=== PATIENT | male | born 1950 | race Caucasian/White ===

== ENCOUNTER → 2018-07-02 08:25 | Outpatient (CLI) | payer MEDICARE, SELFPAY ==
--- NOTE | 2018-07-02 | DI.US.S_ITS ---
PROCEDURE: US ABDOMEN COMPLETE INDICATIONS: ABNORMAL LEVELS OF OTHER SERUM ENZYMES TECHNIQUE: Real-time scanning was performed of the abdominal and retroperitoneal organs, with image documentation. COMPARISON: None. FINDINGS: Liver: Liver is normal in size and homogeneous in echotexture, mildly hyperechoic consistent with fatty infiltration. There are several scattered cysts within the right and left lobe of the liver, simple in character, measuring 1.6 x 1.9 x 2.1 cm at the largest. Gallbladder: The gallbladder appears mildly wall thickened ranging from 3-5 mm. No tenderness or stones were seen. Biliary ducts: Intrahepatic bile ducts are non-dilated. Extrahepatic bile duct caliber measures 3.0 mm. Normal is 6-7 mm or less in diameter, or 10 mm or less post-cholecystectomy. Pancreas: Visualized portions of the pancreas are sonographically normal. Spleen: Spleen is normal in size and homogeneous in echotexture. Kidneys: Kidneys are normal in size and echotexture. Right kidney measures 13.2 cm long; left kidney measures 11.4 cm long. No hydronephrosis or nephrolithiasis. No solid masses. Several scattered simple appearing renal cortical cysts are incidentally noted. Aorta: Visualized aorta is normal in caliber at less than 3 cm. Iliacs: Proximal common iliac arteries are normal in caliber at less than 2.5 cm. IVC: Intrahepatic inferior vena cava is patent. Miscellaneous: No free abdominal fluid. IMPRESSION: Several scattered hepatic and renal cortical cysts are present, simple in character. Hyperechoic liver echotexture is present consistent with mild fatty infiltration. Note is made of mild gallbladder wall thickening but without associated gallstones or sludge, or tenderness. Chronic cholecystitis can produce this appearance. Depending on the clinical status it may be warranted to obtain nuclear medicine hepatobiliary scan with gallbladder ejection fraction as assessment for chronic cholecystitis. MR cholangiogram could be utilized if there is a clinical concern for common duct calculus without associated distention. Dictated by: Shelton Lee M.D. on 07/02/2018 at 11:41 Approved by: Shelton Lee M.D. on 07/02/2018 at 11:45
== END ==
PROVIDERS: Visit Provider Family Medicine
DX: R74.8 Abnormal levels of other serum enzymes (principal); K76.89 Other specified diseases of liver; N28.1 Cyst of kidney, acquired
CPT/HCPCS: 76700

== ENCOUNTER → 2019-04-05 10:46 | Outpatient (CLI) | payer MEDICARE, SELFPAY ==
--- NOTE | 2019-04-05 | DI.RAD.S_ITS ---
PROCEDURE: XR KNEE RT 3V INDICATIONS: R knee pain TECHNIQUE: 3 views of the knee were acquired. COMPARISON: None. FINDINGS: Bones: No fractures or dislocations. No suspicious bony lesions. Mild medial joint space narrowing. Scattered degenerative subchondral sclerosis and spurring. Mild lateral patellar tilt Soft tissues: Moderate joint effusion. No suspicious soft tissue calcifications. IMPRESSION: Mild degenerative joint disease Moderate joint effusion Dictated by: Nick Hopper M.D. on 04/05/2019 at 13:28 Approved by: Nick Hopper M.D. on 04/05/2019 at 13:29
== END ==
PROVIDERS: Visit Provider Family Medicine
DX: M25.561 Pain in right knee (principal); M17.11 Unilateral primary osteoarthritis, right knee; M25.461 Effusion, right knee
CPT/HCPCS: 73562

== ENCOUNTER → 2019-08-21 07:22 | Outpatient (CLI) | payer MEDICARE, SELFPAY ==
--- NOTE | 2019-08-21 | DI.MRI.S_ITS ---
PROCEDURE: MR KNEE RT WO CON INDICATIONS: Pain in right knee TECHNIQUE: Noncontrast sagittal PD fast spin echo and T2 fast spin echo with fat saturation, sagittal 3-D FLASH with fat saturation; coronal T1 spin echo and PD fast spin echo with fat saturation, and axial PD fast spin echo with fat saturation through the knee. COMPARISON: [facility], CR, XR KNEE RT 3V, 04/05/2019, 10:53. FINDINGS: Image quality: Excellent. Menisci: Ill-defined severely macerated medial meniscal tear involving the body and posterior horn. There is complete extrusion of the body and possible meniscal fragment within the medial gutter. Lateral meniscus intact. Cruciate ligaments: Anterior cruciate ligament appears intact. However there are some intrasubstance or periligamentous ganglion cyst suggestive of early mucoid degeneration. Posterior cruciate ligament appears intact. Medial structures: The medial collateral ligament appears intact. Semimembranosus tendon appears intact. Visualized portions of the pes anserinus tendons appear normal. No abnormal bursal fluid. Lateral structures: The lateral collateral ligament demonstrates thickening and intrasubstance signal change in keeping with low grade sprain, statistically chronic, although technically age indeterminate. Biceps femoris tendon appears intact. Popliteus tendon grossly unremarkable. Iliotibial band appears intact. Anterior structures: Quadriceps tendon intact. Medial and lateral patellofemoral ligaments intact. There is mild patellar tendinopathy. Prepatellar and superficial infrapatellar subcutaneous edema/fluid. Bones and cartilage: No focal marrow contusion or discrete low signal fracture line. Within the medial compartment, diffuse full-thickness loss of the femoral and tibial articular cartilage Within the lateral compartment, mild surface fraying of the femoral cartilage. Intrasubstance signal changes involving the central weightbearing tibial cartilage Within the patellofemoral compartment, diffuse surface fraying of the femoral trochlear and patellar cartilage Joint space: Trace joint effusion. Magallon's cyst measuring 4.3 cm and the cephalocaudad dimension. 1 cm loose body seen posterior to the popliteus. IMPRESSION: Macerated ill-defined medial meniscal tear involving the body and posterior horn as detailed above. Mild early cystic change involving and near the anterior cruciate ligament. The appearance raises the possibility of early mucoid degeneration. Degenerative joint disease, most pronounced within the medial compartment Magallon's cyst Trace joint effusion 1 cm loose body posterior to the popliteus tendon. Dictated by: Nick Hopper M.D. on 08/21/2019 at 10:31 Approved by: Nick Hopper M.D. on 08/21/2019 at 10:45
== END ==
PROVIDERS: Referring Provider Family Medicine; Visit Provider Family Medicine
DX: M25.561 Pain in right knee (principal); S83.241A Other tear of medial meniscus, current injury, right knee, initial encounter; M17.11 Unilateral primary osteoarthritis, right knee; M71.21 Synovial cyst of popliteal space [Baker], right knee
CPT/HCPCS: 73721

== ENCOUNTER 2021-06-21 11:05 | Inpatient (IN) | payer MEDICARE, SELFPAY ==
[2021-06-21] VITALS (20 sets, daily range): BP systolic 108–159; BP diastolic 63–88; PULSE 90–133; RESP 0–34; TEMP 36.3–37.2; O2SAT 90–99; BMI 37.5
--- NOTE | 2021-06-21 13:36 | ED_ITS ---
HPI - Recheck/Abnormal Lab/Rx <Alexander Soliman DO - Last Filed: 06/22/21 14:48> General Chief Complaint: Recheck/Abnormal Lab/Rx Stated Complaint: ETOH- can't swallow, double vision-sent [place] adam Time Seen by Provider: 06/21/21 11:07 Source: patient Mode of arrival: Ambulatory History of Present Illness HPI narrative: 70-year-old male former smoker with extensive history of alcohol abuse including upwards of 1/5 of liquor per day presents with his at the request of his primary care provider due to poor appetite, inability to swallow solids, fatigue, lack of energy over the past few days if not longer. He denies any chest pain but does feel short of breath. He has generalized abdominal pain without any obvious provocation or palliation. He has no complaints of change in bowel habit or frequency of urination, dysuria or urgency. He has had no fever or chills. He denies any headache, or blurred vision, denies any trauma. He denies any auditory, visual or tactile hallucinations. He last drank just prior to his arrival. He has gone through mild withdrawals in the past but has never had seizures. He denies any vomiting, no history of GI bleed and no dark stools Related Data Home Medications Medication Instructions Recorded Confirmed levothyroxine 75 mcg tablet 75 mcg PO QAM 06/21/21 06/21/21 simvastatin 40 mg tablet 40 mg PO BEDTIME 06/21/21 06/21/21 Allergies Allergy/AdvReac Type Severity Reaction Status Date / Time oxycodone AdvReac Unknown Verified 06/21/21 11:20 Review of Systems <DO Oli Reeder Last Filed: 06/22/21 14:48> Review of Systems Narrative: GENERAL: See HPI HEENT: See HPI RESPIRATORY: Denies dyspnea, cough, wheezing, hemoptysis, sputum. CARDIOVASCULAR: Denies chest pain, palpitations, orthopnea, edema, GASTROINTESTINAL: Denies nausea, vomiting, abdominal pain, diarrhea, constipation, melena. : Denies dysuria, frequency, incontinence, hematuria, urinary retention. MUSCULOSKELETAL: denies weakness, joint pain, or bony pain SKIN: Denies rash, skin lesions, or other NEUROLOGIC: See HPI PSYCHIATRIC: No concerning psychosocial issues. 12 point review of systems is negative except for those stated above Patient History <Alexander Soliman DO - Last Filed: 06/22/21 14:48> Social History household members: spouse Smoking Status: Former smoker alcohol intake: current Smoking Status: Former smoker alcohol intake frequency: 3 or more drinks per day Substance Use Type: does not use Exam <Alexander Soliman DO - Last Filed: 06/22/21 14:48> Narrative Exam Narrative: GENERAL: [70] year old patient appears stated age. Well-developed patient, in mild distress. Appears chronically ill, unwell HEAD: Atraumatic. Normocephalic. EYES: Pupils equal round and reactive. Extraocular motions intact. Mild scleral icterus No injection or drainage. ENT: Nose without bleeding, purulent drainage. Throat without erythema, tonsillar hypertrophy or exudate. Airway patent. NECK: Trachea midline. Non tender CARDIOVASCULAR: Regular rate and rhythm without murmurs, gallops, or rubs. RESPIRATORY: Clear to auscultation. Breath sounds equal bilaterally. No wheezes, rales, or rhonchi. GASTROINTESTINAL: Abdomen soft, non-tender, nondistended. EXTREMITIES: No edema or joint tenderness. BACK: Nontender without deformity or crepitance. No flank tenderness. NEURO: AOx3. SKIN: No rash or erythema of visible areas Initial Vital Signs Initial Vital Signs: Vital Signs Temperature 97.4 F L 06/21/21 11:15 Pulse Rate 90 06/21/21 11:15 Respiratory Rate 14 06/21/21 11:15 Blood Pressure 145/63 H 06/21/21 11:15 Pulse Oximetry 99 06/21/21 11:15 <Carlyn Schofield MD - Last Filed: 06/22/21 03:55> Initial Vital Signs Initial Vital Signs: Vital Signs Temperature 97.4 F L 06/21/21 11:15 Pulse Rate 90 06/21/21 11:15 Respiratory Rate 14 06/21/21 11:15 Blood Pressure 145/63 H 06/21/21 11:15 Pulse Oximetry 99 06/21/21 11:15 Course <Alexander Soliman DO - Last Filed: 06/22/21 14:48> Orders Ordered: Al Hydrox/Mg Hydrox/Simethicone (Mag Hydrox/Alum/Simeth 30 Ml Udc) 30 ml PO Q6HR PRN PRN Reason: Dyspepsia Atorvastatin Calcium (Atorvastatin 20 Mg Tablet) 20 mg PO BEDTIME [facility] Calcium Carbonate (Calcium Carbonate 500 Mg Tab) 1,000 mg PO Q4HR PRN PRN Reason: Dyspepsia Clonidine HCl (Clonidine 0.1 Mg Tablet) 0.1 mg PO NOW PRN PRN Reason: Alcohol Withdrawal Folic Acid (Folic Acid 1 Mg Tablet) 1 mg PO DAILY [facility] Last Admin: 06/22/21 09:16 Dose: Not Given Documented by: RAIMUNDO Haloperidol (Haloperidol 5 Mg/Ml Vial) 2 mg IV Q2HR PRN PRN Reason: Agitation Last Admin: 06/22/21 03:23 Dose: 2 mg Documented by: COLIN Sodium Chloride (Normal Saline 0.9%) 1,000 mls @ 150 mls/hr IV CONT [facility] Last Admin: 06/21/21 20:30 Dose: 150 mls/hr Documented by: MARS Levothyroxine Sodium (Levothyroxine 75 Mcg Tablet) 75 mcg PO 0600 [facility] Last Admin: 06/22/21 06:29 Dose: Not Given Documented by: COLIN Lorazepam (Lorazepam 2 Mg/Ml Inj) 0 mg IV CIWAPRN PRN; Protocol PRN Reason: Alcohol Withdrawal Last Admin: 06/22/21 09:14 Dose: 1 mg Documented by: Admin: 06/22/21 06:45 Dose: 2 mg Documented by: Admin: 06/22/21 02:44 Dose: 2 mg Documented by: Admin: 06/21/21 22:57 Dose: 2 mg Documented by: Admin: 06/21/21 22:23 Dose: 1 mg Documented by: DEANNA Multivitamins (Multivitamin 1 Tablet) 1 tab PO DAILY [facility] Last Admin: 06/22/21 09:16 Dose: Not Given Documented by: RAIMUNDO Naloxone HCl (Naloxone 0.4 Mg/Ml Vial) 0.2 mg IV Q2MIN PRN PRN Reason: Opiate Reversal Ondansetron HCl (Ondansetron 4 Mg/2 Ml Inj) 4 mg IV Q8HR PRN PRN Reason: Nausea And Vomiting Pantoprazole Sodium (Pantoprazole Dr 20 Mg Tablet) 20 mg PO 0600 [facility] Last Admin: 06/22/21 06:29 Dose: Not Given Documented by: COLIN Phenobarbital Sodium (Phenobarbital 130 Mg/Ml Vial) 130 mg IV Q8H [facility] Stop: 06/23/21 03:31 Last Admin: 06/22/21 11:31 Dose: 130 mg Documented by: RAIMUNDO Potassium Chloride (Potassium Chloride 20 Meq Tab) 40 meq PO Q6H [facility] Stop: 06/22/21 15:16 Last Admin: 06/22/21 13:00 Dose: Not Given Documented by: RAIMUNDO Thiamine HCl (Thiamine 100 Mg Tablet) 100 mg PO DAILY [facility] Stop: 06/25/21 09:01 Last Admin: 06/22/21 09:16 Dose: Not Given Documented by: RAIMUNDO Discontinued Medications Sodium Chloride (Normal Saline 0.9%) 1,000 mls @ 1,000 mls/hr IV BOLUS ONE Stop: 06/21/21 14:49 Last Infusion: 06/21/21 16:54 Dose: 0 mls/hr Documented by: Admin: 06/21/21 14:48 Dose: 1,000 mls/hr Documented by: ALONZO Thiamine HCl 200 mg/ Sodium (Chloride) 102 mls @ 408 mls/hr IV NOW ONE Stop: 06/21/21 13:51 Last Infusion: 06/21/21 15:46 Dose: 0 mls/hr Documented by: Admin: 06/21/21 14:47 Dose: 408 mls/hr Documented by: ALONZO Lorazepam (Lorazepam 2 Mg/Ml Inj) 4 mg IV NOW ONE Stop: 06/21/21 19:31 Last Admin: 06/21/21 19:33 Dose: 4 mg Documented by: RAJAT Lorazepam (Lorazepam 2 Mg/Ml Inj) 4 mg IV NOW ONE Stop: 06/22/21 00:06 Last Admin: 06/22/21 00:21 Dose: 4 mg Documented by: COLIN Lorazepam (Lorazepam 2 Mg/Ml Inj) 4 mg IV NOW ONE Stop: 06/22/21 03:15 Last Admin: 06/22/21 03:37 Dose: 4 mg Documented by: COLIN Lorazepam (Lorazepam 2 Mg/Ml Inj) 4 mg IV NOW ONE Stop: 06/22/21 05:01 Last Admin: 06/22/21 05:12 Dose: 4 mg Documented by: COLIN Non-Formulary Medication (Simvastatin) 40 mg PO BEDTIME EN Phenobarbital (Phenobarbital 65 Mg/Ml Vial) 130 mg IV NOW ONE Stop: 06/21/21 13:51 Last Admin: 06/21/21 14:48 Dose: 130 mg Documented by: ALONZO Phenobarbital (Phenobarbital 65 Mg/Ml Vial) 65 mg IV Q8H EN Stop: 06/23/21 03:31 Phenobarbital Sodium (Phenobarbital 130 Mg/Ml Vial) 130 mg IV NOW ONE Stop: 06/21/21 17:01 Last Admin: 06/21/21 17:01 Dose: 130 mg Documented by: ALONZO Vital Signs Vital signs: Vital Signs - 8 hr 06/21/21 20:00 Pulse Rate 123 H Respiratory Rate 29 H Blood Pressure 148/84 H Pulse Oximetry 95 <Carlyn Schofield MD - Last Filed: 06/22/21 03:55> Orders Ordered: Al Hydrox/Mg Hydrox/Simethicone (Mag Hydrox/Alum/Simeth 30 Ml Udc) 30 ml PO Q6HR PRN PRN Reason: Dyspepsia Atorvastatin Calcium (Atorvastatin 20 Mg Tablet) 20 mg PO BEDTIME [facility] Calcium Carbonate (Calcium Carbonate 500 Mg Tab) 1,000 mg PO Q4HR PRN PRN Reason: Dyspepsia Clonidine HCl (Clonidine 0.1 Mg Tablet) 0.1 mg PO NOW PRN PRN Reason: Alcohol Withdrawal Folic Acid (Folic Acid 1 Mg Tablet) 1 mg PO DAILY [facility] Last Admin: 06/22/21 09:16 Dose: Not Given Documented by: RAIMUNDO Haloperidol (Haloperidol 5 Mg/Ml Vial) 2 mg IV Q2HR PRN PRN Reason: Agitation Last Admin: 06/22/21 03:23 Dose: 2 mg Documented by: COLIN Sodium Chloride (Normal Saline 0.9%) 1,000 mls @ 150 mls/hr IV CONT [facility] Last Admin: 06/21/21 20:30 Dose: 150 mls/hr Documented by: MARS Levothyroxine Sodium (Levothyroxine 75 Mcg Tablet) 75 mcg PO 0600 [facility] Last Admin: 06/22/21 06:29 Dose: Not Given Documented by: COLIN Lorazepam (Lorazepam 2 Mg/Ml Inj) 0 mg IV CIWAPRN PRN; Protocol PRN Reason: Alcohol Withdrawal Last Admin: 06/22/21 09:14 Dose: 1 mg Documented by: Admin: 06/22/21 06:45 Dose: 2 mg Documented by: Admin: 06/22/21 02:44 Dose: 2 mg Documented by: Admin: 06/21/21 22:57 Dose: 2 mg Documented by: Admin: 06/21/21 22:23 Dose: 1 mg Documented by: DEANNA Multivitamins (Multivitamin 1 Tablet) 1 tab PO DAILY [facility] Last Admin: 06/22/21 09:16 Dose: Not Given Documented by: RAIMUNDO Naloxone HCl (Naloxone 0.4 Mg/Ml Vial) 0.2 mg IV Q2MIN PRN PRN Reason: Opiate Reversal Ondansetron HCl (Ondansetron 4 Mg/2 Ml Inj) 4 mg IV Q8HR PRN PRN Reason: Nausea And Vomiting Pantoprazole Sodium (Pantoprazole Dr 20 Mg Tablet) 20 mg PO 0600 [facility] Last Admin: 06/22/21 06:29 Dose: Not Given Documented by: COLIN Phenobarbital Sodium (Phenobarbital 130 Mg/Ml Vial) 130 mg IV Q8H [facility] Stop: 06/23/21 03:31 Last Admin: 06/22/21 11:31 Dose: 130 mg Documented by: RAIMUNDO Potassium Chloride (Potassium Chloride 20 Meq Tab) 40 meq PO Q6H EN Stop: 06/22/21 15:16 Last Admin: 06/22/21 13:00 Dose: Not Given Documented by: RAIMUNDO Thiamine HCl (Thiamine 100 Mg Tablet) 100 mg PO DAILY EN Stop: 06/25/21 09:01 Last Admin: 06/22/21 09:16 Dose: Not Given Documented by: RAIMUNDO Discontinued Medications Sodium Chloride (Normal Saline 0.9%) 1,000 mls @ 1,000 mls/hr IV BOLUS ONE Stop: 06/21/21 14:49 Last Infusion: 06/21/21 16:54 Dose: 0 mls/hr Documented by: Admin: 06/21/21 14:48 Dose: 1,000 mls/hr Documented by: ALONZO Thiamine HCl 200 mg/ Sodium (Chloride) 102 mls @ 408 mls/hr IV NOW ONE Stop: 06/21/21 13:51 Last Infusion: 06/21/21 15:46 Dose: 0 mls/hr Documented by: Admin: 06/21/21 14:47 Dose: 408 mls/hr Documented by: ALONZO Lorazepam (Lorazepam 2 Mg/Ml Inj) 4 mg IV NOW ONE Stop: 06/21/21 19:31 Last Admin: 06/21/21 19:33 Dose: 4 mg Documented by: RAJAT Lorazepam (Lorazepam 2 Mg/Ml Inj) 4 mg IV NOW ONE Stop: 06/22/21 00:06 Last Admin: 06/22/21 00:21 Dose: 4 mg Documented by: COLIN Lorazepam (Lorazepam 2 Mg/Ml Inj) 4 mg IV NOW ONE Stop: 06/22/21 03:15 Last Admin: 06/22/21 03:37 Dose: 4 mg Documented by: COLIN Lorazepam (Lorazepam 2 Mg/Ml Inj) 4 mg IV NOW ONE Stop: 06/22/21 05:01 Last Admin: 06/22/21 05:12 Dose: 4 mg Documented by: COLIN Non-Formulary Medication (Simvastatin) 40 mg PO BEDTIME [facility] Phenobarbital (Phenobarbital 65 Mg/Ml Vial) 130 mg IV NOW ONE Stop: 06/21/21 13:51 Last Admin: 06/21/21 14:48 Dose: 130 mg Documented by: ALONZO Phenobarbital (Phenobarbital 65 Mg/Ml Vial) 65 mg IV Q8H [facility] Stop: 06/23/21 03:31 Phenobarbital Sodium (Phenobarbital 130 Mg/Ml Vial) 130 mg IV NOW ONE Stop: 06/21/21 17:01 Last Admin: 06/21/21 17:01 Dose: 130 mg Documented by: ALONZO Vital Signs Vital signs: Vital Signs - 8 hr 06/21/21 20:00 Pulse Rate 123 H Respiratory Rate 29 H Blood Pressure 148/84 H Pulse Oximetry 95 MDM - Recheck/Abnormal Lab/Rx <Alexander Soliman DO - Last Filed: 06/22/21 14:48> Lab Data Result diagrams: 06/22/21 04:30 06/22/21 04:30 Labs: Lab Results 06/21/21 06/21/21 06/21/21 Range/Units 13:40 13:40 13:40 WBC 10.0 (4.5-11.0) X10^3/uL RBC 4.37 L (4.5-5.9) X10^6/uL Hgb 14.6 (13.5-17.5) g/dL Hct 42.2 (41-53) % MCV 96.6 (80-100) fL MCH 33.3 (26-34) PG MCHC 34.5 (30-36) % RDW 13.0 (11.6-14.8) % Plt Count 137 L (150-400) X10^3/uL Neut % (Auto) 72.5 (50-75) % Lymph % (Auto) 18.3 L (25-40) % Creek % (Auto) 8.4 (3-14) % Eos % (Auto) 0.3 L (2-4) % Baso % (Auto) 0.5 (0-2) % Neut # (Auto) 7200 H (1607-8778) /uL Lymph # (Auto) 1800 (1225-4839) /uL Creek # (Auto) 800 (0-900) /uL Eos # (Auto) 0 (0-450) /uL Baso # (Auto) 100 (0-100) /uL PT (10.1-12.7) SECONDS INR (0.9-1.3) VBG pH (7.33-7.43) VBG pCO2 (45-50) mmHg VBG pO2 (35-45) mmHg VBG HCO3 (23-28) mmol/L VBG Total CO2 (24-29) mmol/L VBG O2 Saturation (70-75) % VBG Base Excess (0-4) mmol/L Sodium 139 (137-145) mmol/L Potassium 4.0 (3.4-5.1) mmol/L Chloride 101 (98-107) mmol/L Carbon Dioxide 17 L (22-32) mmol/L BUN 5 L (9-20) mg/dL Creatinine 0.73 (0.66-1.25) mg/dL Estimated GFR > 60.0 (>60) mL/min BUN/Creatinine Ratio 6.8 (6-22) Glucose 104 (80-110) mg/dL Calcium 8.9 (8.4-10.2) mg/dL Total Bilirubin 1.2 (0.2-1.3) mg/dL AST 537 H (17-59) IU/L ALT 221 H (<50) IU/L Alkaline Phosphatase 127 H (38-126) U/L Total Creatine Kinase 614 H (55-170) U/L CK-MB (CK-2) 6.07 H (<2.37) ng/mL CK-MB (CK-2) Rel Index 1.0 L (1.5-5.0) % Troponin I < 0.012 (0.01-0.034) ng/mL Total Protein 8.3 H (6.3-8.2) g/dL Albumin 4.8 (3.5-5.0) g/dL Globulin 3.5 (1.7-4.1) g/dL Albumin/Globulin Ratio 1.4 (1.0-2.8) TSH 3.29 (0.47-4.68) uIU/mL Free T4 1.10 (0.78-2.19) ng/dL Urine RBC (0-5/HPF) Urine WBC (0-5/HPF) Ur Squamous Epith Cells (0-5/HPF) Urine Bacteria (None) Ur Culture Indicated? Salicylates < 1.0 (<20) mg/dL U Opiates 300ng/mL cut (Negative) Ur Oxycodone Screen (Negative) Urine Methadone Screen (Negative) Acetaminophen < 10 (10-30) ug/mL Ur Barbiturates Screen (Negative) U Tricyclic Antidepress (Negative) Ur Phencyclidine Scrn (Negative) Ur Amphetamines Screen (Negative) U Methamphetamines Scrn (Negative) Ur MDMA Scrn (Ecstasy) (Negative) U Benzodiazepines Scrn (Negative) Urine Cocaine Screen (Negative) U Marijuana (THC) Screen (Negative) Ethyl Alcohol 273 H ( - 10) mg/dL SARS-CoV-2 (PCR) (Negative) 06/21/21 06/21/21 06/21/21 Range/Units 13:40 13:40 15:19 WBC (4.5-11.0) X10^3/uL RBC (4.5-5.9) X10^6/uL Hgb (13.5-17.5) g/dL Hct (41-53) % MCV (80-100) fL MCH (26-34) PG MCHC (30-36) % RDW (11.6-14.8) % Plt Count (150-400) X10^3/uL Neut % (Auto) (50-75) % Lymph % (Auto) (25-40) % Creek % (Auto) (3-14) % Eos % (Auto) (2-4) % Baso % (Auto) (0-2) % Neut # (Auto) (7880-1829) /uL Lymph # (Auto) (1945-4236) /uL Creek # (Auto) (0-900) /uL Eos # (Auto) (0-450) /uL Baso # (Auto) (0-100) /uL PT 12.6 (10.1-12.7) SECONDS INR 1.1 (0.9-1.3) VBG pH (7.33-7.43) VBG pCO2 (45-50) mmHg VBG pO2 (35-45) mmHg VBG HCO3 (23-28) mmol/L VBG Total CO2 (24-29) mmol/L VBG O2 Saturation (70-75) % VBG Base Excess (0-4) mmol/L Sodium (137-145) mmol/L Potassium (3.4-5.1) mmol/L Chloride (98-107) mmol/L Carbon Dioxide (22-32) mmol/L BUN (9-20) mg/dL Creatinine (0.66-1.25) mg/dL Estimated GFR (>60) mL/min BUN/Creatinine Ratio (6-22) Glucose (80-110) mg/dL Calcium (8.4-10.2) mg/dL Total Bilirubin (0.2-1.3) mg/dL AST (17-59) IU/L ALT (<50) IU/L Alkaline Phosphatase (38-126) U/L Total Creatine Kinase (55-170) U/L CK-MB (CK-2) (<2.37) ng/mL CK-MB (CK-2) Rel Index (1.5-5.0) % Troponin I (0.01-0.034) ng/mL Total Protein (6.3-8.2) g/dL Albumin (3.5-5.0) g/dL Globulin (1.7-4.1) g/dL Albumin/Globulin Ratio (1.0-2.8) TSH (0.47-4.68) uIU/mL Free T4 (0.78-2.19) ng/dL Urine RBC (0-5/HPF) Urine WBC (0-5/HPF) Ur Squamous Epith Cells (0-5/HPF) Urine Bacteria (None) Ur Culture Indicated? Salicylates (<20) mg/dL U Opiates 300ng/mL cut Negative (Negative) Ur Oxycodone Screen Negative (Negative) Urine Methadone Screen Negative (Negative) Acetaminophen (10-30) ug/mL Ur Barbiturates Screen Negative (Negative) U Tricyclic Antidepress Negative (Negative) Ur Phencyclidine Scrn Negative (Negative) Ur Amphetamines Screen Negative (Negative) U Methamphetamines Scrn Negative (Negative) Ur MDMA Scrn (Ecstasy) Negative (Negative) U Benzodiazepines Scrn Negative (Negative) Urine Cocaine Screen Negative (Negative) U Marijuana (THC) Screen Negative (Negative) Ethyl Alcohol 272 H ( - 10) mg/dL SARS-CoV-2 (PCR) (Negative) 06/21/21 06/21/21 06/21/21 Range/Units 15:19 16:24 17:00 WBC (4.5-11.0) X10^3/uL RBC (4.5-5.9) X10^6/uL Hgb (13.5-17.5) g/dL Hct (41-53) % MCV (80-100) fL MCH (26-34) PG MCHC (30-36) % RDW (11.6-14.8) % Plt Count (150-400) X10^3/uL Neut % (Auto) (50-75) % Lymph % (Auto) (25-40) % Creek % (Auto) (3-14) % Eos % (Auto) (2-4) % Baso % (Auto) (0-2) % Neut # (Auto) (4313-8630) /uL Lymph # (Auto) (8146-2918) /uL Creek # (Auto) (0-900) /uL Eos # (Auto) (0-450) /uL Baso # (Auto) (0-100) /uL PT (10.1-12.7) SECONDS INR (0.9-1.3) VBG pH 7.44 H (7.33-7.43) VBG pCO2 31.3 L (45-50) mmHg VBG pO2 24 L (35-45) mmHg VBG HCO3 21 L (23-28) mmol/L VBG Total CO2 22 L (24-29) mmol/L VBG O2 Saturation 46 L (70-75) % VBG Base Excess -3.0 L (0-4) mmol/L Sodium (137-145) mmol/L Potassium (3.4-5.1) mmol/L Chloride (98-107) mmol/L Carbon Dioxide (22-32) mmol/L BUN (9-20) mg/dL Creatinine (0.66-1.25) mg/dL Estimated GFR (>60) mL/min BUN/Creatinine Ratio (6-22) Glucose (80-110) mg/dL Calcium (8.4-10.2) mg/dL Total Bilirubin (0.2-1.3) mg/dL AST (17-59) IU/L ALT (<50) IU/L Alkaline Phosphatase (38-126) U/L Total Creatine Kinase (55-170) U/L CK-MB (CK-2) (<2.37) ng/mL CK-MB (CK-2) Rel Index (1.5-5.0) % Troponin I (0.01-0.034) ng/mL Total Protein (6.3-8.2) g/dL Albumin (3.5-5.0) g/dL Globulin (1.7-4.1) g/dL Albumin/Globulin Ratio (1.0-2.8) TSH (0.47-4.68) uIU/mL Free T4 (0.78-2.19) ng/dL Urine RBC 1-5/hpf (0-5/HPF) Urine WBC 0-1/hpf (0-5/HPF) Ur Squamous Epith Cells None seen (0-5/HPF) Urine Bacteria None seen (None) Ur Culture Indicated? Cult not indicated Salicylates (<20) mg/dL U Opiates 300ng/mL cut (Negative) Ur Oxycodone Screen (Negative) Urine Methadone Screen (Negative) Acetaminophen (10-30) ug/mL Ur Barbiturates Screen (Negative) U Tricyclic Antidepress (Negative) Ur Phencyclidine Scrn (Negative) Ur Amphetamines Screen (Negative) U Methamphetamines Scrn (Negative) Ur MDMA Scrn (Ecstasy) (Negative) U Benzodiazepines Scrn (Negative) Urine Cocaine Screen (Negative) U Marijuana (THC) Screen (Negative) Ethyl Alcohol ( - 10) mg/dL SARS-CoV-2 (PCR) Negative (Negative) 06/21/21 Range/Units 18:31 WBC (4.5-11.0) X10^3/uL RBC (4.5-5.9) X10^6/uL Hgb (13.5-17.5) g/dL Hct (41-53) % MCV (80-100) fL MCH (26-34) PG MCHC (30-36) % RDW (11.6-14.8) % Plt Count (150-400) X10^3/uL Neut % (Auto) (50-75) % Lymph % (Auto) (25-40) % Creek % (Auto) (3-14) % Eos % (Auto) (2-4) % Baso % (Auto) (0-2) % Neut # (Auto) (4349-6478) /uL Lymph # (Auto) (9643-0975) /uL Creek # (Auto) (0-900) /uL Eos # (Auto) (0-450) /uL Baso # (Auto) (0-100) /uL PT (10.1-12.7) SECONDS INR (0.9-1.3) VBG pH (7.33-7.43) VBG pCO2 (45-50) mmHg VBG pO2 (35-45) mmHg VBG HCO3 (23-28) mmol/L VBG Total CO2 (24-29) mmol/L VBG O2 Saturation (70-75) % VBG Base Excess (0-4) mmol/L Sodium (137-145) mmol/L Potassium (3.4-5.1) mmol/L Chloride (98-107) mmol/L Carbon Dioxide (22-32) mmol/L BUN (9-20) mg/dL Creatinine (0.66-1.25) mg/dL Estimated GFR (>60) mL/min BUN/Creatinine Ratio (6-22) Glucose (80-110) mg/dL Calcium (8.4-10.2) mg/dL Total Bilirubin (0.2-1.3) mg/dL AST (17-59) IU/L ALT (<50) IU/L Alkaline Phosphatase (38-126) U/L Total Creatine Kinase (55-170) U/L CK-MB (CK-2) (<2.37) ng/mL CK-MB (CK-2) Rel Index (1.5-5.0) % Troponin I (0.01-0.034) ng/mL Total Protein (6.3-8.2) g/dL Albumin (3.5-5.0) g/dL Globulin (1.7-4.1) g/dL Albumin/Globulin Ratio (1.0-2.8) TSH (0.47-4.68) uIU/mL Free T4 (0.78-2.19) ng/dL Urine RBC (0-5/HPF) Urine WBC (0-5/HPF) Ur Squamous Epith Cells (0-5/HPF) Urine Bacteria (None) Ur Culture Indicated? Salicylates (<20) mg/dL U Opiates 300ng/mL cut (Negative) Ur Oxycodone Screen (Negative) Urine Methadone Screen (Negative) Acetaminophen (10-30) ug/mL Ur Barbiturates Screen (Negative) U Tricyclic Antidepress (Negative) Ur Phencyclidine Scrn (Negative) Ur Amphetamines Screen (Negative) U Methamphetamines Scrn (Negative) Ur MDMA Scrn (Ecstasy) (Negative) U Benzodiazepines Scrn (Negative) Urine Cocaine Screen (Negative) U Marijuana (THC) Screen (Negative) Ethyl Alcohol 155 H ( - 10) mg/dL SARS-CoV-2 (PCR) (Negative) Urine Dip Bedside Urine Glucose Negative Bedside Urine Bilirubin - Negative Bedside Urine Ketone +++ 80 Urine Specific Peridot 1.020 Bedside Urine Occult Blood + Bedside Urine pH 6.0 Bedside Urine Protein +/- 15 Bedside Urine Urobilinogen - Negative Bedside Urine Nitrite - Negative Bedside Urine Leukocytes - Negative Esterase Imaging Data CT Soft Tissue Neck: Radiologist's Impression: Chart Viewer Diagnostics Subcategory All Activity ??:?? All Time ??:?? All Subcategories Filter Laboratory Imaging Microbiology Pathology Blood Bank Tests Cardiovascular Other Specialty DATE TYPE STATUS REF RANGE/AUTHOR Hx Today 15:[address] Signed Prakash Archer Today 15:28 Chest/Abdomen/Pelvis CT Signed Nata Nevarez 08/21/19 00:00 Knee MRI Signed Nick Hopper 04/05/19 00:00 Knee X-Ray Signed Nick Hopper 07/02/18 00:00 Abdomen Ultrasound Signed Shelton Lee Joe Urbano [facility] 70, M?1950 MRN#? [id number] [facility],?[facility] ED??R05?? 170.18cm 108.862kg BMI: 37.6kg/m? Recheck/Abnormal Lab/Rx Acc#? [id number] Resus Status Not Ordered No Hx Avail Special Indicators No Data to Display Home Meds Prescription Monitoring Program No Data to Display Allergies oxycodone Problems No Data to Display Vital Signs Today 15:00 Pulse 95?H O2 Sat 98? Diagnostics Reports Joe Urbano??70??M??1950 ? Allergy/Adv: oxycodone Close Soft Tissue Neck CT (Signed) Prakash Archer - 06/21/21 Chest/Abdomen/Pelvis CT (Signed) Nata Nevarez - 06/21/21 Knee MRI (Signed) Nick Hopper - 08/21/19 Knee X-Ray (Signed) Nick Hopper - 04/05/19 Abdomen Ultrasound (Signed) Shelton Lee - 07/02/18 [place] [address] CT Scan Report Signed Patient: Joe Urbano MR#: [id number] : 1950 Acct:[id number] Age/Sex: 70 / M Date of Service: 06/21/21 Loc: ED Accession Number: [id number] ?? Procedure: CT soft tissue neck w con Ordering Provider: Alexander Soliman D.O. PROCEDURE:? CT SOFT TISSUE NECK W CON ? INDICATIONS:? cannot swallow, extensive ethanol, liver ? TECHNIQUE:? After the administration of intravenous contrast, 3.0 mm axial sections acquired from the sella to the aortic arch.? Additional oblique axial 3.0 mm sections acquired through the pharynx.? 3 mm thick coronal and sagittal reformats were generated.? For radiation dose reduction, the following was used:? automated exposure control.? ? COMPARISON:? [facility], CT, CT CHEST ABD PEL W CON, 06/21/2021, 15:37. ? FINDINGS:? Image quality:? Excellent.? ? Lymph nodes:? No enlarged lymph nodes seen throughout the neck.? ? Vessels:? Visualized vasculature appears patent.? ? Neck spaces:? In this patient with this given history, scrutiny is given to mucosal masses.? The oropharynx, nasopharynx, and pharynx demonstrate no mucosal lesions.? The vocal cords, false vocal cords, pyriform sinuses, epiglottis, vallecula, and tongue base all appear normal.? Extramucosal spaces appear unremarkable.? ? Glands:? The parotid and submandibular glands appear normal.? Thyroid gland demonstrates no significant abnormality.? ? Miscellaneous:? Visualized brain and orbits appear normal.? Lung apices appear clear.? Superficial soft tissues appear normal. ? Bones:? No suspicious bony lesions.? Visualized sinuses and mastoids appear unremarkable. ?Focal degenerative change is seen involving the C1-C2 interface anteriorly.? Milder degenerative changes are seen elsewhere.? IMPRESSION:? ? No imaging explanation is found for this patient's presenting symptoms.? ? No mucosal masses can be seen. ? If clinically appropriate, please consider a referral to speech pathology for further evaluation/treatment of the patient's presenting history of swallowing difficulties. ? Dictated by: Prakash Archer M.D. on 06/21/2021 at 14:56 ? ? Approved by: Prakash Archer M.D. on 06/21/2021 at 14:58 ? CT scan - abdomen/pelvis: Radiologist's Impression: Chart Viewer Diagnostics Subcategory All Activity ??:?? All Time ??:?? All Subcategories Filter Laboratory Imaging Microbiology Pathology Blood Bank Tests Cardiovascular Other Specialty DATE TYPE STATUS REF RANGE/AUTHOR Hx Today 15:[address] Signed Prakash Archer Today 15:28 Chest/Abdomen/Pelvis CT Signed Nata Nevarez 08/21/19 00:00 Knee MRI Signed Nick Hopper 04/05/19 00:00 Knee X-Ray Signed Nick Hopper 07/02/18 00:00 Abdomen Ultrasound Signed Shelton Lee [facility] 70, M?1950 MRN#? [id number] [facility] ER,?Main ED??R05?? 170.18cm 108.862kg BMI: 37.6kg/m? Recheck/Abnormal Lab/Rx Acc#? [id number] Resus Status Not Ordered No Hx Avail Special Indicators No Data to Display Home Meds Prescription Monitoring Program No Data to Display Allergies oxycodone Problems No Data to Display Vital Signs Today 15:00 Pulse 95?H O2 Sat 98? Diagnostics Reports Joe Urbano??70??M??1950 ? Allergy/Adv: oxycodone Close Soft Tissue Neck CT (Signed) Prakash Archer - 06/21/21 Chest/Abdomen/Pelvis CT (Signed) Nata Nevarez - 06/21/21 Knee MRI (Signed) Nick Hopper - 08/21/19 Knee X-Ray (Signed) Nick Hopper - 04/05/19 Abdomen Ultrasound (Signed) Shelton Lee - 07/02/18 Launch?[place] [address] CT Scan Report Signed Patient: Joe Urbano MR#: [id number] : 1950 Acct:[id number] Age/Sex: 70 / M Date of Service: 06/21/21 Loc: ED Accession Number: [id number] ?? Procedure: CT soft tissue neck w con Ordering Provider: Alexander Soliman D.O. PROCEDURE:? CT SOFT TISSUE NECK W CON ? INDICATIONS:? cannot swallow, extensive ethanol, liver ? TECHNIQUE:? After the administration of intravenous contrast, 3.0 mm axial sections acquired from the sella to the aortic arch.? Additional oblique axial 3.0 mm sections acquired through the pharynx.? 3 mm thick coronal and sagittal reformats were generated.? For radiation dose reduction, the following was used:? automated exposure control.? ? COMPARISON:? [facility], CT, CT CHEST ABD PEL W CON, 06/21/2021, 15:37. ? FINDINGS:? Image quality:? Excellent.? ? Lymph nodes:? No enlarged lymph nodes seen throughout the neck.? ? Vessels:? Visualized vasculature appears patent.? ? Neck spaces:? In this patient with this given history, scrutiny is given to mucosal masses.? The oropharynx, nasopharynx, and pharynx demonstrate no mucosal lesions.? The vocal cords, false vocal cords, pyriform sinuses, epiglottis, vallecula, and tongue base all appear normal.? Extramucosal spaces appear unremarkable.? ? Glands:? The parotid and submandibular glands appear normal.? Thyroid gland demonstrates no significant abnormality.? ? Miscellaneous:? Visualized brain and orbits appear normal.? Lung apices appear clear.? Superficial soft tissues appear normal. ? Bones:? No suspicious bony lesions.? Visualized sinuses and mastoids appear unremarkable. ?Focal degenerative change is seen involving the C1-C2 interface anteriorly.? Milder degenerative changes are seen elsewhere.? IMPRESSION:? ? No imaging explanation is found for this patient's presenting symptoms.? ? No mucosal masses can be seen. ? If clinically appropriate, please consider a referral to speech pathology for further evaluation/treatment of the patient's presenting history of swallowing difficulties. ? Dictated by: Prakash Archer M.D. on 06/21/2021 at 14:56 ? ? Approved by: Prakash Archer M.D. on 06/21/2021 at 14:58 ? [facility] Narrative Medical decision making narrative: Patient presents with fatigue, poor appetite and desire to quit drinking. Initially there was some concern that he hasn't been eating solids due to an obstructive process, but he states he just has a poor appetite. Imaging is very reassuring. He has no pain and is tolerating orals. Initially he has a very low CIWA scale, but is given Phenobarb 130mg given the likely evolution of withdrawals. Well into the visit he continues to wish to pursue alcohol cessation and is open to the idea of placement. [facility] has seen patient and there is an available bed tomorrow. 1900 - patient signed out to Dr. Schofield for management overnight. <Carlyn Schofield MD - Last Filed: 06/22/21 03:55> Lab Data Labs: Lab Results 06/21/21 06/21/21 06/21/21 Range/Units 13:40 13:40 13:40 WBC 10.0 (4.5-11.0) X10^3/uL RBC 4.37 L (4.5-5.9) X10^6/uL Hgb 14.6 (13.5-17.5) g/dL Hct 42.2 (41-53) % MCV 96.6 (80-100) fL MCH 33.3 (26-34) PG MCHC 34.5 (30-36) % RDW 13.0 (11.6-14.8) % Plt Count 137 L (150-400) X10^3/uL Neut % (Auto) 72.5 (50-75) % Lymph % (Auto) 18.3 L (25-40) % Creek % (Auto) 8.4 (3-14) % Eos % (Auto) 0.3 L (2-4) % Baso % (Auto) 0.5 (0-2) % Neut # (Auto) 7200 H (1729-1508) /uL Lymph # (Auto) 1800 (0949-1098) /uL Creek # (Auto) 800 (0-900) /uL Eos # (Auto) 0 (0-450) /uL Baso # (Auto) 100 (0-100) /uL PT (10.1-12.7) SECONDS INR (0.9-1.3) VBG pH (7.33-7.43) VBG pCO2 (45-50) mmHg VBG pO2 (35-45) mmHg VBG HCO3 (23-28) mmol/L VBG Total CO2 (24-29) mmol/L VBG O2 Saturation (70-75) % VBG Base Excess (0-4) mmol/L Sodium 139 (137-145) mmol/L Potassium 4.0 (3.4-5.1) mmol/L Chloride 101 (98-107) mmol/L Carbon Dioxide 17 L (22-32) mmol/L BUN 5 L (9-20) mg/dL Creatinine 0.73 (0.66-1.25) mg/dL Estimated GFR > 60.0 (>60) mL/min BUN/Creatinine Ratio 6.8 (6-22) Glucose 104 (80-110) mg/dL Calcium 8.9 (8.4-10.2) mg/dL Total Bilirubin 1.2 (0.2-1.3) mg/dL AST 537 H (17-59) IU/L ALT 221 H (<50) IU/L Alkaline Phosphatase 127 H (38-126) U/L Total Creatine Kinase 614 H (55-170) U/L CK-MB (CK-2) 6.07 H (<2.37) ng/mL CK-MB (CK-2) Rel Index 1.0 L (1.5-5.0) % Troponin I < 0.012 (0.01-0.034) ng/mL Total Protein 8.3 H (6.3-8.2) g/dL Albumin 4.8 (3.5-5.0) g/dL Globulin 3.5 (1.7-4.1) g/dL Albumin/Globulin Ratio 1.4 (1.0-2.8) TSH 3.29 (0.47-4.68) uIU/mL Free T4 1.10 (0.78-2.19) ng/dL Urine RBC (0-5/HPF) Urine WBC (0-5/HPF) Ur Squamous Epith Cells (0-5/HPF) Urine Bacteria (None) Ur Culture Indicated? Salicylates < 1.0 (<20) mg/dL U Opiates 300ng/mL cut (Negative) Ur Oxycodone Screen (Negative) Urine Methadone Screen (Negative) Acetaminophen < 10 (10-30) ug/mL Ur Barbiturates Screen (Negative) U Tricyclic Antidepress (Negative) Ur Phencyclidine Scrn (Negative) Ur Amphetamines Screen (Negative) U Methamphetamines Scrn (Negative) Ur MDMA Scrn (Ecstasy) (Negative) U Benzodiazepines Scrn (Negative) Urine Cocaine Screen (Negative) U Marijuana (THC) Screen (Negative) Ethyl Alcohol 273 H ( - 10) mg/dL SARS-CoV-2 (PCR) (Negative) 06/21/21 06/21/21 06/21/21 Range/Units 13:40 13:40 15:19 WBC (4.5-11.0) X10^3/uL RBC (4.5-5.9) X10^6/uL Hgb (13.5-17.5) g/dL Hct (41-53) % MCV (80-100) fL MCH (26-34) PG MCHC (30-36) % RDW (11.6-14.8) % Plt Count (150-400) X10^3/uL Neut % (Auto) (50-75) % Lymph % (Auto) (25-40) % Creek % (Auto) (3-14) % Eos % (Auto) (2-4) % Baso % (Auto) (0-2) % Neut # (Auto) (2060-6385) /uL Lymph # (Auto) (5290-5261) /uL Creek # (Auto) (0-900) /uL Eos # (Auto) (0-450) /uL Baso # (Auto) (0-100) /uL PT 12.6 (10.1-12.7) SECONDS INR 1.1 (0.9-1.3) VBG pH (7.33-7.43) VBG pCO2 (45-50) mmHg VBG pO2 (35-45) mmHg VBG HCO3 (23-28) mmol/L VBG Total CO2 (24-29) mmol/L VBG O2 Saturation (70-75) % VBG Base Excess (0-4) mmol/L Sodium (137-145) mmol/L Potassium (3.4-5.1) mmol/L Chloride (98-107) mmol/L Carbon Dioxide (22-32) mmol/L BUN (9-20) mg/dL Creatinine (0.66-1.25) mg/dL Estimated GFR (>60) mL/min BUN/Creatinine Ratio (6-22) Glucose (80-110) mg/dL Calcium (8.4-10.2) mg/dL Total Bilirubin (0.2-1.3) mg/dL AST (17-59) IU/L ALT (<50) IU/L Alkaline Phosphatase (38-126) U/L Total Creatine Kinase (55-170) U/L CK-MB (CK-2) (<2.37) ng/mL CK-MB (CK-2) Rel Index (1.5-5.0) % Troponin I (0.01-0.034) ng/mL Total Protein (6.3-8.2) g/dL Albumin (3.5-5.0) g/dL Globulin (1.7-4.1) g/dL Albumin/Globulin Ratio (1.0-2.8) TSH (0.47-4.68) uIU/mL Free T4 (0.78-2.19) ng/dL Urine RBC (0-5/HPF) Urine WBC (0-5/HPF) Ur Squamous Epith Cells (0-5/HPF) Urine Bacteria (None) Ur Culture Indicated? Salicylates (<20) mg/dL U Opiates 300ng/mL cut Negative (Negative) Ur Oxycodone Screen Negative (Negative) Urine Methadone Screen Negative (Negative) Acetaminophen (10-30) ug/mL Ur Barbiturates Screen Negative (Negative) U Tricyclic Antidepress Negative (Negative) Ur Phencyclidine Scrn Negative (Negative) Ur Amphetamines Screen Negative (Negative) U Methamphetamines Scrn Negative (Negative) Ur MDMA Scrn (Ecstasy) Negative (Negative) U Benzodiazepines Scrn Negative (Negative) Urine Cocaine Screen Negative (Negative) U Marijuana (THC) Screen Negative (Negative) Ethyl Alcohol 272 H ( - 10) mg/dL SARS-CoV-2 (PCR) (Negative) 06/21/21 06/21/21 06/21/21 Range/Units 15:19 16:24 17:00 WBC (4.5-11.0) X10^3/uL RBC (4.5-5.9) X10^6/uL Hgb (13.5-17.5) g/dL Hct (41-53) % MCV (80-100) fL MCH (26-34) PG MCHC (30-36) % RDW (11.6-14.8) % Plt Count (150-400) X10^3/uL Neut % (Auto) (50-75) % Lymph % (Auto) (25-40) % Creek % (Auto) (3-14) % Eos % (Auto) (2-4) % Baso % (Auto) (0-2) % Neut # (Auto) (8680-9833) /uL Lymph # (Auto) (0117-1305) /uL Creek # (Auto) (0-900) /uL Eos # (Auto) (0-450) /uL Baso # (Auto) (0-100) /uL PT (10.1-12.7) SECONDS INR (0.9-1.3) VBG pH 7.44 H (7.33-7.43) VBG pCO2 31.3 L (45-50) mmHg VBG pO2 24 L (35-45) mmHg VBG HCO3 21 L (23-28) mmol/L VBG Total CO2 22 L (24-29) mmol/L VBG O2 Saturation 46 L (70-75) % VBG Base Excess -3.0 L (0-4) mmol/L Sodium (137-145) mmol/L Potassium (3.4-5.1) mmol/L Chloride (98-107) mmol/L Carbon Dioxide (22-32) mmol/L BUN (9-20) mg/dL Creatinine (0.66-1.25) mg/dL Estimated GFR (>60) mL/min BUN/Creatinine Ratio (6-22) Glucose (80-110) mg/dL Calcium (8.4-10.2) mg/dL Total Bilirubin (0.2-1.3) mg/dL AST (17-59) IU/L ALT (<50) IU/L Alkaline Phosphatase (38-126) U/L Total Creatine Kinase (55-170) U/L CK-MB (CK-2) (<2.37) ng/mL CK-MB (CK-2) Rel Index (1.5-5.0) % Troponin I (0.01-0.034) ng/mL Total Protein (6.3-8.2) g/dL Albumin (3.5-5.0) g/dL Globulin (1.7-4.1) g/dL Albumin/Globulin Ratio (1.0-2.8) TSH (0.47-4.68) uIU/mL Free T4 (0.78-2.19) ng/dL Urine RBC 1-5/hpf (0-5/HPF) Urine WBC 0-1/hpf (0-5/HPF) Ur Squamous Epith Cells None seen (0-5/HPF) Urine Bacteria None seen (None) Ur Culture Indicated? Cult not indicated Salicylates (<20) mg/dL U Opiates 300ng/mL cut (Negative) Ur Oxycodone Screen (Negative) Urine Methadone Screen (Negative) Acetaminophen (10-30) ug/mL Ur Barbiturates Screen (Negative) U Tricyclic Antidepress (Negative) Ur Phencyclidine Scrn (Negative) Ur Amphetamines Screen (Negative) U Methamphetamines Scrn (Negative) Ur MDMA Scrn (Ecstasy) (Negative) U Benzodiazepines Scrn (Negative) Urine Cocaine Screen (Negative) U Marijuana (THC) Screen (Negative) Ethyl Alcohol ( - 10) mg/dL SARS-CoV-2 (PCR) Negative (Negative) 06/21/21 Range/Units 18:31 WBC (4.5-11.0) X10^3/uL RBC (4.5-5.9) X10^6/uL Hgb (13.5-17.5) g/dL Hct (41-53) % MCV (80-100) fL MCH (26-34) PG MCHC (30-36) % RDW (11.6-14.8) % Plt Count (150-400) X10^3/uL Neut % (Auto) (50-75) % Lymph % (Auto) (25-40) % Creek % (Auto) (3-14) % Eos % (Auto) (2-4) % Baso % (Auto) (0-2) % Neut # (Auto) (5134-9339) /uL Lymph # (Auto) (1376-0262) /uL Creek # (Auto) (0-900) /uL Eos # (Auto) (0-450) /uL Baso # (Auto) (0-100) /uL PT (10.1-12.7) SECONDS INR (0.9-1.3) VBG pH (7.33-7.43) VBG pCO2 (45-50) mmHg VBG pO2 (35-45) mmHg VBG HCO3 (23-28) mmol/L VBG Total CO2 (24-29) mmol/L VBG O2 Saturation (70-75) % VBG Base Excess (0-4) mmol/L Sodium (137-145) mmol/L Potassium (3.4-5.1) mmol/L Chloride (98-107) mmol/L Carbon Dioxide (22-32) mmol/L BUN (9-20) mg/dL Creatinine (0.66-1.25) mg/dL Estimated GFR (>60) mL/min BUN/Creatinine Ratio (6-22) Glucose (80-110) mg/dL Calcium (8.4-10.2) mg/dL Total Bilirubin (0.2-1.3) mg/dL AST (17-59) IU/L ALT (<50) IU/L Alkaline Phosphatase (38-126) U/L Total Creatine Kinase (55-170) U/L CK-MB (CK-2) (<2.37) ng/mL CK-MB (CK-2) Rel Index (1.5-5.0) % Troponin I (0.01-0.034) ng/mL Total Protein (6.3-8.2) g/dL Albumin (3.5-5.0) g/dL Globulin (1.7-4.1) g/dL Albumin/Globulin Ratio (1.0-2.8) TSH (0.47-4.68) uIU/mL Free T4 (0.78-2.19) ng/dL Urine RBC (0-5/HPF) Urine WBC (0-5/HPF) Ur Squamous Epith Cells (0-5/HPF) Urine Bacteria (None) Ur Culture Indicated? Salicylates (<20) mg/dL U Opiates 300ng/mL cut (Negative) Ur Oxycodone Screen (Negative) Urine Methadone Screen (Negative) Acetaminophen (10-30) ug/mL Ur Barbiturates Screen (Negative) U Tricyclic Antidepress (Negative) Ur Phencyclidine Scrn (Negative) Ur Amphetamines Screen (Negative) U Methamphetamines Scrn (Negative) Ur MDMA Scrn (Ecstasy) (Negative) U Benzodiazepines Scrn (Negative) Urine Cocaine Screen (Negative) U Marijuana (THC) Screen (Negative) Ethyl Alcohol 155 H ( - 10) mg/dL SARS-CoV-2 (PCR) (Negative) Urine Dip Bedside Urine Glucose Negative Bedside Urine Bilirubin - Negative Bedside Urine Ketone +++ 80 Urine Specific Peridot 1.020 Bedside Urine Occult Blood + Bedside Urine pH 6.0 Bedside Urine Protein +/- 15 Bedside Urine Urobilinogen - Negative Bedside Urine Nitrite - Negative Bedside Urine Leukocytes - Negative Esterase MDM Narrative Medical decision making narrative: Patient presents with fatigue, poor appetite and desire to quit drinking. Initially there was some concern that he hasn't been eating solids due to an obstructive process, but he states he just has a poor appetite. Imaging is very reassuring. He has no pain and is tolerating orals. Initially he has a very low CIWA scale, but is given Phenobarb 130mg given the likely evolution of withdrawals. Well into the visit he continues to wish to pursue alcohol cessation and is open to the idea of placement. [facility] has seen patient and there is an available bed tomorrow. 1900 - patient signed out to Dr. Schofield for management overnight. 730pm ETOH 155, total of 260 mg IV phenobarb. CIWA currently at 9. Concern for more severe withdrawal and need for hospitalization. Will discuss with hospitalist and patient. Six years ago the patient did need an inpatient stay for alcohol detox. He is drinking much more alcohol at this point. Again, having significant withdrawal symptoms despite high levels of benzos and phenobarbital and alcohol level still elevated at 155. Care is reviewed with Dr. Zapata to admit the patient to the hospitalist service. Discharge Plan Departure Patient Disposition: Admitted As Inpatient Clinical Impression: Alcohol dependence, Acute alcoholic hepatitis Admit Date/Time: 06/21/21 20:24 Admit Provider: Sánchez Zapata
[2021-06-21 13:49] LABS: Add Manual Diff / Slide Review NO; Basophils Absolute Auto 100 /uL (0-100); Basophils Percent Auto 0.5 % (0-2); Eosinophils Absolute Auto 0 /uL (0-450); Eosinophils Percent Auto 0.3 % (2-4); Hematocrit 42.2 % (41-53); Hemoglobin 14.6 g/dL (13.5-17.5); Lymphocytes Absolute Auto 1800 /uL (1100-4500); Lymphocytes Percent Auto 18.3 % (25-40); Mean Corpuscular HGB Conc 34.5 % (30-36); Mean Corpuscular Hemoglobin 33.3 PG (26-34); Mean Corpuscular Volume 96.6 fL (80-100); Monocytes Absolute Auto 800 /uL (0-900); Monocytes Percent Auto 8.4 % (3-14); Neutrophils Absolute Auto 7200 /uL (1500-7000); Neutrophils Percent Auto 72.5 % (50-75); Platelet Count 137 X10^3/uL (150-400); Red Blood Cell Count 4.37 X10^6/uL (4.5-5.9)
--- NOTE | 2021-06-21 13:49 | PC.NURSE ---
Patient reports increased alcohol consumption for months now, up to drink a 5th a day. He states it was originally to cope with back pain but is now out of control. Reports swallowing difficulty to where he has not been eating, only drinking and also some blurry vision the last few weeks. States has been not leaving couch since last /monday and not eating for the same amount of time. Sent here by PCP today. Is currently intoxicated.
[2021-06-21 14:03] LABS: Acetaminophen < 10 ug/mL (10-30); Alanine Aminotransferase 221 IU/L (<50); Albumin 4.8 g/dL (3.5-5.0); Albumin Globulin Ratio 1.4 (1.0-2.8); Alkaline Phosphatase 127 U/L (38-126); Aspartate Aminotransferase 537 IU/L (17-59); BUN Creatinine Ratio 6.8 (6-22); Bilirubin Total 1.2 mg/dL (0.2-1.3); Blood Urea Nitrogen 5 mg/dL (9-20); Calcium 8.9 mg/dL (8.4-10.2); Carbon Dioxide 17 mmol/L (22-32); Chloride 101 mmol/L (98-107); Creatine Kinase 614 U/L (55-170); Estimated Glomerular Filt Rate > 60.0 mL/min (>60); Ethanol (ETOH) 273 mg/dL; Globulin 3.5 g/dL (1.7-4.1); Glucose 104 mg/dL (80-110); HEMOLYSIS < 15 (0-50); Salicylate < 1.0 mg/dL (<20); Sodium 139 mmol/L (137-145); Total Protein 8.3 g/dL (6.3-8.2)
[2021-06-21 14:08] LABS: INR 1.1 (0.9-1.3); Prothrombin Time 12.6 SECONDS (10.1-12.7)
[2021-06-21 14:13] LABS: Troponin I < 0.012 ng/mL (0.01-0.034)
[2021-06-21 14:17] LABS: Creatine Kinase MB 6.07 ng/mL (<2.37)
[2021-06-21 14:33] LABS: Thyroid Stimulating Hormone 3.29 uIU/mL (0.47-4.68)
[2021-06-21] MEDS: THIAMINE 200 MG in SODIUM CHLORIDE 0.9% 100 ML 408 ML IV (14:47)
[2021-06-21] MEDS: PHENobarbital 65 MG/ML VIAL 130 MG IV (14:48)
[2021-06-21] MEDS: SODIUM CHLORIDE 0.9% 1,000 ML 1000 ML IV (14:48)
--- NOTE | 2021-06-21 15:28 | DI.CT.S_ITS ---
PROCEDURE: CT CHEST ABD PEL W CON INDICATIONS: abdominal pain, distension, extensive alcohol history TECHNIQUE: After the administration of oral and intravenous contrast, axial sections acquired from the supraclavicular neck to the pubic symphysis. Coronal and sagittal reformats were performed. For radiation dose reduction, the following was used: automated exposure control, adjustment of mA and/or kV according to patient size. COMPARISON:[facility], CT, CT SOFT TISSUE NECK W CON, 06/21/2021, 15:37. FINDINGS: Image quality: Excellent. CHEST: Lower Neck: No enlarged lymph nodes. Thyroid: Within normal limits. Axillae: No enlarged lymph nodes. Chest Wall: Unremarkable. Lungs and Airways: No consolidation or suspicious nodules. Pleura: No pneumothorax or pleural effusions. Heart: Heart size is normal. No pericardial effusion. Thoracic Vessels: The aorta and pulmonary arteries demonstrate normal size. Mediastinum and Caro: No enlarged lymph nodes. Esophagus: No wall thickening. No hiatal hernia. ABDOMEN: Liver: Liver is enlarged measuring 19.9 cm with significant diffuse steatosis. Gallbladder: Removed. Biliary ducts: Unremarkable. Pancreas: There is a very minimal questionable appearance of peripancreatic stranding adjacent to the pancreatic head. Spleen: Unremarkable. Adrenal Glands: Unremarkable. Kidneys and Ureters: Bilateral low-attenuation renal foci are present. There is no obstruction. Stomach and Bowel: Stomach, small bowel loops, and colon are nonobstructive. There is a very minimal questionable appearance of Char duodenal stranding within the duodenal C-loop. There is appearance of a small diverticulum. Peritoneum: No abnormal intraperitoneal fluid. No free air. Ventral Wall: No hernia. Abdominal Nodes: No retroperitoneal or mesenteric adenopathy by size criteria. Vessels: Aorta and inferior vena cava are normal in size. PELVIS: Pelvic Organs: Unremarkable. Bladder: Unremarkable. Pelvic Nodes: No enlarged lymph nodes. Miscellaneous: No inguinal hernias are seen. Bones: Unremarkable. IMPRESSION: 1. Very minimal appearance of duodenal stranding possibly related to a duodenitis. There is a questionable appearance of pancreatic head stranding possibly related to secondary inflammation from duodenitis. Alternately, very minimal pancreatitis with subsequent inflammatory change the duodenum cannot be definitively excluded. 2. Diffuse steatosis with hepatomegaly. Dictated by: Nata Nevarez M.D. on 06/21/2021 at 15:58 Approved by: Nata Nevarez M.D. on 06/21/2021 at 16:05
--- NOTE | 2021-06-21 15:28 | DI.CT.S_ITS ---
PROCEDURE: CT SOFT TISSUE NECK W CON INDICATIONS: cannot swallow, extensive ethanol, liver TECHNIQUE: After the administration of intravenous contrast, 3.0 mm axial sections acquired from the sella to the aortic arch. Additional oblique axial 3.0 mm sections acquired through the pharynx. 3 mm thick coronal and sagittal reformats were generated. For radiation dose reduction, the following was used: automated exposure control. COMPARISON: [facility], CT, CT CHEST ABD PEL W CON, 06/21/2021, 15:37. FINDINGS: Image quality: Excellent. Lymph nodes: No enlarged lymph nodes seen throughout the neck. Vessels: Visualized vasculature appears patent. Neck spaces: In this patient with this given history, scrutiny is given to mucosal masses. The oropharynx, nasopharynx, and pharynx demonstrate no mucosal lesions. The vocal cords, false vocal cords, pyriform sinuses, epiglottis, vallecula, and tongue base all appear normal. Extramucosal spaces appear unremarkable. Glands: The parotid and submandibular glands appear normal. Thyroid gland demonstrates no significant abnormality. Miscellaneous: Visualized brain and orbits appear normal. Lung apices appear clear. Superficial soft tissues appear normal. Bones: No suspicious bony lesions. Visualized sinuses and mastoids appear unremarkable. Focal degenerative change is seen involving the C1-C2 interface anteriorly. Milder degenerative changes are seen elsewhere. IMPRESSION: No imaging explanation is found for this patient's presenting symptoms. No mucosal masses can be seen. If clinically appropriate, please consider a referral to speech pathology for further evaluation/treatment of the patient's presenting history of swallowing difficulties. Dictated by: Prakash Archer M.D. on 06/21/2021 at 14:56 Approved by: Prakash Archer M.D. on 06/21/2021 at 14:58
[2021-06-21 15:55] LABS: UR Morphine/Opiate cutoff 300 Negative (Negative); Ur Creatinine Normal (Normal); Ur Specific Gravity Normal (Normal); Urine Amphetamines Negative (Negative); Urine Barbiturates Negative (Negative); Urine Benzodiazepines Negative (Negative); Urine Cocaine Negative (Negative); Urine MDMA Negative (Negative); Urine Methadone Negative (Negative); Urine Methamphetamines Negative (Negative); Urine Oxycodone Negative (Negative); Urine Phencyclidine Negative (Negative); Urine Tetrahydrocannabinol Negative (Negative); Urine Tricyclic Antidepressant Negative (Negative); Urine pH Normal (Normal)
[2021-06-21 16:01] LABS: Bacteria Urine None Seen; Culture Indicated Urine Cult Not Indicated; RBC Urine 1-5/HPF (0-5/HPF); Squamous Epithelial Cell Urine None Seen (0-5/HPF); WBC Urine 0-1/HPF (0-5/HPF)
[2021-06-21 16:40] LABS: PCO2 VBG 31.3 mmHg (45-50); PO2 VBG 24 mmHg (35-45); pH VBG 7.44 (7.33-7.43)
[2021-06-21 16:41] LABS: HCO3 VBG 21 mmol/L (23-28); Total CO2 VBG 22 mmol/L (24-29)
[2021-06-21 16:42] LABS: Oxygen Saturation VBG 46 % (70-75)
[2021-06-21] MEDS: PHENobarbital 130 MG/ML VIAL IV (17:01)
[2021-06-21 17:24] LABS: Ethanol (ETOH) 272 mg/dL
[2021-06-21 17:42] LABS: COVID19 -Nasal RAPID Negative (Negative)
[2021-06-21 19:10] LABS: Ethanol (ETOH) 155 mg/dL
[2021-06-21] MEDS: LORazepam 2 MG/ML INJ 4 MG IV (19:33)
--- NOTE | 2021-06-21 20:21 | CM.SWNOTE ---
DENTURE MODEL MAKER Assessment DENTURE MODEL MAKER - Patient Care Representative Assessment DENTURE MODEL MAKER/Patient Care Representative Assessment Time Spent with Patient Start date 06/21/21 Visit Start Time 17:15 End date 06/21/21 Visit End Time 17:40 Total time Care Management spent on 25 minutes patient visit-in minutes Substance Abuse Screening Include Onset, Duration, Intensity Presenting Problem Patient presents to ED per recommendation from PCP due to abnormal labs. Patient endorses he is seeking to detox from ETOH and has been a functional drunk for 40 years Precipitating Event(s) Patient endorses when he was working he would drink almost every evening but since retiring he has been drinking all day. Patient Strengths Patient is seeking help Current Behavioral Health Provider(s) None reported Include Facility, Provider, Ph. # Family Hx of Behavioral Abuse none reported Rehab Facilities? ((Date(s), Location(s) No hx ) History of Withdrawal? Seizures? No hx of seizures. Patient has hx of anxiety, and shakyness. Longest Period of Sobriety several years in 1988 Psychosocial information & Support Patient is 70 y/o male who Systems resides with in [place]. 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 Legal Concerns Legal Matters - Outstanding Issues None reported Mental Status Orientation (Person/Place/Time) A/Ox4 Stated Mood ok Affect (Congruent with Mood?) euthymic, full range, congruent with mood Thought Content - Specify/Describe None reported Obsessions, Delusions, Hallucinations Thought Processes (Olkhuns-Wlapjiup-Uwqe coherent, tangential Acowoqpi-Teowdjlv-Shpatjvfwl- Bbhetzxyvmocin-Zxtaisr-Dqwmqekjommt- Thought Blocking) Speech (Lgzupa-Kvkq-Pwiyoou-Rapid-Soft- normal Loud-Pressured) Motor (Ixzxif-Akzhhqoss-Ykrx-Other) slow Insight (Cybw-Hyfw-Akfz/Limited) fair Judgement (Iqwx-Rsim-Pyqe/Limited) fair Impulse Control (Adequate-Impaired) adequate Memory (Vtgxljply-Lmoffs-Ezhbje, intact, not formally assessed Impaired-Intact) Concentration (Intact-Impaired) intact Attention (Intact-Impaired) intact Behavior (Appropriate-Inappropriate) appropriate Risk Assessment Suicidal Ideation (Plan) Yes Homicidal Ideation (Plan) No Comment Patient endorses SI but denies plan and states that he is a Muslim and would not take his own life. Intervention Intervention DENTURE MODEL MAKER enters room to meet with patient, present in room is patient's . Patient endorses that he has been drinking at least 1/5 of alcohol a day. Patient endorses his last drink was at 0600 this morning. Patient endorses he drinks about 12 cans of Truly Alcohol a day and some rum as well. Patient's endorses that patient spends hours every day laying in bed. Patient has not been able to eat and has been having trouble walking and standing. Patient denies hx of AA, [facility] outpatient, detox or inpatient . Patient endorses interest in detox. DENTURE MODEL MAKER calls [facility] and it is reported that they do not have beds. DENTURE MODEL MAKER calls [facility] and it is reported that they have beds and can screen patient for detox. [facility] endorses that they can take patient tomorrow morning. DENTURE MODEL MAKER provides patient with [facility] resources and detox facility information. ED provider Dr. Schofield further assesses patient and due to patient's CIWA score, heart rate and labs patient is in need of medical detox and admission to this hospital. Dr. Schofield recommends treatment facilities that cater to formal professionals that can address patient's particular rehabilitation needs. Plan RA Plan Patient to be admitted to acute care for medical detox. DENTURE MODEL MAKER attempts to call patient's , who plans to return to this hospital tomorrow at 0730 to meet patient in ED. Current phone number listed for is not current, patient provides other number for and it is also not current. JÚNIOR Villalpando
--- NOTE | 2021-06-21 20:25 | CM.DANOTE ---
DCP Assessment Note Patient is 70 y/o male who presents to ED due to concern for ETOH withdrawal symptoms. Patient has hx Alcohol dependence, and acute alcoholic hepatitis. Patient has Medicare and AARP insurance. Patient's PCP is Dr. Aguilar. [facility] [place]acute detox bed for patient for tomorrow morning for patient. Per ED provider Dr. Schofield, patient's withdrawal symptoms and CIWA score are requiring a medical detox admission at this hospital for patient. See [facility] assessment note for further information. Plan: Patient to admit to acute care, DCP to f/u with POC. Discharge Planning/Care Management CM Discharge Assessment Start: 06/21/21 20:24 Freq: Status: Active Protocol: Document 06/21/21 20:24 LN (Rec: 06/21/21 20:25 LN [id number]) Discharge Planning Assessment Advance Directives? Yes History Provided By Patient,Family Member Has Patient been admitted in last 30 No days? Prior Living Arrangements House Household Members spouse Type of transporation used prior to Drives own vehicle admit Independent with ADL's Yes Is patient alert and oriented? Yes DME Already Rented / Owned Cane Patient/Family Preference Drug/Alcohol Rehab Discharge Plan Drug Rehabilitation
[2021-06-21] MEDS: SODIUM CHLORIDE 0.9% 1,000 ML 150 ML IV (20:30)
--- NOTE | 2021-06-21 21:38 | P.HP_ITS ---
History of Present Illness History of Present Illness Date Patient Seen: 06/21/21 Time Patient Seen: 20:00 Chief complaint: ETOH- can't swallow, double vision-sent byDr adam Narrative: heavy daily drinker over a pint daily of run or wine presents with last drink t his morning around 8am feeling shaky very tachycardic in NSR at rest despite some iv ativan already. Concern for active withdrawal/DTs will need admission for supervised withdrawal not safe to go home he does desire to quit drinking. Feeling generally ok except for withdrawal has not been otherwise sick lately. 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 history of gallbladder out two knee replacements and lumbar back surgery. Does not take any meds at baseline. Patient History Family & Social History Social History: household members spouse Prior Living Arrangements House Safety & Behavioral: Feels Safe in Current Yes Environment Been Physically Hurt or No Threatened By a Person Suicidal Ideation Description None Tobacco & Substance use: Smoking Status Former smoker alcohol intake frequency 3 or more drinks per day Substance Use Type does not use Meds Home Medications and Allergies Home Medications Medication Instructions Recorded Confirmed Type levothyroxine 75 mcg tablet 75 mcg PO QAM 06/21/21 06/21/21 History simvastatin 40 mg tablet 40 mg PO BEDTIME 06/21/21 06/21/21 History Allergies Allergy/AdvReac Type Severity Reaction Status Date / Time oxycodone AdvReac Unknown Verified 06/21/21 11:20 Review of Systems Review of Systems Narrative: all systems reviewed and negative except as otherwise documented in HPI Exam Vital Signs (past 8 hours): - 06/21/21 14:00 06/21/21 14:30 06/21/21 15:00 Pulse Rate 93 H 91 H 95 H Respiratory Rate Blood Pressure Pulse Oximetry 97 98 98 06/21/21 15:30 06/21/21 16:00 06/21/21 16:30 Pulse Rate 93 H 94 H 91 H Respiratory Rate 14 14 13 Blood Pressure Pulse Oximetry 98 98 98 06/21/21 17:00 06/21/21 17:06 06/21/21 17:30 Pulse Rate 118 H 107 H 97 H Respiratory Rate Blood Pressure 159/73 H 148/70 H Pulse Oximetry 98 97 97 06/21/21 18:00 06/21/21 19:09 06/21/21 19:11 Pulse Rate 111 H 115 H 114 H Respiratory Rate 23 0 L Blood Pressure 133/69 154/88 H Pulse Oximetry 96 97 95 06/21/21 19:30 06/21/21 20:00 06/21/21 20:30 Pulse Rate 113 H 123 H 116 H Respiratory Rate 20 29 H 27 H Blood Pressure 156/85 H 148/84 H 108/72 Pulse Oximetry 90 L 95 96 Oxygen Delivery Method Room Air Narrative Exam Narrative: laying on gurney asleep Const General: cooperative and healthy appearing [facility] Head: normal to inspection, normocephalic and atraumatic Eyes General: appearance normal, both eyes and all related structures Neck Neck: normal visual inspection, full ROM and supple Resp Auscultation: clear to auscultation bilaterally Cardio Other: tachycardic S1/S2 GI Other: soft nontender nondistended normal bowel sounds Skin General: no rashes or lesions noted Neuro General: patient alert, patient awake and patient oriented x3 Other: hyperreflexive and twitchy Extrem Other: ROM wnl no asterixis noted no tremor Psych Appearance: grossly normal Speech and Movement: agitated Attitude: cooperative Objective Labs Result Diagrams: 06/21/21 13:40 06/21/21 13:40 Labs: Laboratory Results - last 24 hr 06/21/21 06/21/21 06/21/21 13:40 13:40 13:40 WBC 10.0 RBC 4.37 L Hgb 14.6 Hct 42.2 MCV 96.6 MCH 33.3 MCHC 34.5 RDW 13.0 Plt Count 137 L Neut % (Auto) 72.5 Lymph % (Auto) 18.3 L Wilkinson % (Auto) 8.4 Eos % (Auto) 0.3 L Baso % (Auto) 0.5 Neut # (Auto) 7200 H Lymph # (Auto) 1800 Wilkinson # (Auto) 800 Eos # (Auto) 0 Baso # (Auto) 100 PT INR VBG pH VBG pCO2 VBG pO2 VBG HCO3 VBG Total CO2 VBG O2 Saturation VBG Base Excess Sodium 139 Potassium 4.0 Chloride 101 Carbon Dioxide 17 L BUN 5 L Creatinine 0.73 Estimated GFR > 60.0 BUN/Creatinine Ratio 6.8 Glucose 104 Calcium 8.9 Total Bilirubin 1.2 AST 537 H ALT 221 H Alkaline Phosphatase 127 H Total Creatine Kinase 614 H CK-MB (CK-2) 6.07 H CK-MB (CK-2) Rel Index 1.0 L Troponin I < 0.012 Total Protein 8.3 H Albumin 4.8 Globulin 3.5 Albumin/Globulin Ratio 1.4 TSH 3.29 Free T4 1.10 Urine RBC Urine WBC Ur Squamous Epith Cells Urine Bacteria Ur Culture Indicated? Salicylates < 1.0 U Opiates 300ng/mL cut Ur Oxycodone Screen Urine Methadone Screen Acetaminophen < 10 Ur Barbiturates Screen U Tricyclic Antidepress Ur Phencyclidine Scrn Ur Amphetamines Screen U Methamphetamines Scrn Ur MDMA Scrn (Ecstasy) U Benzodiazepines Scrn Urine Cocaine Screen U Marijuana (THC) Screen Ethyl Alcohol 273 H SARS-CoV-2 (PCR) 06/21/21 06/21/21 06/21/21 13:40 13:40 15:19 WBC RBC Hgb Hct MCV MCH MCHC RDW Plt Count Neut % (Auto) Lymph % (Auto) Wilkinson % (Auto) Eos % (Auto) Baso % (Auto) Neut # (Auto) Lymph # (Auto) Wilkinson # (Auto) Eos # (Auto) Baso # (Auto) PT 12.6 INR 1.1 VBG pH VBG pCO2 VBG pO2 VBG HCO3 VBG Total CO2 VBG O2 Saturation VBG Base Excess Sodium Potassium Chloride Carbon Dioxide BUN Creatinine Estimated GFR BUN/Creatinine Ratio Glucose Calcium Total Bilirubin AST ALT Alkaline Phosphatase Total Creatine Kinase CK-MB (CK-2) CK-MB (CK-2) Rel Index Troponin I Total Protein Albumin Globulin Albumin/Globulin Ratio TSH Free T4 Urine RBC Urine WBC Ur Squamous Epith Cells Urine Bacteria Ur Culture Indicated? Salicylates U Opiates 300ng/mL cut Negative Ur Oxycodone Screen Negative Urine Methadone Screen Negative Acetaminophen Ur Barbiturates Screen Negative U Tricyclic Antidepress Negative Ur Phencyclidine Scrn Negative Ur Amphetamines Screen Negative U Methamphetamines Scrn Negative Ur MDMA Scrn (Ecstasy) Negative U Benzodiazepines Scrn Negative Urine Cocaine Screen Negative U Marijuana (THC) Screen Negative Ethyl Alcohol 272 H SARS-CoV-2 (PCR) 06/21/21 06/21/21 06/21/21 15:19 16:24 17:00 WBC RBC Hgb Hct MCV MCH MCHC RDW Plt Count Neut % (Auto) Lymph % (Auto) Wilkinson % (Auto) Eos % (Auto) Baso % (Auto) Neut # (Auto) Lymph # (Auto) Wilkinson # (Auto) Eos # (Auto) Baso # (Auto) PT INR VBG pH 7.44 H VBG pCO2 31.3 L VBG pO2 24 L VBG HCO3 21 L VBG Total CO2 22 L VBG O2 Saturation 46 L VBG Base Excess -3.0 L Sodium Potassium Chloride Carbon Dioxide BUN Creatinine Estimated GFR BUN/Creatinine Ratio Glucose Calcium Total Bilirubin AST ALT Alkaline Phosphatase Total Creatine Kinase CK-MB (CK-2) CK-MB (CK-2) Rel Index Troponin I Total Protein Albumin Globulin Albumin/Globulin Ratio TSH Free T4 Urine RBC 1-5/hpf Urine WBC 0-1/hpf Ur Squamous Epith Cells None seen Urine Bacteria None seen Ur Culture Indicated? Cult not indicated Salicylates U Opiates 300ng/mL cut Ur Oxycodone Screen Urine Methadone Screen Acetaminophen Ur Barbiturates Screen U Tricyclic Antidepress Ur Phencyclidine Scrn Ur Amphetamines Screen U Methamphetamines Scrn Ur MDMA Scrn (Ecstasy) U Benzodiazepines Scrn Urine Cocaine Screen U Marijuana (THC) Screen Ethyl Alcohol SARS-CoV-2 (PCR) Negative 06/21/21 18:31 WBC RBC Hgb Hct MCV MCH MCHC RDW Plt Count Neut % (Auto) Lymph % (Auto) Wilkinson % (Auto) Eos % (Auto) Baso % (Auto) Neut # (Auto) Lymph # (Auto) Wilkinson # (Auto) Eos # (Auto) Baso # (Auto) PT INR VBG pH VBG pCO2 VBG pO2 VBG HCO3 VBG Total CO2 VBG O2 Saturation VBG Base Excess Sodium Potassium Chloride Carbon Dioxide BUN Creatinine Estimated GFR BUN/Creatinine Ratio Glucose Calcium Total Bilirubin AST ALT Alkaline Phosphatase Total Creatine Kinase CK-MB (CK-2) CK-MB (CK-2) Rel Index Troponin I Total Protein Albumin Globulin Albumin/Globulin Ratio TSH Free T4 Urine RBC Urine WBC Ur Squamous Epith Cells Urine Bacteria Ur Culture Indicated? Salicylates U Opiates 300ng/mL cut Ur Oxycodone Screen Urine Methadone Screen Acetaminophen Ur Barbiturates Screen U Tricyclic Antidepress Ur Phencyclidine Scrn Ur Amphetamines Screen U Methamphetamines Scrn Ur MDMA Scrn (Ecstasy) U Benzodiazepines Scrn Urine Cocaine Screen U Marijuana (THC) Screen Ethyl Alcohol 155 H SARS-CoV-2 (PCR) Assessment & Plan Assessment & Plan narrative: #acute ethanol withdrawal in setting of chronic dependence CIWA protocol will likely need heavy ativan IV doses given symptoms/tachycardia with last drink within 24 hours. 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
[2021-06-21] MEDS: LORazepam 2 MG/ML INJ IV ×2 (22:23→22:57)
[2021-06-22] VITALS (14 sets, daily range): BP systolic 125–152; BP diastolic 71–80; PULSE 102–137; RESP 14–34; TEMP 36.2–37.3; O2SAT 92–97
[2021-06-22] MEDS: LORazepam 2 MG/ML INJ 4 MG IV ×3 (00:21→05:12)
[2021-06-22] MEDS: LORazepam 2 MG/ML INJ IV ×5 (02:44→23:39)
[2021-06-22] MEDS: HALOPERIDOL 5 MG/ML VIAL 2 MG IV ×2 (03:23→22:14)
[2021-06-22 04:44] LABS: Hematocrit 37.8 % (41-53); Hemoglobin 13.3 g/dL (13.5-17.5); Mean Corpuscular HGB Conc 35.1 % (30-36); Mean Corpuscular Hemoglobin 33.5 PG (26-34); Mean Corpuscular Volume 95.3 fL (80-100); Platelet Count 105 X10^3/uL (150-400); Red Blood Cell Count 3.97 X10^6/uL (4.5-5.9); Red Cell Distribution Width 13.3 % (11.6-14.8); White Blood Cell Count 9.3 X10^3/uL (4.5-11.0)
[2021-06-22 04:52] LABS: Alanine Aminotransferase 176 IU/L (<50); Albumin Globulin Ratio 1.4 (1.0-2.8); Alkaline Phosphatase 114 U/L (38-126); Aspartate Aminotransferase 418 IU/L (17-59); BUN Creatinine Ratio 7.9 (6-22); Bilirubin Total 1.8 mg/dL (0.2-1.3); Blood Urea Nitrogen 5 mg/dL (9-20); Calcium 8.7 mg/dL (8.4-10.2); Carbon Dioxide 21 mmol/L (22-32); Chloride 103 mmol/L (98-107); Estimated Glomerular Filt Rate > 60.0 mL/min (>60); Globulin 2.9 g/dL (1.7-4.1); Glucose 165 mg/dL (80-110); HEMOLYSIS < 15 (0-50); Potassium 3.1 mmol/L (3.4-5.1); Sodium 135 mmol/L (137-145); Total Protein 6.9 g/dL (6.3-8.2)
[2021-06-22] MEDS: HALOPERIDOL 5 MG/ML VIAL (05:12)
--- NOTE | 2021-06-22 05:21 | PC.NURSE ---
Called hospitalist, recieved one time order for 4 mg lorazapam, IV. Given to patient, pt has stopped fidgeting with tele and IV. Will continue to monitor.
--- NOTE | 2021-06-22 06:10 | PC.NURSE ---
At 0325 pt became very agitated and confused, OVERWEAVER called hospitalist and received order for 4 mg Ativan and for Haldol. Given and patient went to sleep. Will monitor.
--- NOTE | 2021-06-22 06:29 | PC.NURSE ---
Pt unable to take oral morning meds. Will pass on to day shift
--- NOTE | 2021-06-22 06:49 | PC.NURSE ---
Pt becoming agitated, 2 mg Lorazapam given,
[2021-06-22] MEDS: PHENobarbital 130 MG/ML VIAL IV ×2 (11:31→18:31)
--- NOTE | 2021-06-22 11:31 | P.PN_ITS ---
Subjective Subjective Date Patient Seen: 06/22/21 Time Patient Seen: 11:31 Interval history: 70 M admitted with alcohol withdrawal and appears to be in DTs this morning. He is very confused, endorses visual hallucinations. required 20 mg of ativan overnight. Will switch to phenobarb taper now today given poor ability to swallow at this time. Exam Vital Signs (past 8 hours): - 06/22/21 03:45 06/22/21 03:52 06/22/21 04:00 Temperature 99.2 F Pulse Rate 136 H 136 H 136 H Respiratory Rate 34 H 28 H 34 H Blood Pressure 127/78 127/78 Pulse Oximetry 95 06/22/21 06:30 06/22/21 06:35 06/22/21 07:05 Temperature Pulse Rate 107 H 108 H 116 H Respiratory Rate 20 20 14 Blood Pressure Pulse Oximetry 06/22/21 09:34 Temperature Pulse Rate 102 H Respiratory Rate 14 Blood Pressure Pulse Oximetry Oxygen Delivery Method Room Air Oxygen Flow Rate 2 Narrative Exam Narrative: General:? Patient is well developed and well nourished, mildly disheveled appearing elderly male, sleepy but arousable. HEENT:? Normocephalic, atraumatic, extraocular muscles intact, oral pharynx is clear and mucous membranes are moist. Neck: supple and symmetric, trachea is midline, no cervical adenopathy. Negative for JVD Chest:? Normal AP diameter and contour without kyphoscoliosis, no tachypnea, equal chest rise bilaterally. Lungs:? CTA b/l no wheezing rhonchi or rales. Cardio: tachycardic with regular rhythm, no m/r/g. Abdomen: S NT ND. Musculoskeletal:? Muscle strength and tone are equal within normal limits, no deformity. Extremities: No edema or joint effusions. No cyanosis or clubbing. Skin:? Pale,? Warm to touch,dry and intact without rashes, ulcerations or petechiae.? Neuro:? Alert, very confused and endorses visual hallucinations. Garbled speech and very slurred. Mild tongue fasciculations and tremulousness. Objective Labs Result Diagrams: 06/22/21 04:30 06/22/21 04:30 Labs: Laboratory Results - last 24 hr 06/21/21 06/21/21 06/21/21 13:40 13:40 13:40 WBC 10.0 RBC 4.37 L Hgb 14.6 Hct 42.2 MCV 96.6 MCH 33.3 MCHC 34.5 RDW 13.0 Plt Count 137 L Neut % (Auto) 72.5 Lymph % (Auto) 18.3 L [place] % (Auto) 8.4 Eos % (Auto) 0.3 L Baso % (Auto) 0.5 Neut # (Auto) 7200 H Lymph # (Auto) 1800 [place] # (Auto) 800 Eos # (Auto) 0 Baso # (Auto) 100 PT INR VBG pH VBG pCO2 VBG pO2 VBG HCO3 VBG Total CO2 VBG O2 Saturation VBG Base Excess Sodium 139 Potassium 4.0 Chloride 101 Carbon Dioxide 17 L BUN 5 L Creatinine 0.73 Estimated GFR > 60.0 BUN/Creatinine Ratio 6.8 Glucose 104 Calcium 8.9 Total Bilirubin 1.2 AST 537 H ALT 221 H Alkaline Phosphatase 127 H Total Creatine Kinase 614 H CK-MB (CK-2) 6.07 H CK-MB (CK-2) Rel Index 1.0 L Troponin I < 0.012 Total Protein 8.3 H Albumin 4.8 Globulin 3.5 Albumin/Globulin Ratio 1.4 TSH 3.29 Free T4 1.10 Urine RBC Urine WBC Ur Squamous Epith Cells Urine Bacteria Ur Culture Indicated? Salicylates < 1.0 U Opiates 300ng/mL cut Ur Oxycodone Screen Urine Methadone Screen Acetaminophen < 10 Ur Barbiturates Screen U Tricyclic Antidepress Ur Phencyclidine Scrn Ur Amphetamines Screen U Methamphetamines Scrn Ur MDMA Scrn (Ecstasy) U Benzodiazepines Scrn Urine Cocaine Screen U Marijuana (THC) Screen Ethyl Alcohol 273 H SARS-CoV-2 (PCR) 06/21/21 06/21/21 06/21/21 13:40 13:40 15:19 WBC RBC Hgb Hct MCV MCH MCHC RDW Plt Count Neut % (Auto) Lymph % (Auto) [place] % (Auto) Eos % (Auto) Baso % (Auto) Neut # (Auto) Lymph # (Auto) [place] # (Auto) Eos # (Auto) Baso # (Auto) PT 12.6 INR 1.1 VBG pH VBG pCO2 VBG pO2 VBG HCO3 VBG Total CO2 VBG O2 Saturation VBG Base Excess Sodium Potassium Chloride Carbon Dioxide BUN Creatinine Estimated GFR BUN/Creatinine Ratio Glucose Calcium Total Bilirubin AST ALT Alkaline Phosphatase Total Creatine Kinase CK-MB (CK-2) CK-MB (CK-2) Rel Index Troponin I Total Protein Albumin Globulin Albumin/Globulin Ratio TSH Free T4 Urine RBC Urine WBC Ur Squamous Epith Cells Urine Bacteria Ur Culture Indicated? Salicylates U Opiates 300ng/mL cut Negative Ur Oxycodone Screen Negative Urine Methadone Screen Negative Acetaminophen Ur Barbiturates Screen Negative U Tricyclic Antidepress Negative Ur Phencyclidine Scrn Negative Ur Amphetamines Screen Negative U Methamphetamines Scrn Negative Ur MDMA Scrn (Ecstasy) Negative U Benzodiazepines Scrn Negative Urine Cocaine Screen Negative U Marijuana (THC) Screen Negative Ethyl Alcohol 272 H SARS-CoV-2 (PCR) 06/21/21 06/21/21 06/21/21 15:19 16:24 17:00 WBC RBC Hgb Hct MCV MCH MCHC RDW Plt Count Neut % (Auto) Lymph % (Auto) [place] % (Auto) Eos % (Auto) Baso % (Auto) Neut # (Auto) Lymph # (Auto) [place] # (Auto) Eos # (Auto) Baso # (Auto) PT INR VBG pH 7.44 H VBG pCO2 31.3 L VBG pO2 24 L VBG HCO3 21 L VBG Total CO2 22 L VBG O2 Saturation 46 L VBG Base Excess -3.0 L Sodium Potassium Chloride Carbon Dioxide BUN Creatinine Estimated GFR BUN/Creatinine Ratio Glucose Calcium Total Bilirubin AST ALT Alkaline Phosphatase Total Creatine Kinase CK-MB (CK-2) CK-MB (CK-2) Rel Index Troponin I Total Protein Albumin Globulin Albumin/Globulin Ratio TSH Free T4 Urine RBC 1-5/hpf Urine WBC 0-1/hpf Ur Squamous Epith Cells None seen Urine Bacteria None seen Ur Culture Indicated? Cult not indicated Salicylates U Opiates 300ng/mL cut Ur Oxycodone Screen Urine Methadone Screen Acetaminophen Ur Barbiturates Screen U Tricyclic Antidepress Ur Phencyclidine Scrn Ur Amphetamines Screen U Methamphetamines Scrn Ur MDMA Scrn (Ecstasy) U Benzodiazepines Scrn Urine Cocaine Screen U Marijuana (THC) Screen Ethyl Alcohol SARS-CoV-2 (PCR) Negative 06/21/21 06/22/21 06/22/21 18:31 04:30 04:30 WBC 9.3 RBC 3.97 L Hgb 13.3 L Hct 37.8 L MCV 95.3 MCH 33.5 MCHC 35.1 RDW 13.3 Plt Count 105 L Neut % (Auto) Lymph % (Auto) [place] % (Auto) Eos % (Auto) Baso % (Auto) Neut # (Auto) Lymph # (Auto) [place] # (Auto) Eos # (Auto) Baso # (Auto) PT INR VBG pH VBG pCO2 VBG pO2 VBG HCO3 VBG Total CO2 VBG O2 Saturation VBG Base Excess Sodium 135 L Potassium 3.1 L Chloride 103 Carbon Dioxide 21 L BUN 5 L Creatinine 0.63 L Estimated GFR > 60.0 BUN/Creatinine Ratio 7.9 Glucose 165 H Calcium 8.7 Total Bilirubin 1.8 H AST 418 H ALT 176 H Alkaline Phosphatase 114 Total Creatine Kinase CK-MB (CK-2) CK-MB (CK-2) Rel Index Troponin I Total Protein 6.9 Albumin 4.0 Globulin 2.9 Albumin/Globulin Ratio 1.4 TSH Free T4 Urine RBC Urine WBC Ur Squamous Epith Cells Urine Bacteria Ur Culture Indicated? Salicylates U Opiates 300ng/mL cut Ur Oxycodone Screen Urine Methadone Screen Acetaminophen Ur Barbiturates Screen U Tricyclic Antidepress Ur Phencyclidine Scrn Ur Amphetamines Screen U Methamphetamines Scrn Ur MDMA Scrn (Ecstasy) U Benzodiazepines Scrn Urine Cocaine Screen U Marijuana (THC) Screen Ethyl Alcohol 155 H SARS-CoV-2 (PCR) [facility]LY [facility] Social History household members: spouse Smoking Status: Former smoker alcohol intake: current Assessment & Plan Assessment & Plan narrative: #acute ethanol withdrawal and delirium tremens in setting of chronic dependence - initially on CIWA protocol. Poor swallow ability currently in setting of DTs. Will change to phenobarb taper, 130 mg q8 hr IV for now with ativan to continue per CIWA protocol. #alcoholic hepatitis - AST >500 but improving today. T bili 1.8. Likely low DF but will check an INR with tomorrows labs to calculate fully. - Continue to follow labs. Will order ruq ultrasound #hypothyroid appears stable continue home dose #hyperlipidemia continue home statin dispo: remains inpatient Code: Full MDM: Malathi: [id number] ? [id number] dvt ppx lovenox/SCDs Time Spent With Patient Critical Care time: I spent a total of [] minutes of critical care time on this patient's care today; this time is exclusive of procedural time.
--- NOTE | 2021-06-22 15:33 | CM.DPC ---
DCP Continued: Patient is 70 yr old male who was admitted for Alcohol withdrawal currently has a CIWA of 13. CM attempted to met with the patient to work on his discharge plan but patient is currently heavily sedated to avoid DTs. [facility] but was then needed to admit to the hospital for medical management of his alcohol withdrawal. CM department will continue to follow patient and get a DC plan once patient is able to participate with CM in DC planning. Corrine Tony RNshipping manager
--- NOTE | 2021-06-22 15:59 | DIET.CONS ---
Dietary Consultation Note Admission Date: 06/21/2021 20:24 Assessment: Pt not appropriate for nutrition consultation at this time. Pt reports difficulty swallowing and poor solid PO prior to hospitalization. Recc NPO diet until assessed by speech therapy. Ht: 170.18 cm Wt: 108.862 kg BMI: 37.5 UBW: Last BM: 06/21/21 (06/21/21 22:00) MNA: 13 Tiburcio Score: 21 Diet: 06/21/21 Dinner General (Regular) Diet Diet Modifications: Safety Tray needed?: No Nutrition Percent Meal Consumed Pt alseep and not alert to eat 06/22/21 12:00 Percent Meal Consumed Pt alseep and not alert to eat 06/22/21 10:00 Labs: RBC 3.97 X10^6/uL (4.5-5.9) L 06/22/21 04:30 Hgb 13.3 g/dL (13.5-17.5) L 06/22/21 04:30 Hct 37.8 % (41-53) L 06/22/21 04:30 Creatinine 0.63 mg/dL (0.66-1.25) L 06/22/21 04:30 Electronically Signed by: Jaclyn Ceballos 06/22/21 15:59 Clinical Dietitian [address] [address]
[2021-06-22] MEDS: POTASSIUM CHLORIDE 20 MEQ TAB 40 MEQ PO ×2 (17:54→23:31)
[2021-06-22] MEDS: ATORVASTATIN 20 MG TABLET PO (20:36)
[2021-06-23] VITALS (13 sets, daily range): BP systolic 99–154; BP diastolic 57–98; PULSE 74–130; RESP 18–31; TEMP 36.2–37.1; O2SAT 91–97
[2021-06-23] MEDS: HALOPERIDOL 5 MG/ML VIAL 2 MG IV ×4 (00:30→14:09)
[2021-06-23] MEDS: LORazepam 2 MG/ML INJ IV ×7 (01:41→14:54)
[2021-06-23] MEDS: PHENobarbital 130 MG/ML VIAL IV (02:31)
[2021-06-23 04:49] LABS: Add Manual Diff / Slide Review NO; Basophils Absolute Auto 0 /uL (0-100); Basophils Percent Auto 0.5 % (0-2); Eosinophils Absolute Auto 100 /uL (0-450); Eosinophils Percent Auto 0.7 % (2-4); Hemoglobin 13.8 g/dL (13.5-17.5); Lymphocytes Absolute Auto 1400 /uL (1100-4500); Lymphocytes Percent Auto 15.6 % (25-40); Mean Corpuscular HGB Conc 34.6 % (30-36); Mean Corpuscular Volume 95.4 fL (80-100); Monocytes Absolute Auto 900 /uL (0-900); Neutrophils Absolute Auto 6800 /uL (1500-7000); Neutrophils Percent Auto 73.2 % (50-75); Platelet Count 101 X10^3/uL (150-400); Red Blood Cell Count 4.19 X10^6/uL (4.5-5.9); Red Cell Distribution Width 13.2 % (11.6-14.8); White Blood Cell Count 9.3 X10^3/uL (4.5-11.0)
[2021-06-23 05:01] LABS: INR 1.3 (0.9-1.3)
[2021-06-23 05:03] LABS: Alanine Aminotransferase 160 IU/L (<50); Albumin 3.9 g/dL (3.5-5.0); Albumin Globulin Ratio 1.3 (1.0-2.8); Alkaline Phosphatase 107 U/L (38-126); Aspartate Aminotransferase 305 IU/L (17-59); BUN Creatinine Ratio 5.3 (6-22); Blood Urea Nitrogen 3 mg/dL (9-20); Calcium 8.9 mg/dL (8.4-10.2); Carbon Dioxide 24 mmol/L (22-32); Chloride 103 mmol/L (98-107); Estimated Glomerular Filt Rate > 60 mL/min (>60); Glucose 152 mg/dL (80-110); HEMOLYSIS < 15 (0-50); Potassium 3.1 mmol/L (3.4-5.1); Sodium 138 mmol/L (137-145); Total Protein 6.9 g/dL (6.3-8.2)
--- NOTE | 2021-06-23 06:12 | PC.NURSE ---
Shift Note: Patient has been restless, agitated and confused throughout the shift, attempted to get up from bed multiple times. CIWA performed with scores of 11 and 14, patient showed visual and auditory hallucinations, sinus tach with bbb in the monitor, prn ativan and haldol were given, CIWA reassessed with scores of 7 and 6, respectively. Last dose of phenobarbital given, somehow patient fell asleep with episode of restlessness. Assisted patient to use bedside commode with the help of PHILOSOPHY FACULTY MEMBER, but patient still very weak and shaky, instead, patient uses urinal. Afebrile, vital signs are within acceptable limits. Will continue to monitor.
--- NOTE | 2021-06-23 07:41 | PC.NURSE ---
Addendum entered by Celine Webber R.N. 06/23/21 18:49: 1850: Pt with SBP<100 x2 within one hour. Clonidine patch removed, updated, no new orders. Addendum entered by Celine Webber R.N. 06/23/21 15:49: 1530: Discussed pt continued severe withdrawal symptoms with Dr Engle. Pt transferred to ICU for closer monitoring and initiation of precedex drip. Pt transferred to room 230, drip initiated per policy. Malathi updated via telephone. Addendum entered by Celine Webber R.N. 06/23/21 14:45: 1445: Pt has required multiple doses of both PRN lorazepam and haloperidol to mitigate severe ETOH withdrawal symptoms. Remains disoriented x3, unable to redirect. Addendum entered by Celine Webber R.N. 06/23/21 09:41: 0925: Low K=3.1, critically low Phos=0.[address] Engle. Verbal order for K Phos IV 30 mmol received. Original Note: 0705: Report received from outgoing RN Jr. Bedside assessment reveals pt in profound ETOH withdrawal, disoriented x3, unable to reorient. Pt unable to speak coherently, writhing about in bed. Pt unsafe to take oral meds at this time. Tachycardia with [id number]=[id number] on telemetry. CIWA=28, 2mg lorazepam IVP administered per protocol. Will continue to monitor.
[2021-06-23] MEDS: THIAMINE 100 MG in SODIUM CHLORIDE 0.9% 100 ML 404 ML IV (09:05)
[2021-06-23] MEDS: PANTOPRAZOLE 40 MG VIAL IV (09:05)
[2021-06-23] MEDS: ENOXAPARIN 40 MG/0.4 ML SYRINGE SUBCUT (09:07)
[2021-06-23 09:10] LABS: Magnesium 2.1 mg/dL (1.6-2.3)
[2021-06-23] MEDS: SODIUM CHLORIDE 0.9% 1,000 ML 150 ML IV ×3 (09:10→21:59)
[2021-06-23 09:22] LABS: Phosphorous 0.6 mg/dL (2.3-3.7)
[2021-06-23] MEDS: FOLIC ACID 1 MG in SODIUM CHLORIDE 0.9% 100 ML 200.4 ML IV (09:23)
[2021-06-23 09:50] LABS: Amylase 51 U/L (30-110); Lipase 213 U/L (23-300)
[2021-06-23] MEDS: POTASSIUM PHOSPHATE 30 MMOL in SODIUM CHLORIDE 0.9% 500 ML 127.5 ML IV ×2 (09:57→18:58)
[2021-06-23] MEDS: THIAMINE 200 MG in SODIUM CHLORIDE 0.9% 100 ML 408 ML IV (10:41)
[2021-06-23] MEDS: PHENobarbital 65 MG/ML VIAL IV ×2 (10:49→18:37)
[2021-06-23] MEDS: LEVOTHYROXINE INJ 100 MCG/5 ML VIAL 40 MCG IV (11:05)
--- NOTE | 2021-06-23 11:50 | CM.DPC ---
DCP Cont: Discussed patient during team rounds. He is not medically stable, and is continuing with DTs, and is getting Lorazepam versus phenobarbital. Hospitalist, Dr. Engle, indicated that there could be a possibility of his needing to be intubated. He is currently not swallowing. Patient is not medically stable for detox. P: DCP to continue to follow closely. He is not yet medically stable for outside rehab. Celina Huddleston RN/Recovery Advocate
[2021-06-23] MEDS: cloNIDine TTS 0.1 MG PATCH TOP (12:23)
--- NOTE | 2021-06-23 14:38 | P.PN_ITS ---
Subjective Subjective Interval history: The patient is unable to meaningfully participate in history acquisition today due to DT's. Exam Vital Signs (past 8 hours): - 06/23/21 07:56 06/23/21 08:57 06/23/21 09:43 Temperature 98.7 F Pulse Rate 89 110 H 92 H Respiratory Rate 18 19 18 Blood Pressure 137/86 Pulse Oximetry 97 06/23/21 12:00 06/23/21 12:13 06/23/21 13:17 Temperature 98.8 F Pulse Rate 115 H 115 H 104 H Respiratory Rate 20 20 22 Blood Pressure 139/82 139/82 Pulse Oximetry 93 Oxygen Delivery Method Room Air Oxygen Flow Rate 0 Const Other: Patient laying in bed, mumbling, with waving of his arms periodically Eyes Other: No scleral icterus appreciated Resp Other: Anterior lung pruitt clear to auscultation bilaterally Cardio Other: Tachycardic rate with regular rhythm, S1 and S2 heart sounds normal, no extra heart sounds or murmurs appreciated GI Other: Soft, non-distended, non-tender, bowel sounds present Skin Other: No grossly abnormal skin lesions noted Neuro Other: Patient mumbling incoherently, with tremulousness, and restlessness Extrem Other: Palpable dorsalis pedis pulses bilaterally Objective Labs Result Diagrams: 06/23/21 04:30 06/23/21 04:30 Labs: Laboratory Results - last 24 hr 06/23/21 06/23/21 06/23/21 04:30 04:30 04:30 WBC 9.3 RBC 4.19 L Hgb 13.8 Hct 40.0 L MCV 95.4 MCH 33.0 MCHC 34.6 RDW 13.2 Plt Count 101 L Neut % (Auto) 73.2 Lymph % (Auto) 15.[address] [place] % (Auto) 10.0 Eos % (Auto) 0.7 L Baso % (Auto) 0.5 Neut # (Auto) 6800 Lymph # (Auto) 1400 [facility] # (Auto) 900 Eos # (Auto) 100 Baso # (Auto) 0 PT 14.0 H INR 1.3 Sodium 138 Potassium 3.1 L Chloride 103 Carbon Dioxide 24 BUN 3 L Creatinine 0.57 L Estimated GFR > 60 BUN/Creatinine Ratio 5.3 L Glucose 152 H Calcium 8.9 Phosphorus Magnesium Total Bilirubin 2.0 H AST 305 H ALT 160 H Alkaline Phosphatase 107 Total Protein 6.9 Albumin 3.9 Globulin 3.0 Albumin/Globulin Ratio 1.3 Amylase Lipase 06/23/21 06/23/21 04:30 04:30 WBC RBC Hgb Hct MCV MCH MCHC RDW Plt Count Neut % (Auto) Lymph % (Auto) [facility] % (Auto) Eos % (Auto) Baso % (Auto) Neut # (Auto) Lymph # (Auto) [facility] # (Auto) Eos # (Auto) Baso # (Auto) PT INR Sodium Potassium Chloride Carbon Dioxide BUN Creatinine Estimated GFR BUN/Creatinine Ratio Glucose Calcium Phosphorus 0.6 L* Magnesium 2.1 Total Bilirubin AST ALT Alkaline Phosphatase Total Protein Albumin Globulin Albumin/Globulin Ratio Amylase 51 Lipase 213 PFSH Social History household members: spouse Smoking Status: Former smoker alcohol intake: current Assessment & Plan Assessment & Plan narrative: 1. Acute EtOH withdrawal with delirium tremens - CIWA protocol on-board, along with IV phenobarbital 65 mg tid - Will also start clonidine 0.1 mg patch - If patient deteriorates, will likely need intubation and Precedex 2. Alcoholic hepatitis ?- LFT's continue to improve, and will need to monitor, INR slightly elevated 3. Duodenitis, ongoing, likely due to EtOH abuse - IV Protonix 40 mg daily on-board 4. Hypothyroidism - Due to DT's, patient unable to swallow - Therefore, home levothyroxine adjusted to IV levothyroxine 5. Hyperlipidemia - Will hold home simvastatin for now given above VTE prophylaxis: Lovenox 40 mg daily Code: Full code Proxy: , Malathi I have utilized all available immediate resources to obtain, review, or confirm the patient's medications. Time Spent With Patient Critical Care time: I spent a total of [] minutes of critical care time on this patient's care today; this time is exclusive of procedural time. Quality MIPS - Admit I confirm the patient?s Advance Care Plan is present, Code status is documented, Surrogate decision maker is in patient?s record [If Yes, STOP here]: Yes
[2021-06-23] MEDS: dexmedeTOMIDine in 0.9 % NaCL 400 MCG/100 ML PLAST..BAG 5.443 MCG IV (15:47)
--- NOTE | 2021-06-23 15:52 | P.TELICUCN_ITS ---
History of Present Illness Consult details Chief complaint: ETOH- can't swallow, double vision-sent byDr adam :: This patient was seen via real time interactive two-way audiovisual telecommunication. Narrative: This is a 70 M w/ PMHx HLD, hypothyroidism, former smoker and EtOH abuse of reportedly 1/5 of rum per day, who presented to ED on 06/21 after PCP instructed his to bring him in given complaint of poor appetite, lethargy and overall appearing unwell. Patient's EtOH was elevated on admission as were LFTs which are now downtrending, lipase noncontributory and CT abd significant for duodenitis. MICU service was contacted this evening as patient having EtOH withdrawals requiring 14 mg ativan, 65 mg IV phenobarbital and 8 mg haldol today alone. Per patient's RN, anupama has been nonsensical but she believes he is halucinating. He is awake and moving all 4 extrmities though not participating in H&P or exam. Patient has been transferred to MICU and started on precedex. [facility] Social History household members: spouse Smoking Status: Former smoker alcohol intake: current Current Medications Current Medications Medications: Home Medications levothyroxine 75 mcg tablet 75 mcg PO QAM 06/21/21 [History Confirmed 06/21/21] simvastatin 40 mg tablet 40 mg PO BEDTIME 06/21/21 [History Confirmed 06/21/21] Visit Medications (administered) Generic Name Dose Route Start Last Admin Trade Name Freq PRN Reason Stop Dose Admin Atorvastatin Calcium 20 mg 06/22/21 21:00 06/22/21 20:36 Atorvastatin 20 Mg Tablet PO 20 mg BEDTIME EN Administration Enoxaparin Sodium 40 mg 06/23/21 09:00 06/23/21 09:07 Enoxaparin 40 Mg/0.4 Ml Syringe SUBCUT 40 mg DAILY EN Administration Haloperidol 2 mg 06/22/21 03:01 06/23/21 14:09 Haloperidol 5 Mg/Ml Vial IV 2 mg Q2HR PRN Administration Agitation Sodium Chloride 1,000 mls @ 150 mls/hr 06/21/21 20:30 06/23/21 15:48 Normal Saline 0.9% IV 150 mls/hr CONT EN Administration Folic Acid 1 mg/ Sodium 100.2 mls @ 200.4 mls/hr 06/23/21 09:00 06/23/21 09:23 Chloride IV 200.4 mls/hr DAILY EN Administration dexmedeTOMIDine in 0.9 % NaCL 400 mcg in 100 mls @ 5.443 mls/hr 06/23/21 15:30 06/23/21 15:48 Precedex IV 0.5 mcg/kg/hr TITRATE EN 13.608 mls/hr Titration Protocol 0.2 MCG/KG/HR Levothyroxine Sodium 40 mcg 06/23/21 11:00 06/23/21 11:05 Levothyroxine Inj 100 Mcg/5 Ml Vial IV 40 mcg DAILY EN Administration Lorazepam 0 mg 06/21/21 21:53 06/23/21 14:54 Lorazepam 2 Mg/Ml Inj IV 2 mg CIWAPRN PRN Administration Alcohol Withdrawal Protocol Multivitamins 1 tab 06/22/21 09:00 06/23/21 08:52 Multivitamin 1 Tablet PO Not Given DAILY EN Pantoprazole Sodium 40 mg 06/23/21 09:00 06/23/21 09:05 Pantoprazole 40 Mg Vial IV 40 mg DAILY EN Administration Review of Systems Review of Systems Narrative: Unable to participate due to underlying medical condition Exam Vital Signs (past 8 hours): - 06/23/21 07:56 06/23/21 08:57 06/23/21 09:43 Temperature 98.7 F Pulse Rate 89 110 H 92 H Respiratory Rate 18 19 18 Blood Pressure 137/86 Pulse Oximetry 97 06/23/21 12:00 06/23/21 12:13 06/23/21 13:17 Temperature 98.8 F Pulse Rate 115 H 115 H 104 H Respiratory Rate 20 20 22 Blood Pressure 139/82 139/82 Pulse Oximetry 93 Oxygen Delivery Method Room Air Oxygen Flow Rate 0 Narrative Exam Narrative: Moving all four extremities, nonsensical speech, in NAD Objective Labs Result Diagrams: 06/23/21 04:30 06/23/21 04:30 Labs: Laboratory Results - last 24 hr 06/23/21 06/23/21 06/23/21 04:30 04:30 04:30 WBC 9.3 RBC 4.19 L Hgb 13.8 Hct 40.0 L MCV 95.4 MCH 33.0 MCHC 34.6 RDW 13.2 Plt Count 101 L Neut % (Auto) 73.2 Lymph % (Auto) 15.6 L Bowie % (Auto) 10.0 Eos % (Auto) 0.7 L Baso % (Auto) 0.5 Neut # (Auto) 6800 Lymph # (Auto) 1400 [place] # (Auto) 900 Eos # (Auto) 100 Baso # (Auto) 0 PT 14.0 H INR 1.3 Sodium 138 Potassium 3.1 L Chloride 103 Carbon Dioxide 24 BUN 3 L Creatinine 0.57 L Estimated GFR > 60 BUN/Creatinine Ratio 5.3 L Glucose 152 H Calcium 8.9 Phosphorus Magnesium Total Bilirubin 2.0 H AST 305 H ALT 160 H Alkaline Phosphatase 107 Total Protein 6.9 Albumin 3.9 Globulin 3.0 Albumin/Globulin Ratio 1.3 Amylase Lipase 06/23/21 06/23/21 04:30 04:30 WBC RBC Hgb Hct MCV MCH MCHC RDW Plt Count Neut % (Auto) Lymph % (Auto) Bowie % (Auto) Eos % (Auto) Baso % (Auto) Neut # (Auto) Lymph # (Auto) [place]ie # (Auto) Eos # (Auto) Baso # (Auto) PT INR Sodium Potassium Chloride Carbon Dioxide BUN Creatinine Estimated GFR BUN/Creatinine Ratio Glucose Calcium Phosphorus 0.6 L* Magnesium 2.1 Total Bilirubin AST ALT Alkaline Phosphatase Total Protein Albumin Globulin Albumin/Globulin Ratio Amylase 51 Lipase 213 Assessment & Plan Assessment & Plan narrative: Delirium tremens Alcoholic hepatitis Duodenitis Electrolyte disturbance * Transfer to MICU on tele * Begin precedex and titrate per unit protocol * Continue with CIWA scale, prrn phenobarb * Trial of valium * Continue high dose thiamine, folate, MVT * Frequent redirection, normalize sleep wake cycle as able * Appears able to protect airway at this time, aspiration precuations, NPO * LFTs improving * Continue PPI, bowel rest/NPO * Replete lyte prn Time Spent With Patient Critical Care time: I spent a total of [45] minutes of critical care time on this patient's care to day; this time is exclusive of procedural time.
[2021-06-23] MEDS: diazePAM 10 MG/2 ML SYRINGE 5 MG IV (16:04)
[2021-06-23 19:58] LABS: Calcium 7.7 mg/dL (8.4-10.2); Carbon Dioxide 23 mmol/L (22-32); Chloride 108 mmol/L (98-107); Estimated Glomerular Filt Rate > 60 mL/min (>60); Glucose 137 mg/dL (80-110); HEMOLYSIS < 15 (0-50); Phosphorous 2.7 mg/dL (2.3-3.7); Potassium 3.2 mmol/L (3.4-5.1); Sodium 140 mmol/L (137-145)
[2021-06-23 19:59] LABS: BUN Creatinine Ratio 3.3 (6-22); Blood Urea Nitrogen 2 mg/dL (9-20)
[2021-06-23] MEDS: THIAMINE 300 MG in SODIUM CHLORIDE 0.9% 100 ML 412 ML IV (20:50)
[2021-06-23] MEDS: dexmedeTOMIDine in 0.9 % NaCL 400 MCG/100 ML PLAST..BAG 8.165 MCG IV (21:09)
--- NOTE | 2021-06-23 23:23 | PM.ICURNDS ---
- Date Patient Seen: 06/23/21 Time Patient Seen: 22:20 :: This patient was seen via real time interactive two-way audiovisual telecommunication. Note: Discussed with RN. Hemodynamically stable and calm on Precedex 0.3-0.4 mcg/kg/hr for EtOH withdrawal. Sleeping comfortably on camera. No interventions at this time.
[2021-06-24] VITALS (26 sets, daily range): BP systolic 97–147; BP diastolic 53–73; PULSE 64–86; RESP 16–35; TEMP 36.3–36.8; O2SAT 91–99
[2021-06-24] MEDS: SODIUM CHLORIDE 0.9% 1,000 ML 150 ML IV ×3 (03:11→22:57)
[2021-06-24] MEDS: dexmedeTOMIDine in 0.9 % NaCL 400 MCG/100 ML PLAST..BAG 16.329 MCG IV ×2 (03:12→08:46)
[2021-06-24 04:28] LABS: Add Manual Diff / Slide Review NO; Basophils Absolute Auto 0 /uL (0-100); Basophils Percent Auto 0.3 % (0-2); Eosinophils Absolute Auto 200 /uL (0-450); Eosinophils Percent Auto 2.6 % (2-4); Hematocrit 39.5 % (41-53); Hemoglobin 13.6 g/dL (13.5-17.5); Lymphocytes Absolute Auto 800 /uL (1100-4500); Lymphocytes Percent Auto 8.5 % (25-40); Mean Corpuscular HGB Conc 34.5 % (30-36); Mean Corpuscular Hemoglobin 33.7 PG (26-34); Mean Corpuscular Volume 97.5 fL (80-100); Monocytes Absolute Auto 700 /uL (0-900); Monocytes Percent Auto 6.7 % (3-14); Neutrophils Absolute Auto 8000 /uL (1500-7000); Neutrophils Percent Auto 81.9 % (50-75); Platelet Count 99 X10^3/uL (150-400); Red Blood Cell Count 4.05 X10^6/uL (4.5-5.9); Red Cell Distribution Width 13.5 % (11.6-14.8); White Blood Cell Count 9.7 X10^3/uL (4.5-11.0)
[2021-06-24 04:35] LABS: Alanine Aminotransferase 128 IU/L (<50); Albumin 3.3 g/dL (3.5-5.0); Albumin Globulin Ratio 1.1 (1.0-2.8); Alkaline Phosphatase 81 U/L (38-126); Aspartate Aminotransferase 193 IU/L (17-59); BUN Creatinine Ratio 6.3 (6-22); Bilirubin Total 1.6 mg/dL (0.2-1.3); Blood Urea Nitrogen 4 mg/dL (9-20); Calcium 7.4 mg/dL (8.4-10.2); Carbon Dioxide 18 mmol/L (22-32); Chloride 112 mmol/L (98-107); Estimated Glomerular Filt Rate > 60 mL/min (>60); Glucose 139 mg/dL (80-110); HEMOLYSIS < 15 (0-50); Potassium 3.3 mmol/L (3.4-5.1); Sodium 143 mmol/L (137-145); Total Protein 6.3 g/dL (6.3-8.2)
[2021-06-24 04:49] LABS: Magnesium 1.8 mg/dL (1.6-2.3); Phosphorous 2.9 mg/dL (2.3-3.7)
--- NOTE | 2021-06-24 06:12 | PC.NURSE ---
Shift Note: Patient was lethargic, maintained on precedex drip, afebrile, vital signs within acceptable limits, O2 sat maintained >90% at room air. Attempted to titrate down precedex to patient tolerance level as low as 0.3mcg/kg/hr, but patient started to be more awake, confused, restless and have pulled out his IV access at right forearm, attempted to get up from bed, precedex increase back to 0.5mcg/kg/hr. Patient became more calm and relaxed. Tele MD awared and updated. Condom cath in placed with adequate urine output. Will continue to monitor.
[2021-06-24] MEDS: PHENobarbital 65 MG/ML VIAL IV (07:34)
[2021-06-24] MEDS: diazePAM 10 MG/2 ML SYRINGE 5 MG IV ×4 (07:49→13:01)
[2021-06-24] MEDS: PANTOPRAZOLE 40 MG VIAL IV (09:12)
[2021-06-24] MEDS: ENOXAPARIN 40 MG/0.4 ML SYRINGE SUBCUT (09:13)
[2021-06-24] MEDS: THIAMINE 300 MG in SODIUM CHLORIDE 0.9% 100 ML 412 ML IV ×2 (09:13→21:34)
[2021-06-24] MEDS: LEVOTHYROXINE INJ 100 MCG/5 ML VIAL 40 MCG IV (09:14)
[2021-06-24] MEDS: POTASSIUM CHLORIDE IN WATER 10 MEQ/100 ML PIGGYBACK 100 MEQ IV ×4 (09:46→16:43)
--- NOTE | 2021-06-24 10:03 | P.TELICUPN_ITS ---
Subjective Subjective :: This patient was seen via real time interactive two-way audiovisual telecommunication. Laying in bed sleeping soundly, in NAD. SPO2 93% on RA. RN states patient more calm with precedex and valium, also received phenobarbital 65 mg IV this morning. 600 mL UO o/n but condom cath leaking and pads soaked K being replaced Current Medications Current Medications Medications: Home Medications levothyroxine 75 mcg tablet 75 mcg PO QAM 06/21/21 [History Confirmed 06/21/21] simvastatin 40 mg tablet 40 mg PO BEDTIME 06/21/21 [History Confirmed 06/21/21] Visit Medications (administered) Generic Name Dose Route Start Last Admin Trade Name Freq PRN Reason Stop Dose Admin Atorvastatin Calcium 20 mg 06/22/21 21:00 06/23/21 20:33 Atorvastatin 20 Mg Tablet PO Not Given BEDTIME EN Diazepam 5 mg 06/23/21 15:50 06/24/21 09:13 Diazepam 10 Mg/2 Ml Syringe IV 5 mg Q1H PRN Administration Anxiety Enoxaparin Sodium 40 mg 06/23/21 09:00 06/24/21 09:13 Enoxaparin 40 Mg/0.4 Ml Syringe SUBCUT 40 mg DAILY EN Administration Haloperidol 2 mg 06/22/21 03:01 06/23/21 14:09 Haloperidol 5 Mg/Ml Vial IV 2 mg Q2HR PRN Administration Agitation Sodium Chloride 1,000 mls @ 150 mls/hr 06/21/21 20:30 06/24/21 03:11 Normal Saline 0.9% IV 150 mls/hr CONT EN Administration Folic Acid 1 mg/ Sodium 100.2 mls @ 200.4 mls/hr 06/23/21 09:00 06/23/21 09:23 Chloride IV 200.4 mls/hr DAILY EN Administration Thiamine HCl 300 mg/ Sodium 103 mls @ 412 mls/hr 06/23/21 21:00 06/24/21 09:13 Chloride IV 06/25/21 21:14 412 mls/hr BID EN Administration dexmedeTOMIDine in 0.9 % NaCL 400 mcg in 100 mls @ 5.443 mls/hr 06/23/21 15:30 06/24/21 08:46 Precedex IV 0.6 mcg/kg/hr TITRATE EN 16.329 mls/hr Administration Protocol 0.2 MCG/KG/HR POTASSIUM CHLORIDE IN WATER 10 meq in 100 mls @ 100 mls/hr 06/24/21 09:15 06/24/21 09:46 Potassium Cl 10 Meq/100 Ml Kathryn IV 06/24/21 13:14 100 mls/hr Q1H EN Administration Levothyroxine Sodium 40 mcg 06/23/21 11:00 06/24/21 09:14 Levothyroxine Inj 100 Mcg/5 Ml Vial IV 40 mcg DAILY EN Administration Lorazepam 0 mg 06/21/21 21:53 06/23/21 14:54 Lorazepam 2 Mg/Ml Inj IV 2 mg CIWAPRN PRN Administration Alcohol Withdrawal Protocol Multivitamins 1 tab 06/22/21 09:00 06/24/21 09:41 Multivitamin 1 Tablet PO Not Given DAILY EN Pantoprazole Sodium 40 mg 06/23/21 09:00 06/24/21 09:12 Pantoprazole 40 Mg Vial IV 40 mg DAILY EN Administration Objective Labs Result Diagrams: 06/24/21 04:00 06/24/21 04:00 Labs: Laboratory Results - last 24 hr 06/23/21 06/24/21 06/24/21 19:05 04:00 04:00 WBC 9.7 RBC 4.05 L Hgb 13.6 Hct 39.5 L MCV 97.5 MCH 33.7 MCHC 34.5 RDW 13.5 Plt Count 99 L Neut % (Auto) 81.9 H Lymph % (Auto) 8.5 L Dunn % (Auto) 6.7 Eos % (Auto) 2.6 Baso % (Auto) 0.3 Neut # (Auto) 8000 H Lymph # (Auto) 800 L Dunn # (Auto) 700 Eos # (Auto) 200 Baso # (Auto) 0 Sodium 140 143 Potassium 3.2 L 3.3 L Chloride 108 H 112 H Carbon Dioxide 23 18 L BUN 2 L 4 L Creatinine 0.61 L 0.64 L Estimated GFR > 60 > 60 BUN/Creatinine Ratio 3.3 L 6.3 Glucose 137 H 139 H Calcium 7.7 L 7.4 L Phosphorus 2.7 D Magnesium Total Bilirubin 1.6 H AST 193 H ALT 128 H Alkaline Phosphatase 81 Total Protein 6.3 Albumin 3.3 L Globulin 3.0 Albumin/Globulin Ratio 1.1 06/24/21 04:00 WBC RBC Hgb Hct MCV MCH MCHC RDW Plt Count Neut % (Auto) Lymph % (Auto) [place] % (Auto) Eos % (Auto) Baso % (Auto) Neut # (Auto) Lymph # (Auto) Dunn # (Auto) Eos # (Auto) Baso # (Auto) Sodium Potassium Chloride Carbon Dioxide BUN Creatinine Estimated GFR BUN/Creatinine Ratio Glucose Calcium Phosphorus 2.9 Magnesium 1.8 Total Bilirubin AST ALT Alkaline Phosphatase Total Protein Albumin Globulin Albumin/Globulin Ratio Exam Vital Signs (past 8 hours): - 06/24/21 05:00 06/24/21 09:56 Temperature 98 F 98.3 F Pulse Rate 73 70 Respiratory Rate 33 H 35 H Blood Pressure 147/73 H 133/66 Pulse Oximetry 91 92 Oxygen Delivery Method Room Air Oxygen Flow Rate 0 Narrative Exam Narrative: Sleeping comfortably, in NAD, remains hemodynamically stable Assessment & Plan Assessment & Plan narrative: Delirium tremens Alcoholic hepatitis Duodenitis Electrolyte disturbance * Appears improved with current regimen * Continue precedex and titrate per unit protocol * Continue with CIWA scale, prn phenobarb * Continue with valium * Continue high dose thiamine, folate, MVT * Frequent redirection, normalize sleep wake cycle as able * Appears able to protect airway at this time, aspiration precuations, NPO * LFTs improving * Continue PPI, bowel rest/NPO for now, receiving maintenance fluids, adequate UO * Replete lytes prn * Add supplemental O2 Time Spent With Patient Critical Care time: I spent a total of [37] minutes of critical care time on this patient's care today; this time is exclusive of procedural time.
--- NOTE | 2021-06-24 11:07 | CM.DPC ---
DCP Cont: Discussed patient during team rounds. Patient is continuing to be treated for withdrawals, and is continuing on Presidex. Hospitalist indicated, just having to wait to see how he does and get through the withdrawals. He is closer now to the nursing station where he can be monitored. P: DCP to continue to follow and be available for resources when he is more stable. Celina Huddleston RN/Assembler
--- NOTE | 2021-06-24 11:09 | DI.RAD.S_ITS ---
PROCEDURE: XR CHEST FOR PICC 1V INDICATIONS: intubation TECHNIQUE: One view of the chest was acquired. COMPARISON: [facility], , XR CHEST 1V, 06/24/2021, 11:49. FINDINGS: Surgical changes and devices: Endotracheal tube projects 3.7 cm from the winnie. Enteric tube is seen, extending beyond the field of view. Left PICC line with tip overlying the lower SVC region. Lungs and pleura: Reduced lung volumes. No pleural effusions or pneumothorax. Mediastinum: Prominence of the cardiomediastinal silhouette, exaggerated by technique. Bones and chest wall: No suspicious bony lesions. Overlying soft tissues appear unremarkable. IMPRESSION: Support devices as detailed above Dictated by: Austin Kumari M.D. on 06/24/2021 at 13:20 Approved by: Austin Kumari M.D. on 06/24/2021 at 13:21
--- NOTE | 2021-06-24 11:26 | P.TELICUIN_ITS ---
Teleintensivist Intervention Date/Time Was camera activated?: Yes Date Patient Seen: 06/24/21 Time Patient Seen: 11:27 Issue(s) Addressed Issue(s): Resp. Distress/Ventilator management Intervention(s) :: Received call from hospitalist as patient tachypneic. We placed on supplemental O2 this morning given mild hypoxia. Given altered mentation and ongoing DTs, agree with intubation for airway protection/pending respiratory failure. Goal Vt 6-8 mL/kg, RR 20, PEEP 5 and wean FiO2 for SPO2 94% or greater. Versed and precedex for goal RASS -2. F/u ABG and CXR post intubation. Ane sthesia at bedside, patient's was updated by primary team. Plan discussed with: Physician/provider and Nurse
--- NOTE | 2021-06-24 11:40 | DI.RAD.S_ITS ---
PROCEDURE: XR CHEST 1V INDICATIONS: please confirm correct placement of ETT and OGT TECHNIQUE: One view of the chest was acquired. COMPARISON: [facility], CT, CT CHEST ABD PEL W CON, 06/21/2021, 15:37. FINDINGS: Surgical changes and devices: Endotracheal tube projects 2.5 cm from the winnie. An enteric tube extends below the left diaphragm with side hole in the region of the GE junction. Lungs and pleura: Low lung volumes. No consolidation, pleural effusions or pneumothorax. Mediastinum: Mediastinal contours appear normal. Enlargement of cardiac silhouette, exaggerated by technique. Bones and chest wall: No suspicious bony lesions. Overlying soft tissues appear unremarkable. IMPRESSION: Support devices as detailed above Dictated by: Austin Kumari M.D. on 06/24/2021 at 12:20 Approved by: Austin Kumari M.D. on 06/24/2021 at 12:22
--- NOTE | 2021-06-24 11:51 | PM.PROC.1 ---
Procedures Date/Time Date of procedure: 06/24/21 Time of procedure: 11:40 Intubation Time out performed: Yes Sedative: other (fentanyl 100mcg, propofol 200mg) Paralytic: succinylcholine Mg given: 110 Laryngoscope: fiber optic video scope ET tube size: 8 ET tube uncuffed: No Tube secured depth (cm): 24 Tube secured location: teeth Tube placement confirmation: visualized tube passing through cords, equal breath sounds bilaterally, no breath sounds over epigastrium and confirmation by capnometry Patient tolerated procedure: well Intubation complications: none Additional comments: 70y/o in DT's, tachypneic, agitated. Mild hypokalemia, hypothyroid, HLD. Full carroll, brief ok mask waiting for succinylcholine, DL x 1 Glidescope LP3, grade 1, thick, dry secretions suctioned, 8.0 passed easily through cords, cuff inflated, secured by RT, 24cm at front upper teeth. Atraumatic. BS=B, CXR confirmed tube placement. VSS.
[2021-06-24] MEDS: fentaNYL 100 MCG/2 ML INJ IV (11:54)
[2021-06-24] MEDS: MIDAZOLAM 50 MG in DEXTROSE 5% IN WATER 240 ML 10.886 ML IV (12:00)
--- NOTE | 2021-06-24 12:14 | PC.NURSE ---
Addendum entered by Celine Webber R.N. 06/24/21 18:19: 1820: Pt appears comfortable on vent, current IV infusion doses: propofol= 5 mcg/kg/min, precedex= 1 mcg/kg/hr, versed= 0.1 mg/kg/hr, levophed= 5 mcg/min Addendum entered by Celine Webber R.N. 06/24/21 16:40: 1615: Order received for norepinephrine drip. Initiated at 8 mcg/min. Propofol restarted. Will monitor. Addendum entered by Celine Webber R.N. 06/24/21 16:02: 1600: BP dropping (78/48, MAP=58) Propofol placed on standby. Will reassess and notify MDs as needed. Addendum entered by Celine Webber R.N. 06/24/21 12:18: 1130: Pt hyperoxygentated with bag mask ventilation. 200mg propofol administered, followed by 110 mg succinylcholine , flushing with 10cc NS before and after each med. Pt intubated with 8cm ETT, 24cm at teeth per Dr Wolf with one attempt. OG inserted and marked at lips. Xray confirmed placement, along with positive color change and auscultation of equal bilat breath sounds after ETT insertion. Forman catheter and restraints initiated per protocol. Dr Engle to update Malathi via telephone. 1230: Pt remains stable on ventilator. Original Note: 1110: PT remains tachypneic despite administration of PRN meds and titration of precedex drip. Dr Engle discussed with and teleintensivist Dr Mathew, all are in agreement to intubate pt for further management of severe ETOH withdrawal. 1120: Dr Wolf with anesthesia at bedside. 100mcg fentanly administered
[2021-06-24] MEDS: FOLIC ACID 1 MG in SODIUM CHLORIDE 0.9% 100 ML IV (12:50)
[2021-06-24 12:56] LABS: Fractionated Inspired Oxygen 60; HCO3 ABG 18 mmol/L (22-26); Oxygen Saturation ABG 95 % (95-100); PCO2 ABG 32.7 mmHg (35-45); PO2 ABG 78 mmHg (80-100); TCO2 ABG 19 mmol/L (21-31); pH ABG 7.34 (7.35-7.45)
--- NOTE | 2021-06-24 14:22 | P.PN_ITS ---
Subjective Subjective Interval history: Patient has worsening agitation, hallucinations, tachypnea. Discussed with at bedside the need for elective intubation given his worsening respiratory status, and she agrees to intubation. Exam Vital Signs (past 8 hours): - 06/24/21 09:56 06/24/21 11:20 Temperature 98.3 F Pulse Rate 70 64 Respiratory Rate 35 H 22 Blood Pressure 133/66 Pulse Oximetry 92 Fraction of Inspired Oxygen 60 Oxygen Delivery Method Mechanical Ventilation Oxygen Flow Rate 0 Narrative Exam Narrative: Const Other: Patient laying in bed, mumbling incoherently, waving his arms likely due to hallucinations Eyes Other: No scleral icterus appreciated Resp Other: Tachypneic rate noted, along with anterior lung pruitt clear to auscultation bilaterally Cardio Other: Tachycardic rate with regular rhythm, S1 and S2 heart sounds normal, no extra heart sounds or murmurs appreciated GI Other: Soft, non-distended, non-tender, bowel sounds present Skin Other: No grossly abnormal skin lesions noted Neuro Other: Patient mumbling incoherently, with tremulousness, restlessness, agitation, and likely hallucinations Extrem Other: Palpable dorsalis pedis pulses bilaterally Objective Labs Result Diagrams: 06/24/21 04:00 06/24/21 04:00 Labs: Laboratory Results - last 24 hr 06/23/21 06/24/21 06/24/21 19:05 04:00 04:00 WBC 9.7 RBC 4.05 L Hgb 13.6 Hct 39.5 L MCV 97.5 MCH 33.7 MCHC 34.5 RDW 13.5 Plt Count 99 L Neut % (Auto) 81.9 H Lymph % (Auto) 8.5 L [place] % (Auto) 6.7 Eos % (Auto) 2.6 Baso % (Auto) 0.3 Neut # (Auto) 8000 H Lymph # (Auto) 800 L [place] # (Auto) 700 Eos # (Auto) 200 Baso # (Auto) 0 ABG pH ABG pCO2 ABG pO2 ABG HCO3 ABG Total CO2 ABG O2 Saturation ABG Base Excess FiO2 Sodium 140 143 Potassium 3.2 L 3.3 L Chloride 108 H 112 H Carbon Dioxide 23 18 L BUN 2 L 4 L Creatinine 0.61 L 0.64 L Estimated GFR > 60 > 60 BUN/Creatinine Ratio 3.3 L 6.3 Glucose 137 H 139 H Calcium 7.7 L 7.4 L Phosphorus 2.7 D Magnesium Total Bilirubin 1.6 H AST 193 H ALT 128 H Alkaline Phosphatase 81 Total Protein 6.3 Albumin 3.3 L Globulin 3.0 Albumin/Globulin Ratio 1.1 06/24/21 06/24/21 04:00 12:10 WBC RBC Hgb Hct MCV MCH MCHC RDW Plt Count Neut % (Auto) Lymph % (Auto) [place] % (Auto) Eos % (Auto) Baso % (Auto) Neut # (Auto) Lymph # (Auto) [place] # (Auto) Eos # (Auto) Baso # (Auto) ABG pH 7.34 L ABG pCO2 32.7 L ABG pO2 78 L ABG HCO3 18 L ABG Total CO2 19 L ABG O2 Saturation 95 ABG Base Excess -8.0 L FiO2 60 Sodium Potassium Chloride Carbon Dioxide BUN Creatinine Estimated GFR BUN/Creatinine Ratio Glucose Calcium Phosphorus 2.9 Magnesium 1.8 Total Bilirubin AST ALT Alkaline Phosphatase Total Protein Albumin Globulin Albumin/Globulin Ratio [facility] Social History household members: spouse Smoking Status: Former smoker alcohol intake: current Assessment & Plan Assessment & Plan narrative: 1. Acute hypoxic respiratory failure secondary to severe EtOH withdrawal - Patient intubated on June 24, 2021 for airway protection, given persistent hyperventilation with decreasing HCO3 2. 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 Alcoholic hepatitis ?- LFT's continue to improve, and will need to monitor, INR slightly elevated 4. Duodenitis, ongoing, likely due to EtOH abuse ?- IV Protonix 40 mg daily on-board 5. Hypothyroidism ?- Home levothyroxine adjusted to IV levothyroxine 6. Hyperlipidemia ?- Will hold home simvastatin for now given above 7. Thrombocytopenia, stable - Likely secondary to bone marrow suppression from EtOH abuse, along with severe liver injury 8. Hypophosphatemia, improved - Likely due to EtOH abuse, replenish as necessary VTE prophylaxis: Lovenox 40 mg daily Time Spent With Patient Critical Care time: I spent a total of [] minutes of critical care time on this patient's care today; this time is exclusive of procedural time.
[2021-06-24] MEDS: propofoL 1,000 MG/100 ML VIAL 3.266 MG IV ×2 (14:31→16:41)
[2021-06-24 15:05] LABS: Creatine Kinase 381 U/L (55-170); Triglycerides 82 mg/dL (35-150)
[2021-06-24] MEDS: dexmedeTOMIDine in 0.9 % NaCL 400 MCG/100 ML PLAST..BAG 27.216 MCG IV ×3 (15:40→22:05)
[2021-06-24] MEDS: NOREPINEPHRINE BITARTRATE/D5W 4 MG/250 ML PLAST..BAG 30 MG IV (16:45)
[2021-06-24] MEDS: CHLORHEXIDINE GLUCONATE 15 ML CUP PO (18:10)
--- NOTE | 2021-06-24 21:18 | PM.ICURNDS ---
- Date Patient Seen: 06/24/21 Time Patient Seen: 20:00 :: This patient was seen via real time interactive two-way audiovisual telecommunication. Note: 70 y.o. male with EtOH withdrawal who was transferred to ICU for a Precedex. He was intubated earlier today for tachypnea and is currently sedated on propofol 10 mcg/kg/min, Precedex 1mcg/kg/hr and midazolam 0.1 mg/kg/hr. He is calm and synchronous with the ventilator. RECOMMENDATIONS: 1) Daily SAT/SBT. Would start by turning off midazolam and then propofol. Patient can be extubated on Precedex 2) Continue intermittent IVP benzodiazepines when off midazolam infusions 3) If not extubated 4/15 AM, should be started on EN. 4) Continue VTE and COLE prophylaxis
[2021-06-24] MEDS: MIDAZOLAM 50 MG in DEXTROSE 5% IN WATER 240 ML 54.431 ML IV (21:46)
--- NOTE | 2021-06-24 22:28 | PC.NURSE ---
Addendum entered by Kristy Valdes R.N. 06/25/21 00:37: Q 6 hr CBG 228, Provider notified, no new orders at this time Original Note: Evening shift note: Pt intubated and sedated, VSS, no s/s of distress, restraints in place, waite patent draining clear yellow urine, vent settings FiO2 28%, PEEP 5 RR 16 TV 480 SpO2 97%. Current IV infusion doses: Propofol 15 mcg/kg/min, Precedex 2 mcg/kg/hr, Versed 0.1 mcg/kg/hr, Levophed 5 mcg/min, NS 0.9 150mL/hr. Sedation for RASS of -3. Bed low and locked, call light within reach, Q 2hr turns, with continue to treat and monitor as ordered.
[2021-06-25] VITALS (56 sets, daily range): BP systolic 65–163; BP diastolic 37–92; PULSE 58–85; RESP 8–31; TEMP 36.4–38.2; O2SAT 96–99
[2021-06-25] MEDS: CHLORHEXIDINE GLUCONATE 15 ML CUP PO ×4 (00:04→20:18)
[2021-06-25] MEDS: dexmedeTOMIDine in 0.9 % NaCL 400 MCG/100 ML PLAST..BAG 54.431 MCG IV (00:04)
[2021-06-25] MEDS: dexmedeTOMIDine in 0.9 % NaCL 400 MCG/100 ML PLAST..BAG 29.937 MCG IV (02:41)
[2021-06-25] MEDS: propofoL 1,000 MG/100 ML VIAL 9.798 MG IV (03:41)
[2021-06-25] MEDS: NOREPINEPHRINE BITARTRATE/D5W 4 MG/250 ML PLAST..BAG 18.75 MG IV (04:18)
[2021-06-25 05:05] LABS: Add Manual Diff / Slide Review NO; Basophils Absolute Auto 100 /uL (0-100); Basophils Percent Auto 0.4 % (0-2); Eosinophils Absolute Auto 100 /uL (0-450); Eosinophils Percent Auto 0.8 % (2-4); Hematocrit 43.2 % (41-53); Hemoglobin 14.4 g/dL (13.5-17.5); Lymphocytes Absolute Auto 1800 /uL (1100-4500); Lymphocytes Percent Auto 13.5 % (25-40); Mean Corpuscular HGB Conc 33.4 % (30-36); Mean Corpuscular Hemoglobin 32.5 PG (26-34); Mean Corpuscular Volume 97.5 fL (80-100); Monocytes Absolute Auto 1700 /uL (0-900); Neutrophils Absolute Auto 9600 /uL (1500-7000); Neutrophils Percent Auto 72.3 % (50-75); Platelet Count 143 X10^3/uL (150-400); Red Blood Cell Count 4.43 X10^6/uL (4.5-5.9); Red Cell Distribution Width 13.7 % (11.6-14.8); White Blood Cell Count 13.3 X10^3/uL (4.5-11.0)
[2021-06-25 05:13] LABS: Alanine Aminotransferase 99 IU/L (<50); Albumin 3.2 g/dL (3.5-5.0); Albumin Globulin Ratio 1.1 (1.0-2.8); Alkaline Phosphatase 87 U/L (38-126); Aspartate Aminotransferase 152 IU/L (17-59); BUN Creatinine Ratio 6.1 (6-22); Bilirubin Total 1.6 mg/dL (0.2-1.3); Blood Urea Nitrogen 4 mg/dL (9-20); Carbon Dioxide 20 mmol/L (22-32); Chloride 112 mmol/L (98-107); Estimated Glomerular Filt Rate > 60 mL/min (>60); Glucose 162 mg/dL (80-110); HEMOLYSIS < 15 (0-50); Potassium 2.8 mmol/L (3.4-5.1); Sodium 142 mmol/L (137-145); Total Protein 6.2 g/dL (6.3-8.2)
[2021-06-25 05:31] LABS: Magnesium 1.5 mg/dL (1.6-2.3); Phosphorous 1.5 mg/dL (2.3-3.7)
--- NOTE | 2021-06-25 05:52 | PC.NURSE ---
Shift note - Assumed care of patient at 0100. Patient mostly unresponsive with pupils equal and reactive, but small. Weaned sedation slowly to attain ordered RASS goal. Patient grimaces and coughs with suctioning and now noted to be moving upper extremities at times. Hospitalist notified of WBC and electrolyte results and that patient has been running a fever of 101 (stated he would put in new orders).
--- NOTE | 2021-06-25 05:58 | DI.RAD.S_ITS ---
PROCEDURE: XR CHEST 1V INDICATIONS: fever, pna? TECHNIQUE: One view of the chest was acquired. COMPARISON: [facility], CR, XR CHEST FOR PICC 1V, 06/24/2021, 12:54. [facility], CR, XR CHEST 1V, 06/24/2021, 11:49. FINDINGS: Surgical changes and devices: ET tube is approximately 4 centimeters superior to the winnie. NG tube crosses the GE junction with distal tip and side port projecting over the proximal stomach. PICC line has been place which projects to the mid SVC via left-sided approach. Lungs and pleura: Low lung volumes redemonstrated. Increased opacification noted medial aspect left lung base. No pleural effusions or pneumothorax. Mediastinum: Mediastinal contours appear normal. Heart size is normal. Bones and chest wall: No suspicious bony lesions. Overlying soft tissues appear unremarkable. IMPRESSION: Increased opacification in the medial aspect left lung base which could represent atelectasis, aspiration or pneumonia. Dictated by: Nevaeh Moya MD, PhD on 06/25/2021 at 7:56 Approved by: Nevaeh Moya MD, PhD on 06/25/2021 at 7:58
[2021-06-25] MEDS: SODIUM CHLORIDE 0.9% 1,000 ML 150 ML IV (05:59)
[2021-06-25 06:02] LABS: pH ABG 7.52 (7.35-7.45)
[2021-06-25 06:04] LABS: Fractionated Inspired Oxygen 28; HCO3 ABG 17 mmol/L (22-26); Oxygen Saturation ABG 98 % (95-100); PCO2 ABG 20.5 mmHg (35-45); PO2 ABG 94 mmHg (80-100); TCO2 ABG 17 mmol/L (21-31)
[2021-06-25] MEDS: MAGNESIUM SULFATE 4 GM/100 ML PIGGYBACK IV (06:20)
[2021-06-25] MEDS: POTASSIUM CHLORIDE IN WATER 10 MEQ/100 ML PIGGYBACK 100 MEQ IV ×4 (06:20→10:23)
[2021-06-25] MEDS: dexmedeTOMIDine in 0.9 % NaCL 400 MCG/100 ML PLAST..BAG 27.216 MCG IV (06:29)
--- NOTE | 2021-06-25 07:07 | P.TELICUPN_ITS ---
Subjective Subjective :: This patient was seen via real time interactive two-way audiovisual telecommunication. Patient was intubated yesterday afternoon for pending respiratory failure, airway protection Requiring precedex, versed and propofol drips, pulling at tubes and lines when weaned Required addition of levophed yesterday afternoon after addition of propofol Remains intubated and sedated this morning Current Medications Current Medications Medications: Home Medications levothyroxine 75 mcg tablet 75 mcg PO QAM 06/21/21 [History Confirmed 06/21/21] simvastatin 40 mg tablet 40 mg PO BEDTIME 06/21/21 [History Confirmed 06/21/21] Visit Medications (administered) Generic Name Dose Route Start Last Admin Trade Name Freq PRN Reason Stop Dose Admin Atorvastatin Calcium 20 mg 06/22/21 21:00 06/24/21 21:23 Atorvastatin 20 Mg Tablet PO Not Given BEDTIME EN Chlorhexidine Gluconate 15 ml 06/24/21 18:00 06/25/21 00:04 Chlorhexidine Gluconate 15 Ml Cup PO 15 ml Q6HR EN Administration Diazepam 5 mg 06/23/21 15:50 06/24/21 13:01 Diazepam 10 Mg/2 Ml Syringe IV 5 mg Q1H PRN Administration Anxiety Enoxaparin Sodium 40 mg 06/23/21 09:00 06/24/21 09:13 Enoxaparin 40 Mg/0.4 Ml Syringe SUBCUT 40 mg DAILY EN Administration Haloperidol 2 mg 06/22/21 03:01 06/23/21 14:09 Haloperidol 5 Mg/Ml Vial IV 2 mg Q2HR PRN Administration Agitation Sodium Chloride 1,000 mls @ 150 mls/hr 06/21/21 20:30 06/25/21 05:59 Normal Saline 0.9% IV 150 mls/hr CONT EN Administration Folic Acid 1 mg/ Sodium 100.2 mls @ 200.4 mls/hr 06/23/21 09:00 06/25/21 01:04 Chloride IV Infused DAILY EN Infusion Thiamine HCl 300 mg/ Sodium 103 mls @ 412 mls/hr 06/23/21 21:00 06/24/21 21:49 Chloride IV 06/25/21 21:14 Infused BID EN Infusion dexmedeTOMIDine in 0.9 % NaCL 400 mcg in 100 mls @ 5.443 mls/hr 06/23/21 15:30 06/25/21 06:29 Precedex IV 1 mcg/kg/hr TITRATE EN 27.216 mls/hr Administration Protocol 0.2 MCG/KG/HR Midazolam HCl 50 mg/ Dextrose 250 mls @ 10.886 mls/hr 06/24/21 11:30 06/25/21 02:50 IV 0.02 mg/kg/hr TITRATE EN 10.886 mls/hr Titration Protocol 0.02 MG/KG/HR Propofol 1,000 mg in 100 mls @ 3.266 mls/hr 06/24/21 14:30 06/25/21 06:01 Propofol IV 15 mcg/kg/min TITRATE EN 9.798 mls/hr Titration Protocol 5 MCG/KG/MIN NOREPINEPHRINE BITARTRATE/D5W 4 mg in 250 mls @ 30 mls/hr 06/24/21 16:15 06/25/21 04:18 Levophed IV 5 mcg/min TITRATE EN 18.75 mls/hr Administration Protocol 8 MCG/MIN Magnesium Sulfate 4 gm in 100 mls @ 25 mls/hr 06/25/21 05:59 06/25/21 06:20 Magnesium Sulfate IV 06/25/21 09:58 25 mls/hr NOW ONE Administration POTASSIUM CHLORIDE IN WATER 10 meq in 100 mls @ 100 mls/hr 06/25/21 06:00 06/25/21 06:20 Potassium Cl 10 Meq/100 Ml Kathryn IV 06/25/21 09:59 100 mls/hr Q1H EN Administration Levothyroxine Sodium 40 mcg 06/23/21 11:00 06/24/21 09:14 Levothyroxine Inj 100 Mcg/5 Ml Vial IV 40 mcg DAILY EN Administration Lorazepam 0 mg 06/21/21 21:53 06/23/21 14:54 Lorazepam 2 Mg/Ml Inj IV 2 mg CIWAPRN PRN Administration Alcohol Withdrawal Protocol Multivitamins 1 tab 06/22/21 09:00 06/24/21 09:41 Multivitamin 1 Tablet PO Not Given DAILY EN Pantoprazole Sodium 40 mg 06/23/21 09:00 06/24/21 09:12 Pantoprazole 40 Mg Vial IV 40 mg DAILY EN Administration Objective Ventilator Parameters: Ventilator Settings FiO2 28 RT Vent Frequency 12 Ventilator Tidal Volume 450 Exhaled Positive End Expiratory 5 Pressure Inspiratory Phase Time 0.8 I:E Ratio 1.1.5 Patient Position HOB >= 30 degrees Labs Result Diagrams: 06/25/21 04:55 06/25/21 04:55 Labs: Laboratory Results - last 24 hr 06/24/21 06/24/21 06/25/21 12:10 14:40 04:55 WBC 13.3 H RBC 4.43 L Hgb 14.4 Hct 43.2 MCV 97.5 MCH 32.5 MCHC 33.4 RDW 13.7 Plt Count 143 L Neut % (Auto) 72.3 Lymph % (Auto) 13.5 L [place] % (Auto) 13.0 Eos % (Auto) 0.8 L Baso % (Auto) 0.4 Neut # (Auto) 9600 H Lymph # (Auto) 1800 [place] # (Auto) 1700 H Eos # (Auto) 100 Baso # (Auto) 100 ABG pH 7.34 L ABG pCO2 32.7 L ABG pO2 78 L ABG HCO3 18 L ABG Total CO2 19 L ABG O2 Saturation 95 ABG Base Excess -8.0 L FiO2 60 Sodium Potassium Chloride Carbon Dioxide BUN Creatinine Estimated GFR BUN/Creatinine Ratio Glucose Calcium Phosphorus Magnesium Total Bilirubin AST ALT Alkaline Phosphatase Total Creatine Kinase 381 H D Total Protein Albumin Globulin Albumin/Globulin Ratio Triglycerides 82 06/25/21 06/25/21 06/25/21 04:55 04:55 05:39 WBC RBC Hgb Hct MCV MCH MCHC RDW Plt Count Neut % (Auto) Lymph % (Auto) [place] % (Auto) Eos % (Auto) Baso % (Auto) Neut # (Auto) Lymph # (Auto) [place] # (Auto) Eos # (Auto) Baso # (Auto) ABG pH 7.52 H ABG pCO2 20.5 L* ABG pO2 94 ABG HCO3 17 L ABG Total CO2 17 L ABG O2 Saturation 98 ABG Base Excess -6.0 L FiO2 28 Sodium 142 Potassium 2.8 L Chloride 112 H Carbon Dioxide 20 L BUN 4 L Creatinine 0.66 Estimated GFR > 60 BUN/Creatinine Ratio 6.1 Glucose 162 H Calcium 7.0 L Phosphorus 1.5 L D Magnesium 1.5 L Total Bilirubin 1.6 H AST 152 H ALT 99 H Alkaline Phosphatase 87 Total Creatine Kinase Total Protein 6.2 L Albumin 3.2 L Globulin 3.0 Albumin/Globulin Ratio 1.1 Triglycerides Exam Vital Signs (past 8 hours): - 06/24/21 23:30 06/25/21 00:00 06/25/21 00:30 Temperature 99.8 F H Pulse Rate 79 79 79 Respiratory Rate 25 H 26 H 26 H Blood Pressure 121/58 L Pulse Oximetry 98 98 98 06/25/21 01:00 06/25/21 01:30 06/25/21 01:45 Temperature 99.5 F Pulse Rate 79 79 77 Respiratory Rate 27 H 26 H 26 H Blood Pressure 128/63 113/58 L Pulse Oximetry 98 98 98 06/25/21 02:00 06/25/21 02:15 06/25/21 02:30 Temperature Pulse Rate 77 76 77 Respiratory Rate 25 H 31 H 25 H Blood Pressure 96/57 L 94/50 L 102/55 L Pulse Oximetry 98 97 97 06/25/21 02:45 06/25/21 03:00 06/25/21 03:15 Temperature Pulse Rate 82 80 80 Respiratory Rate 24 25 H 26 H Blood Pressure 103/58 L 103/58 L 105/59 L Pulse Oximetry 98 98 98 06/25/21 03:30 06/25/21 03:38 06/25/21 03:45 Temperature 100.7 F H Pulse Rate 84 75 Respiratory Rate 26 H 29 H Blood Pressure 105/59 L 101/52 L Pulse Oximetry 97 98 06/25/21 04:00 06/25/21 04:01 06/25/21 04:15 Temperature Pulse Rate 69 70 73 Respiratory Rate 24 29 H 24 Blood Pressure 67/37 L 83/51 L 112/59 L Pulse Oximetry 97 97 98 06/25/21 04:30 06/25/21 04:45 06/25/21 05:00 Temperature Pulse Rate 72 71 69 Respiratory Rate 26 H 28 H 25 H Blood Pressure 94/51 L 93/55 L 94/51 L Pulse Oximetry 98 97 98 06/25/21 05:15 06/25/21 05:30 06/25/21 05:45 Temperature Pulse Rate 70 71 69 Respiratory Rate 24 29 H 27 H Blood Pressure 98/56 L 91/50 L 95/51 L Pulse Oximetry 98 98 98 06/25/21 06:00 06/25/21 06:15 06/25/21 06:30 Temperature 98.0 F Pulse Rate 69 70 69 Respiratory Rate 26 H 31 H 31 H Blood Pressure 116/59 L 105/59 L 109/64 Pulse Oximetry 98 99 99 Fraction of Inspired Oxygen 28 Oxygen Delivery Method Mechanical Ventilation Oxygen Flow Rate 0 Narrative Exam Narrative: Intubated and sedated Assessment & Plan Assessment & Plan narrative: Delirium tremens Acute hypoxic respiratory failure Respiratory alkalosis Shock, likely sedative induced Leukocytosis Alcoholic hepatitis Duodenitis Electrolyte disturbance * Remains intubated and sedated. Vent settings, morning ABG and CXR reviewed * Wean precedex, versed and propofol as appropriate. Difficult to reorient with SAT, pulling at tubes/lines, altered mental status remains barrier to extubation * Resume CIWA protocol post extubation * Continue levophed for goal MAP > 65, currently on 6 mcg * Begin tube feeds at 10mL and advance to 40 if he tolerates * Begin empiric zosyn * Continue high dose thiamine, folate, MVT * LFTs improving * Continue PPI, bowel rest/NPO for now, receiving maintenance fluids, adequate UO * Replete lytes prn, K, phos and Mg ordered Time Spent With Patient Critical Care time: I spent a total of [40] minutes of critical care time on this patient's care today; this time is exclusive of procedural time.
[2021-06-25 07:12] LABS: Appearance Urine UA CLEAR; Bilirubin Urine UA 1+ (NEGATIVE); Glucose Urine UA TRACE g/dL (Negative); Ketones Urine UA TRACE (NEGATIVE); Leukocyte Esterase Urine UA NEGATIVE (NEGATIVE); Nitrite Urine UA NEGATIVE (Negative); Occult Blood Urine UA 3+ (Negative); Protein Urine UA TRACE (Negative); Specific Gravity Urine UA 1.025 (1.000-1.035)
[2021-06-25 07:16] LABS: Color Urine UA Amber
[2021-06-25 07:38] LABS: Ictotest Urine Negative (Negative); RBC Urine 30-100/HPF (0-5/HPF); Squamous Epithelial Cell Urine 1-5 /HPF (0-5/HPF); WBC Urine 1-5/HPF (0-5/HPF)
[2021-06-25 07:39] LABS: Bacteria Urine Many (>30); Culture Indicated Urine Cult Not Indicated; Hyaline Casts Urine 0-1/LPF; Mucus Urine 2+ (Negative)
[2021-06-25] MEDS: PIPERACILLIN/TAZO 4.5 GM in SODIUM CHLORIDE 0.9% 100 ML 25 ML IV ×3 (07:50→23:11)
[2021-06-25] MEDS: PANTOPRAZOLE 40 MG VIAL IV (07:50)
[2021-06-25] MEDS: ENOXAPARIN 40 MG/0.4 ML SYRINGE SUBCUT (08:01)
[2021-06-25] MEDS: POTASSIUM PHOSPHATE 45 MMOL in SODIUM CHLORIDE 0.9% 500 ML 85.833 ML IV (08:15)
[2021-06-25] MEDS: MIDAZOLAM 50 MG in DEXTROSE 5% IN WATER 240 ML 16.329 ML IV (08:17)
--- NOTE | 2021-06-25 09:30 | CM.DPC ---
Addendum entered by Celina Huddleston R.N. 06/25/21 10:32: Discussed patient during team rounds. Hospitalist indicated that he is receiving max dose of medications for sedation. He anticipated that he will remain intubated for a few days. Tube feedings with start today with Georgi, biofuels technology development manager involved. Will continue to follow. Original Note: DCP Cont: Patient remains intubated at this time. He did have a fever through the night. Staff and provider have continued to update patient's spouse. P: DCP to continue to follow closely, most likely will need resources for alcohol when he is medically stable. Celina Huddleston RN/[employer]
--- NOTE | 2021-06-25 09:49 | PC.NURSE ---
Addendum entered by Belinda Mccloud R.N. 06/25/21 19:01: Frequent titrations needed this shift to control BP and sedation levels. Turning q2. Addendum entered by Beilnda Mccloud R.N. 06/25/21 18:55: Add TF also with h20 flushes 250 q4 hr, no residual when increased to 40mls hr@ 1530. Art line to R wrist for bp titration. Attempted to turn levophed off, as it is infusing minimally, did not tolerate, retstarted at 1mcg/min. See vitals. Pt remains on Precidex @ 0.8mcg/kg/hr, Propofol 5mcg/kg/min, versed 0.02mg/kg/hr, levophed 1 mcg/min, and vent settings 28% Fio2 Peep 5, RR 12, TV 550. Addendum entered by Belinda Mccloud R.N. 06/25/21 17:44: 1100-Pt has not tolerated attempts at weaning sedation. Unable to follow instruction, attempts to remove lines. Per emar, increased back up and pressure support slowly increased to assist in appropriate sedation. TF started per order, trickle Glucerna @ 10 mls hour, goal of 40 mls at 4 hours~ 1400. Addendum entered by Belinda Mccloud R.N. 06/25/21 10:33: Rec'd order for art line for better pressure management. Original Note: Am shift Assumed care of patient, gtts infusing Precidex, Propofol, Versed, and Levophed. Pt was light sedation with stimulation, chewing at tube, unable to follow instructions. Titrated gtts to allow vent management. Increased Levophed to allow sedation. See Mar. Scds placed when Pt more sedated. BUE soft restraints, tolerating well. ROM assessed. During rounds with Tele ICU discussed SBT with RT present. Will attempt today. Turning q2 to offload pressure. Seizure precautions in place.
--- NOTE | 2021-06-25 11:03 | DIET.CONS ---
Dietary Consultation Note Admission Date: 06/21/2021 20:24 Assessment: 70 y/o M admitted c acute ethanol withdrawal in setting of chronic dependence. Pt currently intubated and NPO. At risk for malnutrition and refeeding syndrome given ETOH hx and withdrawal and reported difficulty swallowing and poor solid PO prior to admit per RD notes. Recent refeeding labs: phos 1.5 L, Mg 1.5 L, k 2.98 L, gluc 162 H. Ht: 170.18 cm Wt: 108.862 kg BMI: 37.5 Last BM: 06/21/21 (06/21/21 22:00) MNA: 13 Tiburcio Score: 11 Diet: 06/24/21 15:20 NPO Diet Diet Modifications: NPO Type: Strict Labs: RBC 4.43 X10^6/uL (4.5-5.9) L 06/25/21 04:55 Hgb 14.4 g/dL (13.5-17.5) 06/25/21 04:55 Hct 43.2 % (41-53) 06/25/21 04:55 Creatinine 0.66 mg/dL (0.66-1.25) 06/25/21 04:55 Nutrition Diagnosis: Interventions: 1. Recc NG feeding continuous Glucerna 1.5 starting at 10mL/h titrating up by 10mL q 4-6h as tolerated until reaching goal rate of 55mL/h. Recc 250mL free water flushes q 4h. Feed plus formula provides 100% kcals, 95% PRO, and 100% fluids 2. HOB elevated at least 30 degrees at all time to reduce risk of aspiration. 3. Daily weights 4. Pt at risk for refeeding, check refeeding labs and replenish prn Feed kcals provided: 1980 Propofol kcals: 259 Total kcals: 2239 Feed provides: 109g PRO Feed water: 1002mL Water flushes: 1500mL Total fluids: 2502mL EER: 5532-2124 kcals (28-30kca/kg at BMI of 25-27), 115-120g protein (1.5g/kg), 7440-6214 mL fluids (30ml/kg or 1mL/kcal) Monitoring/Evaluations: Monitoring wt, tolerance, refeeding labs; RD f/u Monday Electronically Signed by: Catalina Raya 06/25/21 11:03 Clinical Dietitian [address] [id number]
--- NOTE | 2021-06-25 11:30 | P.PN_ITS ---
Subjective Subjective Interval history: The patient is intubated, and respiratory rate has improved from tachypnea. He had a low-grade temperature overnight, and IV Zosyn was initiated for empiric coverage in case of aspiration pneumonia. He is on Precedex, Propofol and Versed. Exam Vital Signs (past 8 hours): - 06/25/21 03:38 06/25/21 03:45 06/25/21 04:00 Temperature 100.7 F H Pulse Rate 75 69 Respiratory Rate 29 H 24 Blood Pressure 101/52 L 67/37 L Pulse Oximetry 98 97 06/25/21 04:01 06/25/21 04:15 06/25/21 04:30 Temperature Pulse Rate 70 73 72 Respiratory Rate 29 H 24 26 H Blood Pressure 83/51 L 112/59 L 94/51 L Pulse Oximetry 97 98 98 06/25/21 04:45 06/25/21 05:00 06/25/21 05:15 Temperature Pulse Rate 71 69 70 Respiratory Rate 28 H 25 H 24 Blood Pressure 93/55 L 94/51 L 98/56 L Pulse Oximetry 97 98 98 06/25/21 05:30 06/25/21 05:45 06/25/21 06:00 Temperature 98.0 F Pulse Rate 71 69 69 Respiratory Rate 29 H 27 H 26 H Blood Pressure 91/50 L 95/51 L 116/59 L Pulse Oximetry 98 98 98 06/25/21 06:15 06/25/21 06:30 06/25/21 07:00 Temperature Pulse Rate 70 69 69 Respiratory Rate 31 H 31 H 27 H Blood Pressure 105/59 L 109/64 108/62 Pulse Oximetry 99 99 97 06/25/21 08:00 06/25/21 09:00 06/25/21 10:00 Temperature Pulse Rate 67 67 67 Respiratory Rate 26 H 24 22 Blood Pressure 95/53 L 83/52 L 84/53 L Pulse Oximetry 97 97 98 06/25/21 11:00 Temperature Pulse Rate 67 Respiratory Rate 20 Blood Pressure 81/51 L Pulse Oximetry 98 Fraction of Inspired Oxygen 28 Oxygen Delivery Method Mechanical Ventilation Oxygen Flow Rate 0 Narrative Exam Narrative: Const Other: Patient laying in bed, intubated and sedated, appears comfortable Eyes Other: No scleral icterus appreciated Resp Other: Anterior lung pruitt clear to auscultation bilaterally Cardio Other: Regular rate with regular rhythm, S1 and S2 heart sounds normal, no extra heart sounds or murmurs appreciated GI Other: Soft, non-distended, non-tender, bowel sounds present Skin Other: No grossly abnormal skin lesions noted Neuro Other: Intubated and sedated Extrem Other: Palpable dorsalis pedis pulses bilaterally Objective Labs Result Diagrams: 06/25/21 04:55 06/25/21 04:55 Labs: Laboratory Results - last 24 hr 06/24/21 06/24/21 06/25/21 12:10 14:40 04:55 WBC 13.3 H RBC 4.43 L Hgb 14.4 Hct 43.2 MCV 97.5 MCH 32.5 MCHC 33.4 RDW 13.7 Plt Count 143 L Neut % (Auto) 72.3 Lymph % (Auto) 13.5 L [place] % (Auto) 13.0 Eos % (Auto) 0.8 L Baso % (Auto) 0.4 Neut # (Auto) 9600 H Lymph # (Auto) 1800 [place] # (Auto) 1700 H Eos # (Auto) 100 Baso # (Auto) 100 ABG pH 7.34 L ABG pCO2 32.7 L ABG pO2 78 L ABG HCO3 18 L ABG Total CO2 19 L ABG O2 Saturation 95 ABG Base Excess -8.0 L FiO2 60 Sodium Potassium Chloride Carbon Dioxide BUN Creatinine Estimated GFR BUN/Creatinine Ratio Glucose Calcium Phosphorus Magnesium Total Bilirubin AST ALT Alkaline Phosphatase Total Creatine Kinase 381 H D Total Protein Albumin Globulin Albumin/Globulin Ratio Triglycerides 82 Urine Color Urine Appearance Urine pH Ur Specific [place] Urine Protein Urine Glucose (UA) Urine Ketones Urine Occult Blood Urine Nitrate Urine Bilirubin Ur Bilirubin Confirm Urine Urobilinogen Ur Leukocyte Esterase Urine RBC Urine WBC Ur Squamous Epith Cells Urine Bacteria Hyaline Casts Urine Mucus Ur Culture Indicated? 06/25/21 06/25/21 06/25/21 04:55 04:55 05:39 WBC RBC Hgb Hct MCV MCH MCHC RDW Plt Count Neut % (Auto) Lymph % (Auto) [place] % (Auto) Eos % (Auto) Baso % (Auto) Neut # (Auto) Lymph # (Auto) [place] # (Auto) Eos # (Auto) Baso # (Auto) ABG pH 7.52 H ABG pCO2 20.5 L* ABG pO2 94 ABG HCO3 17 L ABG Total CO2 17 L ABG O2 Saturation 98 ABG Base Excess -6.0 L FiO2 28 Sodium 142 Potassium 2.8 L Chloride 112 H Carbon Dioxide 20 L BUN 4 L Creatinine 0.66 Estimated GFR > 60 BUN/Creatinine Ratio 6.1 Glucose 162 H Calcium 7.0 L Phosphorus 1.5 L D Magnesium 1.5 L Total Bilirubin 1.6 H AST 152 H ALT 99 H Alkaline Phosphatase 87 Total Creatine Kinase Total Protein 6.2 L Albumin 3.2 L Globulin 3.0 Albumin/Globulin Ratio 1.1 Triglycerides Urine Color Urine Appearance Urine pH Ur Specific [place] Urine Protein Urine Glucose (UA) Urine Ketones Urine Occult Blood Urine Nitrate Urine Bilirubin Ur Bilirubin Confirm Urine Urobilinogen Ur Leukocyte Esterase Urine RBC Urine WBC Ur Squamous Epith Cells Urine Bacteria Hyaline Casts Urine Mucus Ur Culture Indicated? 06/25/21 06:49 WBC RBC Hgb Hct MCV MCH MCHC RDW Plt Count Neut % (Auto) Lymph % (Auto) [place] % (Auto) Eos % (Auto) Baso % (Auto) Neut # (Auto) Lymph # (Auto) [place] # (Auto) Eos # (Auto) Baso # (Auto) ABG pH ABG pCO2 ABG pO2 ABG HCO3 ABG Total CO2 ABG O2 Saturation ABG Base Excess FiO2 Sodium Potassium Chloride Carbon Dioxide BUN Creatinine Estimated GFR BUN/Creatinine Ratio Glucose Calcium Phosphorus Magnesium Total Bilirubin AST ALT Alkaline Phosphatase Total Creatine Kinase Total Protein Albumin Globulin Albumin/Globulin Ratio Triglycerides Urine Color Jaclyn Urine Appearance Clear Urine pH 5.0 Ur Specific [place] 1.025 Urine Protein Trace H Urine Glucose (UA) Trace H Urine Ketones Trace H Urine Occult Blood 3+ H Urine Nitrate Negative Urine Bilirubin 1+ H Ur Bilirubin Confirm Negative Urine Urobilinogen 1.0 Ur Leukocyte Esterase Negative Urine RBC 30-100/hpf H Urine WBC 1-5/hpf Ur Squamous Epith Cells 1-5 /hpf Urine Bacteria Many (>30) H Hyaline Casts 0-1/lpf Urine Mucus 2+ H Ur Culture Indicated? Cult not indicated PFSH Social History household members: spouse Smoking Status: Former smoker alcohol intake: current Assessment & Plan Assessment & Plan narrative: 1. Acute hypoxic respiratory failure secondary to severe EtOH withdrawal ?- Patient intubated on June 24, 2021 for airway protection, given persistent hyperventilation with decreasing HCO3 2. Severe EtOH withdrawal with delirium tremens ?- [facility] protocol on-board, along with IV Precedex, IV propofol, and IV Versed ?- Will defer to tele-family member caretaker regarding ideal sedating agents while patient is on ventilator 3. Concern for aspiration pneumonia - Empiric IV Zosyn started on June 25, 2021, given low-grade fever, leukocytosis, and high likelihood of aspiraton 4. Alcoholic hepatitis ?- LFT's continue to improve, and will need to monitor, INR slightly elevated 5. Duodenitis, ongoing, likely due to EtOH abuse ?- IV Protonix 40 mg daily on-board 6. Hypothyroidism ?- Home levothyroxine adjusted to IV levothyroxine 7. Hyperlipidemia ?- Will hold home simvastatin for now given above 8. Thrombocytopenia, stable ?- Likely secondary to bone marrow suppression from EtOH abuse, along with severe liver injury 9. Hypophosphatemia, ongoing ?- Likely due to ongoing EtOH withdrawal, replenish as necessary 10. Hypokalemia, ongoing - Likely due to ongoing EtOH withdrawal, replenish as necessary 11. Hypomagnesemia, ongoing - Likely due to ongoing EtOH withdrawal, replenish as necessary VTE prophylaxis: Lovenox 40 mg daily Time Spent With Patient Critical Care time: I spent a total of [] minutes of critical care time on this patient's care today; this time is exclusive of procedural time.
--- NOTE | 2021-06-25 12:22 | PM.PROC.1 ---
Procedures Date/Time Date of procedure: 06/25/21 Time of procedure: 11:15 Arterial Line Time out performed: Yes Size (Gauge): 20 (Arrow) Technique used: guide wire technique (ultrasound guidance) Post-Procedure: dry sterile dressing placed Patient tolerated procedure: Well and No complications Complications: none Site: right and radial
[2021-06-25] MEDS: CALCIUM GLUCONATE 4.65 MEQ in SODIUM CHLORIDE 0.9% 50 ML 180 ML IV (13:17)
[2021-06-25] MEDS: THIAMINE 300 MG in SODIUM CHLORIDE 0.9% 100 ML 412 ML IV ×2 (13:24→21:13)
[2021-06-25] MEDS: dexmedeTOMIDine in 0.9 % NaCL 400 MCG/100 ML PLAST..BAG 21.772 MCG IV ×2 (14:00→19:22)
[2021-06-25] MEDS: FOLIC ACID 1 MG in SODIUM CHLORIDE 0.9% 100 ML 200 ML IV (14:04)
[2021-06-25] MEDS: propofoL 1,000 MG/100 ML VIAL 6.532 MG IV (15:27)
[2021-06-25 15:32] LABS: Blood Urea Nitrogen 5 mg/dL (9-20); Calcium 6.9 mg/dL (8.4-10.2); Carbon Dioxide 19 mmol/L (22-32); Chloride 113 mmol/L (98-107); Estimated Glomerular Filt Rate > 60 mL/min (>60); Glucose 147 mg/dL (80-110); HEMOLYSIS < 15 (0-50); Magnesium 2.6 mg/dL (1.6-2.3); Potassium 3.6 mmol/L (3.4-5.1); Sodium 140 mmol/L (137-145)
--- NOTE | 2021-06-25 22:50 | PC.NURSE ---
Addendum entered by Esther Ayers R.N. 06/26/21 06:27: Versed titrated off at [address] Oseguera suggestion for SV, propofol at 10mcg/kg/min, Precedex at 1mcg/kg/hr, Levophed off at 0505. UOP 350ml tea color. Dr Merida notified about am labs; Ca+ 6.6, Phos 2.1, K+ 3.2, Cl- 117, serum CO2 14, no new orders at this time. Original Note: At 1999 attempt to check tube feed residual, unable to flush OGT with air bolus or water, unable to withdraw feed, assessed all connections, advanced OGT [address] Hutchinson suggestion, no change. Reported decreased UOP approximately 30ml since start of shift, 20mg IV Lasix ordered. Patient remains sedated on vent, propofol, Precedex, and Versed, see titrations in [place]. Levophed at 1mcg/min, attempts to stop are currently unsuccessful.
[2021-06-25] MEDS: FUROSEMIDE 20 MG/2 ML VIAL IV (23:11)
--- NOTE | 2021-06-25 23:50 | PM.ICURNDS ---
- Date Patient Seen: 06/25/21 Time Patient Seen: 20:20 :: This patient was seen via real time interactive two-way audiovisual telecommunication. Note: 70 y.o. male with EtOH withdrawal who was transferred to ICU for a Precedex infusion.? He was intubated 06/24 for tachypnea. CURRENT DRIPS: Midazolam 0.1 mg/kg/hr Precedex 0.8 mcg/kg/hr NE 1 mcg/min Propofol 40 mcg/kg/min EN 40 mL/hr RECOMMENDATIONS: 1) Continue daily SAT/SBT.? Would start by turning off midazolam and then propofol.? Patient can be extubated on Precedex 2) Continue intermittent IVP benzodiazepines when off midazolam infusion 3) Continue VTE and COLE prophylaxis
[2021-06-26] VITALS (43 sets, daily range): BP systolic 104–177; BP diastolic 54–84; PULSE 54–79; RESP 18–47; TEMP 36.4–36.8; O2SAT 92–100
[2021-06-26] MEDS: CHLORHEXIDINE GLUCONATE 15 ML CUP PO ×2 (00:21→05:46)
[2021-06-26] MEDS: dexmedeTOMIDine in 0.9 % NaCL 400 MCG/100 ML PLAST..BAG 13.608 MCG IV (01:21)
[2021-06-26] MEDS: propofoL 1,000 MG/100 ML VIAL 7.838 MG IV (01:21)
[2021-06-26 05:19] LABS: Add Manual Diff / Slide Review NO; Basophils Absolute Auto 0 /uL (0-100); Basophils Percent Auto 0.3 % (0-2); Eosinophils Absolute Auto 200 /uL (0-450); Eosinophils Percent Auto 1.3 % (2-4); Hematocrit 40.6 % (41-53); Hemoglobin 13.8 g/dL (13.5-17.5); Lymphocytes Absolute Auto 1700 /uL (1100-4500); Lymphocytes Percent Auto 12.6 % (25-40); Mean Corpuscular Hemoglobin 33.2 PG (26-34); Mean Corpuscular Volume 97.7 fL (80-100); Monocytes Absolute Auto 2000 /uL (0-900); Monocytes Percent Auto 14.4 % (3-14); Neutrophils Absolute Auto 9800 /uL (1500-7000); Neutrophils Percent Auto 71.4 % (50-75); Platelet Count 140 X10^3/uL (150-400); Red Blood Cell Count 4.16 X10^6/uL (4.5-5.9); Red Cell Distribution Width 13.9 % (11.6-14.8); White Blood Cell Count 13.7 X10^3/uL (4.5-11.0)
[2021-06-26 05:28] LABS: BUN Creatinine Ratio 12.9 (6-22); Blood Urea Nitrogen 9 mg/dL (9-20); Calcium 6.6 mg/dL (8.4-10.2); Carbon Dioxide 14 mmol/L (22-32); Chloride 117 mmol/L (98-107); Estimated Glomerular Filt Rate > 60 mL/min (>60); Glucose 139 mg/dL (80-110); HEMOLYSIS < 15 (0-50); Potassium 3.2 mmol/L (3.4-5.1); Sodium 141 mmol/L (137-145)
[2021-06-26 05:29] LABS: Magnesium 2.4 mg/dL (1.6-2.3); Phosphorous 2.1 mg/dL (2.3-3.7)
[2021-06-26] MEDS: dexmedeTOMIDine in 0.9 % NaCL 400 MCG/100 ML PLAST..BAG 27.216 MCG IV ×3 (05:46→19:10)
[2021-06-26] MEDS: INSULIN LISPRO 100 UNIT/ML 3ML VIAL SUBCUT (05:48)
[2021-06-26] MEDS: PIPERACILLIN/TAZO 4.5 GM in SODIUM CHLORIDE 0.9% 100 ML 25 ML IV ×3 (08:26→22:27)
[2021-06-26] MEDS: ENOXAPARIN 40 MG/0.4 ML SYRINGE SUBCUT (08:28)
[2021-06-26] MEDS: PANTOPRAZOLE 40 MG VIAL IV (08:29)
[2021-06-26] MEDS: POTASSIUM CHLORIDE IN WATER 10 MEQ/100 ML PIGGYBACK 100 MEQ IV ×2 (09:14→12:08)
--- NOTE | 2021-06-26 09:37 | PM.PN.EICU ---
Subjective Subjective :: This patient was seen via real time interactive two-way audiovisual telecommunication. No acute issues overnight. Off propofol, levophed, and versed infusion. Placed on CPAP 8 RSBI ~66 while on precedex 1 mcg. Per RT and RN, minimum secretions. Follow simple commands. Will continue CPAP trial and once patient is more awake and then plan for extubation. Current Medications Current Medications Medications: Home Medications levothyroxine 75 mcg tablet 75 mcg PO QAM 06/21/21 [History Confirmed 06/21/21] simvastatin 40 mg tablet 40 mg PO BEDTIME 06/21/21 [History Confirmed 06/21/21] Visit Medications (administered) Generic Name Dose Route Start Last Admin Trade Name Freq PRN Reason Stop Dose Admin Atorvastatin Calcium 20 mg 06/22/21 21:00 06/25/21 21:04 Atorvastatin 20 Mg Tablet PO Not Given BEDTIME EN Chlorhexidine Gluconate 15 ml 06/24/21 18:00 06/26/21 05:46 Chlorhexidine Gluconate 15 Ml Cup PO 15 ml Q6HR EN Administration Diazepam 5 mg 06/23/21 15:50 06/24/21 13:01 Diazepam 10 Mg/2 Ml Syringe IV 5 mg Q1H PRN Administration Anxiety Enoxaparin Sodium 40 mg 06/23/21 09:00 06/26/21 08:28 Enoxaparin 40 Mg/0.4 Ml Syringe SUBCUT 40 mg DAILY EN Administration Haloperidol 2 mg 06/22/21 03:01 06/23/21 14:09 Haloperidol 5 Mg/Ml Vial IV 2 mg Q2HR PRN Administration Agitation Sodium Chloride 1,000 mls @ 150 mls/hr 06/21/21 20:30 06/25/21 08:28 Normal Saline 0.9% IV 21 mls/hr CONT EN Infusion Folic Acid 1 mg/ Sodium 100.2 mls @ 200.4 mls/hr 06/23/21 09:00 06/25/21 14:46 Chloride IV Infused DAILY EN Infusion dexmedeTOMIDine in 0.9 % NaCL 400 mcg in 100 mls @ 5.443 mls/hr 06/23/21 15:30 06/26/21 05:46 Precedex IV 1 mcg/kg/hr TITRATE EN 27.216 mls/hr Administration Protocol 0.2 MCG/KG/HR Midazolam HCl 50 mg/ Dextrose 250 mls @ 10.886 mls/hr 06/24/21 11:30 06/26/21 03:21 IV 0 mg/kg/hr TITRATE EN 0 mls/hr Titration Protocol 0.02 MG/KG/HR Propofol 1,000 mg in 100 mls @ 3.266 mls/hr 06/24/21 14:30 06/26/21 08:31 Propofol IV 5 mcg/kg/min TITRATE EN 3.266 mls/hr Titration Protocol 5 MCG/KG/MIN NOREPINEPHRINE BITARTRATE/D5W 4 mg in 250 mls @ 30 mls/hr 06/24/21 16:15 06/26/21 05:12 Levophed IV Infused TITRATE EN Titration Protocol 8 MCG/MIN Piperacillin Sod/Tazobactam 100 mls @ 25 mls/hr 06/25/21 07:15 06/26/21 08:26 Sod 4.5 gm/ Sodium Chloride IV 25 mls/hr Q8H EN Administration POTASSIUM CHLORIDE IN WATER 10 meq in 100 mls @ 100 mls/hr 06/26/21 08:15 06/26/21 09:14 Potassium Cl 10 Meq/100 Ml Kathryn IV 06/26/21 10:14 100 mls/hr Q1H EN Administration Insulin Human Lispro 0 unit 06/25/21 10:15 06/26/21 05:48 Insulin Lispro 100 Unit/Ml 3ml Vial SUBCUT 1 unit Q6H EN Administration Protocol Lorazepam 0 mg 06/21/21 21:53 06/23/21 14:54 Lorazepam 2 Mg/Ml Inj IV 2 mg CIWAPRN PRN Administration Alcohol Withdrawal Protocol Multivitamins 1 tab 06/22/21 09:00 06/25/21 14:46 Multivitamin 1 Tablet PO Not Given DAILY EN Pantoprazole Sodium 40 mg 06/23/21 09:00 06/26/21 08:29 Pantoprazole 40 Mg Vial IV 40 mg DAILY EN Administration Objective Ventilator Parameters: Ventilator Settings FiO2 28 RT Vent Frequency 12 Ventilator Tidal Volume 550 Exhaled Positive End Expiratory 5 Pressure Inspiratory Phase Time 0.8 I:E Ratio 1:2 Patient Position HOB >= 30 degrees Labs Result Diagrams: 06/26/21 05:00 06/26/21 05:00 Labs: Laboratory Results - last 24 hr 06/25/21 06/26/21 06/26/21 14:30 05:00 05:00 WBC 13.7 H RBC 4.16 L Hgb 13.8 Hct 40.6 L MCV 97.7 MCH 33.2 MCHC 34.0 RDW 13.9 Plt Count 140 L Neut % (Auto) 71.4 Lymph % (Auto) 12.6 L [place] % (Auto) 14.4 H Eos % (Auto) 1.3 L Baso % (Auto) 0.3 Neut # (Auto) 9800 H Lymph # (Auto) 1700 [place] # (Auto) 2000 H Eos # (Auto) 200 Baso # (Auto) 0 Sodium 140 141 Potassium 3.6 3.2 L Chloride 113 H 117 H Carbon Dioxide 19 L 14 L BUN 5 L 9 Creatinine 0.71 0.70 Estimated GFR > 60 > 60 BUN/Creatinine Ratio 7.0 12.9 Glucose 147 H 139 H Calcium 6.9 L 6.6 L Phosphorus 3.0 D Magnesium 2.6 H 06/26/21 05:00 WBC RBC Hgb Hct MCV MCH MCHC RDW Plt Count Neut % (Auto) Lymph % (Auto) [place] % (Auto) Eos % (Auto) Baso % (Auto) Neut # (Auto) Lymph # (Auto) [place] # (Auto) Eos # (Auto) Baso # (Auto) Sodium Potassium Chloride Carbon Dioxide BUN Creatinine Estimated GFR BUN/Creatinine Ratio Glucose Calcium Phosphorus 2.1 L Magnesium 2.4 H Exam Vital Signs (past 8 hours): - 06/26/21 02:00 06/26/21 02:30 06/26/21 03:00 Pulse Rate 66 67 66 Respiratory Rate 22 26 H 23 Blood Pressure 109/64 108/63 111/65 Pulse Oximetry 97 97 97 06/26/21 03:30 06/26/21 04:00 06/26/21 04:30 Pulse Rate 67 66 63 Respiratory Rate 22 26 H 23 Blood Pressure 137/72 120/75 112/64 Pulse Oximetry 97 97 96 06/26/21 05:00 06/26/21 05:30 06/26/21 06:00 Pulse Rate 67 63 62 Respiratory Rate 22 21 22 Blood Pressure 146/77 H 118/66 116/66 Pulse Oximetry 96 96 96 06/26/21 07:00 06/26/21 07:30 06/26/21 08:00 Pulse Rate 62 62 61 Respiratory Rate 23 24 22 Blood Pressure 118/67 116/67 117/67 Pulse Oximetry 96 96 96 06/26/21 08:30 06/26/21 09:00 Pulse Rate 66 64 Respiratory Rate 25 H 26 H Blood Pressure 116/68 120/68 Pulse Oximetry 95 96 Fraction of Inspired Oxygen 28 Oxygen Delivery Method Mechanical Ventilation Oxygen Flow Rate 0 Assessment & Plan Assessment & Plan narrative: # Acute encephalopathy -- secondary to sedatives and DTs from alcohol withdrawal -- Clinically improving slowly -- On precedex infusion to maintain RASS goal -1 to 0 -- Early mobility -- Daily CAM ICU # Alcohol withdrawal - On thiamine, MTV, and folic acid -- On precedex infusion -- Start ativan per [facility] protocol RESP: # Acute hpoxemia respiraotry failure -- Intubated for respiratory depression related to sedatives -- CXR reviewed -> mild left basilar atelectasis vs infiltrate -- Tolerating CPAP trial but needs to be more awake before extubation -- HOB elevation -- Aspiration precaution - Extubate to NC when more awake # Aspiration PNA -- On zosyn -- Cx negataive to date -- Follow up cx data CVS: # Hypotension -- Off pressor -- Secondary to sedatives -- Monitor off pressor -- MAP goal > 65 : # NGMA -- Secondary to hyperchloremic NGMA -- Stop NS infusion -- If need fluids then will recommend LR infusion to avoid high chloride load ENDO: -- Goal BS < 180 D/w RN and RT at bedside. Time Spent With Patient Critical Care time: I spent a total of [] minutes of critical care time on this patient's care today; this time is exclusive of procedural time.
--- NOTE | 2021-06-26 10:02 | PM.PN.1 ---
Subjective Subjective Date Patient Seen: 06/26/21 Interval history: 70 y/o with severe alcohol withdrawal with DT's intubated/sedated. Patient had medications adjusted, he is able to squeeze my hand. Exam Vital Signs (past 8 hours): - 06/26/21 02:30 06/26/21 03:00 06/26/21 03:30 Pulse Rate 67 66 67 Respiratory Rate 26 H 23 22 Blood Pressure 108/63 111/65 137/72 Pulse Oximetry 97 97 97 06/26/21 04:00 06/26/21 04:30 06/26/21 05:00 Pulse Rate 66 63 67 Respiratory Rate 26 H 23 22 Blood Pressure 120/75 112/64 146/77 H Pulse Oximetry 97 96 96 06/26/21 05:30 06/26/21 06:00 06/26/21 07:00 Pulse Rate 63 62 62 Respiratory Rate 21 22 23 Blood Pressure 118/66 116/66 118/67 Pulse Oximetry 96 96 96 06/26/21 07:30 06/26/21 08:00 06/26/21 08:30 Pulse Rate 62 61 66 Respiratory Rate 24 22 25 H Blood Pressure 116/67 117/67 116/68 Pulse Oximetry 96 96 95 06/26/21 09:00 Pulse Rate 64 Respiratory Rate 26 H Blood Pressure 120/68 Pulse Oximetry 96 Fraction of Inspired Oxygen 28 Oxygen Delivery Method Mechanical Ventilation Oxygen Flow Rate 0 Narrative Exam Narrative: Intubated male lying in bed sedated HENMT Other: ET tube in place, PICC line in place, waite catheter in place Resp Other: Lungs: clear to auscultation Cardio Other: CV: RRR nl Sl S2 GI Other: Abd: soft/ non tender/ Other: waite catheter Extrem Other: no edema Objective Labs Result Diagrams: 06/26/21 05:00 06/26/21 05:00 Labs: Laboratory Results - last 24 hr 06/25/21 06/26/21 06/26/21 14:30 05:00 05:00 WBC 13.7 H RBC 4.16 L Hgb 13.8 Hct 40.6 L MCV 97.7 MCH 33.2 MCHC 34.0 RDW 13.9 Plt Count 140 L Neut % (Auto) 71.4 Lymph % (Auto) 12.6 L [place] % (Auto) 14.4 H Eos % (Auto) 1.3 L Baso % (Auto) 0.3 Neut # (Auto) 9800 H Lymph # (Auto) 1700 [place] # (Auto) 2000 H Eos # (Auto) 200 Baso # (Auto) 0 Sodium 140 141 Potassium 3.6 3.2 L Chloride 113 H 117 H Carbon Dioxide 19 L 14 L BUN 5 L 9 Creatinine 0.71 0.70 Estimated GFR > 60 > 60 BUN/Creatinine Ratio 7.0 12.9 Glucose 147 H 139 H Calcium 6.9 L 6.6 L Phosphorus 3.0 D Magnesium 2.6 H 06/26/21 05:00 WBC RBC Hgb Hct MCV MCH MCHC RDW Plt Count Neut % (Auto) Lymph % (Auto) [place] % (Auto) Eos % (Auto) Baso % (Auto) Neut # (Auto) Lymph # (Auto) [place] # (Auto) Eos # (Auto) Baso # (Auto) Sodium Potassium Chloride Carbon Dioxide BUN Creatinine Estimated GFR BUN/Creatinine Ratio Glucose Calcium Phosphorus 2.1 L Magnesium 2.4 H [facility] Social History household members: spouse Smoking Status: Former smoker alcohol intake: current Assessment & Plan Assessment & Plan narrative: ssessment & Plan narrative: 1. Acute hypoxic respiratory failure secondary to severe EtOH withdrawal ?- Patient intubated on June 24, 2021 for airway protection, given persistent hyperventilation with decreasing HCO3 -tapering sedation, spontaneous breathing trial today -will determine if he can be extubated today 2. Severe EtOH withdrawal with delirium tremens ?- [facility] protocol on-board, along with IV Precedex, IV propofol, and IV Versed ?- Will defer to tele-controlled atmospheric furnace brazer regarding ideal sedating agents while patient is on ventilator 3. Concern for aspiration pneumonia ?- Empiric IV Zosyn started on June 25, 2021, given low-grade fever, leukocytosis, and high likelihood of aspiraton -will wean oxygen after extubation 4. Alcoholic hepatitis ?- LFT's continue to improve, and will need to monitor, INR slightly elevated 5. Duodenitis, ongoing, likely due to EtOH abuse ?- IV Protonix 40 mg daily on-board 6. Hypothyroidism ?- Home levothyroxine adjusted to IV levothyroxine 7. Hyperlipidemia ?- Will hold home simvastatin for now given above 8. Thrombocytopenia, stable ?- Likely secondary to bone marrow suppression from EtOH abuse, along with severe liver injury 9. Hypophosphatemia, ongoing ?- Likely due to ongoing EtOH withdrawal, replenish as necessary 10. Hypokalemia, ongoing ?- Likely due to ongoing EtOH withdrawal, replenish as necessary -replace potassium today 11. Hypomagnesemia, ongoing ?- Likely due to ongoing EtOH withdrawal, replenish as necessary VTE prophylaxis: Lovenox 40 mg daily Time Spent With Patient Critical Care time: I spent a total of [] minutes of critical care time on this patient's care today; this time is exclusive of procedural time.
[2021-06-26] MEDS: POTASSIUM PHOSPHATE 15 MMOL in SODIUM CHLORIDE 0.9% 250 ML 63.75 ML IV (12:17)
--- NOTE | 2021-06-26 16:07 | PC.NURSE ---
Addendum entered by Belinda Mccluod R.N. 06/26/21 19:15: 1750-Noted some shearing type injury on his buttocks, likely from self repositioning while in bed. Continue to offload and barrier cream applied. CiWA continues to be elevated. Given Diazepam after oncoming RN told this RN about improvement with it/vs ativan or Haldol. IV patent. OUtput to brief has been good. Urine remains dark and tea colored. Addendum entered by Belinda Mccloud R.N. 06/26/21 18:56: Precidex remains running this afternoon, Pt begining to get increasingly agitated, CIWA noted to be up to 12. Medicated with Ativan. Reassured Pt. Forman has been removed per Dr Pope, and Pt continues with concentrated, tea colored urine. Diaphoretic, bed bath given x2. Linen change x3. Offloading pressure q2. hr, though patient frequently repositions self how he pleases. Addendum entered by Belinda Mccloud R.N. 06/26/21 16:52: OG removed with extubation. Pt able to follow commands. Precidex running @ 0.8mcg/kg/min. IVF tko per Tele casing inspector. Lungs remains slightly coarse, and dim t/o. Pt is able to cough and deep breathe when requested. No overt s/sx of active withdrawl at present, except slightly diaphoretic, as Pt has been this hospital stay. Voice is hoarse, oral care provided. at bedside updated on POC. Original Note: AM shift. Pt shift, assumed care of pt starting a sedation vacation, Pt is off versed and levophed.Able to keep on cpap mode and eventually extubate @10 25
[2021-06-26] MEDS: CALCIUM GLUCONATE 9.3 MEQ in SODIUM CHLORIDE 0.9% 50 ML 140 ML IV (16:33)
[2021-06-26] MEDS: LORazepam 2 MG/ML INJ IV (16:43)
[2021-06-26] MEDS: FOLIC ACID 1 MG in SODIUM CHLORIDE 0.9% 100 ML 200 ML IV (16:45)
[2021-06-26] MEDS: diazePAM 10 MG/2 ML SYRINGE 5 MG IV ×3 (19:10→22:26)
[2021-06-26] MEDS: cloNIDine TTS 0.2 MG PATCH TOP (22:00)
--- NOTE | 2021-06-26 22:00 | P.ICUMDRN_ITS ---
- Date Patient Seen: 06/26/21 :: This patient was seen via real time interactive two-way audiovisual telecommunic ation. Note: 70 y.o. male with EtOH withdrawal who was transferred to ICU for a Precedex infusion.? He was intubated 06/24 for tachypnea. Extubated during 06/26 dayshift. CURRENT DRIPS: Precedex 1 mcg/kg/hr RECOMMENDATIONS: 1) Continue Precedex; will add transdermal clonidine to aid in wean 2) Continue CIWA 3) Continue VTE and COLE prophylaxis
[2021-06-26] MEDS: cloNIDine TTS 0.1 MG PATCH 0.2 MG TOP (22:37)
[2021-06-27] VITALS (31 sets, daily range): BP systolic 120–193; BP diastolic 68–83; PULSE 62–126; RESP 25–43; TEMP 36.4–36.8; O2SAT 95–100
[2021-06-27] MEDS: dexmedeTOMIDine in 0.9 % NaCL 400 MCG/100 ML PLAST..BAG 32.659 MCG IV ×2 (00:42→03:47)
[2021-06-27] MEDS: diazePAM 10 MG/2 ML SYRINGE 5 MG IV ×4 (00:42→07:19)
[2021-06-27 05:08] LABS: BUN Creatinine Ratio 11.1 (6-22); Blood Urea Nitrogen 6 mg/dL (9-20); Calcium 6.9 mg/dL (8.4-10.2); Carbon Dioxide 19 mmol/L (22-32); Chloride 116 mmol/L (98-107); Estimated Glomerular Filt Rate > 60 mL/min (>60); Glucose 117 mg/dL (80-110); HEMOLYSIS < 15 (0-50); Phosphorous 1.7 mg/dL (2.3-3.7); Potassium 3.5 mmol/L (3.4-5.1); Sodium 143 mmol/L (137-145)
[2021-06-27] MEDS: HALOPERIDOL 5 MG/ML VIAL 2 MG IV (05:55)
[2021-06-27] MEDS: PIPERACILLIN/TAZO 4.5 GM in SODIUM CHLORIDE 0.9% 100 ML 25 ML IV ×3 (05:56→23:23)
[2021-06-27] MEDS: dexmedeTOMIDine in 0.9 % NaCL 400 MCG/100 ML PLAST..BAG 27.216 MCG IV ×2 (06:25→10:27)
--- NOTE | 2021-06-27 06:26 | PC.NURSE ---
0630: Shift summary: Pt has remained with high CIWA scores and evidence of continued severe ETOH withdrawal. Agitated and repeatedly attempting to remove monitoring equipment and PICC. Unable to redirect/re-orient. Pt has intermittently followed commands. Medicated with PRN diazepam. Precedex currently infusing at 1 mcg/kg/hour. Respiratory rate=30s/40s, breath sounds coarse with expiratory wheeze. Currently resting in low and locked bed with eyes closed, call light in [facility].
[2021-06-27] MEDS: ENOXAPARIN 40 MG/0.4 ML SYRINGE SUBCUT (08:28)
[2021-06-27] MEDS: PANTOPRAZOLE 40 MG VIAL IV (08:28)
[2021-06-27] MEDS: POTASSIUM PHOSPHATE 30 MMOL in SODIUM CHLORIDE 0.9% 500 ML 127.5 ML IV (08:38)
--- NOTE | 2021-06-27 09:22 | P.TELICUPN_ITS ---
Subjective Subjective :: This patient was seen via real time interactive two-way audiovisual telecommunication. Extubated to [place]. Post extubation he was agitated and attempting to get out of bed. Precedex increased to 1 mcg. Patient is less agitated this morning while on precedex 1 mcg. Open eyes to voice and intermittently squeeze hands. Will check ABG and titrate down precedex to maintain RASS goal 0 to -1. Current Medications Current Medications Medications: Home Medications levothyroxine 75 mcg tablet 75 mcg PO QAM 06/21/21 [History Confirmed 06/21/21] simvastatin 40 mg tablet 40 mg PO BEDTIME 06/21/21 [History Confirmed 06/21/21] Visit Medications (administered) Generic Name Dose Route Start Last Admin Trade Name Freq PRN Reason Stop Dose Admin Atorvastatin Calcium 20 mg 06/22/21 21:00 06/26/21 20:15 Atorvastatin 20 Mg Tablet PO Not Given BEDTIME EN Diazepam 5 mg 06/23/21 15:50 06/27/21 07:19 Diazepam 10 Mg/2 Ml Syringe IV 5 mg Q1H PRN Administration Anxiety Enoxaparin Sodium 40 mg 06/23/21 09:00 06/27/21 08:28 Enoxaparin 40 Mg/0.4 Ml Syringe SUBCUT 40 mg DAILY EN Administration Haloperidol 2 mg 06/22/21 03:01 06/27/21 05:55 Haloperidol 5 Mg/Ml Vial IV 2 mg Q2HR PRN Administration Agitation Folic Acid 1 mg/ Sodium 100.2 mls @ 200.4 mls/hr 06/23/21 09:00 06/26/21 18:39 Chloride IV Infused DAILY EN Infusion dexmedeTOMIDine in 0.9 % NaCL 400 mcg in 100 mls @ 5.443 mls/hr 06/23/21 15:30 06/27/21 06:25 Precedex IV 1 mcg/kg/hr TITRATE EN 27.216 mls/hr Administration Protocol 0.2 MCG/KG/HR NOREPINEPHRINE BITARTRATE/D5W 4 mg in 250 mls @ 30 mls/hr 06/24/21 16:15 06/26/21 05:12 Levophed IV Infused TITRATE EN Titration Protocol 8 MCG/MIN Piperacillin Sod/Tazobactam 100 mls @ 25 mls/hr 06/25/21 07:15 06/27/21 05:56 Sod 4.5 gm/ Sodium Chloride IV 25 mls/hr Q8H EN Administration Potassium Phosphate 30 mmol/ 510 mls @ 127.5 mls/hr 06/27/21 09:00 06/27/21 08:38 Sodium Chloride IV 06/27/21 12:59 127.5 mls/hr NOW ONE Administration Insulin Human Lispro 0 unit 06/25/21 10:15 06/27/21 05:01 Insulin Lispro 100 Unit/Ml 3ml Vial SUBCUT Not Given Q6H EN Protocol Lorazepam 0 mg 06/21/21 21:53 06/26/21 16:43 Lorazepam 2 Mg/Ml Inj IV 2 mg CIWAPRN PRN Administration Alcohol Withdrawal Protocol Multivitamins 1 tab 06/22/21 09:00 06/27/21 08:12 Multivitamin 1 Tablet PO Not Given DAILY [facility] Pantoprazole Sodium 40 mg 06/23/21 09:00 06/27/21 08:28 Pantoprazole 40 Mg Vial IV 40 mg DAILY EN Administration Objective Ventilator Parameters: Ventilator Settings FiO2 25 RT Vent Frequency 0 Ventilator Tidal Volume 0 Exhaled Positive End Expiratory 6 Pressure Inspiratory Phase Time 0.8 I:E Ratio 1:2 Patient Position HOB >= 30 degrees Labs Result Diagrams: 06/26/21 05:00 06/27/21 04:40 Labs: Laboratory Results - last 24 hr 06/27/21 04:40 Sodium 143 Potassium 3.5 Chloride 116 H Carbon Dioxide 19 L BUN 6 L Creatinine 0.54 L Estimated GFR > 60 BUN/Creatinine Ratio 11.1 Glucose 117 H Calcium 6.9 L Phosphorus 1.7 L Exam Vital Signs (past 8 hours): - 06/27/21 01:59 06/27/21 02:00 06/27/21 03:00 Temperature 97.6 F Pulse Rate 64 67 Respiratory Rate 36 H 36 H Blood Pressure 120/71 Pulse Oximetry 100 100 06/27/21 04:00 06/27/21 05:00 06/27/21 06:00 Temperature 98.2 F Pulse Rate 69 70 67 Respiratory Rate 40 H 35 H 39 H Blood Pressure 124/77 130/74 Pulse Oximetry 100 99 100 06/27/21 07:00 06/27/21 08:00 Temperature 97.6 F Pulse Rate 73 77 Respiratory Rate 41 H 39 H Blood Pressure 131/76 Pulse Oximetry 99 99 Fraction of Inspired Oxygen 28 Oxygen Delivery Method Room Air Oxygen Flow Rate 3 Assessment & Plan Assessment & Plan narrative: NEURO: # Acute encephalopathy -- Multifactorial due to sedatives and alcohol withdrawal -- Will titrate down precedex to maintain RASS goal -1 to 0 -- Check ABG -- Will avoid using valium given long T1/2 and encourage RN to use ativan per [facility] protocol -- Early mobility -- Daily CAM ICU # Alcohol withdrawal - On thiamine, MTV, and folic acid -- On precedex infusion -- Cont ativan per [facility] protocol RESP: # Acute hpoxemia respiraotry failure -- Extubated -- On room air -- HOB elevation -- Aspiration precaution # Aspiration PNA -- On zosyn -- Cx negataive to date -- Follow up cx data : # NGMA -- Secondary to hyperchloremic NGMA -- Co2 improving slowly -- Avoid NS infusion ENDO: -- Goal BS < 180 D/w RN. Time Spent With Patient Critical Care time: I spent a total of [] minutes of critical care time on this patient's care today; this time is exclusive of procedural time.
[2021-06-27] MEDS: LORazepam 2 MG/ML INJ IV ×3 (09:45→15:24)
[2021-06-27] MEDS: FOLIC ACID 1 MG in SODIUM CHLORIDE 0.9% 100 ML 200 ML IV (10:28)
[2021-06-27 10:56] LABS: pH ABG 7.46 (7.35-7.45)
[2021-06-27 10:57] LABS: HCO3 ABG 15 mmol/L (22-26); Oxygen Saturation ABG 94 % (95-100); PCO2 ABG 21.6 mmHg (35-45); PO2 ABG 63 mmHg (80-100); TCO2 ABG 16 mmol/L (21-31)
[2021-06-27 10:58] LABS: Fractionated Inspired Oxygen 21
[2021-06-27] MEDS: CALCIUM GLUCONATE 4.65 MEQ in SODIUM CHLORIDE 0.9% 50 ML 180 ML IV (11:57)
[2021-06-27] MEDS: SODIUM BICARB 8.4% VIAL 50 MEQ in SODIUM CHLORIDE 0.9% 1,000 ML 75 MEQ IV (14:27)
[2021-06-27] MEDS: PHENobarbital 130 MG/ML VIAL 260 MG IV (14:37)
[2021-06-27] MEDS: dexmedeTOMIDine in 0.9 % NaCL 400 MCG/100 ML PLAST..BAG 16.329 MCG IV (16:18)
--- NOTE | 2021-06-27 17:56 | DI.RAD.S_ITS ---
PROCEDURE: XR CHEST 1V INDICATIONS: wheezing TECHNIQUE: One view of the chest was acquired. COMPARISON: [facility], CR, XR CHEST 1V, 06/25/2021, 6:01. FINDINGS: Surgical changes and devices: Redemonstrated left PICC line with tip overlying the brachiocephalic SVC junction. Lungs and pleura: Linear density left lower lung zone. No pleural effusions or pneumothorax. Mediastinum: Mediastinal contours appear normal. Heart size is normal. Bones and chest wall: No suspicious bony lesions. Overlying soft tissues appear unremarkable. IMPRESSION: Left lower lung zone plate atelectasis. A superimposed infectious process cannot be excluded. Dictated by: Austin Kumari M.D. on 06/27/2021 at 18:37 Approved by: Austin Kumari M.D. on 06/27/2021 at 18:38
--- NOTE | 2021-06-27 18:00 | P.PN_ITS ---
Subjective Subjective Date Patient Seen: 06/27/21 Interval history: 70 y/o male with severe alcohol withdrawal, extubated yesterday but still agitated, delerious and sedated today. Patient has marked wheezing and is 13 liters positive. Exam Vital Signs (past 8 hours): - 06/27/21 10:05 06/27/21 10:10 06/27/21 11:00 Temperature Pulse Rate 67 81 Respiratory Rate 40 H 43 H Blood Pressure Pulse Oximetry 100 100 06/27/21 12:00 06/27/21 12:02 06/27/21 13:00 Temperature Pulse Rate 63 69 66 Respiratory Rate 27 H 37 H 38 H Blood Pressure 124/75 Pulse Oximetry 100 100 99 06/27/21 14:00 06/27/21 14:12 06/27/21 15:00 Temperature Pulse Rate 73 68 80 Respiratory Rate 36 H 30 H 33 H Blood Pressure 152/83 H Pulse Oximetry 99 100 100 06/27/21 15:23 06/27/21 15:39 06/27/21 16:00 Temperature Pulse Rate 86 80 88 Respiratory Rate 42 H 32 H 29 H Blood Pressure Pulse Oximetry 100 06/27/21 16:01 06/27/21 17:00 Temperature 98.2 F Pulse Rate 83 Respiratory Rate 35 H Blood Pressure 156/80 H Pulse Oximetry 99 Fraction of Inspired Oxygen 28 Oxygen Delivery Method Room Air Oxygen Flow Rate 3 Narrative Exam Narrative: Ill appearing male sedated and wheezing, minimally arousable Resp Other: Lungs: diffuse wheezing Cardio Other: RRR Nl SlS2 GI Other: Abd: soft/ mildly distended Extrem Other: 1+ edema Psych Other: Confused, at times agitated on precedex drip Objective Labs Result Diagrams: 06/26/21 05:00 06/27/21 04:40 Labs: Laboratory Results - last 24 hr 06/27/21 06/27/21 06/27/21 04:40 04:40 10:40 ABG pH 7.46 H ABG pCO2 21.6 L* ABG pO2 63 L ABG HCO3 15 L ABG Total CO2 16 L ABG O2 Saturation 94 L ABG Base Excess -8.0 L FiO2 21 Sodium 143 Potassium 3.5 Chloride 116 H Carbon Dioxide 19 L BUN 6 L Creatinine 0.54 L Estimated GFR > 60 BUN/Creatinine Ratio 11.1 Glucose 117 H Calcium 6.9 L Phosphorus 1.7 L Magnesium 2.0 [facility] Social History household members: spouse Smoking Status: Former smoker alcohol intake: current Assessment & Plan Assessment & Plan narrative: ?Acute hypoxic respiratory failure secondary to severe EtOH withdrawal ?- Patient intubated on June 24, 2021 for airway protection, given persistent hyperventilation with decreasing HCO3 -patient extubated yesterday -significant wheezing today 13 liters positive since admission -will check Chest Xray, proBNP -Lasix 40 mg IV now 2. Severe EtOH withdrawal with delirium tremens ?- CIWA protocol on-board, along with IV Precedex, IV propofol, and IV Versed ?- phenobarbitol 260 mg IV given 3. Concern for aspiration pneumonia ?- Empiric IV Zosyn started on June 25, 2021, given low-grade fever, leukocytosis, and high likelihood of aspiraton --continue antibiotics -suspect probable Aspiration Pneumonia 4. Alcoholic hepatitis ?- LFT's continue to improve, and will need to monitor, INR slightly elevated 5. Duodenitis, ongoing, likely due to EtOH abuse ?- IV Protonix 40 mg daily on-board 6. Hypothyroidism ?- Home levothyroxine adjusted to IV levothyroxine 7. Hyperlipidemia ?- Will hold home simvastatin for now given above 8. Thrombocytopenia, stable ?- Likely secondary to bone marrow suppression from EtOH abuse, along with severe liver injury 9. Hypophosphatemia, ongoing ?- Likely due to ongoing EtOH withdrawal, replenish as necessary 10. Hypokalemia, ongoing ?- Likely due to ongoing EtOH withdrawal, replenish as necessary -replace potassium today, per pharmacy protocol 11. hypocalcemia= will replace Time Spent With Patient Critical Care time: I spent a total of [] minutes of critical care time on this patient's care today; this time is exclusive of procedural time.
--- NOTE | 2021-06-27 18:07 | DI.ECHO.S_ITS ---
[facility]---------+ [facility] +---------+ : : [address] : : : : [id number] : : : : Phone: [phone]+ Echocardiogram Report + + :Name: KANNAN HODGE Study Date: 06/28/2021 : :[facility] ReadingLocation: : : Gender: Male : :: 1950 Age: 70 yrs BP: 155/72 mmHg: :Reason For Study: SOB : :Ordering Physician: GEORGINA, : :KIKI Performed By: Jonah Sheth : :Referring: KIKI ERICKSON : + + Interpretation Summary Normal sinus rhythm. Mild RV size and wall thickness. Normal wall motion and left ventricular systolic function. Ejection fraction is 60-65%. Mildly dilated RV with mildly reduced RV function. Otherwise normal chamber sizes. No significant valvular abnormalities. No prior study available for comparison. Procedure: A two-dimensional transthoracic echocardiogram with color flow and Doppler was performed. The study quality was technically difficult. There is no prior echocardiogram noted for this patient. Left Ventricle: The left ventricle is normal in size and wall thickness. The left ventricle is not well visualized. Left ventricular systolic function is normal. The ejection fraction is estimated to be 55-60%. There are no focal wall motion abnormalities. Diastolic function could not be accurately assessed due to unobtainable data. Right Ventricle: The right ventricle is mildly dilated. Right ventricular systolic function is mildly reduced. Atria: Both atria are normal in size. The interatrial septum grossly appears intact with no obvious evidence for an atrial septal defect. Mitral Valve: The mitral valve is normal in structure and function. There is no mitral regurgitation noted. Aortic Valve: The aortic valve is grossly normal. No aortic regurgitation is present. Tricuspid Valve: The tricuspid valve is normal in structure and function. No tricuspid regurgitation. Pulmonary artery pressures cannot be estimated because of the lack of a measurable TR jet velocity. Pulmonic Valve: The pulmonic valve is normal in structure and function. There is trace pulmonic regurgitation. Great Vessels: The aortic root is not well visualized. The ascending aorta could not be visualized. The IVC is dilated (diameter is greater than 2.1 cm) and it collapses less than 50% with a sniff. This suggests a high right atrial pressure of 15 mm Hg. Pericardium/ Pleura There is no pericardial effusion. There is no pleural effusion. MMode/2D Measurements & Calculations LVIDd: 4.6 cm LVOT diam: 2.0 cm LVIDs: 2.9 cm FS: 37.0 % IVSd: 0.90 cm LVPWd: 0.90 cm LA A2 area: 14.1 cm2 IVC diam: 2.5 cm LA A4 area: 14.5 cm2 LA length (vol): 5.1 cm LA vol: 33.8 ml TAPSE_phl: 3.3 cm Doppler Measurements & Calculations Ao V2 max: 112.0 cm/sec LVOT Max Maury: 112.0 cm/sec Ao V2 mean: 77.8 cm/sec LV V1 max P.0 mmHg Ao max P.0 mmHg LV V1 VTI: 24.1 cm Ao mean P.0 mmHg KANE(I,D): 3.3 cm2 Ao V2 VTI: 23.0 cm KANE(V,D): 3.1 cm2 sev ratio: 1.0 MV E max maury: 78.4 cm/sec SV(LVOT): 75.7 ml MV A max maury: 81.4 cm/sec MV E/A: 0.96 Med Peak E' Maury: 8.3 cm/sec E/E' med: 9.4 Lat Peak E' Maury: 9.0 cm/sec E/E' lat: 8.7 E/e' average: 9.1 MV dec time: 0.23 sec AV VR_phl: 1.0 MV P1/2t-pr_phl: 68.0 msec Electronically signed by: Kacey Barragan M.D. on Reading Physician:06/28/2021 05:16 PM
[2021-06-27 18:13] LABS: Albumin 2.5 g/dL (3.5-5.0); BUN Creatinine Ratio 12.1 (6-22); Blood Urea Nitrogen 7 mg/dL (9-20); Calcium 6.9 mg/dL (8.4-10.2); Carbon Dioxide 18 mmol/L (22-32); Chloride 116 mmol/L (98-107); Estimated Glomerular Filt Rate > 60 mL/min (>60); Glucose 102 mg/dL (80-110); HEMOLYSIS < 15 (0-50); Potassium 3.6 mmol/L (3.4-5.1); Sodium 142 mmol/L (137-145)
[2021-06-27] MEDS: FUROSEMIDE 40 MG/4 ML VIAL IV (18:24)
[2021-06-27 19:26] LABS: NT-proBNP (BNP-Adult 18+) 435 pg/mL (<125)
--- NOTE | 2021-06-27 20:46 | PM.ICURNDS ---
- Date Patient Seen: 06/27/21 Time Patient Seen: 20:25 :: This patient was seen via real time interactive two-way audiovisual telecommunication. Note: 70 y.o. male with EtOH withdrawal who was transferred to ICU for a Precedex infusion.? He was intubated 06/24 for tachypnea.? Extubated during 06/26 dayshift.? Daytime events 1) Received phenobarbital 2) Failed Precedex wean; continues to be agitated 3) Clonidine patch discontinued (reportedly) by pharmacy 4) Has diarrhea 5) HCO3 drip started CURRENT DRIPS: Precedex 0.7 mcg/kg/hr RECOMMENDATIONS: 1) Continue Precedex; resume transdermal clonidine to aid in wean 2) Continue CIWA 3) Check C. diff 4) Continue VTE and COLE prophylaxis
[2021-06-27] MEDS: dexmedeTOMIDine in 0.9 % NaCL 400 MCG/100 ML PLAST..BAG 19.051 MCG IV (21:25)
[2021-06-28] VITALS (18 sets, daily range): BP systolic 140–164; BP diastolic 66–77; PULSE 60–81; RESP 16–45; TEMP 36.3–36.6; O2SAT 96–99
[2021-06-28] MEDS: dexmedeTOMIDine in 0.9 % NaCL 400 MCG/100 ML PLAST..BAG 19.051 MCG IV ×2 (02:31→07:29)
[2021-06-28] MEDS: SODIUM BICARB 8.4% VIAL 50 MEQ in SODIUM CHLORIDE 0.9% 1,000 ML 75 MEQ IV ×2 (02:32→16:23)
--- NOTE | 2021-06-28 04:22 | PC.NURSE ---
Addendum entered by Genna Madera R.N. 06/28/21 05:20: 0520 - Pt returned to a more restful state. Able to provide melita-care and brief change. Pt opened eyes briefly, speech mostly mumbles, Precedex continues to infuse at 0.7 mcq. Original Note: Pt awake, pulling at tubes and wires. Attempt to reorient, pt repeatedly stats fuck you. Attempting to hit, kick and bite staff. Biting blood pressure cuff tubing. Pt brief is wet, unable to change at this time. Pt agitated. Attempting to allow pt to wake, to reorient, continues to be agressive and agitated. BP cuff, and SCDs removed to decrease stimulation. Continues to pull at hall monitor.
[2021-06-28 07:53] LABS: Hematocrit 36.8 % (41-53); Hemoglobin 12.7 g/dL (13.5-17.5); Mean Corpuscular HGB Conc 34.5 % (30-36); Mean Corpuscular Hemoglobin 33.6 PG (26-34); Mean Corpuscular Volume 97.2 fL (80-100); Platelet Count 201 X10^3/uL (150-400); Red Blood Cell Count 3.78 X10^6/uL (4.5-5.9); Red Cell Distribution Width 13.9 % (11.6-14.8); White Blood Cell Count 10.2 X10^3/uL (4.5-11.0)
[2021-06-28] MEDS: PIPERACILLIN/TAZO 4.5 GM in SODIUM CHLORIDE 0.9% 100 ML 25 ML IV ×2 (08:01→14:34)
[2021-06-28] MEDS: PANTOPRAZOLE 40 MG VIAL IV (08:01)
[2021-06-28] MEDS: ENOXAPARIN 40 MG/0.4 ML SYRINGE SUBCUT (08:02)
[2021-06-28] MEDS: FOLIC ACID 1 MG in SODIUM CHLORIDE 0.9% 100 ML 200 ML IV (08:03)
[2021-06-28 08:04] LABS: BUN Creatinine Ratio 12.3 (6-22); Blood Urea Nitrogen 7 mg/dL (9-20); Carbon Dioxide 22 mmol/L (22-32); Chloride 118 mmol/L (98-107); Estimated Glomerular Filt Rate > 60 mL/min (>60); Glucose 114 mg/dL (80-110); HEMOLYSIS < 15 (0-50); Magnesium 1.8 mg/dL (1.6-2.3); Potassium 3.2 mmol/L (3.4-5.1); Sodium 146 mmol/L (137-145)
[2021-06-28] MEDS: SODIUM CHLORIDE 0.9% FLUSH 10 ML IV ×2 (08:04→22:04)
--- NOTE | 2021-06-28 08:19 | PC.NURSE ---
Addendum entered by Celine Webber R.N. 06/28/21 17:45: 1745: Tube feeding initiated at 35 mL/hr. Dietary did not have the ordered Glucerna 1.5, so Glucerna 1.2 was brought instead and will hang recommended product tomorrow 06/29/2021 Addendum entered by Celine Webber R.N. 06/28/21 15:41: 1541: NG placement confirmed via xray Addendum entered by Celine Webber R.N. 06/28/21 15:26: 1520: NG inserted in L nare per order from Dr Pope so that pt may receive tube feed nutrition. Awaiting Xray confirmation of placement Addendum entered by Celine Webber R.N. 06/28/21 14:07: 1400: Attempted 3 times to secure condom urinary catheter to obtain accurate outputs and it would not stay attached to pt. Order received to anchor waite catheter. Inserted using sterile procedure with immediate return of 1550 mL clear gricel urine. Addendum entered by Celine Webber R.N. 06/28/21 10:21: 1015: Spoke with pharmacy re: phenobarbital dose. According to them, medication is on national backorder and there are no doses available in the hospital. Updated Dr Gutierrez, who stated to continue precedex titration and administer PRN IV diazepam to keep patient adequately sedated. Addendum entered by Celine Webber R.N. 06/28/21 08:44: 0845: Precedex at 0.8 mcg/kg/hr, phenobarbital administered. Pt currently resting with eyes closed, no s/s distress noted. Original Note: 0730: Wage Adjuster received in report that medical team wanted to attempt weaning of sedating medications. Precedex at 0.7 mcg/kg/hr and no other PRN medication administered since morning of 06/27/2021 according to eMAR. On assessment, pt with extreme agitation and violent behaviors including kicking, hitting, biting, and spiting with any attempts to provide care. Pt also removing monitoring equipment and hurling verbal abuse at content writer and manager labor relations, repeatedly stating Fuck you, leave me alone, you're trying to kill me. Wage Adjuster placed 4 point restraints to keep staff and patient safe during care. Call placed to Dr Pope, hospitalist, to notify of above. Dr Pope stated that teleintensivist should be called and provided no directions or orders. Call placed to Dr Gutierrez, teleintensivist. Orders for phenobarbital received. Precedex uptitrated to 1 mcg/kg/hour per protocol and restraints removed.
[2021-06-28] MEDS: PHENobarbital 65 MG/ML VIAL 260 MG IV (08:33)
[2021-06-28] MEDS: POTASSIUM PHOSPHATE 30 MMOL in SODIUM CHLORIDE 0.9% 500 ML 127.5 ML IV (10:16)
[2021-06-28] MEDS: diazePAM 10 MG/2 ML SYRINGE 5 MG IV ×7 (10:43→22:03)
[2021-06-28] MEDS: POTASSIUM CHLORIDE 10 MEQ in SODIUM CHLORIDE 0.9% 100 ML 105 ML IV ×2 (11:06→12:15)
--- NOTE | 2021-06-28 11:10 | P.TELICUPN_ITS ---
Subjective Subjective :: This patient was seen via real time interactive two-way audiovisual telecommunication. patient remains delirious on precedx. He was imrpoving earlier wih phenobarbital, however, due to national shortage, it seems unlikel he will receive further doses Current Medications Current Medications Medications: Home Medications levothyroxine 75 mcg tablet 75 mcg PO QAM 06/21/21 [History Confirmed 06/21/21] simvastatin 40 mg tablet 40 mg PO BEDTIME 06/21/21 [History Confirmed 06/21/21] Visit Medications (administered) Generic Name Dose Route Start Last Admin Trade Name Freq PRN Reason Stop Dose Admin Atorvastatin Calcium 20 mg 06/22/21 21:00 06/26/21 20:15 Atorvastatin 20 Mg Tablet PO Not Given BEDTIME EN Diazepam 5 mg 06/23/21 15:50 06/28/21 10:43 Diazepam 10 Mg/2 Ml Syringe IV 5 mg Q1H PRN Administration Anxiety Enoxaparin Sodium 40 mg 06/23/21 09:00 06/28/21 08:02 Enoxaparin 40 Mg/0.4 Ml Syringe SUBCUT 40 mg DAILY EN Administration Haloperidol 2 mg 06/22/21 03:01 06/27/21 05:55 Haloperidol 5 Mg/Ml Vial IV 2 mg Q2HR PRN Administration Agitation Folic Acid 1 mg/ Sodium 100.2 mls @ 200.4 mls/hr 06/23/21 09:00 06/28/21 08:03 Chloride IV 200 mls/hr DAILY EN Administration dexmedeTOMIDine in 0.9 % NaCL 400 mcg in 100 mls @ 5.443 mls/hr 06/23/21 15:30 06/28/21 08:47 Precedex IV 0.8 mcg/kg/hr TITRATE EN 21.772 mls/hr Titration Protocol 0.2 MCG/KG/HR NOREPINEPHRINE BITARTRATE/D5W 4 mg in 250 mls @ 30 mls/hr 06/24/21 16:15 06/26/21 05:12 Levophed IV Infused TITRATE EN Titration Protocol 8 MCG/MIN Piperacillin Sod/Tazobactam 100 mls @ 25 mls/hr 06/25/21 07:15 06/28/21 08:01 Sod 4.5 gm/ Sodium Chloride IV 25 mls/hr Q8H EN Administration Sodium Bicarbonate 50 meq/ 1,050 mls @ 75 mls/hr 06/27/21 13:15 06/28/21 02:32 Sodium Chloride IV 75 mls/hr CONT EN Administration Insulin Human Lispro 0 unit 06/25/21 10:15 06/28/21 10:05 Insulin Lispro 100 Unit/Ml 3ml Vial SUBCUT Not Given Q6H EN Protocol Lorazepam 0 mg 06/21/21 21:53 06/27/21 15:24 Lorazepam 2 Mg/Ml Inj IV 2 mg CIWAPRN PRN Administration Alcohol Withdrawal Protocol Multivitamins 1 tab 06/22/21 09:00 06/28/21 08:02 Multivitamin 1 Tablet PO Not Given DAILY EN Pantoprazole Sodium 40 mg 06/23/21 09:00 06/28/21 08:01 Pantoprazole 40 Mg Vial IV 40 mg DAILY EN Administration Sodium Chloride 10 ml 06/28/21 09:00 06/28/21 08:04 Sodium Chloride 0.9% Flush IV 10 ml BID EN Administration Objective Ventilator Parameters: Ventilator Settings FiO2 25 RT Vent Frequency 0 Ventilator Tidal Volume 0 Exhaled Positive End Expiratory 6 Pressure Inspiratory Phase Time 0.8 I:E Ratio 1:2 Patient Position HOB >= 30 degrees Labs Result Diagrams: 06/28/21 07:30 06/28/21 07:30 Labs: Laboratory Results - last 24 hr 06/27/21 06/27/21 06/28/21 04:40 18:53 07:30 WBC 10.2 RBC 3.78 L Hgb 12.7 L Hct 36.8 L MCV 97.2 MCH 33.6 MCHC 34.5 RDW 13.9 Plt Count 201 Sodium 142 Potassium 3.6 Chloride 116 H Carbon Dioxide 18 L BUN 7 L Creatinine 0.58 L Estimated GFR > 60 BUN/Creatinine Ratio 12.1 Glucose 102 Calcium 6.9 L Phosphorus 2.0 L Magnesium NT-Pro-B Natriuret Pep 435 H Albumin 2.5 L 06/28/21 07:30 WBC RBC Hgb Hct MCV MCH MCHC RDW Plt Count Sodium 146 H Potassium 3.2 L Chloride 118 H Carbon Dioxide 22 BUN 7 L Creatinine 0.57 L Estimated GFR > 60 BUN/Creatinine Ratio 12.3 Glucose 114 H Calcium 7.0 L Phosphorus 2.0 L Magnesium 1.8 NT-Pro-B Natriuret Pep Albumin Exam Vital Signs (past 8 hours): - 06/28/21 07:00 06/28/21 08:00 06/28/21 08:10 Pulse Rate 73 71 66 Respiratory Rate 36 H 34 H 33 H Blood Pressure 155/72 H Pulse Oximetry 99 98 96 06/28/21 09:00 06/28/21 10:00 Pulse Rate 72 69 Respiratory Rate 45 H 32 H Blood Pressure 164/77 H Pulse Oximetry 99 97 Fraction of Inspired Oxygen 28 Oxygen Delivery Method Room Air Oxygen Flow Rate 0 Narrative Exam Narrative: surrogate for exam is primary team Assessment & Plan Assessment & Plan narrative: NEURO: # Acute encephalopathy -- Multifactorial due to sedatives and alcohol withdrawal -- Will titrate down precedex to maintain RASS goal -1 to 0 -- Check ABG -- Patient repsonsing well to phenobarbital, but given its shroitage will use valium -- Early mobility -- Daily CAM ICU # Alcohol withdrawal - On thiamine, MTV, and folic acid -- On precedex infusion -- Cont ativan per [facility] protocol RESP: # Acute hpoxemia respiraotry failure -- Extubated -- On room air -- HOB elevation -- Aspiration precaution # Aspiration PNA -- On zosyn -- Cx negataive to date -- Follow up cx data : # NGMA -- Secondary to hyperchloremic NGMA -- Co2 improving slowly -- Avoid NS infusion ENDO: -- Goal BS < 180 D/w RN. Time Spent With Patient Critical Care time: I spent a total of [] minutes of critical care time on this patient's care today ; this time is exclusive of procedural time.
[2021-06-28] MEDS: dexmedeTOMIDine in 0.9 % NaCL 400 MCG/100 ML PLAST..BAG 16.329 MCG IV (11:56)
--- NOTE | 2021-06-28 14:06 | PM.PN.1 ---
Subjective Subjective Date Patient Seen: 06/28/21 Interval history: 70-year-old male with severe alcohol withdrawal, patient was previously intubated then extubated, however he remains agitated. He remains delirious on Precedex. Attempts were made to re-dose with phenobarbital however there is a national shortage and therefore the patient was unable to receive this medication. He remains agitated at times and oversedated at other times, He was very bronchospastic yesterday but no wheezing today. Exam Vital Signs (past 8 hours): - 06/28/21 07:00 06/28/21 08:00 06/28/21 08:10 Pulse Rate 73 71 66 Respiratory Rate 36 H 34 H 33 H Blood Pressure 155/72 H Pulse Oximetry 99 98 96 06/28/21 09:00 06/28/21 10:00 06/28/21 10:51 Pulse Rate 72 69 67 Respiratory Rate 45 H 32 H 35 H Blood Pressure 164/77 H 153/72 H Pulse Oximetry 99 97 98 06/28/21 11:00 06/28/21 12:00 Pulse Rate 64 63 Respiratory Rate 30 H 31 H Blood Pressure 140/68 Pulse Oximetry 98 97 Fraction of Inspired Oxygen 28 Oxygen Delivery Method Room Air Oxygen Flow Rate 0 Narrative Exam Narrative: Sedated male, minimally arousable Resp Other: Lungs: decreased breath sounds, no wheezing, rhonchi or crackles Cardio Other: Cardiac Exam: RRR nl Sl s2 GI Other: Abd: soft/ non tender no distended Other: sacral area with erythema between buttocks, blistering and early skin breakdown stage 1 decubitus ulcer Extrem Other: NO edema Objective Labs Result Diagrams: 06/28/21 07:30 06/28/21 07:30 Labs: Laboratory Results - last 24 hr 06/27/21 06/27/21 06/28/21 04:40 18:53 07:30 WBC 10.2 RBC 3.78 L Hgb 12.7 L Hct 36.8 L MCV 97.2 MCH 33.6 MCHC 34.5 RDW 13.9 Plt Count 201 Sodium 142 Potassium 3.6 Chloride 116 H Carbon Dioxide 18 L BUN 7 L Creatinine 0.58 L Estimated GFR > 60 BUN/Creatinine Ratio 12.1 Glucose 102 Calcium 6.9 L Phosphorus 2.0 L Magnesium NT-Pro-B Natriuret Pep 435 H Albumin 2.5 L 06/28/21 07:30 WBC RBC Hgb Hct MCV MCH MCHC RDW Plt Count Sodium 146 H Potassium 3.2 L Chloride 118 H Carbon Dioxide 22 BUN 7 L Creatinine 0.57 L Estimated GFR > 60 BUN/Creatinine Ratio 12.3 Glucose 114 H Calcium 7.0 L Phosphorus 2.0 L Magnesium 1.8 NT-Pro-B Natriuret Pep Albumin PFSH Social History household members: spouse Smoking Status: Former smoker alcohol intake: current Assessment & Plan Assessment & Plan narrative: Acute hypoxic respiratory failure secondary to severe EtOH withdrawal ?- Patient intubated on June 24, 2021 for airway protection, given persistent hyperventilation with decreasing HCO3 -patient extubated yesterday -significant wheezing today 13 liters positive since admission -will check Chest Xray, proBNP -Lasix 40 mg IV now -No further wheezing, patient has been incontinent so true I/O's not accurate -Will place waite catheter -Additional Lasix today 40 mg IV 2. Severe EtOH withdrawal with delirium tremens ?- CIWA protocol on-board, along with IV Precedex, IV propofol, and IV Versed ?- phenobarbitol 260 mg IV given -continue IV valium as phenobarbitol on National shortage -precedex for agitation as well 3. Concern for aspiration pneumonia ?- Empiric IV Zosyn started on June 25, 2021, given low-grade fever, leukocytosis, and high likelihood of aspiraton --continue antibiotics -suspect probable Aspiration Pneumonia -continue IV Zosyn for five days then d/c 4. Alcoholic hepatitis ?- LFT's continue to improve, and will need to monitor, INR slightly elevated 5. Duodenitis, ongoing, likely due to EtOH abuse ?- IV Protonix 40 mg daily on-board 6. Hypothyroidism ?- Home levothyroxine adjusted to IV levothyroxine 7. Hyperlipidemia ?- Will hold home simvastatin for now given above 8. Thrombocytopenia, stable ?- Likely secondary to bone marrow suppression from EtOH abuse, along with severe liver injury 9. Hypophosphatemia, ongoing ?- Likely due to ongoing EtOH withdrawal, replenish as necessary 10. Hypokalemia, ongoing ?- Likely due to ongoing EtOH withdrawal, replenish as necessary -replace potassium today, per pharmacy protocol 11. hypocalcemia= will replace 12.Need to initiate Nutrition, will start PPN Time Spent With Patient Critical Care time: I spent a total of [] minutes of critical care time on this patient's care today; this time is exclusive of procedural time.
[2021-06-28] MEDS: FUROSEMIDE 40 MG/4 ML VIAL IV (14:34)
--- NOTE | 2021-06-28 15:28 | DI.RAD.S_ITS ---
PROCEDURE: XR CHEST 1V INDICATIONS: NG placement TECHNIQUE: One view of the chest was acquired. COMPARISON: [facility], CR, XR CHEST 1V, 06/25/2021, 6:01. [facility], CT, CT CHEST ABD PEL W CON, 06/21/2021, 15:37. [facility], CR, XR CHEST 1V, 06/27/2021, 18:01. FINDINGS: Surgical changes and devices: An NG tube is present, the tip of which is not visualized. The distal side hole is projected over the expected location of the gastric fundus. Left PICC is unchanged with the tip projected over the expected location of the azygos vein. Lungs and pleura: Lung volumes are low. Interstitial airspace opacities are present bilaterally. Probable atelectasis is present within the left mid lung. No pleural effusion or pneumothorax. Mediastinum: Mediastinal contours appear normal. Heart size is normal. Bones and chest wall: No suspicious bony lesions. Overlying soft tissues appear unremarkable. IMPRESSION: 1. Low lung volumes and interstitial prominence suggesting fluid overload. 2. NG tube as above. 3. Tip of the PICC may be located in the azygos vein. Dictated by: Ashley Gregorio M.D. on 06/28/2021 at 15:49 Approved by: Ashley Gregorio M.D. on 06/28/2021 at 15:51
--- NOTE | 2021-06-28 15:32 | CM.DPC ---
DCP Cont: Per MD, pt remains in severe ETOH withdrawal and not medically stable to d/c at this time and likely at least another few days. Per RN, many attempts to wean pt's sedation since successfully extubated two days ago on 06/26/21 but pt becomes quite agitated and combative and uncooperative with care and a danger to himself and others and therefore continues to require significant sedation at this time and spouse has continued to call and come in for updates. SW called pt's spouse Juani [phone] and explained role and confirms that pt has no hx of ETOH tx and they have been for 50 years. Spouse states that she just set up Al-Anon for herself and has her first meeting luis and looking forward to support for herself and has one very supportive friend but spouse has currently asked not to inform their 3 adult sons yet. Spouse states when pt was admitted he was agreeable to ETOH tx and AA meetings. SW encouraged spouse to set up as much support for herself as she can at this time. SW discussed the difficulty with getting pt directly into Inpt ETOH tx from the hospital and the need for KAYLA assessment and possible need for pt to d/c with outpt KAYLA assessment set up towards help in getting him into Inpt tx vs Intensive Outpt services. Spouse acknowledges understanding and hopeful Inpt tx might be available at d/c and aware that pt will need to be agreeable or could possibly be Involuntary Inpt tx at [facility] in [place]. Spouse very appreciative of the support and aware pt will need to be more medically stable before further planning can begin. Plan: SW to follow tomorrow to determine pt medical progress towards coordinating possible ETOH tx options at d/c. JÚNIOR Beth
--- NOTE | 2021-06-28 16:54 | DIET.CONS ---
Addendum entered by Jaclyn Ceballos 06/29/21 11:05: Formula adjustment r/t inventory: Glucerna 1.2 running at 65mL/h c 200mL free water flushes q4h provides 1872kcals, 94g PRO, 179g CHO, feed provides 1264mL and flushes provide 1200mL Original Note: Dietary Consultation Note Admission Date: 06/21/2021 20:24 Assessment: RD checked c ICU nurse at lunchtime, pt extubated on 06/26 but remains agitated c behavior issues, remains NPO secondary to unsafe to eat. NG placed per hospitalist this afternoon to resume TF until pt able to safely consume POs. Pt with low potassium and phosphorus being repleted over weekend, magnesium WNL. This RD added daily weights (AM) as pt volume overload with some incontinence. Ht: 170.18 cm Wt: 108.862 kg BMI: 37.5 Class 2 obesity pt 65% above ideal body weight Last BM: 06/28/21 (06/28/21 02:00) MNA: 13 Tiburcio Score: 10 Diet: 06/24/21 15:20 NPO Diet Diet Modifications: NPO Type: Strict Labs: RBC 3.78 X10^6/uL (4.5-5.9) L 06/28/21 07:30 Hgb 12.7 g/dL (13.5-17.5) L 06/28/21 07:30 Hct 36.8 % (41-53) L 06/28/21 07:30 Creatinine 0.57 mg/dL (0.66-1.25) L 06/28/21 07:30 NT-Pro-B Natriuret Pep 435 pg/mL (<125) H 06/27/21 18:53 Nutrition Diagnosis: inadequate oral intake r/t inability to consume oral intake aeb pt too sedated or too combative to eat while detoxing from etoh, pt intubated 06/24 and extubated 06/26, pt with no POs x 2d. Interventions: 1. Recc NG feeding continuous Glucerna 1.5 starting at 35mL/h titrating up by 10mL q 4-6h as tolerated until reaching goal rate of 55mL/h. Recc 250mL free water flushes q 4h. Feed plus formula provides 100% kcals, 95% PRO, and 100% fluids 2. HOB elevated at least 30 degrees at all time to reduce risk of aspiration. 3. Daily weights 4. Pt at risk for refeeding, check refeeding labs and replenish prn 5. Hospitalist/Environmental Studies Faculty Member to manage fluid balance as needed. Feed kcals provided: 1979 Feed provides: 109g PRO Feed water: 1002mL Water flushes: 1500mL Total fluids: 2502mL EER: 0512-7524 kcals (28-30kca/kg at BMI of 25-27), 115-120g protein (1.5g/kg), 8755-7829 mL fluids (30ml/kg or 1mL/kcal) Electronically Signed by: Jaclyn Ceballos 06/28/21 16:54 Clinical Dietitian [address] [address]
[2021-06-28] MEDS: dexmedeTOMIDine in 0.9 % NaCL 400 MCG/100 ML PLAST..BAG 21.772 MCG IV (16:58)
[2021-06-28] MEDS: LEVOTHYROXINE INJ 100 MCG/5 ML VIAL 200 MCG IV (17:17)
--- NOTE | 2021-06-28 21:39 | P.ICUMDRN_ITS ---
- :: This patient was seen via real time interactive two-way audiovisual telecommunication. Note: This evening, patient continues on Precedex drip @ 0.6, CIWA protocol with Valium, and Bicarb drip @ 75/hour. Persistently altered, though not currently aggressive. Noted to have several beats of VT this evening. Earlier in day, patient with K repletion but noted that Mg and Phos also low, not yet repleted. RN noted that haldol not effective, but patient calmer with CIWA protocol (Wendie don). Will replete Mg, Phos now. Given VT, following repletion of these electrolytes - will repeat BMP, Mg, Phos this evening. Also follow up ionized calcium. Given persistent AMS, would recommend a CT Head as patient is at risk for SDH in the setting of chronic ETOH use (has not been done during this admission), this has been ordered. Given bicarb now near-normal, would follow up repeat level this evening and DC bicarb drip if level remains >20. Continue TFs for nutrition.
[2021-06-28] MEDS: MAGNESIUM SULFATE 2 GM/50 ML PIGGYBACK IV (21:47)
[2021-06-29] VITALS (51 sets, daily range): BP systolic 133–205; BP diastolic 63–100; PULSE 61–84; RESP 18–53; TEMP 36.1–36.9; O2SAT 95–99
[2021-06-29] MEDS: diazePAM 10 MG/2 ML SYRINGE 5 MG IV ×11 (00:06→14:44)
[2021-06-29] MEDS: POTASSIUM PHOSPHATE 15 MMOL in SODIUM CHLORIDE 0.9% 250 ML 63.75 ML IV (00:07)
[2021-06-29] MEDS: dexmedeTOMIDine in 0.9 % NaCL 400 MCG/100 ML PLAST..BAG 16.329 MCG IV (00:27)
[2021-06-29] MEDS: PIPERACILLIN/TAZO 4.5 GM in SODIUM CHLORIDE 0.9% 100 ML 25 ML IV ×4 (00:37→22:56)
--- NOTE | 2021-06-29 02:36 | PC.NURSE ---
Addendum entered by Saundra Patel R.N. 06/29/21 06:51: Shaylaandres JONES notified of Calcium critical value of 6.2 and advised provider that am Potassium at 2.9. Orders received to do Albumin level on 0530 am blood draw. Lab called and requested add on test from am labs; spoke to Arlet Hancock in lab and test will be done. Addendum entered by Saundra Patel R.N. 06/29/21 05:48: Patient with increasing restlessness and pulling at lines. BP 175/84 HR 67. Precedex increased to 0.8 mcg/kg/min. Patient repositioned in bed with lift sheet. Lung continue with coarse crackles. O2 sats 94-98%. Received Magnesium and Potassium Phosphate rider. Original Note: 0110 Patient requiring Valium q2h. Patient extremely agitated with melita care and repositioning and attempting to strike staff. When instructed not to hit, patient stated, I will hit you. Precedex increased to 0.7 mcg/kg/hr. Valium given q1h interval to reduce addition. BP 175/84 HR 73
[2021-06-29 06:07] LABS: BUN Creatinine Ratio 16.3 (6-22); Blood Urea Nitrogen 8 mg/dL (9-20); Carbon Dioxide 26 mmol/L (22-32); Chloride 118 mmol/L (98-107); Estimated Glomerular Filt Rate > 60 mL/min (>60); Glucose 111 mg/dL (80-110); HEMOLYSIS < 15 (0-50); Magnesium 1.9 mg/dL (1.6-2.3); Phosphorous 2.3 mg/dL (2.3-3.7); Potassium 2.9 mmol/L (3.4-5.1); Sodium 149 mmol/L (137-145)
[2021-06-29] MEDS: SODIUM BICARB 8.4% VIAL 50 MEQ in SODIUM CHLORIDE 0.9% 1,000 ML 75 MEQ IV (06:22)
[2021-06-29] MEDS: dexmedeTOMIDine in 0.9 % NaCL 400 MCG/100 ML PLAST..BAG 19.051 MCG IV (06:24)
[2021-06-29 06:27] LABS: Calcium 6.2 mg/dL (8.4-10.2)
[2021-06-29 06:55] LABS: Albumin 2.3 g/dL (3.5-5.0)
[2021-06-29] MEDS: HALOPERIDOL 5 MG/ML VIAL 2 MG IV ×4 (07:15→18:05)
[2021-06-29] MEDS: FOLIC ACID 1 MG in SODIUM CHLORIDE 0.9% 100 ML 200 ML IV (07:37)
[2021-06-29] MEDS: PANTOPRAZOLE 40 MG VIAL IV (07:38)
[2021-06-29] MEDS: MULTIVITAMIN 1 TABLET 1 TAB PO (07:38)
[2021-06-29] MEDS: ENOXAPARIN 40 MG/0.4 ML SYRINGE SUBCUT (07:39)
[2021-06-29] MEDS: SODIUM CHLORIDE 0.9% FLUSH 10 ML IV ×2 (07:39→20:39)
[2021-06-29] MEDS: POTASSIUM CHLORIDE 20 MEQ TAB 40 MEQ PO (07:54)
[2021-06-29] MEDS: CALCIUM GLUCONATE 4.65 MEQ in SODIUM CHLORIDE 0.9% 50 ML 180 ML IV (08:23)
[2021-06-29] MEDS: POTASSIUM CHLORIDE 10 MEQ in SODIUM CHLORIDE 0.9% 100 ML 105 ML IV (08:24)
--- NOTE | 2021-06-29 08:38 | PM.PN.EICU ---
Subjective Subjective :: This patient was seen via real time interactive two-way audiovisual telecommunication. patient remains on precedx and ciwa protocol - DT controlled. pending VAH Current Medications Current Medications Medications: Home Medications levothyroxine 75 mcg tablet 75 mcg PO QAM 06/21/21 [History Confirmed 06/21/21] simvastatin 40 mg tablet 40 mg PO BEDTIME 06/21/21 [History Confirmed 06/21/21] Visit Medications (administered) Generic Name Dose Route Start Last Admin Trade Name Freq PRN Reason Stop Dose Admin Atorvastatin Calcium 20 mg 06/22/21 21:00 06/26/21 20:15 Atorvastatin 20 Mg Tablet PO Not Given BEDTIME EN Diazepam 5 mg 06/23/21 15:50 06/29/21 08:05 Diazepam 10 Mg/2 Ml Syringe IV 5 mg Q1H PRN Administration Anxiety Enoxaparin Sodium 40 mg 06/23/21 09:00 06/29/21 07:39 Enoxaparin 40 Mg/0.4 Ml Syringe SUBCUT 40 mg DAILY EN Administration Haloperidol 2 mg 06/22/21 03:01 06/29/21 07:15 Haloperidol 5 Mg/Ml Vial IV 2 mg Q2HR PRN Administration Agitation Haloperidol 2 mg 06/29/21 07:14 06/29/21 08:18 Haloperidol 5 Mg/Ml Vial IV 2 mg Q1H PRN Administration Agitation Folic Acid 1 mg/ Sodium 100.2 mls @ 200.4 mls/hr 06/23/21 09:00 06/29/21 07:37 Chloride IV 200 mls/hr DAILY EN Administration dexmedeTOMIDine in 0.9 % NaCL 400 mcg in 100 mls @ 5.443 mls/hr 06/23/21 15:30 06/29/21 06:24 Precedex IV 0.7 mcg/kg/hr TITRATE EN 19.051 mls/hr Administration Protocol 0.2 MCG/KG/HR Piperacillin Sod/Tazobactam 100 mls @ 25 mls/hr 06/25/21 07:15 06/29/21 07:39 Sod 4.5 gm/ Sodium Chloride IV 25 mls/hr Q8H EN Administration Sodium Bicarbonate 50 meq/ 1,050 mls @ 75 mls/hr 06/27/21 13:15 06/29/21 06:22 Sodium Chloride IV 75 mls/hr CONT EN Administration Potassium Chloride 10 meq/ 105 mls @ 105 mls/hr 06/29/21 07:30 06/29/21 08:24 Sodium Chloride IV 06/29/21 11:29 105 mls/hr Q1H EN Administration Insulin Human Lispro 0 unit 06/25/21 10:15 06/29/21 06:07 Insulin Lispro 100 Unit/Ml 3ml Vial SUBCUT Not Given Q6H EN Protocol Levothyroxine Sodium 200 mcg 06/28/21 17:00 06/28/21 17:17 Levothyroxine Inj 100 Mcg/5 Ml Vial IV 200 mcg MOTH@1700 EN Administration Lorazepam 0 mg 06/21/21 21:53 06/27/21 15:24 Lorazepam 2 Mg/Ml Inj IV 2 mg CIWAPRN PRN Administration Alcohol Withdrawal Protocol Multivitamins 1 tab 06/22/21 09:00 06/29/21 07:38 Multivitamin 1 Tablet PO 1 tab DAILY EN Administration Pantoprazole Sodium 40 mg 06/23/21 09:00 06/29/21 07:38 Pantoprazole 40 Mg Vial IV 40 mg DAILY EN Administration Sodium Chloride 10 ml 06/28/21 09:00 06/29/21 07:39 Sodium Chloride 0.9% Flush IV 10 ml BID EN Administration Objective Ventilator Parameters: Ventilator Settings FiO2 25 RT Vent Frequency 0 Ventilator Tidal Volume 0 Exhaled Positive End Expiratory 6 Pressure Inspiratory Phase Time 0.8 I:E Ratio 1:2 Patient Position HOB >= 30 degrees Labs Result Diagrams: 06/28/21 07:30 06/29/21 05:30 Labs: Laboratory Results - last 24 hr 06/29/21 05:30 Sodium 149 H Potassium 2.9 L Chloride 118 H Carbon Dioxide 26 BUN 8 L Creatinine 0.49 L Estimated GFR > 60 BUN/Creatinine Ratio 16.3 Glucose 111 H Calcium 6.2 L* Phosphorus 2.3 Magnesium 1.9 Albumin 2.3 L Exam Vital Signs (past 8 hours): - 06/29/21 02:15 06/29/21 04:00 06/29/21 06:00 Temperature 98.4 F 98.4 F 97.9 F Pulse Rate 72 72 72 Respiratory Rate 18 18 18 Blood Pressure 170/77 H 170/77 H 188/91 H Pulse Oximetry 97 97 98 Fraction of Inspired Oxygen 28 Oxygen Delivery Method Room Air Oxygen Flow Rate 0 Narrative Exam Narrative: surrogate for exam is primary team Assessment & Plan Assessment & Plan narrative: nEURO: # Acute encephalopathy -- Multifactorial due to sedatives and alcohol withdrawal -- Will titrate down precedex to maintain RASS goal -1 to 0 -- Check ABG -- Patient repsonsing well to phenobarbital, but given its shroitage will use valium -- Early mobility -- Daily CAM ICU # Alcohol withdrawal - On thiamine, MTV, and folic acid -- On precedex infusion -- CIWA protocol RESP: # Acute hpoxemia respiraotry failure -- Extubated -- On room air -- HOB elevation -- Aspiration precaution # Aspiration PNA -- On zosyn -- Cx negataive to date -- Follow up cx data : # NGMA -- Secondary to hyperchloremic NGMA -- Co2 improving slowly -- Avoid NS infusion ENDO: -- Goal BS < 180 cct 35 min Time Spent With Patient Critical Care time: I spent a total of [] minutes of critical care time on this patient's care today; this time is exclusive of procedural time.
[2021-06-29 08:51] LABS: PCO2 ABG 26.9 mmHg (35-45); PO2 ABG 60 mmHg (80-100); pH ABG 7.53 (7.35-7.45)
[2021-06-29 08:52] LABS: Fractionated Inspired Oxygen 21; HCO3 ABG 23 mmol/L (22-26); Oxygen Saturation ABG 94 % (95-100); TCO2 ABG 24 mmol/L (21-31)
--- NOTE | 2021-06-29 09:00 | DI.CT.S_ITS ---
PROCEDURE: CT HEAD/BRAIN WO CON INDICATIONS: AMS, history of ETOH abuse. TECHNIQUE: Noncontrast 4.5 mm thick angled axial sections acquired from the foramen magnum to the vertex, with coronal and sagittal reformats. For radiation dose reduction, the following was used: automated exposure control, adjustment of mA and/or kV according to patient size. COMPARISON: None. FINDINGS: Image quality: Excellent. CSF spaces: Basal cisterns are patent. No extra-axial fluid collections. Ventricles are normal in size and shape. Brain: No midline shift. No intracranial masses or hemorrhage. Kang-white matter interface is normal. Skull and face: Calvarium and visualized facial bones are intact, without suspicious lesions. Sinuses: Visualized sinuses and mastoids are clear. IMPRESSION: No acute intracranial abnormality. Dictated by: William Bashir M.D. on 06/29/2021 at 9:35 Approved by: William Bashir M.D. on 06/29/2021 at 9:35
[2021-06-29] MEDS: dexmedeTOMIDine in 0.9 % NaCL 400 MCG/100 ML PLAST..BAG 32.659 MCG IV ×2 (09:52→12:28)
[2021-06-29] MEDS: LABETALOL 20 MG/4 ML SYRINGE 10 MG IV (10:19)
[2021-06-29] MEDS: HYDRALAZINE 20 MG/ML VIAL 10 MG IV ×2 (11:19→18:05)
--- NOTE | 2021-06-29 12:54 | PC.NURSE ---
Addendum entered by Celine Webber R.N. 06/29/21 18:37: 1830: Shift summary: Tube feed at goal rate of 65 mL/hr with 200 mL/4 hour flushes per dietary recommendations. Pt tolerating well. Pt has awakened more and is more appropriately conversive, following commands and stating repeatedly that he is hungry. Updated Malathi via telephone. Pt is able to be reoriented with frequent cues and verbalizes that he is aware he is in the hospital. Original Note: 0730: Tube feeding residual checked, <20 mL aspirated, rate increased to goal of 55mL/hr. Pt still requiring frequent PRN diazepam, precedex drip uptitrated in anticipation of trip to [place]. 0900: Pt transported to [place] without incident 1100: Dietary changed goal tube feed rate to 65 mL/hr with 200 mL/hr flushes. 1245: Residual checked, <10 mL, rate increased to new goal of 65mL/hr. Pt tolerating well. Continuing to attempt lowered rate of precedex
[2021-06-29] MEDS: POTASSIUM CHLORIDE 20 MEQ/15 ML UDC 40 MEQ PO (13:06)
[2021-06-29] MEDS: PHENobarbital 65 MG/ML VIAL 130 MG IV ×2 (16:15→20:36)
[2021-06-29] MEDS: cloNIDine TTS 0.1 MG PATCH TOP (16:37)
[2021-06-29] MEDS: LORazepam 2 MG/ML INJ IV (17:05)
--- NOTE | 2021-06-29 17:27 | PM.PN.1 ---
Subjective Subjective Date Patient Seen: 06/29/21 Interval history: 70-year-old male currently in the ICU with severe delirium tremens, acute metabolic encephalopathy, alcohol withdrawal syndrome. Patient has continued to have agitation in his behavior, he underwent head CT today given his lengthy period of confusion which was negative. Feeding tube was placed yesterday, patient was started on tube feeds for nutrition. Exam Vital Signs (past 8 hours): - 06/29/21 09:30 06/29/21 10:00 06/29/21 10:19 Temperature 97.8 F Pulse Rate 63 64 61 Respiratory Rate 34 H 34 H Blood Pressure 172/89 H 172/89 H Pulse Oximetry 98 98 06/29/21 10:26 06/29/21 10:30 06/29/21 11:00 Temperature Pulse Rate 74 75 73 Respiratory Rate 30 H 31 H 30 H Blood Pressure 187/91 H Pulse Oximetry 98 97 97 06/29/21 11:07 06/29/21 11:09 06/29/21 11:19 Temperature Pulse Rate 74 74 72 Respiratory Rate 39 H 30 H Blood Pressure 205/100 H 199/92 H 199/92 H Pulse Oximetry 96 96 06/29/21 11:30 06/29/21 11:40 06/29/21 11:41 Temperature Pulse Rate 72 73 73 Respiratory Rate 52 H 53 H Blood Pressure 150/66 H 150/66 H Pulse Oximetry 97 97 06/29/21 11:54 06/29/21 12:00 06/29/21 12:30 Temperature 97.4 F L Pulse Rate 74 71 Respiratory Rate 35 H 52 H Blood Pressure 154/70 H Pulse Oximetry 97 97 06/29/21 12:39 06/29/21 13:00 06/29/21 13:24 Temperature Pulse Rate 71 69 Respiratory Rate 25 H 24 Blood Pressure 154/70 H 159/72 H Pulse Oximetry 98 97 06/29/21 13:30 06/29/21 14:00 06/29/21 14:30 Temperature 97.0 F L Pulse Rate 69 69 68 Respiratory Rate 25 H 25 H 35 H Blood Pressure 155/71 H Pulse Oximetry 97 97 95 06/29/21 15:00 06/29/21 16:00 06/29/21 17:00 Temperature 97.9 F Pulse Rate 71 73 75 Respiratory Rate 28 H 44 H Blood Pressure 156/71 H 133/63 Pulse Oximetry 97 99 98 Fraction of Inspired Oxygen 28 Oxygen Delivery Method Room Air Oxygen Flow Rate 0 Narrative Exam Narrative: Confused male lying in bed HENMT Other: Normocephalic atraumatic nasogastric tube in place Resp Other: Lungs decreased breath sounds Cardio Other: Cardiac exam: Regular rate and rhythm normal S1-S2 GI Other: Abdomen: Soft nontender nondistended Other: Forman catheter in place Extrem Other: No edema Objective Labs Result Diagrams: 06/28/21 07:30 06/29/21 05:30 Labs: Laboratory Results - last 24 hr 06/29/21 06/29/21 05:30 08:25 ABG pH 7.53 H ABG pCO2 26.9 L ABG pO2 60 L ABG HCO3 23 ABG Total CO2 24 ABG O2 Saturation 94 L ABG Base Excess 0.0 FiO2 21 Sodium 149 H Potassium 2.9 L Chloride 118 H Carbon Dioxide 26 BUN 8 L Creatinine 0.49 L Estimated GFR > 60 BUN/Creatinine Ratio 16.3 Glucose 111 H Calcium 6.2 L* Phosphorus 2.3 Magnesium 1.9 Albumin 2.3 L PFSH Social History household members: spouse Smoking Status: Former smoker alcohol intake: current Assessment & Plan Assessment & Plan narrative: 1.?Severe EtOH withdrawal with delirium tremens ?- [facility] protocol on-board, along with IV Precedex, IV propofol, and IV Versed ?- phenobarbitol 260 mg IV given -continue IV valium as phenobarbitol on National shortage -precedex for agitation as well -no longer have Valium available, phenobarbital will be resumed as we have been able to acquire this 2. ?Concern for aspiration pneumonia ?- Empiric IV Zosyn started on June 25, 2021, given low-grade fever, leukocytosis, and high likelihood of aspiraton --continue antibiotics -suspect probable Aspiration Pneumonia -continue IV Zosyn for five days then d/c -patient switched to oral Augmentin, will continue for 2 more days 4. Alcoholic hepatitis ?- LFT's continue to improve, and will need to monitor, INR slightly elevated 5. Duodenitis, ongoing, likely due to EtOH abuse ?- IV Protonix 40 mg daily on-board 6. Hypothyroidism ?- Home levothyroxine adjusted to IV levothyroxine 7. Hyperlipidemia ?- Will hold home simvastatin for now given above 8. Thrombocytopenia, stable ?- Likely secondary to bone marrow suppression from EtOH abuse, along with severe liver injury 9. Hypophosphatemia, ongoing ?- Likely due to ongoing EtOH withdrawal, replenish as necessary 10. Hypokalemia, ongoing ?- Likely due to ongoing EtOH withdrawal, replenish as necessary -replace potassium today, per pharmacy protocol 11. hypocalcemia= will replace 12.Need to initiate Nutrition -tube feeds initiated yesterday, patient is now at goal 13. Acute hypoxic respiratory failure -patient is diuresing nicely with Lasix -no additional Lasix need Time Spent With Patient Critical Care time: I spent a total of [] minutes of critical care time on this patient's care today; this time is exclusive of procedural time.
[2021-06-29] MEDS: dexmedeTOMIDine in 0.9 % NaCL 400 MCG/100 ML PLAST..BAG 8.165 MCG IV (17:38)
[2021-06-29] MEDS: dexmedeTOMIDine in 0.9 % NaCL 400 MCG/100 ML PLAST..BAG 13.608 MCG IV (21:53)
--- NOTE | 2021-06-29 23:04 | PM.ICURNDS ---
- :: This patient was seen via real time interactive two-way audiovisual telecommunication. Note: Chart reviewed; discussed with RN. Remains on Precedex 0.8 mcg/kg/hr. I had to order two doses of phenobarbital 130 mg IVP earlier this shift. INTERVENTIONS: 1. I increased transdermal clonidine from 0.2 mg/hr to 0.3. 2. Will order phenobarbital 65 mg IVP q1H PRN RASS +2 or greater 3. Continue Precedex wean as tolerated and CIWA.
--- NOTE | 2021-06-29 23:46 | PC.NURSE ---
1939 - Confirmed with test designer 2nd dose of Phenobarbital ordered. Reviewed with Pharmacy. Pt restless, pulling at tubes and wires, however not aggressive at this time. Repositioned, brief changed, barrier cream applied. Oral care, pt pushing swabs away. Tube feeding at 65cc/hr, residual 100cc.
[2021-06-30] VITALS (30 sets, daily range): BP systolic 135–195; BP diastolic 67–136; PULSE 68–104; RESP 20–41; TEMP 36.4–36.9; O2SAT 96–99
[2021-06-30] MEDS: dexmedeTOMIDine in 0.9 % NaCL 400 MCG/100 ML PLAST..BAG 10.886 MCG IV (00:06)
[2021-06-30] MEDS: PHENobarbital 65 MG/ML VIAL IV (03:35)
[2021-06-30] MEDS: dexmedeTOMIDine in 0.9 % NaCL 400 MCG/100 ML PLAST..BAG 8.165 MCG IV ×2 (03:37→17:40)
[2021-06-30] MEDS: PIPERACILLIN/TAZO 4.5 GM in SODIUM CHLORIDE 0.9% 100 ML 25 ML IV ×3 (06:15→22:47)
[2021-06-30] MEDS: HYDRALAZINE 20 MG/ML VIAL 10 MG IV (06:17)
[2021-06-30] MEDS: LORazepam 2 MG/ML INJ IV (08:13)
[2021-06-30] MEDS: MULTIVITAMIN 1 TABLET 1 TAB PO (09:15)
[2021-06-30] MEDS: LEVOTHYROXINE 75 MCG TABLET PO (09:15)
[2021-06-30] MEDS: FOLIC ACID 1 MG TABLET PO (09:15)
[2021-06-30] MEDS: ENOXAPARIN 40 MG/0.4 ML SYRINGE SUBCUT (09:16)
[2021-06-30] MEDS: PANTOPRAZOLE 40 MG VIAL IV (09:17)
[2021-06-30] MEDS: SODIUM CHLORIDE 0.9% FLUSH 10 ML IV (09:17)
--- NOTE | 2021-06-30 09:57 | PM.PN.EICU ---
Subjective Subjective :: This patient was seen via real time interactive two-way audiovisual telecommunication. patient deirious and combative ovenright, but respinded well to phenobarbital which is now back in stock Current Medications Current Medications Medications: Home Medications levothyroxine 75 mcg tablet 75 mcg PO QAM 06/21/21 [History Confirmed 06/21/21] simvastatin 40 mg tablet 40 mg PO BEDTIME 06/21/21 [History Confirmed 06/21/21] Visit Medications (administered) Generic Name Dose Route Start Last Admin Trade Name Freq PRN Reason Stop Dose Admin Atorvastatin Calcium 20 mg 06/22/21 21:00 06/26/21 20:15 Atorvastatin 20 Mg Tablet PO Not Given BEDTIME EN Clonidine HCl 0.1 mg 06/29/21 17:00 06/29/21 16:37 Clonidine Tts 0.1 Mg Patch TOP 0.1 mg Q7D@1700 EN Administration Enoxaparin Sodium 40 mg 06/23/21 09:00 06/30/21 09:16 Enoxaparin 40 Mg/0.4 Ml Syringe SUBCUT 40 mg DAILY EN Administration Folic Acid 1 mg 06/30/21 09:00 06/30/21 09:15 Folic Acid 1 Mg Tablet PO 1 mg DAILY EN Administration Hydralazine HCl 10 mg 06/29/21 11:11 06/30/21 06:17 Hydralazine 20 Mg/Ml Vial IV 10 mg Q6HR PRN Administration Hypertension Piperacillin Sod/Tazobactam 100 mls @ 25 mls/hr 06/25/21 07:15 06/30/21 06:15 Sod 4.5 gm/ Sodium Chloride IV 25 mls/hr Q8H EN Administration dexmedeTOMIDine in 0.9 % NaCL 400 mcg in 100 mls @ 5.443 mls/hr 06/29/21 23:00 06/30/21 06:22 Precedex IV 0.5 mcg/kg/hr TITRATE EN 13.608 mls/hr Titration Protocol 0.2 MCG/KG/HR Insulin Human Lispro 0 unit 06/25/21 10:15 06/30/21 06:14 Insulin Lispro 100 Unit/Ml 3ml Vial SUBCUT Not Given Q6H EN Protocol Labetalol HCl 10 mg 06/29/21 09:42 06/29/21 10:19 Labetalol 20 Mg/4 Ml Syringe IV 10 mg Q4HR PRN Administration Heart Rate- High Levothyroxine Sodium 75 mcg 06/30/21 06:00 06/30/21 09:15 Levothyroxine 75 Mcg Tablet PO 75 mcg 0600 EN Administration Lorazepam 0 mg 06/21/21 21:53 06/30/21 08:13 Lorazepam 2 Mg/Ml Inj IV 2 mg CIWAPRN PRN Administration Alcohol Withdrawal Protocol Multivitamins 1 tab 06/22/21 09:00 06/30/21 09:15 Multivitamin 1 Tablet PO 1 tab DAILY EN Administration Pantoprazole Sodium 40 mg 06/30/21 09:00 06/30/21 09:17 Pantoprazole 40 Mg Vial IV 40 mg DAILY EN Administration Phenobarbital 65 mg 06/29/21 23:22 06/30/21 03:35 Phenobarbital 65 Mg/Ml Vial IV 65 mg Q1HR PRN Administration RASS greater than or equal to +2 Sodium Chloride 10 ml 06/28/21 09:00 06/30/21 09:17 Sodium Chloride 0.9% Flush IV 10 ml BID EN Administration Objective Ventilator Parameters: Ventilator Settings FiO2 25 RT Vent Frequency 0 Ventilator Tidal Volume 0 Exhaled Positive End Expiratory 6 Pressure Inspiratory Phase Time 0.8 I:E Ratio 1:2 Patient Position HOB >= 30 degrees Labs Result Diagrams: 06/28/21 07:30 06/29/21 05:30 Exam Vital Signs (past 8 hours): - 06/30/21 03:46 06/30/21 06:00 06/30/21 06:17 Temperature 97.8 F 97.7 F Pulse Rate 90 89 81 Respiratory Rate 24 20 Blood Pressure 153/76 H 170/85 H 170/83 H Pulse Oximetry 98 96 06/30/21 07:00 06/30/21 07:02 06/30/21 08:33 Temperature 97.8 F Pulse Rate 93 H 92 H 86 Respiratory Rate 27 H 24 Blood Pressure 181/83 H Pulse Oximetry 99 98 Fraction of Inspired Oxygen 28 Oxygen Delivery Method Room Air Oxygen Flow Rate 0 Narrative Exam Narrative: surrogate for exam is primary team Assessment & Plan Assessment & Plan narrative: nEURO: # Acute encephalopathy -- Multifactorial due to sedatives and alcohol withdrawal -- Will titrate down precedex to maintain RASS goal -1 to 0 -- Check ABG -- Patient repsonsing well to phenobarbital, will resume as it is back in stock. may need up titration -- Early mobility -- Daily CAM ICU - zyprexa added # Alcohol withdrawal - On thiamine, MTV, and folic acid -- On precedex infusion - wean off as tolerated -- CIWA protocol RESP: # Acute hpoxemia respiraotry failure -- Extubated -- On room air -- HOB elevation -- Aspiration precaution # Aspiration PNA -- On zosyn -- Cx negataive to date -- Follow up cx data : # NGMA -- Secondary to hyperchloremic NGMA -- Co2 improving slowly -- Avoid NS infusion ENDO: -- Goal BS < 180 on TF cct 35 min Time Spent With Patient Critical Care time: I spent a total of [] minutes of critical care time on this patient's care today; this time is exclusive of procedural time.
[2021-06-30] MEDS: dexmedeTOMIDine in 0.9 % NaCL 400 MCG/100 ML PLAST..BAG 16.329 MCG IV (10:59)
[2021-06-30] MEDS: CALCIUM GLUCONATE 4.65 MEQ in SODIUM CHLORIDE 0.9% 50 ML 180 ML IV (11:01)
[2021-06-30] MEDS: INSULIN LISPRO 100 UNIT/ML 3ML VIAL SUBCUT (11:02)
[2021-06-30 15:46] LABS: Ionized Calcium 4.1 mg/dL (4.5-5.6)
--- NOTE | 2021-06-30 16:28 | DI.RAD.S_ITS ---
PROCEDURE: XR CHEST 1V INDICATIONS: rhonchi TECHNIQUE: One view of the chest was acquired. COMPARISON: [facility], CR, XR CHEST 1V, 06/28/2021, 15:30. FINDINGS: Surgical changes and devices: Left upper extremity PICC line tip in the upper SVC. Nasogastric tube in the stomach. Lungs and pleura: Left basilar atelectasis and infiltrate. Right lung and pleural space clear. Mediastinum: Mediastinal contours appear normal. Heart size is normal. Bones and chest wall: No suspicious bony lesions. Overlying soft tissues appear unremarkable. IMPRESSION: Left basilar atelectasis and infiltrate is accentuated by low lung volumes Nasogastric tube and left-sided PICC line, unchanged Approved by: Star Sharma M.D. on 06/30/2021 at 15:54
--- NOTE | 2021-06-30 16:39 | PM.PN.1 ---
Subjective Subjective Date Patient Seen: 06/30/21 Interval history: 70-year-old male here with alcohol withdrawal, patient is quite sedated, calm at this time, Precedex decreasing, he has required additional dosing of Ativan. He has a oral feeding tube in place and is tolerating tube feeds, blood pressure somewhat elevated. Patient has some significant edema, some coarse rhonchi today, he continues to have significant erythema with blistering on long the gluteal folds. Exam Vital Signs (past 8 hours): - 06/30/21 09:00 06/30/21 10:00 06/30/21 11:00 Temperature Pulse Rate 85 89 84 Respiratory Rate 41 H 39 H Blood Pressure 168/77 H 178/81 H 169/77 H Pulse Oximetry 98 97 96 06/30/21 12:00 06/30/21 12:11 06/30/21 13:00 Temperature 98.1 F Pulse Rate 87 84 82 Respiratory Rate 34 H 27 H 30 H Blood Pressure 152/80 H 158/78 H Pulse Oximetry 97 97 97 06/30/21 13:39 06/30/21 14:00 Temperature Pulse Rate 85 85 Respiratory Rate 32 H 35 H Blood Pressure 170/87 H Pulse Oximetry 98 97 Fraction of Inspired Oxygen 28 Oxygen Delivery Method Room Air Oxygen Flow Rate 0 Narrative Exam Narrative: Sedated male lying in bed Resp Other: Lungs decreased breath sounds with scattered rhonchi bilaterally Cardio Other: Cardiac exam: Regular rate S1-S2 GI Other: Abdomen: Soft nontender nondistended Other: Buttocks: Right buttock with erythema, blistering around the anus, no area of skin breakdown, the erythematous area is blanchable, Question early stage I pressure ulcer Extrem Other: 1+ edema bilaterally Objective Labs Result Diagrams: 06/28/21 07:30 06/29/21 05:30 Labs: Laboratory Results - last 24 hr 06/29/21 05:30 Ionized Calcium Samira 4.1 L [facility] Social History household members: spouse Smoking Status: Former smoker alcohol intake: current Assessment & Plan Assessment & Plan narrative: Severe EtOH withdrawal with delirium tremens ?- CIWA protocol on-board, along with IV Precedex, IV propofol, and IV Versed ?- phenobarbitol 260 mg IV given -continue IV valium as phenobarbitol on National shortage -precedex for agitation as well, as needed Ativan -sep FRAX added per Pulmonary Critical Care - 2. ?Concern for aspiration pneumonia ?- Empiric IV Zosyn started on June 25, 2021, given low-grade fever, leukocytosis, and high likelihood of aspiraton --continue antibiotics -suspect probable Aspiration Pneumonia -continue IV Zosyn for five days then d/c -patient switched to oral Augmentin, will continue for 2 more days -will repeat chest Xray 4. Alcoholic hepatitis ?- LFT's continue to improve, and will need to monitor, INR slightly elevated 5. Duodenitis, ongoing, likely due to EtOH abuse ?- IV Protonix 40 mg daily on-board 6. Hypothyroidism ?- Home levothyroxine adjusted to IV levothyroxine 7. Hyperlipidemia ?- Will hold home simvastatin for now given above 8. Thrombocytopenia, stable ?- Likely secondary to bone marrow suppression from EtOH abuse, along with severe liver injury 9. Hypophosphatemia, ongoing ?- Likely due to ongoing EtOH withdrawal, replenish as necessary 10. Hypokalemia, ongoing ?- Likely due to ongoing EtOH withdrawal, replenish as necessary -replace potassium today, per pharmacy protocol 11. hypocalcemia= will replace 12.Need to initiate Nutrition -tube feeds initiated yesterday, patient is now at goal 13. Acute hypoxic respiratory failure -patient is diuresing nicely with Lasix -will check chest x-ray, give additional 40 mg of IV Lasix 14. 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
--- NOTE | 2021-06-30 17:10 | DIET.PN1 ---
Dietary Progress Note RD Note: Pt tolerating TF at goal of 65mL/h. Last evening pt c residuals 250cc, paused feed for 2h, tolerated feed after this point. Nursing reports pt c lung crackles, edema. RD and RN agree to have recenterer evaluate pt fluid balance c reccs, currently pt receiving 200mL free water flushes q4h with feed plus fluids max total volume of 2,464mL. Pt with blanching on bottom, concern for early pressure sore vs HSV. Pt feed provides 109g PRO (1g/kg c renal fxn WNL). We will add three ProSource protein packets daily (starting ) to TF routine to increase protein intake by 36g/d (1.3g/kg IBW) to support skin integrity. Ht: 170.18 cm Wt: 110 kg BMI: 37.5 Last BM: 06/28/21 (06/28/21 02:00) MNA: 13 Tiburcio Score: 13 Diet: 06/24/21 15:20 NPO Diet Diet Modifications: NPO Type: Strict 06/28/21 Dinner Tube Feeding Diet Diet Modifications: TF Supplement type: Glucerna 1.2 melissa TF mode of delivery: Continuous Starting flow rate mL/hr: 35 Flow rate goal mL/hr: 65 Titration Schedule to reach Goal Rate: titrate up by 10mL q6h as tolerated Max total daily volume in mL: 2,464 Free fluid: 200 Free Water Frequency: Q4H Comment: formula change Nutrition Type of Feeding Tube NG/OG 06/30/21 06:13 Type of Feeding Tube NG/OG 06/30/21 02:11 Type of Feeding Tube NG/OG 06/29/21 20:00 Labs: RBC 3.78 X10^6/uL (4.5-5.9) L 06/28/21 07:30 Hgb 12.7 g/dL (13.5-17.5) L 06/28/21 07:30 Hct 36.8 % (41-53) L 06/28/21 07:30 Creatinine 0.49 mg/dL (0.66-1.25) L 06/29/21 05:30 NT-Pro-B Natriuret Pep 435 pg/mL (<125) H 06/27/21 18:53 Electronically Signed by: Jaclyn Ceballos 06/30/21 17:10 Clinical Diet[address] [address]
[2021-06-30] MEDS: FUROSEMIDE 40 MG/4 ML VIAL IV (17:17)
[2021-06-30] MEDS: ACYCLOVIR 400 MG TABLET 800 MG PO ×2 (17:17→21:31)
[2021-07-01] VITALS (30 sets, daily range): BP systolic 119–184; BP diastolic 57–84; PULSE 64–128; RESP 26–43; TEMP 37.6; O2SAT 92–98
--- NOTE | 2021-07-01 00:04 | PM.ICURNDS ---
- Date Patient Seen: 06/30/21 Time Patient Seen: 20:20 :: This patient was seen via real time interactive two-way audiovisual telecommunication. Note: Patient's Precedex is down to 0.3 mcg/kg/hr. Tolerating EN and hemodynamically stable. Hopefully, Precedex can be turned off in AM. Remains on transdermal clonidine, CIWA. Did not receive phenobarbital during the AM shift. Discussed with RN.
[2021-07-01] MEDS: dexmedeTOMIDine in 0.9 % NaCL 400 MCG/100 ML PLAST..BAG 13.608 MCG IV (03:08)
[2021-07-01] MEDS: HYDRALAZINE 20 MG/ML VIAL 10 MG IV (05:20)
[2021-07-01 06:14] LABS: HSV 1 DNA Negative (Negative); HSV 2 DNA Negative (Negative)
[2021-07-01 06:19] LABS: BUN Creatinine Ratio 10.8 (6-22); Blood Urea Nitrogen 7 mg/dL (9-20); Calcium 8.4 mg/dL (8.4-10.2); Carbon Dioxide 25 mmol/L (22-32); Chloride 110 mmol/L (98-107); Estimated Glomerular Filt Rate > 60 mL/min (>60); Glucose 122 mg/dL (80-110); HEMOLYSIS < 15 (0-50); Potassium 3.6 mmol/L (3.4-5.1); Sodium 140 mmol/L (137-145)
[2021-07-01] MEDS: LEVOTHYROXINE 75 MCG TABLET PO (06:27)
[2021-07-01] MEDS: ACYCLOVIR 400 MG TABLET 800 MG PO ×3 (06:27→14:21)
[2021-07-01] MEDS: PIPERACILLIN/TAZO 4.5 GM in SODIUM CHLORIDE 0.9% 100 ML 25 ML IV (06:58)
--- NOTE | 2021-07-01 07:36 | PC.NURSE ---
Shift Note-Patient remains drowsy, attempts to open eyes and answer questions, speech is garbled d/t upper airway congestions. Has strong cough, tries to clear own secretions, thick white sputum sx with yank, lungs sounds are fairly clear, RA SpO2 > 95%, Precedex 0.3-0.5mcg/kg/hr throughout night, titrated down to 0.1mcg/kg/hr in am per [facility] Regaug[facility] order. Tolerating TF and water flushes.
--- NOTE | 2021-07-01 07:48 | PC.NURSE ---
Addendum entered by Kristy Valdes R.N. 07/01/21 18:25: Pt resting comfortably, VSS, rouses to voice, bed low and locked, call light within reach, will continue to monitor. Addendum entered by Kristy Valdes R.N. 07/01/21 17:30: Increased precedex to 1.5mcg/kg/hr in preparation for MRI to be done at [id number] Addendum entered by Kristy Valdes R.N. 07/01/21 13:00: Patient bathed, bedding changed, pt resting on left side position of comfort, pt prefers to be off of his bottom due to wound/blanching spot in between butt cheeks. Removed allevyn and left MORIAH. Oral care provided, tube feeding at goal, fluids infusing as ordered, VSS, precedex infusing as ordered, bed low and locked, call light within reach, will continue to treat and monitor as ordered Addendum entered by Kristy Valdes R.N. 07/01/21 08:16: Pt biting on suction, swinging arms, kicking legs, refusing to be turned at this time Addendum entered by Kristy Valdes R.N. 07/01/21 08:14: administered Labetalol for HR of 128, Phenobarbiltol 65 mg for agitation and combativeness Original Note: Dayshift note Pt resting in bed, nightshift nurse was working on titrating Precedex gtt off as ordered by Dr Chang, pt has become combative this morning, attempting to punch this nurse while I attempted to suction patient. Precedex turned back up to 0.3 mcg. Will continue to monitor
[2021-07-01] MEDS: LABETALOL 20 MG/4 ML SYRINGE 10 MG IV (08:03)
[2021-07-01] MEDS: PHENobarbital 65 MG/ML VIAL IV (08:09)
--- NOTE | 2021-07-01 09:15 | CM.DPNOTE ---
DCP Note Reviewed chart. Patient belligerent and combative this morning. next steps in POC unknown, still unfolding. CM team will plan to follow closely; at this time, dispo remains unknown. Patient is far from baseline, if patient requires re-intubation; Jose Ramon? JW
--- NOTE | 2021-07-01 09:32 | P.TELICUPN_ITS ---
Subjective Subjective :: This patient was seen via real time interactive two-way audiovisual telecommunication. Current Medications Current Medications Medications: Home Medications levothyroxine 75 mcg tablet 75 mcg PO QAM 06/21/21 [History Confirmed 06/21/21] simvastatin 40 mg tablet 40 mg PO BEDTIME 06/21/21 [History Confirmed 06/21/21] Visit Medications (administered) Generic Name Dose Route Start Last Admin Trade Name Freq PRN Reason Stop Dose Admin Acyclovir 800 mg 06/30/21 18:00 07/01/21 06:27 Acyclovir 400 Mg Tablet PO 800 mg 5XD EN Administration Atorvastatin Calcium 20 mg 06/22/21 21:00 06/26/21 20:15 Atorvastatin 20 Mg Tablet PO Not Given BEDTIME EN Clonidine HCl 0.1 mg 06/29/21 17:00 06/29/21 16:37 Clonidine Tts 0.1 Mg Patch TOP 0.1 mg Q7D@1700 EN Administration Enoxaparin Sodium 40 mg 06/23/21 09:00 06/30/21 09:16 Enoxaparin 40 Mg/0.4 Ml Syringe SUBCUT 40 mg DAILY EN Administration Folic Acid 1 mg 06/30/21 09:00 06/30/21 09:15 Folic Acid 1 Mg Tablet PO 1 mg DAILY EN Administration Hydralazine HCl 10 mg 06/29/21 11:11 07/01/21 05:20 Hydralazine 20 Mg/Ml Vial IV 10 mg Q6HR PRN Administration Hypertension Piperacillin Sod/Tazobactam 100 mls @ 25 mls/hr 06/25/21 07:15 07/01/21 06:58 Sod 4.5 gm/ Sodium Chloride IV 25 mls/hr Q8H EN Administration dexmedeTOMIDine in 0.9 % NaCL 400 mcg in 100 mls @ 5.443 mls/hr 06/29/21 23:00 07/01/21 09:24 Precedex IV 1.5 mcg/kg/hr TITRATE EN 40.823 mls/hr Titration Protocol 0.2 MCG/KG/HR Insulin Human Lispro 0 unit 06/25/21 10:15 07/01/21 06:27 Insulin Lispro 100 Unit/Ml 3ml Vial SUBCUT Not Given Q6H EN Protocol Labetalol HCl 10 mg 06/29/21 09:42 07/01/21 08:03 Labetalol 20 Mg/4 Ml Syringe IV 10 mg Q4HR PRN Administration Heart Rate- High Levothyroxine Sodium 75 mcg 06/30/21 06:00 07/01/21 06:27 Levothyroxine 75 Mcg Tablet PO 75 mcg 0600 EN Administration Lorazepam 0 mg 06/21/21 21:53 06/30/21 08:13 Lorazepam 2 Mg/Ml Inj IV 2 mg CIWAPRN PRN Administration Alcohol Withdrawal Protocol Multivitamins 1 tab 06/22/21 09:00 06/30/21 09:15 Multivitamin 1 Tablet PO 1 tab DAILY EN Administration Pantoprazole Sodium 40 mg 06/30/21 09:00 06/30/21 09:17 Pantoprazole 40 Mg Vial IV 40 mg DAILY EN Administration Phenobarbital 65 mg 06/29/21 23:22 07/01/21 08:09 Phenobarbital 65 Mg/Ml Vial IV 65 mg Q1HR PRN Administration RASS greater than or equal to +2 Sodium Chloride 10 ml 06/28/21 09:00 06/30/21 21:32 Sodium Chloride 0.9% Flush IV Not Given BID COUNTS INCLUDE 234 BEDS AT THE [facility] Objective Ventilator Parameters: Ventilator Settings FiO2 25 RT Vent Frequency 0 Ventilator Tidal Volume 0 Exhaled Positive End Expiratory 6 Pressure Inspiratory Phase Time 0.8 I:E Ratio 1:2 Patient Position HOB >= 30 degrees Labs Result Diagrams: 06/28/21 07:30 07/01/21 05:55 Labs: Laboratory Results - last 24 hr 06/27/21 06/29/21 07/01/21 13:33 05:30 05:55 Sodium 140 Potassium 3.6 Chloride 110 H Carbon Dioxide 25 BUN 7 L Creatinine 0.65 L Estimated GFR > 60 BUN/Creatinine Ratio 10.8 Glucose 122 H Calcium 8.4 Ionized Calcium Samira 4.1 L CSF Herpes I DNA (PCR) Negative CSF Herpes II DNA (PCR) Negative Exam Vital Signs (past 8 hours): - 07/01/21 02:00 07/01/21 03:00 07/01/21 04:00 Temperature Pulse Rate 83 82 80 Respiratory Rate 26 H 28 H 29 H Blood Pressure 184/84 H 180/81 H 172/78 H Pulse Oximetry 95 96 96 07/01/21 05:00 07/01/21 05:20 07/01/21 06:00 Temperature Pulse Rate 85 84 96 H Respiratory Rate 32 H 28 H Blood Pressure 178/83 H 178/83 H 157/72 H Pulse Oximetry 97 96 07/01/21 06:27 07/01/21 06:30 07/01/21 07:00 Temperature Pulse Rate 95 H 96 H 94 H Respiratory Rate 28 H 30 H Blood Pressure 157/72 H 157/72 H 157/70 H Pulse Oximetry 96 96 07/01/21 08:00 07/01/21 08:03 07/01/21 08:32 Temperature 99.7 F H Pulse Rate 119 H 128 H 91 H Respiratory Rate 28 H Blood Pressure 156/84 H 156/84 H 176/83 H Pulse Oximetry 95 Fraction of Inspired Oxygen 28 Oxygen Delivery Method Room Air Oxygen Flow Rate 0 Assessment & Plan Assessment & Plan narrative: patient seen chart/labs/imaging reviewed currently low grade fever, does not follow commands combative and aggressive appears dehydrated HD stable plan -if continues to be combative or have inablity to protect airway and clear secretions would suggest tore-intubate. pt ok for now -start librium 50mg tid -wean precedex as tolerated -ciwa protocol ativan prn -thiamin/folate -neurochecks/seizure precautions -chest pt -check cxs, continue abx -start LR at 75 cc/24 hrs -increase free water to 250 q6 -replace lytes -monitor ins/outs -keep glucose 140-180s -gi/dvt ppx -please call eICU for acute changes Time Spent With Patient Critical Care time: I spent a total of [] minutes of critical care time on this patient's care today; this time is exclusive of procedural time.
[2021-07-01] MEDS: MULTIVITAMIN 1 TABLET 1 TAB PO (09:39)
[2021-07-01] MEDS: ENOXAPARIN 40 MG/0.4 ML SYRINGE SUBCUT (09:39)
[2021-07-01] MEDS: LACTATED RINGERS 1,000 ML 75 ML IV ×2 (09:39→23:00)
[2021-07-01] MEDS: PANTOPRAZOLE 40 MG VIAL IV (09:39)
[2021-07-01] MEDS: FOLIC ACID 1 MG TABLET PO (09:39)
[2021-07-01] MEDS: SODIUM CHLORIDE 0.9% FLUSH 10 ML IV (09:43)
[2021-07-01] MEDS: chlordiazePOXIDE 25 MG CAPSULE 50 MG PO ×3 (09:47→21:26)
[2021-07-01] MEDS: dexmedeTOMIDine in 0.9 % NaCL 400 MCG/100 ML PLAST..BAG 40.823 MCG IV ×3 (09:52→18:50)
[2021-07-01] MEDS: dexmedeTOMIDine in 0.9 % NaCL 400 MCG/100 ML PLAST..BAG 27.216 MCG IV (15:52)
--- NOTE | 2021-07-01 16:47 | DIET.PN1 ---
Dietary Progress Note RD Note: Pt tolerates goal feed at 65mL/h. Added 33g PRO/d (1.3g/kg) as Prosource TF packets to assist with healing of blanchable redness on pt bottom. Per ostrich farmer, free water flushes increased to 250mL q6h. Ht: 170.18 cm Wt: 110 kg BMI: 37.5 Last BM: 06/28/21 (06/28/21 02:00) MNA: 13 Tiburcio Score: 12 Diet: 06/24/21 15:20 NPO Diet Diet Modifications: NPO Type: Strict 06/28/21 Dinner Tube Feeding Diet Diet Modifications: three packets prosource TF daily on dinner cart TF Supplement type: Glucerna 1.5 melissa TF mode of delivery: Continuous Starting flow rate mL/hr: 35 Flow rate goal mL/hr: 65 Titration Schedule to reach Goal Rate: titrate up by 10mL q6h as tolerated Max total daily volume in mL: 2,764 Free fluid: 250 Free Water Frequency: Q4H Comment: formula change Nutrition Type of Feeding Tube NG/OG 07/01/21 12:58 Type of Feeding Tube NG/OG 07/01/21 09:00 Type of Feeding Tube NG/OG 07/01/21 05:30 Type of Feeding Tube NG/OG 06/30/21 22:00 Type of Feeding Tube NG/OG 06/30/21 06:13 Type of Feeding Tube NG/OG 06/30/21 02:11 Type of Feeding Tube NG/OG 06/29/21 20:00 Labs: RBC 3.78 X10^6/uL (4.5-5.9) L 06/28/21 07:30 Hgb 12.7 g/dL (13.5-17.5) L 06/28/21 07:30 Hct 36.8 % (41-53) L 06/28/21 07:30 Creatinine 0.65 mg/dL (0.66-1.25) L 07/01/21 05:55 NT-Pro-B Natriuret Pep 435 pg/mL (<125) H 06/27/21 18:53 Monitoring/Evaluations: following for status change, TF tolerance Electronically Signed by: Jaclyn Ceballos 07/01/21 16:47 Clinical Dietitian [address] [address]
--- NOTE | 2021-07-01 17:15 | P.PN_ITS ---
Subjective Subjective Date Patient Seen: 07/01/21 Interval history: Patient is a 70-year-old male who remains sedated at times combative, at times agitated and encephalopathic. He continues on a Precedex drip, Librium was added to his regimen. Head CT was negative for an acute stroke. However the patient continues to be confused Exam Vital Signs (past 8 hours): - 07/01/21 10:00 07/01/21 11:00 07/01/21 12:00 Pulse Rate 85 85 74 Respiratory Rate 31 H 43 H 31 H Blood Pressure 158/75 H 141/67 H 134/63 Pulse Oximetry 95 96 94 07/01/21 13:00 07/01/21 14:00 07/01/21 15:00 Pulse Rate 71 68 66 Respiratory Rate 30 H 29 H 30 H Blood Pressure 121/58 L 130/66 127/60 Pulse Oximetry 92 93 93 07/01/21 16:00 Pulse Rate 64 Respiratory Rate 30 H Blood Pressure 119/57 L Pulse Oximetry 95 Fraction of Inspired Oxygen 28 Oxygen Delivery Method Room Air Oxygen Flow Rate 0 Narrative Exam Narrative: Ill-appearing male sedated [facility] Other: HEENT: Normocephalic atraumatic, oropharynx appears to have a bite kody laceration NG tube in place, Resp Other: Lungs: Decreased breath sounds with end-expiratory wheezing Cardio Other: Cardiac exam: Regular rate and rhythm normal S1-S2 GI Other: Abdomen: Soft and nontender Extrem Other: Extremities: Trace edema Objective Labs Result Diagrams: 06/28/21 07:30 07/01/21 05:55 Labs: Laboratory Results - last 24 hr 06/27/21 07/01/21 13:33 05:55 Sodium 140 Potassium 3.6 Chloride 110 H Carbon Dioxide 25 BUN 7 L Creatinine 0.65 L Estimated GFR > 60 BUN/Creatinine Ratio 10.8 Glucose 122 H Calcium 8.4 CSF Herpes I DNA (PCR) Negative CSF Herpes II DNA (PCR) Negative [facility] Social History household members: spouse Smoking Status: Former smoker alcohol intake: current Assessment & Plan Assessment & Plan narrative: 1. Acute metabolic encephalopathy * Likely multifactorial * Patient initially presented with alcohol withdrawal syndrome and DTs * He remains encephalopathic despite 10 days of inpatient treatment * Head CT was negative * Will obtain a head MRI to rule out an acute stroke * Continue Precedex, and Librium per the Tele- intensive 2. Probable aspiration pneumonia * Patient completed 7 days of Zosyn 3. Alcoholic hepatitis * LFTs improved 4. Duodenitis * Continue PPI 5. Hypothyroidism * Continue IV L-thyroxine Thrombocytopenia * Improved 6. Acute hypoxic respiratory failure, patient was previously intubated, now extubated oxygenating well 7. Sacral decubitus ulcer * HSV cultures negative * Will discontinue acyclovir * Continue wound care Nutrition Continue tube feeding Time Spent With Patient Critical Care time: I spent a total of [] minutes of critical care time on this patient's care today; this time is exclusive of procedural time.
--- NOTE | 2021-07-01 20:02 | PM.ICURNDS ---
- Date Patient Seen: 07/01/21 Time Patient Seen: 20:02 :: This patient was seen via real time interactive two-way audiovisual telecommunication. Note: no acute events through the day wean precedex as tolerated can hold off on mri due to staffing issues call eICU prn
[2021-07-01] MEDS: dexmedeTOMIDine in 0.9 % NaCL 400 MCG/100 ML PLAST..BAG 35.38 MCG IV (21:23)
[2021-07-02] VITALS (24 sets, daily range): BP systolic 120–185; BP diastolic 61–86; PULSE 65–100; RESP 21–38; TEMP 36.6–36.8; O2SAT 91–97
--- NOTE | 2021-07-02 00:06 | DI.RAD.S_ITS ---
PROCEDURE: XR ABDOMEN 1V INDICATIONS: high tube feed residual, r/o bowel obstruction TECHNIQUE: One view of the abdomen acquired. COMPARISON: None. FINDINGS: Surgical changes and devices: Feeding tube is present and appears in the proximal stomach. There are surgical changes fusion and disc spacer in the lower lumbar spine. Bowel: Several dilated air-filled small bowel loops are present throughout the abdomen. Free air not assessed on this presumably supine film. Soft tissues: No suspicious abdominal calcifications. Visualized solid organ contours appear normal in size. Bones: No suspicious bony lesions. IMPRESSION: 1. Dilated air-filled small bowel suspicious for obstruction or ileus. CT scan with contrast is recommended. 2. Feeding tube in expected position. Dictated by: Nava Wren M.D. on 07/02/2021 at 11:59 Approved by: Nava Wren M.D. on 07/02/2021 at 12:01
[2021-07-02] MEDS: dexmedeTOMIDine in 0.9 % NaCL 400 MCG/100 ML PLAST..BAG 35.38 MCG IV (00:25)
[2021-07-02] MEDS: BISACODYL 10 MG SUPP PR ×2 (02:28→12:59)
[2021-07-02] MEDS: chlordiazePOXIDE 25 MG CAPSULE 50 MG PO ×4 (03:21→22:07)
[2021-07-02] MEDS: dexmedeTOMIDine in 0.9 % NaCL 400 MCG/100 ML PLAST..BAG 29.937 MCG IV ×2 (06:09→09:39)
[2021-07-02] MEDS: LEVOTHYROXINE 75 MCG TABLET PO (06:29)
--- NOTE | 2021-07-02 06:34 | PC.NURSE ---
Addendum entered by Esther Ayers R.N. 07/02/21 07:19: Worked with Libra VELÁSQUEZ overnight during orientation, agree with assessment findings, interventions, and documentation. Original Note: Assumed care of patient from 07/01/21 [id number]. At beginning of shift, patient sedated on Precedex 1.5mcg/kg/hr. Pupils pin point, non-reactive. During rounds with Dr. Reyna informed patient is sedated on Precedex and has an order for a MRI this evening. Per Dr. Reyna ok to hold MRI until tomorrow and continue to titrate down on Precedex and give scheduled Librium. 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 Patient does well with verbal direction. Cooperative with oral care swab and suctioning. At 0300 patient repetitive says, God, Kill me, calmed down with reassurance. SR 70-80s. O2 Sats 97% on RA. Abdomen distended, LBM 06/29/21, high tube-feed residuals. Notified Dr. Reyna, tube feed put on hold, KUB done. Patient has been cooperative, does well when care is explained.
[2021-07-02] MEDS: PANTOPRAZOLE 40 MG VIAL IV (09:40)
[2021-07-02] MEDS: FOLIC ACID 1 MG TABLET PO (09:40)
[2021-07-02] MEDS: ENOXAPARIN 40 MG/0.4 ML SYRINGE SUBCUT (09:40)
[2021-07-02] MEDS: MULTIVITAMIN 1 TABLET 1 TAB PO (09:40)
[2021-07-02] MEDS: SODIUM CHLORIDE 0.9% FLUSH 10 ML IV (09:41)
--- NOTE | 2021-07-02 10:03 | PM.PN.EICU ---
Subjective Subjective :: This patient was seen via real time interactive two-way audiovisual telecommunication. no acute events overnight Current Medications Current Medications Medications: Home Medications levothyroxine 75 mcg tablet 75 mcg PO QAM 06/21/21 [History Confirmed 06/21/21] simvastatin 40 mg tablet 40 mg PO BEDTIME 06/21/21 [History Confirmed 06/21/21] Visit Medications (administered) Generic Name Dose Route Start Last Admin Trade Name Freq PRN Reason Stop Dose Admin Atorvastatin Calcium 20 mg 06/22/21 21:00 06/26/21 20:15 Atorvastatin 20 Mg Tablet PO Not Given BEDTIME EN Chlordiazepoxide HCl 50 mg 07/01/21 09:45 07/02/21 03:21 Chlordiazepoxide 25 Mg Capsule PO 50 mg Q6H EN Administration Clonidine HCl 0.1 mg 06/29/21 17:00 06/29/21 16:37 Clonidine Tts 0.1 Mg Patch TOP 0.1 mg Q7D@1700 EN Administration Enoxaparin Sodium 40 mg 06/23/21 09:00 07/02/21 09:40 Enoxaparin 40 Mg/0.4 Ml Syringe SUBCUT 40 mg DAILY EN Administration Folic Acid 1 mg 06/30/21 09:00 07/02/21 09:40 Folic Acid 1 Mg Tablet PO 1 mg DAILY EN Administration Hydralazine HCl 10 mg 06/29/21 11:11 07/01/21 05:20 Hydralazine 20 Mg/Ml Vial IV 10 mg Q6HR PRN Administration Hypertension dexmedeTOMIDine in 0.9 % NaCL 400 mcg in 100 mls @ 5.443 mls/hr 06/29/21 23:00 07/02/21 09:39 Precedex IV 1.1 mcg/kg/hr TITRATE EN 29.937 mls/hr Administration Protocol 0.2 MCG/KG/HR Insulin Human Lispro 0 unit 06/25/21 10:15 07/02/21 06:20 Insulin Lispro 100 Unit/Ml 3ml Vial SUBCUT Not Given Q6H EN Protocol Labetalol HCl 10 mg 06/29/21 09:42 07/01/21 08:03 Labetalol 20 Mg/4 Ml Syringe IV 10 mg Q4HR PRN Administration Heart Rate- High Levothyroxine Sodium 75 mcg 06/30/21 06:00 07/02/21 06:29 Levothyroxine 75 Mcg Tablet PO 75 mcg 0600 EN Administration Lorazepam 0 mg 06/21/21 21:53 06/30/21 08:13 Lorazepam 2 Mg/Ml Inj IV 2 mg CIWAPRN PRN Administration Alcohol Withdrawal Protocol Multivitamins 1 tab 06/22/21 09:00 07/02/21 09:40 Multivitamin 1 Tablet PO 1 tab DAILY EN Administration Pantoprazole Sodium 40 mg 06/30/21 09:00 07/02/21 09:40 Pantoprazole 40 Mg Vial IV 40 mg DAILY EN Administration Phenobarbital 65 mg 06/29/21 23:22 07/01/21 08:09 Phenobarbital 65 Mg/Ml Vial IV 65 mg Q1HR PRN Administration RASS greater than or equal to +2 Sodium Chloride 10 ml 06/28/21 09:00 07/02/21 09:41 Sodium Chloride 0.9% Flush IV 10 ml BID EN Administration Objective Ventilator Parameters: Ventilator Settings FiO2 25 RT Vent Frequency 0 Ventilator Tidal Volume 0 Exhaled Positive End Expiratory 6 Pressure Inspiratory Phase Time 0.8 I:E Ratio 1:2 Patient Position HOB >= 30 degrees Labs Result Diagrams: 06/28/21 07:30 07/01/21 05:55 Exam Vital Signs (past 8 hours): - 07/02/21 03:00 07/02/21 04:00 07/02/21 05:00 Temperature 98.3 F Pulse Rate 72 76 Respiratory Rate 26 H 26 H 28 H Blood Pressure 123/61 150/70 H 144/70 H Pulse Oximetry 96 97 95 07/02/21 06:00 07/02/21 07:00 07/02/21 08:00 Temperature Pulse Rate 85 81 81 Respiratory Rate 26 H 31 H 33 H Blood Pressure 126/67 155/72 H 139/69 Pulse Oximetry 97 97 97 Fraction of Inspired Oxygen 28 Oxygen Delivery Method Room Air Oxygen Flow Rate 0 Assessment & Plan Assessment & Plan narrative: patient seen examined with bedside nurse and provider chart/labs/imaging reviewed less combative and aggressive today afebrile, HD stable plan -wean precedex -continue librium 50mg tid -ciwa protocol ativan prn, no extra dose over 24hrs -cont thiamine/folate -neurochecks/seizure precautions -chest pt -check cxs if -ve can dc abx -cont LR at 75 cc, pt still appears dehydrated -check labs -cont free water to 250 q6 -replace lytes, mag goal 2-3, k 3.5-4, kati 3 -juan shows ileus, see final report -bowel regimn -pt/ot oob as tolerated -monitor ins/outs -keep glucose 140-180s -gi/dvt ppx -please call eICU for acute changes Time Spent With Patient Critical Care time: I spent a total of [] minutes of critical care time on this patient's care today; this time is exclusive of procedural time.
[2021-07-02 10:38] LABS: Add Manual Diff / Slide Review NO; Basophils Absolute Auto 100 /uL (0-100); Basophils Percent Auto 0.4 % (0-2); Eosinophils Absolute Auto 200 /uL (0-450); Eosinophils Percent Auto 1.3 % (2-4); Hematocrit 36.9 % (41-53); Hemoglobin 12.5 g/dL (13.5-17.5); Lymphocytes Absolute Auto 1800 /uL (1100-4500); Lymphocytes Percent Auto 12.4 % (25-40); Mean Corpuscular HGB Conc 33.9 % (30-36); Mean Corpuscular Hemoglobin 33.2 PG (26-34); Mean Corpuscular Volume 98.1 fL (80-100); Monocytes Absolute Auto 1700 /uL (0-900); Monocytes Percent Auto 11.6 % (3-14); Neutrophils Absolute Auto 11000 /uL (1500-7000); Neutrophils Percent Auto 74.3 % (50-75); Platelet Count 410 X10^3/uL (150-400); Red Blood Cell Count 3.77 X10^6/uL (4.5-5.9); White Blood Cell Count 14.8 X10^3/uL (4.5-11.0)
--- NOTE | 2021-07-02 10:59 | DIET.PN1 ---
Addendum entered by Catalina Raya 07/02/21 11:59: Updated by nursing: TF paused due to residuals. RN reports 500cc residuals noted. Suction retrieved 350 cc this moring and 700cc total including from NG tube. Holding feed at this time, but has Pivot once feed restarted. Original Note: Dietary Progress Note Assessment: TF adjustment r/t inventory deficit. Current formula: Glucerna 1.2 running at 65mL/h c 250mL free water flushes q4h Nutrition: 1872 kcals ; 94g PRO + [id number] PRO ; 179g CHO ; 94g fat ; 1264ml feed water Formula adjustment r/t inventory: Pivot 1.5 running at 55 ml/h c 250 mL free water flushes q4h (hospitalist to manage fluids-- Pivot at this rate has lower feed water) Nutrition: 1980 kcals ; 124g PRO ; 228g CHO ; 67g fat ; 1002ml feed water *With new formula, patient will likely have higher insulin needs given higher CHO content. Ht: 170.18 cm Wt: 110 kg BMI: 37.5 Last BM: 07/02/21 (07/02/21 06:18) MNA: 13 Tiburcio Score: 12 Diet: 06/24/21 15:20 NPO Diet Diet Modifications: NPO Type: Strict 06/28/21 Dinner Tube Feeding Diet Diet Modifications: three packets prosource TF daily on dinner cart TF Supplement type: Glucerna 1.5 melissa TF mode of delivery: Continuous Starting flow rate mL/hr: 35 Flow rate goal mL/hr: 65 Titration Schedule to reach Goal Rate: titrate up by 10mL q6h as tolerated Max total daily volume in mL: 2,764 Free fluid: 250 Free Water Frequency: Q4H Comment: formula change Nutrition Percent Meal Consumed 0% 07/02/21 06:18 Percent Meal Consumed 0% 07/02/21 06:00 Type of Feeding Tube NG/OG 07/02/21 04:00 Type of Feeding Tube NG/OG 07/01/21 20:30 Type of Feeding Tube NG/OG 07/01/21 17:00 Type of Feeding Tube NG/OG 07/01/21 12:58 Type of Feeding Tube NG/OG 07/01/21 09:00 Type of Feeding Tube NG/OG 07/01/21 05:30 Type of Feeding Tube NG/OG 06/30/21 22:00 Labs: RBC 3.77 X10^6/uL (4.5-5.9) L 07/02/21 10:25 Hgb 12.5 g/dL (13.5-17.5) L 07/02/21 10:25 Hct 36.9 % (41-53) L 07/02/21 10:25 Creatinine 0.65 mg/dL (0.66-1.25) L 07/01/21 05:55 NT-Pro-B Natriuret Pep 435 pg/mL (<125) H 06/27/21 18:53 Monitoring/Evaluations: TF tolerance Electronically Signed by: Catalina Raya 07/02/21 10:59 Clinical Dietitian [address] [address]
[2021-07-02 11:34] LABS: Alanine Aminotransferase 48 IU/L (<50); Albumin 2.9 g/dL (3.5-5.0); Albumin Globulin Ratio 0.9 (1.0-2.8); Alkaline Phosphatase 75 U/L (38-126); Aspartate Aminotransferase 57 IU/L (17-59); BUN Creatinine Ratio 13.6 (6-22); Bilirubin Total 0.7 mg/dL (0.2-1.3); Blood Urea Nitrogen 9 mg/dL (9-20); Calcium 8.9 mg/dL (8.4-10.2); Carbon Dioxide 21 mmol/L (22-32); Chloride 110 mmol/L (98-107); Estimated Glomerular Filt Rate > 60 mL/min (>60); Globulin 3.1 g/dL (1.7-4.1); Glucose 120 mg/dL (80-110); HEMOLYSIS < 15 (0-50); Phosphorous 3.4 mg/dL (2.3-3.7); Potassium 4.1 mmol/L (3.4-5.1); Sodium 137 mmol/L (137-145)
[2021-07-02] MEDS: LACTATED RINGERS 1,000 ML 75 ML IV (11:43)
[2021-07-02] MEDS: HYDROMORPHONE 1 MG INJ IV (13:40)
[2021-07-02] MEDS: dexmedeTOMIDine in 0.9 % NaCL 400 MCG/100 ML PLAST..BAG 27.216 MCG IV ×2 (13:54→22:01)
--- NOTE | 2021-07-02 16:16 | PM.PN.1 ---
Subjective Subjective Date Patient Seen: 07/02/21 Time Patient Seen: 16:17 Interval history: 70 year old male admitted with alcohol withdrawal and DTs. He remains confused but less combactive. Still with difficulty speaking, though does have some minimally understandable and appropriate speech today. His abdomen became distended, XR showed possible ileus, had >1000 cc output when NG tube was placed to suction. Exam Vital Signs (past 8 hours): - 07/02/21 09:00 07/02/21 10:00 07/02/21 11:00 Pulse Rate 77 79 78 Respiratory Rate 34 H 29 H 30 H Blood Pressure 146/68 H 147/71 H 148/65 H Pulse Oximetry 96 96 95 07/02/21 12:00 07/02/21 13:00 07/02/21 14:00 Pulse Rate 85 91 H 100 H Respiratory Rate 38 H 35 H 33 H Blood Pressure 163/76 H 165/86 H 180/84 H Pulse Oximetry 96 94 93 07/02/21 14:36 07/02/21 15:00 Pulse Rate 86 Respiratory Rate 24 21 Blood Pressure 151/73 H Pulse Oximetry 95 92 Fraction of Inspired Oxygen 28 Oxygen Delivery Method Room Air Oxygen Flow Rate 0 Narrative Exam Narrative: General:?ill appearing elderly male, sleepy but arousable. HEENT:? Normocephalic, atraumatic, extraocular muscles intact, oral pharynx is clear and mucous membranes are dry. NG Tube in place. Neck: supple and symmetric, trachea is midline, no cervical adenopathy. Negative for JVD Chest:? Normal AP diameter and contour without kyphoscoliosis, no tachypnea, equal chest rise bilaterally. Lungs:? diffuse rhonchi without wheezing. poor effort. Cardio: RRR, no m/r/g. Abdomen: distended, unable to assess tenderness. Extremities: No edema or joint effusions. No cyanosis or clubbing. Skin:? Pale,? Warm to touch,dry and intact without rashes, ulcerations or petechiae.? Neuro:? Alert but moaning mostly, very confused with Garbled speech and very slurred. Objective Labs Result Diagrams: 07/02/21 10:25 07/02/21 10:25 Labs: Laboratory Results - last 24 hr 07/02/21 07/02/21 10:25 10:25 WBC 14.8 H RBC 3.77 L Hgb 12.5 L Hct 36.9 L MCV 98.1 MCH 33.2 MCHC 33.9 RDW 14.0 Plt Count 410 H Neut % (Auto) 74.3 Lymph % (Auto) 12.4 L Sullivan % (Auto) 11.6 Eos % (Auto) 1.3 L Baso % (Auto) 0.4 Neut # (Auto) 95205 H Lymph # (Auto) 1800 Sullivan # (Auto) 1700 H Eos # (Auto) 200 Baso # (Auto) 100 Sodium 137 Potassium 4.1 Chloride 110 H Carbon Dioxide 21 L BUN 9 Creatinine 0.66 Estimated GFR > 60 BUN/Creatinine Ratio 13.6 Glucose 120 H Calcium 8.9 Phosphorus 3.4 D Magnesium 2.0 Total Bilirubin 0.7 AST 57 ALT 48 Alkaline Phosphatase 75 Total Protein 6.0 L Albumin 2.9 L Globulin 3.1 Albumin/Globulin Ratio 0.9 L PFSH Social History household members: spouse Smoking Status: Former smoker alcohol intake: current Assessment & Plan Assessment & Plan narrative: 1. Acute metabolic encephalopathy - Likely multifactorial - Patient initially presented with alcohol withdrawal syndrome and DTs yet He remains encephalopathic despite 10 days of inpatient treatment. Head CT was negative. Some improvement with adjustments in withdrawal medications and may be related to profound amounts of medications. - Continue Precedex, and Librium taper once off of precedex. - depending on whether or not there is continued improvement, consider MRI. Held today given improvement and lack of focal neurological deficits. 2. Probable aspiration pneumonia Patient completed 7 days of Zosyn 3. Alcoholic hepatitis - LFTs improved 4. Duodenitis - Continue PPI 5. Hypothyroidism -Continue IV L-thyroxine 6. Thrombocytopenia -Improved 7. Acute hypoxic respiratory failure, patient was previously intubated, now extubated oxygenating well 8. Sacral decubitus ulcer HSV cultures negative acyclovir Discontinued Continue wound care 9. Ileus - possible secondary to medication use. Continue NPO for now, NG tube to suction. He is having bowel movements. - if improvement tomorrow in distension can trail off suction. Would give a few days before resuming tube feeding. - CT not likely to traveler changer, but if distension continues will order to rule out structural etiology. I spent 35 minutes providing critical care management this patient. This excludes time spent in performing separately billed procedures. Nutrition tube feeding stopped for ileus. remains on IVF which was increased today. Time Spent With Patient Critical Care time: I spent a total of [] minutes of critical care time on this patient's care today; this time is exclusive of procedural time.
[2021-07-02] MEDS: dexmedeTOMIDine in 0.9 % NaCL 400 MCG/100 ML PLAST..BAG 24.494 MCG IV (17:55)
--- NOTE | 2021-07-02 18:16 | PC.NURSE ---
Pt laying in bed with eyes closed, rouses to voice, follows basic commands, still difficult to understand at times but can make most needs known. Abdomen very distended, tube feeding held last night, had 350 residual, updated Dr Cruz on residuals and order for hold tube feedings and start LIS, initial output 700, ammended KUB shows ileus. LR increased to 150ml/hr, due to limited u/o, waite patient and draining clear gricel urine. Pt changed x3 with bedding and bed bath needed due to loose stools, still not enough for a sample as it is very liquid and is absorbed into the green pad, decub area is LOSS PREVENTION/SAFETY DISTRICT MANAGER, attempting to keep pt off loaded off the area, Q2 hr turns. Rt at bedside for deep suctioning and physiotherapy, ordered for TID, secretion management has improved. Precedex infusing at 0.9 mcg/kg/hr, attempted to titrate gtt down to 0.5 mcg/kr/hr however pt became very agitated and unable to redirect. came in to visit today, during an update she noted that pt has had some sort of rash like on his buttock area for at least a few months, although she hadn't seen it in a while but couldn't imagine that it had resolved. During 's visit pt requested several times that we just kill me, explain that it is not your time and I have plans with you still. expressed concern over when pt is released will he go directly to an alcohol rehab? I stated that these are good questions to ask the doctors and case management when the time gets closer to release. Pt resting comfortably in bed at this time, bed low and locked, call light within reach, will continue to monitor.
[2021-07-02] MEDS: LACTATED RINGERS 1,000 ML 150 ML IV (20:11)
--- NOTE | 2021-07-02 20:52 | PM.ICURNDS ---
- Date Patient Seen: 07/02/21 Time Patient Seen: 20:55 :: This patient was seen via real time interactive two-way audiovisual telecommunication. Note: Has developed an ileus and NGT output was ~ 1L earlier today; currently receiving LR @ 150 mL/hr. Urine output ~ 400 mL during dayshift; creatinine remains normal. Patient's Precedex is back up to 0.9 mcg/kg/hr; also receiving Librium.? Despite increase, patient is A/O x2. Continue slow Precedex wean, Librium, clonidine patch 0.3mg/24H. Chart reviewed. Discussed with RN.
[2021-07-02] MEDS: HYDRALAZINE 20 MG/ML VIAL 10 MG IV (22:20)
[2021-07-03] VITALS (30 sets, daily range): BP systolic 125–206; BP diastolic 67–95; PULSE 79–123; RESP 15–44; TEMP 36.7–37.1; O2SAT 90–98
[2021-07-03] MEDS: dexmedeTOMIDine in 0.9 % NaCL 400 MCG/100 ML PLAST..BAG 27.216 MCG IV (01:34)
[2021-07-03] MEDS: LACTATED RINGERS 1,000 ML 150 ML IV ×2 (02:31→08:52)
[2021-07-03] MEDS: PHENOL LIQUID 100 SPRAYS/BOTTLE SPRAY MM ×2 (03:05→05:08)
[2021-07-03] MEDS: LEVOTHYROXINE 75 MCG TABLET PO (05:07)
[2021-07-03] MEDS: dexmedeTOMIDine in 0.9 % NaCL 400 MCG/100 ML PLAST..BAG 21.772 MCG IV (05:07)
[2021-07-03] MEDS: chlordiazePOXIDE 25 MG CAPSULE 50 MG PO ×4 (05:07→21:22)
--- NOTE | 2021-07-03 06:43 | PC.NURSE ---
Shift Note-Patient remains sedated, RASS -2 with Precedex 1mcg/kg/hr throughout most of the night, he is weak and has garbled speech but can follow some simple directions during turning and oral sx, started to titrate Precedex down at 0500, currently at 0.6mcg/kg/hr. NGT patent to LIS except clamped for approx 30mins after medications given, 450ml bile fluid output for shift. 625ml gricel UOP in [place]. Smear velazquez loose stool. Chloraseptic throat spray ordered for persistent cough and irritated throat, seems to be effective.
[2021-07-03] MEDS: PANTOPRAZOLE 40 MG VIAL IV (08:50)
[2021-07-03] MEDS: ENOXAPARIN 40 MG/0.4 ML SYRINGE SUBCUT (08:50)
[2021-07-03] MEDS: FOLIC ACID 1 MG TABLET PO (08:51)
[2021-07-03] MEDS: SODIUM CHLORIDE 0.9% FLUSH 10 ML IV ×2 (08:51→21:21)
[2021-07-03] MEDS: MULTIVITAMIN 1 TABLET 1 TAB PO (08:51)
[2021-07-03] MEDS: HYDRALAZINE 20 MG/ML VIAL 10 MG IV ×2 (10:28→16:26)
[2021-07-03] MEDS: LABETALOL 20 MG/4 ML SYRINGE 10 MG IV ×2 (11:45→16:26)
--- NOTE | 2021-07-03 12:09 | PC.NURSE ---
Day Shift Note Pt mostly sleeping but able to follow commands and attempts to make needs known. Speech is very garbled/delayed and difficult to understand. Precedex titrated to off per ICU cobol mainframe developer (Dr. Reyna). Pt opening eyes and appears slightly more alert. Remains cooperative with care at this time. NG tube clamped per Dr. Reyna with possibility of restarting tube feeds this afternoon. 2 large incontinent loose stools this morning, skin cleansed and barrier cream applied. Turning every 2 hours to offload pressure to buttocks which are erythemic, purple, and red with areas of macerated open skin. BP in the 190s systolic and prn hydralazine given. HR up the 120s (sinus) and prn labetalol given. Pt verbally denies pain when asked and states he is comfortable. Difficulty clearing secretions from upper airway, requiring frequent suctioning. SpO2 upper 90s. [address]an in place and draining clear gricel urine. Bed alarm on for safety.
--- NOTE | 2021-07-03 14:34 | PM.PN.EICU ---
Subjective Subjective :: This patient was seen via real time interactive two-way audiovisual telecommunication. no acute events overnight Current Medications Current Medications Medications: Home Medications levothyroxine 75 mcg tablet 75 mcg PO QAM 06/21/21 [History Confirmed 06/21/21] simvastatin 40 mg tablet 40 mg PO BEDTIME 06/21/21 [History Confirmed 06/21/21] Visit Medications (administered) Generic Name Dose Route Start Last Admin Trade Name Freq PRN Reason Stop Dose Admin Atorvastatin Calcium 20 mg 06/22/21 21:00 06/26/21 20:15 Atorvastatin 20 Mg Tablet PO Not Given BEDTIME EN Chlordiazepoxide HCl 50 mg 07/01/21 09:45 07/03/21 08:51 Chlordiazepoxide 25 Mg Capsule PO 50 mg Q6H EN Administration Clonidine HCl 0.1 mg 06/29/21 17:00 06/29/21 16:37 Clonidine Tts 0.1 Mg Patch TOP 0.1 mg Q7D@1700 EN Administration Enoxaparin Sodium 40 mg 06/23/21 09:00 07/03/21 08:50 Enoxaparin 40 Mg/0.4 Ml Syringe SUBCUT 40 mg DAILY EN Administration Folic Acid 1 mg 06/30/21 09:00 07/03/21 08:51 Folic Acid 1 Mg Tablet PO 1 mg DAILY EN Administration Hydralazine HCl 10 mg 06/29/21 11:11 07/03/21 10:28 Hydralazine 20 Mg/Ml Vial IV 10 mg Q6HR PRN Administration Hypertension dexmedeTOMIDine in 0.9 % NaCL 400 mcg in 100 mls @ 5.443 mls/hr 06/29/21 23:00 07/03/21 11:02 Precedex IV 0 mcg/kg/hr TITRATE EN 0 mls/hr Titration Protocol 0.2 MCG/KG/HR Insulin Human Lispro 0 unit 06/25/21 10:15 07/03/21 12:08 Insulin Lispro 100 Unit/Ml 3ml Vial SUBCUT Not Given Q6H EN Protocol Labetalol HCl 10 mg 06/29/21 09:42 07/03/21 11:45 Labetalol 20 Mg/4 Ml Syringe IV 10 mg Q4HR PRN Administration Heart Rate- High Levothyroxine Sodium 75 mcg 06/30/21 06:00 07/03/21 05:07 Levothyroxine 75 Mcg Tablet PO 75 mcg 0600 EN Administration Lorazepam 0 mg 06/21/21 21:53 06/30/21 08:13 Lorazepam 2 Mg/Ml Inj IV 2 mg CIWAPRN PRN Administration Alcohol Withdrawal Protocol Multivitamins 1 tab 06/22/21 09:00 07/03/21 08:51 Multivitamin 1 Tablet PO 1 tab DAILY EN Administration Pantoprazole Sodium 40 mg 06/30/21 09:00 07/03/21 08:50 Pantoprazole 40 Mg Vial IV 40 mg DAILY EN Administration Phenobarbital 65 mg 06/29/21 23:22 07/01/21 08:09 Phenobarbital 65 Mg/Ml Vial IV 65 mg Q1HR PRN Administration RASS greater than or equal to +2 Sodium Chloride 10 ml 06/28/21 09:00 07/03/21 08:51 Sodium Chloride 0.9% Flush IV 10 ml BID EN Administration Objective Ventilator Parameters: Ventilator Settings FiO2 25 RT Vent Frequency 0 Ventilator Tidal Volume 0 Exhaled Positive End Expiratory 6 Pressure Inspiratory Phase Time 0.8 I:E Ratio 1:2 Patient Position HOB >= 30 degrees Labs Result Diagrams: 07/02/21 10:25 07/02/21 10:25 Exam Vital Signs (past 8 hours): - 07/03/21 07:08 07/03/21 08:05 07/03/21 11:00 Temperature 98.2 F Pulse Rate 81 103 H Respiratory Rate 15 28 H Blood Pressure 158/74 H 173/73 H Pulse Oximetry 96 95 96 07/03/21 11:31 07/03/21 12:10 07/03/21 14:00 Temperature 98.1 F 98.8 F Pulse Rate 111 H 101 H 118 H Respiratory Rate 20 35 H 25 H Blood Pressure 173/73 H 191/86 H 205/95 H Pulse Oximetry 96 96 98 Fraction of Inspired Oxygen 28 Oxygen Delivery Method Room Air Oxygen Flow Rate 0 Assessment & Plan Assessment & Plan narrative: patient seen examined with bedside nurse and provider chart/labs/imaging reviewed continues to improve, less sedation, no prn ativan needed afebrile, HD stable plan -dc precedex -continue librium 50mg tid, can start weaning tomorrow -keep on ciwa protocol ativan prn, has not needed over 48 hrs -cont thiamine/folate -neurochecks/seizure precautions -chest pt -dc abx -can dc ivf, keep feeds/free water -cont free water to 250 q6 -replace lytes, mag goal 2-3, k 3.5-4, kati 3 -bowel regimen, had bm yesterday -needs pt/ot oob as tolerated -monitor ins/outs -keep glucose 140-180s Time Spent With Patient Critical Care time: I spent a total of [] minutes of critical care time on this patient's care today; this time is exclusive of procedural time.
[2021-07-03 15:10] LABS: Clostridium Difficile Tox PCR Negative for C. diff (Negative)
[2021-07-03] MEDS: LACTATED RINGERS 1,000 ML 75 ML IV ×2 (16:27→21:21)
--- NOTE | 2021-07-03 19:41 | P.PN_ITS ---
Subjective Subjective Date Patient Seen: 07/03/21 Time Patient Seen: 19:42 Interval history: 70 male admitted with DTs, prolonged difficulty with agitation and weaning from sedation. Finally able to come off of precedex today. Had a large bowel movement as well. Mentation is slowly improving. Exam Vital Signs (past 8 hours): - 07/03/21 12:00 07/03/21 12:05 07/03/21 12:10 Temperature 98.1 F Pulse Rate 99 H 101 H 101 H Respiratory Rate 25 H 29 H 35 H Blood Pressure 192/88 H 191/86 H 191/86 H Pulse Oximetry 94 94 96 07/03/21 13:00 07/03/21 14:00 07/03/21 14:30 Temperature 98.8 F Pulse Rate 107 H 117 H Respiratory Rate 26 H 33 H Blood Pressure 206/94 H 205/95 H Pulse Oximetry 94 95 98 07/03/21 15:00 07/03/21 16:00 07/03/21 17:00 Temperature Pulse Rate 119 H 120 H 108 H Respiratory Rate 27 H 40 H 44 H Blood Pressure 195/95 H 197/92 H 187/83 H Pulse Oximetry 95 94 90 L 07/03/21 18:00 07/03/21 19:00 Temperature Pulse Rate 109 H 113 H Respiratory Rate 30 H 30 H Blood Pressure 197/87 H 204/91 H Pulse Oximetry 93 94 Fraction of Inspired Oxygen 28 Oxygen Delivery Method Room Air Oxygen Flow Rate 0 Narrative Exam Narrative: General:?ill appearing elderly male, sleepy but arousable. HEENT:? Normocephalic, atraumatic, extraocular muscles intact, oral pharynx is clear and mucous membranes are dry. NG Tube in place. Neck: supple and symmetric, trachea is midline, no cervical adenopathy. Negative for JVD Chest:? Normal AP diameter and contour without kyphoscoliosis, no tachypnea, equal chest rise bilaterally. Lungs:? diffuse rhonchi without wheezing. poor effort. Cardio: RRR, no m/r/g. Abdomen: distended, unable to assess tenderness. Extremities: No edema or joint effusions. No cyanosis or clubbing. Skin:? Pale,? Warm to touch,dry and intact without rashes, ulcerations or petechiae.? Neuro:? Alert but moaning mostly, very confused with Garbled speech and very slurred. Objective Labs Result Diagrams: 07/02/21 10:25 07/02/21 10:25 Labs: Laboratory Results - last 24 hr 06/27/21 13:54 C. difficile Tox (PCR) Negative for c. diff [facility] Social History household members: spouse Smoking Status: Former smoker alcohol intake: current Assessment & Plan Assessment & Plan narrative: 1. Acute metabolic encephalopathy - Likely multifactorial - Patient initially presented with alcohol withdrawal syndrome and DTs yet He remains encephalopathic despite many days of inpatient treatment. Head CT was negative. Some improvement with adjustments in withdrawal medications and may be related to profound amounts of medications. ?- now weaned of off of precedex, will now start to wean off of librium. ?- depending on whether or not there is continued improvement, consider MRI. Held today given improvement and lack of focal neurological deficits. 2. Probable aspiration pneumonia ?Patient completed 7 days of Zosyn 3. Alcoholic hepatitis ?- LFTs improved 4. Duodenitis - Continue PPI 5. Hypothyroidism ?-Continue IV L-thyroxine 6. Thrombocytopenia ?-Improved 7. Acute hypoxic respiratory failure, patient was previously intubated, now extubated oxygenating well 8. Sacral decubitus ulcer HSV cultures negative acyclovir Discontinued Continue wound care 9. Ileus, improved. ?- possible secondary to medication use. Continue NPO for now. He is having bowel movements and abdomen is soft today. I spent 35 minutes providing critical care management this patient.? This excludes time spent in performing separately billed procedures. Nutrition tube feeding stopped for ileus. remains on IVF. Consider restarting tube feedings tomorrow if abdomen remains soft. Time Spent With Patient Critical Care time: I spent a total of [] minutes of critical care time on this patient's care today; this time is exclusive of procedural time.
[2021-07-03] MEDS: METOPROLOL IR 50 MG TABLET PO (19:55)
--- NOTE | 2021-07-03 20:55 | PM.ICURNDS ---
- Date Patient Seen: 07/03/21 Time Patient Seen: 20:20 :: This patient was seen via real time interactive two-way audiovisual telecommunication. Note: Precedex is OFF and mental status continues to improve slowly. Is on clonidine 0.3 mg/hr patch, CIWA, and Librium 50 mg PO q6H. Has poor pulmonary toilet requiring deep suctioning; remains @ at an elevated aspiration risk. Abdomen is soft; remains on NGT for decompression of an ileus. No changes from teleICU @ this time. Continue PRN suctioning, aspiration precautions and EtOH withdrawal syndrome rx; the NGT can probably be clamped tomorrow; defer to daytime team. Chart reviewed.? Discussed with RN.
[2021-07-04] VITALS (43 sets, daily range): BP systolic 86–144; BP diastolic 48–80; PULSE 74–113; RESP 13–37; TEMP 36.1–38.3; O2SAT 88–98
[2021-07-04] MEDS: ETOMIDATE 2 MG/ML 10 ML VIAL 20 MG IV (01:40)
--- NOTE | 2021-07-04 01:40 | DI.RAD.S_ITS ---
PROCEDURE: XR CHEST 1V INDICATIONS: Intubation TECHNIQUE: One view of the chest was acquired. COMPARISON: [facility], CR, XR CHEST 1V, 06/30/2021, 16:35. [facility], CR, XR CHEST 1V, 06/28/2021, 15:30. FINDINGS: Surgical changes and devices: An endotracheal tube has been placed from above, with its tip extending to axial level just below that of the medial clavicular heads, normal in positioning. A PICC line from left-sided approach crosses the midline and terminates at approximately the level of the azygos arch region of the superior vena cava. An esophagogastric tube extends below the EG junction terminating within the gastric cardia/gastric body junction.. Lungs and pleura: Lungs are unchanged, on the right. On the left there appears to be worsening alveolar infiltration.. No pleural effusions or pneumothorax. Mediastinum: Mediastinal contours appear normal. Heart size is normal. Bones and chest wall: No suspicious bony lesions. Overlying soft tissues appear unremarkable. IMPRESSION: Lines and tubes in normal position. Worsening alveolar infiltration left lung. Dictated by: Shelton Lee M.D. on 07/04/2021 at 2:00 Approved by: Shelton Lee M.D. on 07/04/2021 at 2:02
[2021-07-04] MEDS: SUCCINYLCHOLINE 200 MG/10 ML VIAL 125 MG IV (01:42)
[2021-07-04] MEDS: propofoL 1,000 MG/100 ML VIAL 3.273 MG IV (02:00)
[2021-07-04] MEDS: LACTATED RINGERS 500 ML 1000 ML IV (02:00)
--- NOTE | 2021-07-04 02:14 | P.PN_ITS ---
Subjective Subjective Date Patient Seen: 07/04/21 Time Patient Seen: 02:15 Interval history: Contacted by nursing, patient needed to be intubated. They were consulting with Dr. Betancourt who requested intubation. ED physician contacted and he came upstairs promptly to intubate the patient. The patient was putting out copious secretions, right side of his chest was depressed. Started to bag the patient, ordered sedation medications, vent, restraint, cxr, and lab orders. Patient was successfully intubated and it appeared they were able to suction out 500 mls of mucopurulent secretions, of which a sample will be sent for a sputum culture. Initiated propafal and fentanyl drip to a RASS of moderate sedation. Labs have been ordered and are pending. ET tube is about 3 inches above the winnie, but patient is now oxygenating well on the ventilator. Critical care time: 60 minutes. Exam Vital Signs (past 8 hours): - 07/03/21 19:00 07/03/21 20:00 07/03/21 22:00 Temperature 98.5 F 98.2 F Pulse Rate 113 H 115 H 97 H Respiratory Rate 30 H 41 H 32 H Blood Pressure 204/91 H 185/83 H 125/68 Pulse Oximetry 94 95 96 07/04/21 00:00 07/04/21 02:00 Temperature 97.0 F L Pulse Rate 100 H 100 H Respiratory Rate 37 H 13 Blood Pressure 144/67 H 127/70 Pulse Oximetry 93 88 L Fraction of Inspired Oxygen 28 Oxygen Delivery Method Nasal Cannula Oxygen Flow Rate 6 Narrative Exam Narrative: Gen: obtunded,obese 70 y.o. male, was being bagged when I came to the room HEENT: normocephalic, atraumatic, conjunctiva clear, sclera non-icteric, oral mucosa dry and crusty, poor dentition Neck: supple, full ROM, no JVD, trachea is midline Resp: Initially diminished on right side, then clear s/p ventilation CV: RRR, no murmur or rubs blood pressure soft Abd: obese, soft, non-tender, hypoactive BTs Skin: no lesions or rashes, dry and intact Neuro: Ventilated and restrained, induced coma Extremities: upper extremities restrained Objective Labs Result Diagrams: 07/02/21 10:25 07/02/21 10:25 Labs: Laboratory Results - last 24 hr 06/27/21 13:54 C. difficile Tox (PCR) Negative for c. diff [facility] Social History household members: spouse Smoking Status: Former smoker alcohol intake: current Assessment & Plan Assessment & Plan narrative: Joe Urbano is hospital day 13, extubated one week ago and developed acute respiratory failure likely due to aspiration/mucous plug. He was sedated, intubated and vented again. Chest xray appears to show the ET tube 2-3 inches above the winnie. He will be sedated to a RASS of moderate sedation. He was suctioned and had a copious amount of mucopurulent sputum, will be sent for cx. ABG ordered, Dr. Betancuort ordered IV Unasyn. I have increased his iv levo thyroxine to half of his normal dose to 37.5 mcg. He is now oxygenating in the high 90s and appears comfortable. CBC, BMP, BNP, mag, lactate, and ABG ordered for now. VTE prophylaxis: enoxaparin 40 mg subQ daily. Time Spent With Patient Critical Care time: I spent a total of 60 minutes of critical care time on this patient's care today; this time is exclusive of procedural time. Quality VTE Deep Vein Thrombosis/Pulmonary Embolism Present on Admission: No MIPS - Admit I confirm the patient?s Advance Care Plan is present, Code status is documented, Surrogate decision maker is in patient?s record [If Yes, STOP here]: Yes MIPS - DC The patient has current or prior documentation of left ventricular ejection fraction (LVEF) less than 40%, or moderate or severely depressed left ventricular systolic function.: No
[2021-07-04] MEDS: fentaNYL 1,000 MCG in DEXTROSE 5% IN WATER 230 ML 19.093 ML IV (02:15)
--- NOTE | 2021-07-04 02:17 | PM.PROC.1 ---
Procedures Date/Time Date of procedure: 07/04/21 Time of procedure: 01:45 Arterial Line Size (Gauge): 20 (Arrow) Intubation Time out performed: Yes Sedative: etomidate Mg given: 20 Paralytic: succinylcholine Mg given: 125 Laryngoscope: fiber optic video scope ET tube size: 8 ET tube uncuffed: No Tube secured depth (cm): 20 Tube secured location: teeth Tube placement confirmation: visualized tube passing through cords and confirmation by capnometry Intubation complications: hypoxia Additional comments: Preintubation oxygen saturation 91% with [id number] and nasal cannula at 15 liters/minute. First pass success as described above. Patient did have desaturation to 79 which responded very quickly with oxygen post intubation. Post intubation chest x-ray shows endotracheal tube in adequate position for now. May need to be advanced once the x-ray can be visualized on but her monitor. Post intubation sedation will be provided by inpatient team.
[2021-07-04 02:51] LABS: Add Manual Diff / Slide Review YES; Hematocrit 37.6 % (41-53); Hemoglobin 12.3 g/dL (13.5-17.5); Mean Corpuscular HGB Conc 32.8 % (30-36); Mean Corpuscular Hemoglobin 32.7 PG (26-34); Platelet Count 519 X10^3/uL (150-400); Red Blood Cell Count 3.76 X10^6/uL (4.5-5.9); Red Cell Distribution Width 13.9 % (11.6-14.8)
[2021-07-04 02:53] LABS: Alanine Aminotransferase 43 IU/L (<50); Albumin 2.9 g/dL (3.5-5.0); Albumin Globulin Ratio 0.9 (1.0-2.8); Alkaline Phosphatase 70 U/L (38-126); Aspartate Aminotransferase 50 IU/L (17-59); BUN Creatinine Ratio 16.1 (6-22); Bilirubin Total 0.8 mg/dL (0.2-1.3); Blood Urea Nitrogen 10 mg/dL (9-20); Calcium 7.9 mg/dL (8.4-10.2); Carbon Dioxide 18 mmol/L (22-32); Chloride 109 mmol/L (98-107); Estimated Glomerular Filt Rate > 60 mL/min (>60); Globulin 3.2 g/dL (1.7-4.1); Glucose 179 mg/dL (80-110); HEMOLYSIS < 15 (0-50); Potassium 4.7 mmol/L (3.4-5.1); Sodium 136 mmol/L (137-145); Total Protein 6.1 g/dL (6.3-8.2)
[2021-07-04] MEDS: chlordiazePOXIDE 25 MG CAPSULE TUBE ×4 (03:00→21:26)
[2021-07-04] MEDS: AMPICILLIN/SULBACTAM 3 GM 3 GM in SODIUM CHLORIDE 0.9% 100 ML IV ×4 (03:00→21:20)
[2021-07-04 03:09] LABS: Alanine Aminotransferase 44 IU/L (<50); Albumin 2.9 g/dL (3.5-5.0); Albumin Globulin Ratio 0.9 (1.0-2.8); Alkaline Phosphatase 69 U/L (38-126); Aspartate Aminotransferase 50 IU/L (17-59); Bilirubin Total 0.8 mg/dL (0.2-1.3); Bilirubin Unconjugated 0.4 mg/dL (0.0-1.1); Globulin 3.1 g/dL (1.7-4.1); HEMOLYSIS < 15 (0-50)
[2021-07-04 03:19] LABS: NT-proBNP (BNP-Adult 18+) 603 pg/mL (<125)
[2021-07-04 03:26] LABS: Procalcitonin 0.28 ng/mL (<0.5)
[2021-07-04 03:30] LABS: Lactate (Lactic Acid) 1.6 mmol/L (0.7-2.1)
[2021-07-04] MEDS: LACTATED RINGERS 1,000 ML 75 ML IV ×2 (03:59→18:48)
[2021-07-04 04:04] LABS: PCO2 ABG 36.8 mmHg (35-45); PO2 ABG 81 mmHg (80-100); pH ABG 7.33 (7.35-7.45)
[2021-07-04 04:05] LABS: Fractionated Inspired Oxygen 60; HCO3 ABG 19 mmol/L (22-26); Oxygen Saturation ABG 95 % (95-100); TCO2 ABG 20 mmol/L (21-31)
--- NOTE | 2021-07-04 04:32 | PC.NURSE ---
Addendum entered by Jr Campos R.N. 07/04/21 05:07: ABG was done by RT, FIO2 maintained at 60%, with O2 saturation >92%. Bilateral upper ext soft restraint initiated and maintained prior intubation. Will continue to monitor. Original Note: Shift note: Patient was drowsy but arousable, oriented to self and place, follows commands, was able to cough secretions, deep suction done with moderate to tenacious amount of thick creamy yellowish secretions. O2 sat remains >92% at room air. Updates given to tele ICU MD Dr. Suárez, ordered to resumed gastric decompression at low intermittent suction despite of minimal gastric output. Repositioned every 2hrs, suctioned secretions as needed. At 0130, patient became more lethargic, O2 saturation started to drop to 80's and plummeted to mid 70's, attempted to administered high flow O2 but didnt recovered, bilateral lung pruitt sounds coarse and congested, attempted to deep suctioned but O2 sat remained low 80's, called RT and ambubagged the patient but O2 sat stayed mid-80's, notified Dr Suárez thru two way video conference and ordered to intubate patient, Dr Lewis notified and ultrasound guided intubation was done, etomidate and succinylcholine administered thru IV prior intubation, tenacious thick secretions suctioned thru ET and orally. Patient O2 saturation came back up to mid 90's, post intubation, propofol and fentanyl drip started for sedation maintaining RAAS -1 and -2. Oral care provided. Chest xray was done post intubation, ET placement verified by Dr. Lewis. Vital signs remained stable. Will continue to monitor.
[2021-07-04] MEDS: ALBUTEROL 2.5 MG/3 ML NEB (ADULT) INH ×6 (04:39→22:52)
[2021-07-04 04:47] LABS: Anisocytosis 1+; Neutrophils Absolute Manual 17290 /uL (3000-5900); Total Cells Counted 100
[2021-07-04] MEDS: CHLORHEXIDINE GLUCONATE 15 ML CUP PO ×3 (05:34→18:45)
--- NOTE | 2021-07-04 08:07 | PM.PROC.1 ---
Procedures Date/Time Date of procedure: 07/04/21 Time of procedure: 07:50 Arterial Line Time out performed: Yes Size (Gauge): 20 (Arrow) Technique used: guide wire technique Post-Procedure: dry sterile dressing placed Patient tolerated procedure: Well Complications: none Site: right and radial Additional comments: US guided. Pt intubated, sedated. Sterile gloves, probe, gel.
[2021-07-04] MEDS: PANTOPRAZOLE 40 MG VIAL IV (08:42)
[2021-07-04] MEDS: ENOXAPARIN 40 MG/0.4 ML SYRINGE SUBCUT (08:42)
[2021-07-04] MEDS: SODIUM CHLORIDE 0.9% FLUSH 10 ML IV (08:43)
[2021-07-04] MEDS: FOLIC ACID 1 MG TABLET PO (09:25)
--- NOTE | 2021-07-04 09:44 | DI.RAD.S_ITS ---
PROCEDURE: XR KUB INDICATIONS: abdominal distension TECHNIQUE: One view of the abdomen acquired. COMPARISON: [facility], CR, XR ABDOMEN 1V, 07/02/2021, 2:42. FINDINGS: Surgical changes and devices: Nasogastric tube in the stomach. Lower lumbar spine instrumentation. Bowel: Persistent gaseous distension of small bowel loops measuring up to 5.4 cm, similar prior exam. Soft tissues: No suspicious abdominal calcifications. Visualized solid organ contours appear normal in size. Bones: No suspicious bony lesions. IMPRESSION: Persistent small bowel gaseous distension. Differential includes small bowel obstruction and adynamic ileus. Approved by: Star Sharma M.D. on 07/04/2021 at 10:30
--- NOTE | 2021-07-04 09:46 | PM.PN.EICU ---
Subjective Subjective :: This patient was seen via real time interactive two-way audiovisual telecommunication. intubated overnight likely for aspiration Current Medications Current Medications Medications: Home Medications levothyroxine 75 mcg tablet 75 mcg PO QAM 06/21/21 [History Confirmed 06/21/21] simvastatin 40 mg tablet 40 mg PO BEDTIME 06/21/21 [History Confirmed 06/21/21] Visit Medications (administered) Generic Name Dose Route Start Last Admin Trade Name Freq PRN Reason Stop Dose Admin Albuterol 2.5 mg 07/04/21 03:00 07/04/21 08:17 Albuterol 2.5 Mg/3 Ml Neb (Adult) INH 2.5 mg RTQ4HR EN Administration Chlordiazepoxide HCl 25 mg 07/04/21 02:00 07/04/21 09:25 Chlordiazepoxide 25 Mg Capsule TUBE 25 mg Q6H EN Administration Chlorhexidine Gluconate 15 ml 07/04/21 06:00 07/04/21 05:34 Chlorhexidine Gluconate 15 Ml Cup PO 15 ml Q6HR EN Administration Enoxaparin Sodium 40 mg 06/23/21 09:00 07/04/21 08:42 Enoxaparin 40 Mg/0.4 Ml Syringe SUBCUT 40 mg DAILY EN Administration Folic Acid 1 mg 06/30/21 09:00 07/04/21 09:25 Folic Acid 1 Mg Tablet PO 1 mg DAILY EN Administration Hydralazine HCl 10 mg 06/29/21 11:11 07/03/21 16:26 Hydralazine 20 Mg/Ml Vial IV 10 mg Q6HR PRN Administration Hypertension dexmedeTOMIDine in 0.9 % NaCL 400 mcg in 100 mls @ 5.443 mls/hr 06/29/21 23:00 07/03/21 11:02 Precedex IV 0 mcg/kg/hr TITRATE EN 0 mls/hr Titration Protocol 0.2 MCG/KG/HR Lactated Ringer's 1,000 mls @ 75 mls/hr 07/03/21 16:15 07/04/21 03:59 Lactated Ringers IV 75 mls/hr CONT EN Administration Fentanyl 1,000 mcg/ Dextrose 250 mls @ 19.093 mls/hr 07/04/21 01:45 07/04/21 02:15 IV 0.7 mcg/kg/hr TITRATE EN 19.093 mls/hr Administration Protocol 0.7 MCG/KG/HR Propofol 1,000 mg in 100 mls @ 3.273 mls/hr 07/04/21 01:45 07/04/21 02:00 Propofol IV 5 mcg/kg/min TITRATE EN 3.273 mls/hr Administration Protocol 5 MCG/KG/MIN Ampicillin Sodium/Sulbactam 100 mls @ 100 mls/hr 07/04/21 02:00 07/04/21 08:42 Sodium 3 gm/ Sodium Chloride IV 100 mls/hr Q6H EN Administration Insulin Human Lispro 0 unit 06/25/21 10:15 07/04/21 05:15 Insulin Lispro 100 Unit/Ml 3ml Vial SUBCUT Not Given Q6H EN Protocol Labetalol HCl 10 mg 06/29/21 09:42 07/03/21 16:26 Labetalol 20 Mg/4 Ml Syringe IV 10 mg Q4HR PRN Administration Heart Rate- High Lorazepam 0 mg 06/21/21 21:53 06/30/21 08:13 Lorazepam 2 Mg/Ml Inj IV 2 mg CIWAPRN PRN Administration Alcohol Withdrawal Protocol Pantoprazole Sodium 40 mg 06/30/21 09:00 07/04/21 08:42 Pantoprazole 40 Mg Vial IV 40 mg DAILY EN Administration Sodium Chloride 10 ml 06/28/21 09:00 07/04/21 08:43 Sodium Chloride 0.9% Flush IV 10 ml BID EN Administration Objective Ventilator Parameters: Ventilator Settings FiO2 35 RT Vent Frequency 16 Ventilator Tidal Volume 550 Exhaled Positive End Expiratory 5 Pressure Inspiratory Phase Time 0.85 I:E Ratio 1:2 Patient Position HOB >= 30 degrees Labs Result Diagrams: 07/04/21 02:30 07/04/21 02:30 Labs: Laboratory Results - last 24 hr 06/27/21 07/04/21 07/04/21 13:54 02:30 02:30 WBC 19.0 H RBC 3.76 L Hgb 12.3 L Hct 37.6 L MCV 100.0 MCH 32.7 MCHC 32.8 RDW 13.9 Plt Count 519 H Neut % (Auto) Not Reportable Lymph % (Auto) Not Reportable [place] % (Auto) Not Reportable Eos % (Auto) Not Reportable Baso % (Auto) Not Reportable Lymph # (Auto) Not Reportable [place] # (Auto) Not Reportable Baso # (Auto) Not Reportable Total Counted 100 Seg Neutrophils % 72.0 H Band Neutrophils % 19.0 H Lymphocytes % (Manual) 3.0 L Monocytes % (Manual) 5.0 Myelocytes % 1.0 H Neutrophils # (Manual) 09215 H RBC Morphology See below Anisocytosis 1+ H ABG pH ABG pCO2 ABG pO2 ABG HCO3 ABG Total CO2 ABG O2 Saturation ABG Base Excess FiO2 Sodium 136 L Potassium 4.7 Chloride 109 H Carbon Dioxide 18 L BUN 10 Creatinine 0.62 L Estimated GFR > 60 BUN/Creatinine Ratio 16.1 Glucose 179 H Lactate Calcium 7.9 L Magnesium Total Bilirubin 0.8 Conjugated Bilirubin Unconjugated Bilirubin AST 50 ALT 43 Alkaline Phosphatase 70 NT-Pro-B Natriuret Pep Total Protein 6.1 L Albumin 2.9 L Globulin 3.2 Albumin/Globulin Ratio 0.9 L Procalcitonin C. difficile Tox (PCR) Negative for c. diff 07/04/21 07/04/21 07/04/21 02:30 02:30 02:30 WBC RBC Hgb Hct MCV MCH MCHC RDW Plt Count Neut % (Auto) Lymph % (Auto) [place] % (Auto) Eos % (Auto) Baso % (Auto) Lymph # (Auto) [place] # (Auto) Baso # (Auto) Total Counted Seg Neutrophils % Band Neutrophils % Lymphocytes % (Manual) Monocytes % (Manual) Myelocytes % Neutrophils # (Manual) RBC Morphology Anisocytosis ABG pH ABG pCO2 ABG pO2 ABG HCO3 ABG Total CO2 ABG O2 Saturation ABG Base Excess FiO2 Sodium Potassium Chloride Carbon Dioxide BUN Creatinine Estimated GFR BUN/Creatinine Ratio Glucose Lactate 1.6 Calcium Magnesium 2.0 Total Bilirubin 0.8 Conjugated Bilirubin 0.0 Unconjugated Bilirubin 0.4 AST 50 ALT 44 Alkaline Phosphatase 69 NT-Pro-B Natriuret Pep 603 H Total Protein 6.0 L Albumin 2.9 L Globulin 3.1 Albumin/Globulin Ratio 0.9 L Procalcitonin 0.28 C. difficile Tox (PCR) 07/04/21 03:00 WBC RBC Hgb Hct MCV MCH MCHC RDW Plt Count Neut % (Auto) Lymph % (Auto) [place] % (Auto) Eos % (Auto) Baso % (Auto) Lymph # (Auto) [place] # (Auto) Baso # (Auto) Total Counted Seg Neutrophils % Band Neutrophils % Lymphocytes % (Manual) Monocytes % (Manual) Myelocytes % Neutrophils # (Manual) RBC Morphology Anisocytosis ABG pH 7.33 L ABG pCO2 36.8 ABG pO2 81 ABG HCO3 19 L ABG Total CO2 20 L ABG O2 Saturation 95 ABG Base Excess -7.0 L FiO2 60 Sodium Potassium Chloride Carbon Dioxide BUN Creatinine Estimated GFR BUN/Creatinine Ratio Glucose Lactate Calcium Magnesium Total Bilirubin Conjugated Bilirubin Unconjugated Bilirubin AST ALT Alkaline Phosphatase NT-Pro-B Natriuret Pep Total Protein Albumin Globulin Albumin/Globulin Ratio Procalcitonin C. difficile Tox (PCR) Exam Vital Signs (past 8 hours): - 07/04/21 02:00 07/04/21 03:00 07/04/21 04:00 Temperature 97.0 F L Pulse Rate 100 H 92 H 101 H Respiratory Rate 13 24 24 Blood Pressure 127/70 131/61 122/62 Pulse Oximetry 88 L 95 94 07/04/21 04:39 07/04/21 05:00 07/04/21 06:00 Temperature 98.8 F 98.8 F Pulse Rate 103 H 104 H 109 H Respiratory Rate 16 17 19 Blood Pressure 109/63 116/58 L Pulse Oximetry 98 98 97 07/04/21 07:00 07/04/21 07:59 07/04/21 08:00 Temperature Pulse Rate 107 H 104 H Respiratory Rate 18 17 Blood Pressure 119/57 L 125/60 Pulse Oximetry 97 97 07/04/21 08:30 07/04/21 09:00 Temperature Pulse Rate 113 H Respiratory Rate 23 Blood Pressure 127/60 Pulse Oximetry 94 92 Fraction of Inspired Oxygen 35 Oxygen Delivery Method Mechanical Ventilation Oxygen Flow Rate 6 Quality TeleICU VTE Deep Vein Thrombosis/Pulmonary Embolism Present on Admission: No Assessment & Plan Assessment & Plan narrative: Assessment & Plan narrative: patient seen examined with bedside nurse and provider chart/labs/imaging reviewed intubated overnight vented, afebrile, HD stable plan -pain control/sedation, goal lou -1, dc propofol, use precedex/fentanyl -neurochecks/seizure precautions -vent support, keep pH more than 7.25, pa02 more than 55 -cxr/abg adjust vent prn -chest pt/pulm toilet -may benefit from bronchoscopy -check cxs, now on unasyn, if fever or dynamics change would broaded coverage -check kub if radha can start feeds, if ileuds remains consider CT -can dc librium this evening -cont thiamine/folate -gi/dvt ppx in place -monitor ins/outs -keep glucose 140-180s -please call eICU prn Time Spent With Patient Critical Care time: I spent a total of [] minutes of critical care time on this patient's care today; this time is exclusive of procedural time.
[2021-07-04] MEDS: dexmedeTOMIDine in 0.9 % NaCL 400 MCG/100 ML PLAST..BAG 8.165 MCG IV (09:59)
--- NOTE | 2021-07-04 11:44 | PM.PN.1 ---
Subjective Subjective Date Patient Seen: 07/04/21 Time Patient Seen: 11:44 Interval history: 70 male admitted with DTs, prolonged difficulty with agitation and weaning from sedation. Overnight patient became hypoxic with copious amounts of secretions, was intubated. WBC increased to 19 today. Arterial line was placed by anesthesia. Unable to perform subjective exam. Exam Vital Signs (past 8 hours): - 07/04/21 04:00 07/04/21 04:39 07/04/21 05:00 Temperature 97.0 F L 98.8 F Pulse Rate 101 H 103 H 104 H Respiratory Rate 24 16 17 Blood Pressure 122/62 109/63 Pulse Oximetry 94 98 98 07/04/21 06:00 07/04/21 07:00 07/04/21 07:59 Temperature 98.8 F Pulse Rate 109 H 107 H Respiratory Rate 19 18 Blood Pressure 116/58 L 119/57 L 125/60 Pulse Oximetry 97 97 07/04/21 08:00 07/04/21 08:30 07/04/21 09:00 Temperature Pulse Rate 104 H 113 H Respiratory Rate 17 23 Blood Pressure 127/60 Pulse Oximetry 97 94 92 07/04/21 10:00 07/04/21 10:55 Temperature Pulse Rate 112 H Respiratory Rate 20 Blood Pressure 123/65 Pulse Oximetry 93 94 Fraction of Inspired Oxygen 35 Oxygen Delivery Method Mechanical Ventilation Oxygen Flow Rate 6 Narrative Exam Narrative: General:?ill appearing elderly male, now intubated and sedated. HEENT:? Normocephalic, atraumatic, mucous membranes are dry. NG Tube in place. Neck: supple and symmetric, trachea is midline, no cervical adenopathy. Negative for JVD Chest:? Normal AP diameter and contour without kyphoscoliosis, no tachypnea, equal chest rise bilaterally. Lungs:? diffuse rhonchi without wheezing. Cardio: RRR, no m/r/g. Abdomen: mildly distended but soft, unable to assess tenderness. Extremities: 1+ pedal edema, no joint effusions. No cyanosis or clubbing. Skin:? Pale,? Warm to touch,dry and intact without rashes, ulcerations or petechiae.? Neuro: sedated Objective Labs Result Diagrams: 07/04/21 02:30 07/04/21 02:30 Labs: Laboratory Results - last 24 hr 06/27/21 07/04/21 07/04/21 13:54 02:30 02:30 WBC 19.0 H RBC 3.76 L Hgb 12.3 L Hct 37.6 L MCV 100.0 MCH 32.7 MCHC 32.8 RDW 13.9 Plt Count 519 H Neut % (Auto) Not Reportable Lymph % (Auto) Not Reportable [place] % (Auto) Not Reportable Eos % (Auto) Not Reportable Baso % (Auto) Not Reportable Lymph # (Auto) Not Reportable [place] # (Auto) Not Reportable Baso # (Auto) Not Reportable Total Counted 100 Seg Neutrophils % 72.0 H Band Neutrophils % 19.0 H Lymphocytes % (Manual) 3.0 L Monocytes % (Manual) 5.0 Myelocytes % 1.0 H Neutrophils # (Manual) 83356 H RBC Morphology See below Anisocytosis 1+ H ABG pH ABG pCO2 ABG pO2 ABG HCO3 ABG Total CO2 ABG O2 Saturation ABG Base Excess FiO2 Sodium 136 L Potassium 4.7 Chloride 109 H Carbon Dioxide 18 L BUN 10 Creatinine 0.62 L Estimated GFR > 60 BUN/Creatinine Ratio 16.1 Glucose 179 H Lactate Calcium 7.9 L Magnesium Total Bilirubin 0.8 Conjugated Bilirubin Unconjugated Bilirubin AST 50 ALT 43 Alkaline Phosphatase 70 NT-Pro-B Natriuret Pep Total Protein 6.1 L Albumin 2.9 L Globulin 3.2 Albumin/Globulin Ratio 0.9 L Procalcitonin C. difficile Tox (PCR) Negative for c. diff 07/04/21 07/04/21 07/04/21 02:30 02:30 02:30 WBC RBC Hgb Hct MCV MCH MCHC RDW Plt Count Neut % (Auto) Lymph % (Auto) [place] % (Auto) Eos % (Auto) Baso % (Auto) Lymph # (Auto) [place] # (Auto) Baso # (Auto) Total Counted Seg Neutrophils % Band Neutrophils % Lymphocytes % (Manual) Monocytes % (Manual) Myelocytes % Neutrophils # (Manual) RBC Morphology Anisocytosis ABG pH ABG pCO2 ABG pO2 ABG HCO3 ABG Total CO2 ABG O2 Saturation ABG Base Excess FiO2 Sodium Potassium Chloride Carbon Dioxide BUN Creatinine Estimated GFR BUN/Creatinine Ratio Glucose Lactate 1.6 Calcium Magnesium 2.0 Total Bilirubin 0.8 Conjugated Bilirubin 0.0 Unconjugated Bilirubin 0.4 AST 50 ALT 44 Alkaline Phosphatase 69 NT-Pro-B Natriuret Pep 603 H Total Protein 6.0 L Albumin 2.9 L Globulin 3.1 Albumin/Globulin Ratio 0.9 L Procalcitonin 0.28 C. difficile Tox (PCR) 07/04/21 03:00 WBC RBC Hgb Hct MCV MCH MCHC RDW Plt Count Neut % (Auto) Lymph % (Auto) [place] % (Auto) Eos % (Auto) Baso % (Auto) Lymph # (Auto) [place] # (Auto) Baso # (Auto) Total Counted Seg Neutrophils % Band Neutrophils % Lymphocytes % (Manual) Monocytes % (Manual) Myelocytes % Neutrophils # (Manual) RBC Morphology Anisocytosis ABG pH 7.33 L ABG pCO2 36.8 ABG pO2 81 ABG HCO3 19 L ABG Total CO2 20 L ABG O2 Saturation 95 ABG Base Excess -7.0 L FiO2 60 Sodium Potassium Chloride Carbon Dioxide BUN Creatinine Estimated GFR BUN/Creatinine Ratio Glucose Lactate Calcium Magnesium Total Bilirubin Conjugated Bilirubin Unconjugated Bilirubin AST ALT Alkaline Phosphatase NT-Pro-B Natriuret Pep Total Protein Albumin Globulin Albumin/Globulin Ratio Procalcitonin C. difficile Tox (PCR) [facility] Social History household members: spouse Smoking Status: Former smoker alcohol intake: current Assessment & Plan Assessment & Plan narrative: 1. Acute metabolic encephalopathy - Likely multifactorial - Patient initially presented with alcohol withdrawal syndrome and DTs yet He remains encephalopathic despite many days of inpatient treatment. Head CT was negative. Some improvement with adjustments in withdrawal medications and may be related to profound amounts of medications. - will further delay assessment given re-intubation overnight. - changed propofol to precedex today, fentanyl if needed for sedation ?- depending on whether or not there is continued improvement after extubation, consider MRI. Held today given improvement and lack of focal neurological deficits. 2. Probable aspiration pneumonia with acute respiratory failure - previously completed 7 day course of antibiotics. Probable reaspiration evening of 07/03 with respiratory failure and intubation. - today is day 03/19 of planned unasyn. Sputum cultures sent. - general surgery unable to do bronchoscopy at [facility]. - keep ventilator today. Reassess for breathing trial tomorrow AM. - KUB and possible CT to assess if ileus is contributing. 3. Alcoholic hepatitis ?- LFTs improved 4. Duodenitis - Continue PPI 5. Hypothyroidism ?-Continue IV L-thyroxine 8. Sacral decubitus ulcer HSV cultures negative acyclovir Discontinued Continue wound care 9. Ileus, ?- possible secondary to medication use. Continue NPO for now. He is having bowel movements and abdomen is soft today. - however given respiratory failure, reassess with KUB and possible CT scan depending on results. I spent 35 minutes providing critical care management this patient.? This excludes time spent in performing separately billed procedures. Nutrition tube feeding stopped for ileus. remains on IVF. Consider restarting tube feedings tomorrow Time Spent With Patient Critical Care time: I spent a total of [] minutes of critical care time on this patient's care today; this time is exclusive of procedural time. Quality VTE Deep Vein Thrombosis/Pulmonary Embolism Present on Admission: No
--- NOTE | 2021-07-04 12:56 | DI.CT.S_ITS ---
PROCEDURE: CT CHEST ABD PEL W CON INDICATIONS: persistent abdominal distension, poss obstruction TECHNIQUE: Helical axial CT of the chest abdomen and pelvis was obtained after intravenous contrast injection and reformatted in multiple planes. Radiation dose reduction was achieved utilizing automated exposure control and/or parameter adjustment according to patient's size. COMPARISON: [facility], CT, CT CHEST ABD PEL W CON, 06/21/2021, 15:37. FINDINGS: Chest: Cardiovascular: Heart size is normal. No evidence of pulmonary embolism, aortic aneurysm or dissection. Lungs and pleural spaces: Bilateral basilar consolidation and/or infiltrates associated with small pleural effusions. Lymph nodes: No mediastinal, hilar or axillary adenopathy. Mediastinum: Unremarkable. No hiatal hernia. Thyroid within normal limits. Chest Wall and Bones: Unremarkable. No acute fracture. Left-sided Port-A-Cath in place nasogastric tube noted. Abdomen and Pelvis: Liver: The liver is diffusely decreased in attenuation without focal mass lesion. Right hepatic cyst present. Incidental note is made of recanalization of the umbilical vein, stable. Biliary system: Cholecystectomy. No intra or extrahepatic bile duct dilation. Pancreas: Unremarkable without mass or inflammation evident. Spleen: Normal in size and density. Adrenals: Normal morphology and density. Reproductive system: Unremarkable as visualized. Urinary system: Normal renal size and attenuation. Bilateral renal cortical cysts. No renal calculi, hydronephrosis, or solid mass present. Forman catheter in the bladder Gastrointestinal system: Small bowel is now dilated up to 4.2 cm, and the distal small bowel is decompressed. There is a transition related to distal wall thickening in the distal small bowel Multiple diverticula arise from the sigmoid colon without evidence of acute diverticulitis. Lymph nodes: No mesenteric or retroperitoneal adenopathy. Peritoneal spaces: No free air. Small amount of free fluid present. Vasculature: The IVC, aorta and iliac vasculature are unremarkable. Abdominal wall: Abdominal wall intact without evidence of ventral or inguinal hernias. Musculoskeletal: Normal bone mineralization. Degenerative disc disease and arthropathy noted in lower lumbar spine. Lower lumbar spine interbody fusion with instrumentation. No acute fractures. IMPRESSION: 1. Probable small bowel obstruction. Proximal small bowel is dilated, and there is a transition to distal decompressed small bowel associated with focal bowel wall thickening, new from the prior exam. New onset ileus with enteritis is a differential. 2. Advanced hepatic fatty infiltration. 3. Bibasilar pleural effusions and associated bibasilar consolidation and/or infiltrate Approved by: Star Sharma M.D. on 07/04/2021 at 14:08
[2021-07-04] MEDS: NOREPINEPHRINE BITARTRATE/D5W 4 MG/250 ML PLAST..BAG 15 MG IV (13:20)
[2021-07-04] MEDS: dexmedeTOMIDine in 0.9 % NaCL 400 MCG/100 ML PLAST..BAG 16.329 MCG IV ×2 (15:15→20:11)
[2021-07-04] MEDS: fentaNYL 1,000 MCG in DEXTROSE 5% IN WATER 230 ML 16.365 ML IV (16:20)
--- NOTE | 2021-07-04 16:54 | CM.DANOTE ---
DCP/continued: Spoke with ICU/RN patient reintubated last night. Current status guarded. CM team to continue ot follow for support and d/c planning needs. BEATRIZ
--- NOTE | 2021-07-04 17:06 | PC.NURSE ---
Addendum entered by Marie Malone R.N. 07/04/21 18:49: Clonidine patches removed per MD at 1100. Original Note: Day Shift Note Pt intubated and sedated to RASS -2/-3. Initially on propofol and fentanyl for sedation but propofol replaced with precedex to facilitate spontaneous awakening trials/weaning trials. Pt is calm and cooperative with care. Vent settings currently 35% FiO2, RR 16, PEEP 5, and TV 550, SpO2 upper 90s. Required frequent ET tube suction and lavage from RT this morning, thick white sputum resulting. Secretions markedly decreased this afternoon. Arterial line placed to right wrist by Dr. Wolf at 0800, pt tolerated well. At 1100, BP noted to be trending down to 90/50s and Dr. Cruz notified. Order to monitor over the next hour with BP then decreasing to 80s/40s. Order received from Dr. Cruz to start levophed which was done (See emar) currently at 3 mcg/min with SBP 100-110s, MAP in the 60s. Pt to CT scan at 1400 with RT and RN, tolerated well. NG tube to LIS. Soft wrist restraints to bilateral wrists as pt makes attempts to reach for ET tube and lines. Forman catheter in place and draining clear gricel urine. Turning patient q2h to offload pressure to buttocks. Skin condition to buttocks/coccyx is worse today when compared to yesterday's assessment. Purple, erythemic, and hard to the touch. 8 X 4 cm open area with yellow slough to gluteal cleft, skin surrounding is blanchable, Allevyn dressing applied to site after pictures taken and Dr. Cruz at bedside to visualize. Open area to left buttock bleeding, area macerated, Allevyn dressing applied. Barrier cream applied to skin. Bed alarm on for safety.
--- NOTE | 2021-07-04 22:24 | PC.NURSE ---
At [address] Suárez's order.
[2021-07-05] VITALS (45 sets, daily range): BP systolic 89–172; BP diastolic 51–95; PULSE 63–115; RESP 16–39; TEMP 36.7–38.6; O2SAT 94–100
--- NOTE | 2021-07-05 00:44 | PC.NURSE ---
Addendum entered by Libra Bedoya R.N. 07/05/21 03:02: Fentanyl gtt is at 0.6mcg/kg/hr Addendum entered by Libra Bedoya R.N. 07/05/21 00:50: titrated Fentanly to 6mcg/kg/hr Original Note: At [address] Suárez and informed that the patient is ST 100s, febrile 101.4F, low urine output, restless and titrated Fentanly to 8mcg/kg/hr, Precedex 0.7mcg/kg/hr. Also, patient's nares were swabbed and he is MRSA positive. See new orders to give LR 1000ml bolus, Tylenol 650mg PRN, Vanco 15mg/kg IV X1, draw blood cultures X2. Electronically signed: Libra Bedoya RN
[2021-07-05] MEDS: CHLORHEXIDINE GLUCONATE 15 ML CUP PO ×5 (01:18→23:37)
[2021-07-05] MEDS: ACETAMINOPHEN 650 MG SUPP PR (01:19)
[2021-07-05] MEDS: LACTATED RINGERS 1,000 ML 1000 ML IV (01:22)
[2021-07-05] MEDS: VANCOMYCIN 1,500 MG/300 ML PIGGYBACK 200 MG IV (01:23)
[2021-07-05] MEDS: dexmedeTOMIDine in 0.9 % NaCL 400 MCG/100 ML PLAST..BAG 19.051 MCG IV (01:23)
--- NOTE | 2021-07-05 01:34 | P.ICUMDRN_ITS ---
- Date Patient Seen: 07/04/21 Time Patient Seen: 20:15 :: This patient was seen via real time interactive two-way audiovisual telecommunication. Note: 70 y.o. 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 During MDRs, patient was on NE 4 mcg/min, Precedex 0.5 mcg/kg/hr and fentanyl 0.5 mcg/kg/hr. NGT remained to LWS. RN reported borderline oliguria; patient was receiving LR @ 75 mL/hr. Interventions at that time; NGT clamped. After this, patient spiked a fever. RN also reported MRSA nasal swab was (+). Blood cultures and vancomycin ordered. 1L LR ordered. Acetaminophen ordered as well. RT reports that secretion is not severe. Chart reviewed.? Discussed with RN and RT.
[2021-07-05 02:33] LABS: pH ABG 7.55 (7.35-7.45)
[2021-07-05 02:34] LABS: Fractionated Inspired Oxygen 35; HCO3 ABG 22 mmol/L (22-26); Oxygen Saturation ABG 95 % (95-100); PO2 ABG 65 mmHg (80-100); TCO2 ABG 23 mmol/L (21-31)
[2021-07-05] MEDS: ALBUTEROL 2.5 MG/3 ML NEB (ADULT) INH ×6 (02:42→23:30)
[2021-07-05 02:44] LABS: Add Manual Diff / Slide Review NO; Basophils Absolute Auto 100 /uL (0-100); Basophils Percent Auto 0.7 % (0-2); Eosinophils Absolute Auto 100 /uL (0-450); Eosinophils Percent Auto 0.5 % (2-4); Hematocrit 31.9 % (41-53); Hemoglobin 10.7 g/dL (13.5-17.5); Lymphocytes Absolute Auto 2700 /uL (1100-4500); Lymphocytes Percent Auto 14.8 % (25-40); Mean Corpuscular HGB Conc 33.6 % (30-36); Mean Corpuscular Hemoglobin 32.7 PG (26-34); Mean Corpuscular Volume 97.5 fL (80-100); Monocytes Absolute Auto 1600 /uL (0-900); Neutrophils Absolute Auto 13600 /uL (1500-7000); Platelet Count 474 X10^3/uL (150-400); Red Blood Cell Count 3.27 X10^6/uL (4.5-5.9); Red Cell Distribution Width 13.5 % (11.6-14.8); White Blood Cell Count 18.1 X10^3/uL (4.5-11.0)
[2021-07-05 03:10] LABS: Alanine Aminotransferase 33 IU/L (<50); Albumin 2.5 g/dL (3.5-5.0); Albumin Globulin Ratio 0.8 (1.0-2.8); Alkaline Phosphatase 62 U/L (38-126); Aspartate Aminotransferase 41 IU/L (17-59); BUN Creatinine Ratio 15.3 (6-22); Bilirubin Total 0.6 mg/dL (0.2-1.3); Blood Urea Nitrogen 11 mg/dL (9-20); Calcium 7.6 mg/dL (8.4-10.2); Carbon Dioxide 21 mmol/L (22-32); Chloride 107 mmol/L (98-107); Estimated Glomerular Filt Rate > 60 mL/min (>60); Glucose 125 mg/dL (80-110); HEMOLYSIS < 15 (0-50); Potassium 3.3 mmol/L (3.4-5.1); Sodium 136 mmol/L (137-145); Total Protein 5.5 g/dL (6.3-8.2)
[2021-07-05] MEDS: AMPICILLIN/SULBACTAM 3 GM 3 GM in SODIUM CHLORIDE 0.9% 100 ML IV ×4 (03:12→19:28)
[2021-07-05] MEDS: chlordiazePOXIDE 25 MG CAPSULE TUBE ×2 (03:12→08:53)
[2021-07-05] MEDS: LACTATED RINGERS 1,000 ML 125 ML IV ×3 (04:47→20:20)
[2021-07-05] MEDS: NOREPINEPHRINE BITARTRATE/D5W 4 MG/250 ML PLAST..BAG 11.25 MG IV (04:48)
--- NOTE | 2021-07-05 05:28 | PC.NURSE ---
Addendum entered by Libra Bedoya R.N. 07/05/21 05:33: new order Original Note: [address] Suárez of ABGs this am, see knew orders to decrease VT 470 and increase LR to 125ml/hr. Electronically signed, Libra Bedoya RN
--- NOTE | 2021-07-05 06:13 | PC.NURSE ---
Addendum entered by Libra Bedoya R.N. 07/05/21 06:24: [address] Reyna, see new orders to add Mg to am labs and give KCL 40mEQ IV. Original Note: [address] Reyna to report low K+ 3.3. Left message for doctor to call ICU.
[2021-07-05] MEDS: dexmedeTOMIDine in 0.9 % NaCL 400 MCG/100 ML PLAST..BAG 21.772 MCG IV ×2 (06:33→17:32)
[2021-07-05 06:37] LABS: Magnesium 2.2 mg/dL (1.6-2.3)
[2021-07-05] MEDS: ENOXAPARIN 40 MG/0.4 ML SYRINGE SUBCUT (08:53)
[2021-07-05] MEDS: FOLIC ACID 1 MG TABLET PO (08:53)
[2021-07-05] MEDS: PANTOPRAZOLE 40 MG VIAL IV (08:55)
[2021-07-05] MEDS: SODIUM CHLORIDE 0.9% FLUSH 10 ML IV (08:58)
[2021-07-05] MEDS: fentaNYL 1,000 MCG in DEXTROSE 5% IN WATER 230 ML 21.82 ML IV (08:58)
--- NOTE | 2021-07-05 09:38 | PM.PN.EICU ---
Subjective Subjective :: This patient was seen via real time interactive two-way audiovisual telecommunication. no acute events overnight remains vented Current Medications Current Medications Medications: Home Medications levothyroxine 75 mcg tablet 75 mcg PO QAM 06/21/21 [History Confirmed 06/21/21] simvastatin 40 mg tablet 40 mg PO BEDTIME 06/21/21 [History Confirmed 06/21/21] Visit Medications (administered) Generic Name Dose Route Start Last Admin Trade Name Freq PRN Reason Stop Dose Admin Acetaminophen 650 mg 07/05/21 00:40 07/05/21 01:19 Acetaminophen 650 Mg Supp TN 650 mg Q4HR PRN Administration Fever/Mild Pain (1-3) Albuterol 2.5 mg 07/04/21 03:00 07/05/21 07:27 Albuterol 2.5 Mg/3 Ml Neb (Adult) INH 2.5 mg RTQ4HR EN Administration Chlordiazepoxide HCl 25 mg 07/04/21 02:00 07/05/21 08:53 Chlordiazepoxide 25 Mg Capsule TUBE 25 mg Q6H EN Administration Chlorhexidine Gluconate 15 ml 07/04/21 06:00 07/05/21 06:34 Chlorhexidine Gluconate 15 Ml Cup PO 15 ml Q6HR EN Administration Enoxaparin Sodium 40 mg 06/23/21 09:00 07/05/21 08:53 Enoxaparin 40 Mg/0.4 Ml Syringe SUBCUT 40 mg DAILY EN Administration Folic Acid 1 mg 06/30/21 09:00 07/05/21 08:53 Folic Acid 1 Mg Tablet PO 1 mg DAILY EN Administration Hydralazine HCl 10 mg 06/29/21 11:11 07/03/21 16:26 Hydralazine 20 Mg/Ml Vial IV 10 mg Q6HR PRN Administration Hypertension dexmedeTOMIDine in 0.9 % NaCL 400 mcg in 100 mls @ 5.443 mls/hr 06/29/21 23:00 07/05/21 09:17 Precedex IV 0.5 mcg/kg/hr TITRATE EN 13.608 mls/hr Titration Protocol 0.2 MCG/KG/HR Fentanyl 1,000 mcg/ Dextrose 250 mls @ 19.093 mls/hr 07/04/21 01:45 07/05/21 09:16 IV 0 mcg/kg/hr TITRATE EN 0 mls/hr Titration Protocol 0.7 MCG/KG/HR Propofol 1,000 mg in 100 mls @ 3.273 mls/hr 07/04/21 01:45 07/04/21 09:59 Propofol IV 0 mcg/kg/min TITRATE EN 0 mls/hr Titration Protocol 5 MCG/KG/MIN Ampicillin Sodium/Sulbactam 100 mls @ 100 mls/hr 07/04/21 02:00 07/05/21 08:53 Sodium 3 gm/ Sodium Chloride IV 100 mls/hr Q6H EN Administration NOREPINEPHRINE BITARTRATE/D5W 4 mg in 250 mls @ 30 mls/hr 07/04/21 12:58 07/05/21 05:58 Levophed IV 2 mcg/min TITRATE EN 7.5 mls/hr Titration Protocol 8 MCG/MIN Lactated Ringer's 1,000 mls @ 125 mls/hr 07/05/21 16:15 07/05/21 04:47 Lactated Ringers IV 125 mls/hr CONT EN Administration Labetalol HCl 10 mg 06/29/21 09:42 07/03/21 16:26 Labetalol 20 Mg/4 Ml Syringe IV 10 mg Q4HR PRN Administration Heart Rate- High Lorazepam 0 mg 06/21/21 21:53 06/30/21 08:13 Lorazepam 2 Mg/Ml Inj IV 2 mg CIWAPRN PRN Administration Alcohol Withdrawal Protocol Pantoprazole Sodium 40 mg 06/30/21 09:00 07/05/21 08:55 Pantoprazole 40 Mg Vial IV 40 mg DAILY EN Administration Sodium Chloride 10 ml 06/28/21 09:00 07/05/21 08:58 Sodium Chloride 0.9% Flush IV 10 ml BID EN Administration Objective Ventilator Parameters: Ventilator Settings FiO2 35 RT Vent Frequency 16 Ventilator Tidal Volume 470 Exhaled Positive End Expiratory 5 Pressure Inspiratory Phase Time 0.8 I:E Ratio 1:3 Patient Position HOB >= 30 degrees Labs Result Diagrams: 07/05/21 02:05 07/05/21 02:05 Labs: Laboratory Results - last 24 hr 07/04/21 07/05/21 07/05/21 22:45 02:05 02:05 WBC 18.1 H RBC 3.27 L Hgb 10.7 L Hct 31.9 L MCV 97.5 MCH 32.7 MCHC 33.6 RDW 13.5 Plt Count 474 H Neut % (Auto) 75.0 Lymph % (Auto) 14.8 L [place] % (Auto) 9.0 Eos % (Auto) 0.5 L Baso % (Auto) 0.7 Neut # (Auto) 42306 H Lymph # (Auto) 2700 [place] # (Auto) 1600 H Eos # (Auto) 100 Baso # (Auto) 100 ABG pH ABG pCO2 ABG pO2 ABG HCO3 ABG Total CO2 ABG O2 Saturation ABG Base Excess FiO2 Sodium 136 L Potassium 3.3 L D Chloride 107 Carbon Dioxide 21 L BUN 11 Creatinine 0.72 Estimated GFR > 60 BUN/Creatinine Ratio 15.3 Glucose 125 H Calcium 7.6 L Magnesium Total Bilirubin 0.6 AST 41 ALT 33 Alkaline Phosphatase 62 Total Protein 5.5 L Albumin 2.5 L Globulin 3.0 Albumin/Globulin Ratio 0.8 L Nasal Screen MRSA (PCR) Positive for mrsa H 07/05/21 07/05/21 02:05 02:20 WBC RBC Hgb Hct MCV MCH MCHC RDW Plt Count Neut % (Auto) Lymph % (Auto) [place] % (Auto) Eos % (Auto) Baso % (Auto) Neut # (Auto) Lymph # (Auto) [place] # (Auto) Eos # (Auto) Baso # (Auto) ABG pH 7.55 H ABG pCO2 25.0 L ABG pO2 65 L ABG HCO3 22 ABG Total CO2 23 ABG O2 Saturation 95 ABG Base Excess 0.0 FiO2 35 Sodium Potassium Chloride Carbon Dioxide BUN Creatinine Estimated GFR BUN/Creatinine Ratio Glucose Calcium Magnesium 2.2 Total Bilirubin AST ALT Alkaline Phosphatase Total Protein Albumin Globulin Albumin/Globulin Ratio Nasal Screen MRSA (PCR) Exam Vital Signs (past 8 hours): - 07/05/21 02:00 07/05/21 02:42 07/05/21 03:00 Temperature Pulse Rate 94 H 81 Respiratory Rate 21 19 Blood Pressure 103/66 101/55 L Pulse Oximetry 97 97 97 07/05/21 04:00 07/05/21 05:00 07/05/21 06:00 Temperature 99.4 F Pulse Rate 76 80 73 Respiratory Rate 17 25 H 18 Blood Pressure 115/63 103/53 L 99/55 L Pulse Oximetry 98 99 98 07/05/21 07:06 07/05/21 07:28 07/05/21 08:00 Temperature Pulse Rate 70 72 Respiratory Rate 20 20 Blood Pressure 108/51 L 96/54 L Pulse Oximetry 98 97 98 07/05/21 09:00 Temperature 98.8 F Pulse Rate 70 Respiratory Rate 22 Blood Pressure 102/59 L Pulse Oximetry 98 Fraction of Inspired Oxygen 0.35 Oxygen Delivery Method Mechanical Ventilation Oxygen Flow Rate 35 Quality TeleICU VTE Deep Vein Thrombosis/Pulmonary Embolism Present on Admission: No Assessment & Plan Assessment & Plan narrative: patient seen examined with bedside nurse and provider chart/labs/imaging reviewed intubated sedated afebrile, HD stable abdomen soft grew staph in sputum cxs plan -pain control/sedation, goal lou -1 -plan for SAH/SBT today -secretiosn minimal today -neurochecks/seizure precautions -wean off of vent support,settings minmal -cxr/abg adjust vent prn -chest pt/pulm toilet -check final cxs,prelim showing staph, started on vanco, can dc unasyn -CT c/a/p revieved, may have sbo, sheri castaneda called, for now npo/ngt -dc librium -cont thiamine/folate -gi/dvt ppx in place -monitor ins/outs -keep glucose 140-180s -please call eICU prn Time Spent With Patient Critical Care time: I spent a total of [] minutes of critical care time on this patient's care today; this time is exclusive of procedural time.
[2021-07-05] MEDS: VANCOMYCIN 1,000 MG/200 ML PIGGYBACK 200 MG IV ×2 (10:10→17:50)
[2021-07-05] MEDS: POTASSIUM CHLORIDE IN WATER 10 MEQ/100 ML PIGGYBACK 100 MEQ IV ×4 (10:12→13:25)
[2021-07-05] MEDS: dexmedeTOMIDine in 0.9 % NaCL 400 MCG/100 ML PLAST..BAG 13.608 MCG IV (12:20)
--- NOTE | 2021-07-05 12:30 | DIET.PN1 ---
Addendum entered by Jaclyn Ceballos 07/05/21 13:45: Initiating trickle feed: Pivot 1.5 10mL/h c fluids supplied via IVF at this time. Will revisit TF advancement tomorrow, 07/06 if tolerating trophic feed. Trophic feed (240mL formula) over 24h provides: 355kcals, 22g PRO, 40.9g CHO, 178mL free water. Original Note: Dietary Progress Note Assessment: Pt re-intubated over weekend. Starting July 01, pt began having gastric residuals >200cc leading TF to be paused then pt made NPO without nutrition support starting Monday with findings of ileus leading to NG to suction. As of MondayJuly 05, pt with persistent ileus after KUB and imaging. Pt to start sedation vacation with feeding plan to start trickle feed at that time or resume TF as pt's NG has been clamped overnight with good results. Pts BGs WNL (BG <180) over weekend. Ht: 170.18 cm Wt: 106.5 kg BMI: 37.5 UBW: 110kg Last BM: 07/03/21 (07/03/21 17:11) MNA: 13 Tiburcio Score: 13 Diet: 06/24/21 15:20 NPO Diet Diet Modifications: NPO Type: Strict Nutrition Percent Meal Consumed NPO 07/03/21 14:00 Labs: RBC 3.27 X10^6/uL (4.5-5.9) L 07/05/21 02:05 Hgb 10.7 g/dL (13.5-17.5) L 07/05/21 02:05 Hct 31.9 % (41-53) L 07/05/21 02:05 Creatinine 0.72 mg/dL (0.66-1.25) 07/05/21 02:05 Lactate 1.6 mmol/L (0.7-2.1) 07/04/21 02:30 NT-Pro-B Natriuret Pep 603 pg/mL (<125) H 07/04/21 02:30 Interventions: 1. Recc starting TF as trickle feed (10mL/h) to test for tolerance once deemed safe for nutrition support with sx resolving ileus. Monitoring/Evaluations: following daily Electronically Signed by: Jaclyn Ceballos 07/05/21 12:30 Clinical Dietitian [address] [address]
--- NOTE | 2021-07-05 13:38 | P.PN_ITS ---
Subjective Subjective Date Patient Seen: 07/05/21 Time Patient Seen: 13:38 Interval history: 70 male admitted with DTs, prolonged difficulty with agitation and weaning from sedation. Course has been complicated by likely MRSA pnuemonia requiring reintubation, ileus, and pressure ulcer. Patient is unable to participate in subjective exam today. Exam Vital Signs (past 8 hours): - 07/05/21 06:00 07/05/21 07:06 07/05/21 07:28 Temperature Pulse Rate 73 70 Respiratory Rate 18 20 Blood Pressure 99/55 L 108/51 L Pulse Oximetry 98 98 97 07/05/21 08:00 07/05/21 09:00 07/05/21 10:00 Temperature 98.8 F Pulse Rate 72 70 66 Respiratory Rate 20 22 20 Blood Pressure 96/54 L 102/59 L 114/55 L Pulse Oximetry 98 98 98 07/05/21 11:00 07/05/21 12:20 Temperature 98.1 F Pulse Rate 72 Respiratory Rate 24 Blood Pressure 105/54 L Pulse Oximetry 97 95 Fraction of Inspired Oxygen 0.35 Oxygen Delivery Method Mechanical Ventilation Oxygen Flow Rate 35 Narrative Exam Narrative: General:?ill appearing elderly male, intubated and sedated. When sedation weaned he is following commands. HEENT:? Normocephalic, atraumatic, mucous membranes are dry. NG Tube in place. Neck: supple and symmetric, trachea is midline, no cervical adenopathy. Negative for JVD Chest:? Normal AP diameter and contour without kyphoscoliosis, no tachypnea, equal chest rise bilaterally. Lungs:? diffuse rhonchi improving today, no wheezing. Cardio: RRR, no m/r/g. Abdomen: mildly distended but soft, unable to assess tenderness. Extremities: 1+ pedal edema, no joint effusions. No cyanosis or clubbing. Skin:? Pale,? Warm to touch,dry and intact without rashes, ulcerations or petechiae.? Neuro: sedated, when weaned from sedation followed commands and opened eyes. Objective Labs Result Diagrams: 07/05/21 02:05 07/05/21 02:05 Labs: Laboratory Results - last 24 hr 07/04/21 07/05/21 07/05/21 22:45 02:05 02:05 WBC 18.1 H RBC 3.27 L Hgb 10.7 L Hct 31.9 L MCV 97.5 MCH 32.7 MCHC 33.6 RDW 13.5 Plt Count 474 H Neut % (Auto) 75.0 Lymph % (Auto) 14.8 L [place] % (Auto) 9.0 Eos % (Auto) 0.5 L Baso % (Auto) 0.7 Neut # (Auto) 72187 H Lymph # (Auto) 2700 [place] # (Auto) 1600 H Eos # (Auto) 100 Baso # (Auto) 100 ABG pH ABG pCO2 ABG pO2 ABG HCO3 ABG Total CO2 ABG O2 Saturation ABG Base Excess FiO2 Sodium 136 L Potassium 3.3 L D Chloride 107 Carbon Dioxide 21 L BUN 11 Creatinine 0.72 Estimated GFR > 60 BUN/Creatinine Ratio 15.3 Glucose 125 H Calcium 7.6 L Magnesium Total Bilirubin 0.6 AST 41 ALT 33 Alkaline Phosphatase 62 Total Protein 5.5 L Albumin 2.5 L Globulin 3.0 Albumin/Globulin Ratio 0.8 L Nasal Screen MRSA (PCR) Positive for mrsa H 07/05/21 07/05/21 02:05 02:20 WBC RBC Hgb Hct MCV MCH MCHC RDW Plt Count Neut % (Auto) Lymph % (Auto) [place] % (Auto) Eos % (Auto) Baso % (Auto) Neut # (Auto) Lymph # (Auto) [place] # (Auto) Eos # (Auto) Baso # (Auto) ABG pH 7.55 H ABG pCO2 25.0 L ABG pO2 65 L ABG HCO3 22 ABG Total CO2 23 ABG O2 Saturation 95 ABG Base Excess 0.0 FiO2 35 Sodium Potassium Chloride Carbon Dioxide BUN Creatinine Estimated GFR BUN/Creatinine Ratio Glucose Calcium Magnesium 2.2 Total Bilirubin AST ALT Alkaline Phosphatase Total Protein Albumin Globulin Albumin/Globulin Ratio Nasal Screen MRSA (PCR) [facility] Social History household members: spouse Smoking Status: Former smoker alcohol intake: current Assessment & Plan Assessment & Plan narrative: 1. Acute metabolic encephalopathy - Likely multifactorial - Patient initially presented with alcohol withdrawal syndrome and DTs yet He remains encephalopathic despite many days of inpatient treatment. Head CT was negative. Some improvement with adjustments in withdrawal medications and may be related to profound amounts of medications. - will further delay assessment given re-intubation. ?- changed propofol to precedex, fentanyl if needed for sedation ?- depending on whether or not there is continued improvement after extubation, consider MRI. Held today given improvement and lack of focal neurological deficits. 2. Probable aspiration pneumonia with acute respiratory failure and septic shock. -? previously completed 7 day course of antibiotics. Probable reaspiration evening of 07/03 with respiratory failure and intubation. ?- today is day 2 of planned unasyn. Sputum cultures sent with staph aureus. Vanco added today. If cultures MRSA discontinue unasyn. ?- general surgery unable to do bronchoscopy at [facility], attempted today but endoscopy was broken. ?- keep ventilator today. Became slightly tachypnic and was placed on levophed yesterday afternoon which was just weaned from this afternoon. Reassess for breathing trial tomorrow AM. - ileus likely contributed to development of pneumonia and respiratory failure. 3. Alcoholic hepatitis ?- LFTs improved 4. Duodenitis - Continue PPI 5. Hypothyroidism ?-Continue IV L-thyroxine 8. Sacral decubitus ulcer HSV cultures negative acyclovir Discontinued Continue wound care - frequent turning - continue to replace dry gauze under dressings with turning per surgery recommendations. 9. Ileus, ?- possible secondary to medication use. Can restart trickle feeds today as minimal output and minimal distension with NG clamped. I spent 50 minutes providing critical care management this patient.? This excludes time spent in performing separately billed procedures. Nutrition tube feeding stopped for ileus. remains on IVF. Consider restarting tube feedings tomorrow Time Spent With Patient Critical Care time: I spent a total of [] minutes of critical care time on this patient's care today; this time is exclusive of procedural time. Quality VTE Deep Vein Thrombosis/Pulmonary Embolism Present on Admission: No
--- NOTE | 2021-07-05 18:16 | PC.NURSE ---
Day Shift Note Pt intubated and sedated on AM assessment. Fentanyl gtt off for sedation vacation at 0918, precedex left at 0.5 mcg/kg/hr. Pt opening eyes and following commands, CPAP trial done at 1220 and placed back on vent at 1250. SPo2 remained greater than 96%, RR in the 30s, and pulled good volumes. Reviewed the above with Dr. Cruz and Dr. Reyna, decision made to given pt another day on the vent and to attempt CPAP trial and possible extubation tomorrow. Fentanyl gtt restarted due to pt restlessness, HTN, and tachycardia. Levophed off 1206 and restarted at 1733 for MAP of 60-62. Arterial line in place and functioning to right wrist. Forman catheter in place and draining clear yellow urine. Dr. Chan in to assess pressue injury to buttocks, recommended dry gauze to site, replacing with turns to assist in debriding wound. Tube feeds started at 10 ml/hr at 1430 via NG tube, pt tolerating well at this time.
[2021-07-05] MEDS: ACETAMINOPHEN 325 MG TABLET 650 MG PO (19:47)
[2021-07-05] MEDS: dexmedeTOMIDine in 0.9 % NaCL 400 MCG/100 ML PLAST..BAG 32.659 MCG IV ×2 (20:38→23:36)
--- NOTE | 2021-07-05 20:39 | PM.ICURNDS ---
- :: This patient was seen via real time interactive two-way audiovisual telecommunication. patient remains sedated on MV , currently on fentanyl and precedex. Started on levophed for low bp, possible due to sdedation. Instructed staff to holkd sedation and TF in am for SBT. continue LTVV, maintain map > 65, will f/u labs and abg
[2021-07-06] VITALS (47 sets, daily range): BP systolic 96–157; BP diastolic 52–72; PULSE 62–103; RESP 18–40; TEMP 36.2–37.7; O2SAT 89–99; BMI 36.8
--- NOTE | 2021-07-06 | DI.RAD.S_ITS ---
PROCEDURE: XR GASTROGRAFIN CHALLENGE COMPARISON: [facility], CR, XR ABDOMEN 1V, 07/06/2021, 11:57. [facility], CR, XR CHEST 1V, 07/07/2021, 9:51. INDICATIONS: sbo vs ileus. Gastrografin via NGT then clamp FINDINGS: Water-soluble contrast identified and multiple dilated loops of small bowel. Loops of small bowel are dilated up to 5.4 centimeters. No definite contrast material identified in the colon. NG tube crosses the GE junction. L4-S1 fixation hardware. Cholecystectomy clips. IMPRESSION: Multiple dilated loops of small bowel without definite contrast identified in the colon favoring small bowel to dilatation related to obstruction. Recommend additional serial plain film radiographs of the abdomen to completely differentiate ileus or small-bowel obstruction. Dictated by: Nevaeh Moya MD, PhD on 07/07/2021 at 10:26 Approved by: Nevaeh Moya MD, PhD on 07/07/2021 at 10:29
[2021-07-06] MEDS: VANCOMYCIN 1,000 MG/200 ML PIGGYBACK 200 MG IV ×3 (01:34→17:15)
[2021-07-06] MEDS: dexmedeTOMIDine in 0.9 % NaCL 400 MCG/100 ML PLAST..BAG 32.659 MCG IV (02:10)
[2021-07-06] MEDS: AMPICILLIN/SULBACTAM 3 GM 3 GM in SODIUM CHLORIDE 0.9% 100 ML IV (02:37)
[2021-07-06] MEDS: LACTATED RINGERS 1,000 ML 125 ML IV ×3 (03:36→23:23)
[2021-07-06] MEDS: ALBUTEROL 2.5 MG/3 ML NEB (ADULT) INH ×5 (04:16→19:19)
[2021-07-06] MEDS: dexmedeTOMIDine in 0.9 % NaCL 400 MCG/100 ML PLAST..BAG 27.216 MCG IV ×4 (04:48→21:17)
[2021-07-06 04:51] LABS: Hematocrit 33.1 % (41-53); Hemoglobin 11.1 g/dL (13.5-17.5); Mean Corpuscular HGB Conc 33.6 % (30-36); Mean Corpuscular Hemoglobin 32.9 PG (26-34); Platelet Count 458 X10^3/uL (150-400); Red Blood Cell Count 3.38 X10^6/uL (4.5-5.9); Red Cell Distribution Width 13.5 % (11.6-14.8); White Blood Cell Count 15.9 X10^3/uL (4.5-11.0)
[2021-07-06 04:52] LABS: Add Manual Diff / Slide Review YES
[2021-07-06 05:10] LABS: Alanine Aminotransferase 34 IU/L (<50); Albumin 2.4 g/dL (3.5-5.0); Albumin Globulin Ratio 0.8 (1.0-2.8); Alkaline Phosphatase 68 U/L (38-126); Aspartate Aminotransferase 58 IU/L (17-59); BUN Creatinine Ratio 13.3 (6-22); Bilirubin Total 0.5 mg/dL (0.2-1.3); Blood Urea Nitrogen 8 mg/dL (9-20); Calcium 7.4 mg/dL (8.4-10.2); Carbon Dioxide 22 mmol/L (22-32); Chloride 110 mmol/L (98-107); Estimated Glomerular Filt Rate > 60 mL/min (>60); Glucose 120 mg/dL (80-110); HEMOLYSIS < 15 (0-50); Potassium 3.4 mmol/L (3.4-5.1); Sodium 138 mmol/L (137-145); Total Protein 5.4 g/dL (6.3-8.2)
--- NOTE | 2021-07-06 05:14 | PC.NURSE ---
Shift Note: Patient remains sedated and intubated to vent with FIO2 35%, TV 470, RR 16, Peep 5, maintaining O2 sat >95%, patient remains sedated with precedex and fentanyl maintaining RASS -1, arousable to voice and follows commands. Suctioned secretion prn orally and thru ET with small clear secretions. VSS. Feeding maintained at 10mls/hr, no gastric residual aspirated. Lungs are clear to diminished at the base bilaterally. Hypoactive bowel sounds. Midline IV access at left upper arm, dressing clean, dry and intact, IV fluids maintained at 125mls/hr. A-line at right radial still positional with sluggish blood return, dressing clean, dry and intact. Forman cath in placed with adequate clear yellow output. No bowel movement noted. Pressure ulcer at the sacral area dressed with dry gauze. Turned patient every 2hrs. Bilateral upper extremity soft restraints maintained, notified Dr. Merida to renew orders. Safety precautions maintained throughout the shift. Will continue to monitor.
[2021-07-06] MEDS: CHLORHEXIDINE GLUCONATE 15 ML CUP PO ×4 (05:38→23:49)
[2021-07-06 06:29] LABS: Neutrophils Absolute Manual 12720 /uL (3000-5900); Total Cells Counted 100
[2021-07-06 06:30] LABS: RBC Morphology Normal Morphology
[2021-07-06 06:42] LABS: HCO3 ABG 19 mmol/L (22-26); PCO2 ABG 23.9 mmHg (35-45); PO2 ABG 73 mmHg (80-100); pH ABG 7.51 (7.35-7.45)
[2021-07-06 06:43] LABS: Fractionated Inspired Oxygen 35; Oxygen Saturation ABG 96 % (95-100); TCO2 ABG 20 mmol/L (21-31)
[2021-07-06] MEDS: ENOXAPARIN 40 MG/0.4 ML SYRINGE SUBCUT (08:44)
[2021-07-06] MEDS: PANTOPRAZOLE 40 MG VIAL IV (08:44)
[2021-07-06] MEDS: SODIUM CHLORIDE 0.9% FLUSH 10 ML IV (08:44)
--- NOTE | 2021-07-06 09:42 | PM.PN.EICU ---
Subjective Subjective :: This patient was seen via real time interactive two-way audiovisual telecommunication. no acute events overnight Current Medications Current Medications Medications: Home Medications levothyroxine 75 mcg tablet 75 mcg PO QAM 06/21/21 [History Confirmed 06/21/21] simvastatin 40 mg tablet 40 mg PO BEDTIME 06/21/21 [History Confirmed 06/21/21] Visit Medications (administered) Generic Name Dose Route Start Last Admin Trade Name Freq PRN Reason Stop Dose Admin Acetaminophen 650 mg 07/05/21 00:39 07/05/21 19:47 Acetaminophen 325 Mg Tablet PO 650 mg Q4HR PRN Administration Fever/Mild Pain (1-3) Acetaminophen 650 mg 07/05/21 00:40 07/05/21 01:19 Acetaminophen 650 Mg Supp VT 650 mg Q4HR PRN Administration Fever/Mild Pain (1-3) Albuterol 2.5 mg 07/04/21 03:00 07/06/21 07:21 Albuterol 2.5 Mg/3 Ml Neb (Adult) INH 2.5 mg RTQ4HR EN Administration Chlorhexidine Gluconate 15 ml 07/04/21 06:00 07/06/21 05:38 Chlorhexidine Gluconate 15 Ml Cup PO 15 ml Q6HR EN Administration Enoxaparin Sodium 40 mg 06/23/21 09:00 07/06/21 08:44 Enoxaparin 40 Mg/0.4 Ml Syringe SUBCUT 40 mg DAILY EN Administration Folic Acid 1 mg 06/30/21 09:00 07/06/21 09:41 Folic Acid 1 Mg Tablet PO Not Given DAILY EN Hydralazine HCl 10 mg 06/29/21 11:11 07/03/21 16:26 Hydralazine 20 Mg/Ml Vial IV 10 mg Q6HR PRN Administration Hypertension dexmedeTOMIDine in 0.9 % NaCL 400 mcg in 100 mls @ 5.443 mls/hr 06/29/21 23:00 07/06/21 09:40 Precedex IV 0.3 mcg/kg/hr TITRATE EN 8.165 mls/hr Titration Protocol 0.2 MCG/KG/HR Fentanyl 1,000 mcg/ Dextrose 250 mls @ 19.093 mls/hr 07/04/21 01:45 07/06/21 08:07 IV 0 mcg/kg/hr TITRATE EN 0 mls/hr Titration Protocol 0.7 MCG/KG/HR Propofol 1,000 mg in 100 mls @ 3.273 mls/hr 07/04/21 01:45 07/04/21 09:59 Propofol IV 0 mcg/kg/min TITRATE EN 0 mls/hr Titration Protocol 5 MCG/KG/MIN NOREPINEPHRINE BITARTRATE/D5W 4 mg in 250 mls @ 30 mls/hr 07/04/21 12:58 07/06/21 07:33 Levophed IV 0.5 mcg/min TITRATE EN 1.875 mls/hr Titration Protocol 8 MCG/MIN Lactated Ringer's 1,000 mls @ 125 mls/hr 07/05/21 16:15 07/06/21 03:36 Lactated Ringers IV 125 mls/hr CONT EN Administration Vancomycin HCl 1,000 mg in 200 mls @ 200 mls/hr 07/05/21 10:00 07/06/21 09:08 Vancomycin IV 200 mls/hr Q8H EN Administration Insulin Human Lispro 0 unit 07/05/21 12:00 07/06/21 06:10 Insulin Lispro 100 Unit/Ml 3ml Vial SUBCUT Not Given 0600,1200,1800,0000 EN Protocol Labetalol HCl 10 mg 06/29/21 09:42 07/03/21 16:26 Labetalol 20 Mg/4 Ml Syringe IV 10 mg Q4HR PRN Administration Heart Rate- High Lorazepam 0 mg 06/21/21 21:53 06/30/21 08:13 Lorazepam 2 Mg/Ml Inj IV 2 mg CIWAPRN PRN Administration Alcohol Withdrawal Protocol Pantoprazole Sodium 40 mg 06/30/21 09:00 07/06/21 08:44 Pantoprazole 40 Mg Vial IV 40 mg DAILY EN Administration Sodium Chloride 10 ml 06/28/21 09:00 07/06/21 08:44 Sodium Chloride 0.9% Flush IV 10 ml BID EN Administration Objective Ventilator Parameters: Ventilator Settings FiO2 28 RT Vent Frequency 16 Ventilator Tidal Volume 470 Exhaled Vt/kg IBW 6.5 Positive End Expiratory 5 Pressure Ventilator Pressure Support 0 Inspiratory Phase Time 0.85 I:E Ratio 1:2 Patient Position HOB >= 30 degrees Labs Result Diagrams: 07/06/21 04:30 07/06/21 04:30 Labs: Laboratory Results - last 24 hr 07/06/21 07/06/21 07/06/21 04:30 04:30 06:04 WBC 15.9 H RBC 3.38 L Hgb 11.1 L Hct 33.1 L MCV 98.0 MCH 32.9 MCHC 33.6 RDW 13.5 Plt Count 458 H Neut % (Auto) Not Reportable Lymph % (Auto) Not Reportable [place] % (Auto) Not Reportable Eos % (Auto) Not Reportable Baso % (Auto) Not Reportable Lymph # (Auto) Not Reportable [place] # (Auto) Not Reportable Baso # (Auto) Not Reportable Total Counted 100 Seg Neutrophils % 73.0 H Band Neutrophils % 7.0 Lymphocytes % (Manual) 13.0 L Monocytes % (Manual) 4.0 Eosinophils % (Manual) 1.0 L Basophils % (Manual) 2.0 H Neutrophils # (Manual) 76123 H RBC Morphology Normal morphology ABG pH 7.51 H ABG pCO2 23.9 L* ABG pO2 73 L ABG HCO3 19 L ABG Total CO2 20 L ABG O2 Saturation 96 ABG Base Excess -4.0 L FiO2 35 Sodium 138 Potassium 3.4 Chloride 110 H Carbon Dioxide 22 BUN 8 L Creatinine 0.60 L Estimated GFR > 60 BUN/Creatinine Ratio 13.3 Glucose 120 H Calcium 7.4 L Total Bilirubin 0.5 AST 58 ALT 34 Alkaline Phosphatase 68 Total Protein 5.4 L Albumin 2.4 L Globulin 3.0 Albumin/Globulin Ratio 0.8 L Exam Vital Signs (past 8 hours): - 07/06/21 02:00 07/06/21 03:00 07/06/21 04:00 Temperature 98.0 F 97.4 F L Pulse Rate 70 63 62 Respiratory Rate 21 18 21 Blood Pressure 119/67 110/64 116/61 Pulse Oximetry 99 99 99 07/06/21 05:00 07/06/21 06:00 07/06/21 07:00 Temperature 97.2 F L Pulse Rate 70 66 64 Respiratory Rate 20 23 21 Blood Pressure 96/52 L 106/66 101/59 L Pulse Oximetry 98 96 99 07/06/21 07:30 07/06/21 08:00 07/06/21 08:30 Temperature 97.7 F Pulse Rate 71 86 92 H Respiratory Rate 29 H 31 H 33 H Blood Pressure 127/68 117/64 124/69 Pulse Oximetry 97 94 93 07/06/21 09:00 Temperature Pulse Rate 90 Respiratory Rate 30 H Blood Pressure 121/62 Pulse Oximetry 94 Fraction of Inspired Oxygen 0.35 Oxygen Delivery Method CPAP,Mechanical Ventilation Oxygen Flow Rate 35 Quality TeleICU VTE Deep Vein Thrombosis/Pulmonary Embolism Present on Admission: No Assessment & Plan Assessment & Plan narrative: patient seen examined with bedside nurse and provider chart/labs/imaging reviewed reamins intubated sedated ?afebrile, HD stable off pressors plan -pain control/sedation, goal lou -1 -plan for SAH/SBT today -minimal secretions, tolerated sbt however now tachypneci -neurochecks/seizure precautions -unlikley to to tolerated extubation today -cxr/abg adjust vent prn -chest pt/pulm toilet -grew staph in sputum, sensitives still pending -surgery to follow, sbo vs ileus, still with high ngt output -continue ivf -cont thiamine/folate -gi/dvt ppx in place -monitor ins/outs -keep glucose 140-180s -please call eICU prn Time Spent With Patient Critical Care time: I spent a total of [] minutes of critical care time on this patient's care today; this time is exclusive of procedural time.
--- NOTE | 2021-07-06 11:17 | PM.PN.1 ---
Subjective Subjective Date Patient Seen: 07/06/21 Interval history: 70 male admitted with DTs, prolonged difficulty with agitation and weaning from sedation. Course has been complicated by likely MRSA pnuemonia requiring reintubation, ileus, and pressure ulcer. Patient is unable to participate in subjective exam today. Overnight trickle feedings restarted, this AM had >600 cc output despite only 250 cc of tube feedings given. NG tube placed back to low intermittent suction. Exam Vital Signs (past 8 hours): - 07/06/21 04:00 07/06/21 05:00 07/06/21 06:00 Temperature 97.4 F L 97.2 F L Pulse Rate 62 70 66 Respiratory Rate 21 20 23 Blood Pressure 116/61 96/52 L 106/66 Pulse Oximetry 99 98 96 07/06/21 07:00 07/06/21 07:30 07/06/21 08:00 Temperature 97.7 F Pulse Rate 64 71 86 Respiratory Rate 21 29 H 31 H Blood Pressure 101/59 L 127/68 117/64 Pulse Oximetry 99 97 94 07/06/21 08:30 07/06/21 09:00 07/06/21 09:30 Temperature Pulse Rate 92 H 90 88 Respiratory Rate 33 H 30 H 33 H Blood Pressure 124/69 121/62 118/55 L Pulse Oximetry 93 94 95 07/06/21 10:00 07/06/21 10:01 Temperature Pulse Rate 96 H 97 H Respiratory Rate 39 H 38 H Blood Pressure 157/70 H Pulse Oximetry 95 95 Fraction of Inspired Oxygen 0.35 Oxygen Delivery Method CPAP,Mechanical Ventilation Oxygen Flow Rate 35 Narrative Exam Narrative: General:?ill appearing elderly male, intubated and sedated. When sedation weaned he is following commands. HEENT:? Normocephalic, atraumatic, mucous membranes are dry. NG Tube in place. Neck: supple and symmetric, trachea is midline, no cervical adenopathy. Negative for JVD Chest:? Normal AP diameter and contour without kyphoscoliosis, no tachypnea, equal chest rise bilaterally. Lungs:? diffuse rhonchi improving today, no wheezing. Cardio: RRR, no m/r/g. Abdomen: mildly distended but soft, unable to assess tenderness. Extremities: 1+ pedal edema, no joint effusions. No cyanosis or clubbing. Skin:? Pale,? Warm to touch,dry and intact without rashes, ulcerations or petechiae.? Neuro: sedated, when weaned from sedation followed commands and opened eyes. Objective Labs Result Diagrams: 07/06/21 04:30 07/06/21 04:30 Labs: Laboratory Results - last 24 hr 07/06/21 07/06/21 07/06/21 04:30 04:30 06:04 WBC 15.9 H RBC 3.38 L Hgb 11.1 L Hct 33.1 L MCV 98.0 MCH 32.9 MCHC 33.6 RDW 13.5 Plt Count 458 H Neut % (Auto) Not Reportable Lymph % (Auto) Not Reportable [place] % (Auto) Not Reportable Eos % (Auto) Not Reportable Baso % (Auto) Not Reportable Lymph # (Auto) Not Reportable [place] # (Auto) Not Reportable Baso # (Auto) Not Reportable Total Counted 100 Seg Neutrophils % 73.0 H Band Neutrophils % 7.0 Lymphocytes % (Manual) 13.0 L Monocytes % (Manual) 4.0 Eosinophils % (Manual) 1.0 L Basophils % (Manual) 2.0 H Neutrophils # (Manual) 13857 H RBC Morphology Normal morphology ABG pH 7.51 H ABG pCO2 23.9 L* ABG pO2 73 L ABG HCO3 19 L ABG Total CO2 20 L ABG O2 Saturation 96 ABG Base Excess -4.0 L FiO2 35 Sodium 138 Potassium 3.4 Chloride 110 H Carbon Dioxide 22 BUN 8 L Creatinine 0.60 L Estimated GFR > 60 BUN/Creatinine Ratio 13.3 Glucose 120 H Calcium 7.4 L Total Bilirubin 0.5 AST 58 ALT 34 Alkaline Phosphatase 68 Total Protein 5.4 L Albumin 2.4 L Globulin 3.0 Albumin/Globulin Ratio 0.8 L [facility] Social History household members: spouse Smoking Status: Former smoker alcohol intake: current Assessment & Plan Assessment & Plan narrative: 1. Acute metabolic encephalopathy - Likely multifactorial - Patient initially presented with alcohol withdrawal syndrome and DTs yet He remained encephalopathic despite many days of inpatient treatment. Head CT was negative. Some improvement with adjustments in withdrawal medications and may be related to profound amounts of medications. - will further delay assessment given re-intubation. ?- changed propofol to precedex, fentanyl if needed for sedation ?- depending on whether or not there is continued improvement after extubation, consider MRI. Held today given improvement and lack of focal neurological deficits. 2. Probable aspiration pneumonia with acute respiratory failure and septic shock. -? previously completed 7 day course of antibiotics previously. Probable reaspiration in setting of ileus / obstruction evening of 07/03 with respiratory failure and intubation. ?- Sputum cultures sent with staph aureus. Vanco added 07/05. Discontinued unasyn given cultures after 3 days of therapy. ?- general surgery unable to do bronchoscopy at [facility], attempted 07/04 but endoscopy was broken. ?- keep ventilator today given ileus, borderline hypotension on intermittent levophed over the past 24 hours. Reassess for breathing trial tomorrow AM. ?- ileus likely contributed to development of pneumonia and respiratory failure. 3. Alcoholic hepatitis ?- LFTs improved 4. Duodenitis - Continue PPI 5. Hypothyroidism ?-Continue IV L-thyroxine 8. Sacral decubitus ulcer HSV cultures negative acyclovir Discontinued Continue wound care ?- frequent turning ?- continue to replace dry gauze under dressings with turning per surgery recommendations. 9. Ileus, ?- possible secondary to medication use. Transition point noted on CT. NG clamped but then trickle feeds restarted and again with distension and >600 cc output despite 250 cc of tube feedings intake. - general surgery to weigh in today to see if any surgical management. I spent 35 minutes providing critical care management this patient.? This excludes time spent in performing separately billed procedures. Time Spent With Patient Critical Care time: I spent a total of [] minutes of critical care time on this patient's care today; this time is exclusive of procedural time. Quality VTE Deep Vein Thrombosis/Pulmonary Embolism Present on Admission: No
[2021-07-06] MEDS: dexmedeTOMIDine in 0.9 % NaCL 400 MCG/100 ML PLAST..BAG 38.102 MCG IV (11:26)
[2021-07-06] MEDS: ALTEPLASE 2 MG/2 ML VIAL IV (11:28)
--- NOTE | 2021-07-06 11:39 | DI.RAD.S_ITS ---
PROCEDURE: XR ABDOMEN 1V INDICATIONS: Follow-up of small-bowel obstruction TECHNIQUE: One view of the abdomen acquired. COMPARISON: [facility], CR, XR ABDOMEN 1V, 07/02/2021, 2:42. [facility], CT, CT CHEST ABD PEL W CON, 07/04/2021, 14:11. FINDINGS: Surgical changes and devices: Lumbosacral fixation hardware is seen. Cholecystectomy clips are seen. The tip of the gastric tube can be seen overlying the proximal stomach. Bowel: Abnormally dilated gas-filled loops of small bowel are seen that measure to 0.5 cm. On this supine study, air-fluid levels are not assessed. Soft tissues: No suspicious abdominal calcifications. Visualized solid organ contours appear normal in size. Bones: No suspicious bony lesions. Age-appropriate bony degenerative changes are seen. IMPRESSION: Abnormally dilated loops of small bowel are again seen, which are consistent with continued small-bowel obstruction. The tip of the gastric tube can be seen overlying the proximal stomach. Postoperative and degenerative changes are seen. Dictated by: Prakash Archer M.D. on 07/06/2021 at 11:22 Approved by: Prakash Archer M.D. on 07/06/2021 at 11:23
[2021-07-06] MEDS: fentaNYL 1,000 MCG in DEXTROSE 5% IN WATER 230 ML 13.638 ML IV (13:43)
[2021-07-06] MEDS: POTASSIUM CHLORIDE IN WATER 10 MEQ/100 ML PIGGYBACK 100 MEQ IV (13:44)
--- NOTE | 2021-07-06 16:54 | P.CONS_ITS ---
History of Present Illness Consult details Date Patient Seen: 07/06/21 Time Patient Seen: 16:54 Chief complaint: ETOH- can't swallow, double vision-sent [place] adam Narrative: 70 y.o man in ICU on ventilator for PNA with ileus vs SBO. Admitted for alcohol withdrawl had an aspiration event with subsequent PNA. CT A/P 07/04 demonstrated ileus vs SBO. He is not tolerating tube feeds has high residuals. Per staff does have some liquid stool. Meds Home Medications and Allergies Home Medications Medication Instructions Recorded Confirmed Type levothyroxine 75 mcg tablet 75 mcg PO QAM 06/21/21 06/21/21 History simvastatin 40 mg tablet 40 mg PO BEDTIME 06/21/21 06/21/21 History Allergies Allergy/AdvReac Type Severity Reaction Status Date / Time oxycodone AdvReac Unknown Verified 06/21/21 11:20 Exam Vital Signs (past 8 hours): - 07/06/21 09:00 07/06/21 09:30 07/06/21 10:00 Pulse Rate 90 88 96 H Respiratory Rate 30 H 33 H 39 H Blood Pressure 121/62 118/55 L Pulse Oximetry 94 95 95 07/06/21 10:01 07/06/21 10:30 07/06/21 11:00 Pulse Rate 97 H 87 97 H Respiratory Rate 38 H 35 H 39 H Blood Pressure 157/70 H 134/63 134/67 Pulse Oximetry 95 97 95 07/06/21 11:30 07/06/21 12:00 07/06/21 12:30 Pulse Rate 103 H 96 H 80 Respiratory Rate 40 H 26 H 22 Blood Pressure 133/63 117/59 L 97/53 L Pulse Oximetry 95 95 95 07/06/21 12:40 07/06/21 13:00 07/06/21 13:30 Pulse Rate 76 72 69 Respiratory Rate 22 20 21 Blood Pressure 97/56 L 100/58 L 100/58 L Pulse Oximetry 95 96 96 07/06/21 14:00 07/06/21 14:28 07/06/21 14:30 Pulse Rate 69 69 Respiratory Rate 21 22 Blood Pressure 97/53 L 122/65 Pulse Oximetry 97 96 98 07/06/21 14:43 07/06/21 15:00 07/06/21 15:30 Pulse Rate 79 83 Respiratory Rate 26 H 25 H Blood Pressure 107/55 L 116/66 Pulse Oximetry 97 94 95 07/06/21 16:00 Pulse Rate 80 Respiratory Rate 25 H Blood Pressure 111/55 L Pulse Oximetry 95 Fraction of Inspired Oxygen 28 Oxygen Delivery Method Mechanical Ventilation Oxygen Flow Rate 35 Narrative Exam Narrative: General-[facility]lderly [facility] Ab[facility]en--Distended obese no peritonitis. Ext-WWP Objective Labs Result Diagrams: 07/06/21 04:30 07/06/21 04:30 Labs: Laboratory Results - last 24 hr 07/06/21 07/06/21 07/06/21 04:30 04:30 06:04 WBC 15.9 H RBC 3.38 L Hgb 11.1 L Hct 33.1 L MCV 98.0 MCH 32.9 MCHC 33.6 RDW 13.5 Plt Count 458 H Neut % (Auto) Not Reportable Lymph % (Auto) Not Reportable [place] % (Auto) Not Reportable Eos % (Auto) Not Reportable Baso % (Auto) Not Reportable Lymph # (Auto) Not Reportable [place] # (Auto) Not Reportable Baso # (Auto) Not Reportable Total Counted 100 Seg Neutrophils % 73.0 H Band Neutrophils % 7.0 Lymphocytes % (Manual) 13.0 L Monocytes % (Manual) 4.0 Eosinophils % (Manual) 1.0 L Basophils % (Manual) 2.0 H Neutrophils # (Manual) 05641 H RBC Morphology Normal morphology ABG pH 7.51 H ABG pCO2 23.9 L* ABG pO2 73 L ABG HCO3 19 L ABG Total CO2 20 L ABG O2 Saturation 96 ABG Base Excess -4.0 L FiO2 35 Sodium 138 Potassium 3.4 Chloride 110 H Carbon Dioxide 22 BUN 8 L Creatinine 0.60 L Estimated GFR > 60 BUN/Creatinine Ratio 13.3 Glucose 120 H Calcium 7.4 L Total Bilirubin 0.5 AST 58 ALT 34 Alkaline Phosphatase 68 Total Protein 5.4 L Albumin 2.4 L Globulin 3.0 Albumin/Globulin Ratio 0.8 L PFSH Social History household members: spouse Tobacco & Substance Use Smoking Status: Former smoker alcohol intake: current Assessment & Plan Assessment & Plan narrative: 70y. o man hemodynamically stable, intubated for aspiration pneumonia with ileus vs pSBO. CT A/P 07/04 and abdominal XR from today were reviewed. Dilated loops of bowel no free air -Gastrografin challenge via NGT ordered. Clamp tube and assess transit of contrast with follow up XR tomorrow -Hold further tube feeds. Time Spent With Patient Critical Care time: I spent a total of [] minutes of critical care time on this patient's care today; this time is exclusive of procedural time.
[2021-07-06] MEDS: POTASSIUM CHLORIDE 10 MEQ in SODIUM CHLORIDE 0.9% 100 ML 105 ML IV (18:06)
--- NOTE | 2021-07-06 18:20 | PC.NURSE ---
Patient started on SBT, precedex and fentanyl titrated off. Morning residual check revealed over 500ml residual. Jaclyn in dietary and Dr. Cruz notified, instructed to put NG to low intermittent suction. Dr. Dewitt called for consult, ordered NG oral contrast and xr follow up, started at 1700. TeleICU brass reclaimer and Dr. Cruz ordered end of SBT and return to vent support. Precedex and fentanyl restarted. Levophed titrated on and off to MAP of >65. Patient turned Q2 when not on SBT, one instance of small liquid stool. Gauze on pressure injury changed 2x during shift. Arterial line in place, correlating with BP cuff. PICC dressing changed.
[2021-07-07] VITALS (39 sets, daily range): BP systolic 104–178; BP diastolic 47–73; PULSE 66–96; RESP 16–36; TEMP 35.7–37.6; O2SAT 90–100
[2021-07-07] MEDS: dexmedeTOMIDine in 0.9 % NaCL 400 MCG/100 ML PLAST..BAG 27.216 MCG IV ×2 (00:15→10:45)
[2021-07-07] MEDS: VANCOMYCIN 1,000 MG/200 ML PIGGYBACK 200 MG IV ×2 (01:47→09:13)
--- NOTE | 2021-07-07 01:58 | PM.ICURNDS ---
- Date Patient Seen: 07/07/21 Time Patient Seen: 01:51 :: This patient was seen via real time interactive two-way audiovisual telecommunication. Note: 70 y.o. 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 CURRENT DRIPS: Fentanyl 0.4 mcg/kg/hr Precedex 1.4 mcg/kg/hr NE 0.3 mcg/kg/min RN reports that is following commands. Remains NPO and surgery is now following for his ileus. Sputum culture obtained after the re-intubation (07/04) grew S. aureus; he is on vancomycin. No changes to plan made tonight.
[2021-07-07] MEDS: dexmedeTOMIDine in 0.9 % NaCL 400 MCG/100 ML PLAST..BAG 32.659 MCG IV (02:52)
[2021-07-07] MEDS: ALBUTEROL 2.5 MG/3 ML NEB (ADULT) INH ×7 (04:20→23:51)
[2021-07-07 04:43] LABS: Hemoglobin 10.9 g/dL (13.5-17.5); Mean Corpuscular HGB Conc 33.9 % (30-36); Mean Corpuscular Volume 97.4 fL (80-100); Platelet Count 414 X10^3/uL (150-400); Red Blood Cell Count 3.29 X10^6/uL (4.5-5.9); Red Cell Distribution Width 13.8 % (11.6-14.8); White Blood Cell Count 15.3 X10^3/uL (4.5-11.0)
[2021-07-07 04:44] LABS: Add Manual Diff / Slide Review YES
[2021-07-07 04:47] LABS: Alanine Aminotransferase 29 IU/L (<50); Albumin 2.3 g/dL (3.5-5.0); Albumin Globulin Ratio 0.8 (1.0-2.8); Alkaline Phosphatase 59 U/L (38-126); Aspartate Aminotransferase 40 IU/L (17-59); BUN Creatinine Ratio 11.1 (6-22); Bilirubin Total 0.6 mg/dL (0.2-1.3); Blood Urea Nitrogen 7 mg/dL (9-20); Calcium 7.2 mg/dL (8.4-10.2); Carbon Dioxide 20 mmol/L (22-32); Chloride 111 mmol/L (98-107); Estimated Glomerular Filt Rate > 60 mL/min (>60); Globulin 2.9 g/dL (1.7-4.1); Glucose 107 mg/dL (80-110); HEMOLYSIS < 15 (0-50); Potassium 3.2 mmol/L (3.4-5.1); Sodium 139 mmol/L (137-145); Total Protein 5.2 g/dL (6.3-8.2)
[2021-07-07] MEDS: CHLORHEXIDINE GLUCONATE 15 ML CUP PO ×3 (05:50→16:52)
[2021-07-07] MEDS: dexmedeTOMIDine in 0.9 % NaCL 400 MCG/100 ML PLAST..BAG 21.772 MCG IV ×4 (05:50→21:13)
[2021-07-07 06:29] LABS: Neutrophils Absolute Manual 12087 /uL (3000-5900); RBC Morphology Normal Morphology; Total Cells Counted 100
[2021-07-07] MEDS: LACTATED RINGERS 1,000 ML 125 ML IV ×3 (07:03→23:42)
--- NOTE | 2021-07-07 07:24 | PC.NURSE ---
Shift Note: Patient had uneventful night, vital signs are stable, remained sedated and intubated to vent. Xray Abdomen was done, awaiting results. Maintained on precedex and fentanyl drip, O2 sat >95% at FIO2 28%. Suctioned secretions prn, lungs bilaterally clear. NGT on decompression at low int suction with greenish clear output. A-line at right radial correlates with manual BP. PICC line intact, clean and dry at left upper arm. Repositioned every 2hours. Forman cath in placed with adequate yellowish urine output. Will continue to monitor.
--- NOTE | 2021-07-07 08:12 | PC.NURSE ---
0755: Lab called to notify that pt is growing MRSA in his sputum. Dr Engle notified, pt already receiving vancomycin, no new orders at this time.
[2021-07-07] MEDS: SODIUM CHLORIDE 0.9% FLUSH 10 ML IV (08:51)
[2021-07-07] MEDS: ENOXAPARIN 40 MG/0.4 ML SYRINGE SUBCUT (08:51)
[2021-07-07] MEDS: FOLIC ACID 1 MG TABLET PO (08:51)
[2021-07-07] MEDS: PANTOPRAZOLE 40 MG VIAL IV (08:51)
[2021-07-07] MEDS: VANCOMYCIN TROUGH 1 REQUEST MISC (08:51)
--- NOTE | 2021-07-07 09:39 | P.TELICUPN_ITS ---
Subjective Subjective :: This patient was seen via real time interactive two-way audiovisual telecommunication. no acute events overnight Current Medications Current Medications Medications: Home Medications levothyroxine 75 mcg tablet 75 mcg PO QAM 06/21/21 [History Confirmed 06/21/21] simvastatin 40 mg tablet 40 mg PO BEDTIME 06/21/21 [History Confirmed 06/21/21] Visit Medications (administered) Generic Name Dose Route Start Last Admin Trade Name Freq PRN Reason Stop Dose Admin Acetaminophen 650 mg 07/05/21 00:39 07/05/21 19:47 Acetaminophen 325 Mg Tablet PO 650 mg Q4HR PRN Administration Fever/Mild Pain (1-3) Acetaminophen 650 mg 07/05/21 00:40 07/05/21 01:19 Acetaminophen 650 Mg Supp HI 650 mg Q4HR PRN Administration Fever/Mild Pain (1-3) Albuterol 2.5 mg 07/04/21 03:00 07/07/21 07:24 Albuterol 2.5 Mg/3 Ml Neb (Adult) INH 2.5 mg RTQ4HR EN Administration Chlorhexidine Gluconate 15 ml 07/04/21 06:00 07/07/21 05:50 Chlorhexidine Gluconate 15 Ml Cup PO 15 ml Q6HR EN Administration Enoxaparin Sodium 40 mg 06/23/21 09:00 07/07/21 08:51 Enoxaparin 40 Mg/0.4 Ml Syringe SUBCUT 40 mg DAILY EN Administration Folic Acid 1 mg 06/30/21 09:00 07/07/21 08:51 Folic Acid 1 Mg Tablet PO 1 mg DAILY EN Administration Hydralazine HCl 10 mg 06/29/21 11:11 07/03/21 16:26 Hydralazine 20 Mg/Ml Vial IV 10 mg Q6HR PRN Administration Hypertension dexmedeTOMIDine in 0.9 % NaCL 400 mcg in 100 mls @ 5.443 mls/hr 06/29/21 23:00 07/07/21 06:30 Precedex IV 0.5 mcg/kg/hr TITRATE EN 13.608 mls/hr Titration Protocol 0.2 MCG/KG/HR Fentanyl 1,000 mcg/ Dextrose 250 mls @ 19.093 mls/hr 07/04/21 01:45 07/07/21 05:00 IV 0 mcg/kg/hr TITRATE EN 0 mls/hr Titration Protocol 0.7 MCG/KG/HR Propofol 1,000 mg in 100 mls @ 3.273 mls/hr 07/04/21 01:45 07/04/21 09:59 Propofol IV 0 mcg/kg/min TITRATE EN 0 mls/hr Titration Protocol 5 MCG/KG/MIN NOREPINEPHRINE BITARTRATE/D5W 4 mg in 250 mls @ 30 mls/hr 07/04/21 12:58 07/07/21 03:00 Levophed IV 0 mcg/min TITRATE EN 0 mls/hr Titration Protocol 8 MCG/MIN Lactated Ringer's 1,000 mls @ 125 mls/hr 07/05/21 16:15 07/07/21 07:03 Lactated Ringers IV 125 mls/hr CONT EN Administration Vancomycin HCl 1,000 mg in 200 mls @ 200 mls/hr 07/05/21 10:00 07/07/21 09:13 Vancomycin IV 200 mls/hr Q8H EN Administration Insulin Human Lispro 0 unit 07/05/21 12:00 07/07/21 05:50 Insulin Lispro 100 Unit/Ml 3ml Vial SUBCUT Not Given 0600,1200,1800,0000 EN Protocol Labetalol HCl 10 mg 06/29/21 09:42 07/03/21 16:26 Labetalol 20 Mg/4 Ml Syringe IV 10 mg Q4HR PRN Administration Heart Rate- High Lorazepam 0 mg 06/21/21 21:53 06/30/21 08:13 Lorazepam 2 Mg/Ml Inj IV 2 mg CIWAPRN PRN Administration Alcohol Withdrawal Protocol Pantoprazole Sodium 40 mg 06/30/21 09:00 07/07/21 08:51 Pantoprazole 40 Mg Vial IV 40 mg DAILY EN Administration Sodium Chloride 10 ml 06/28/21 09:00 07/07/21 08:51 Sodium Chloride 0.9% Flush IV 10 ml BID EN Administration Objective Ventilator Parameters: Ventilator Settings FiO2 28 RT Vent Frequency 16 Ventilator Tidal Volume 470 Exhaled Vt/kg IBW 6.5 Positive End Expiratory 5 Pressure Ventilator Pressure Support 0 Inspiratory Phase Time 0.8 I:E Ratio 1:2 Patient Position HOB >= 30 degrees Labs Result Diagrams: 07/07/21 04:18 07/07/21 04:18 Labs: Laboratory Results - last 24 hr 07/07/21 07/07/21 07/07/21 04:18 04:18 08:35 WBC 15.3 H RBC 3.29 L Hgb 10.9 L Hct 32.0 L MCV 97.4 MCH 33.0 MCHC 33.9 RDW 13.8 Plt Count 414 H Neut % (Auto) Not Reportable Lymph % (Auto) Not Reportable [place] % (Auto) Not Reportable Eos % (Auto) Not Reportable Baso % (Auto) Not Reportable Lymph # (Auto) Not Reportable [place] # (Auto) Not Reportable Baso # (Auto) Not Reportable Total Counted 100 Seg Neutrophils % 73.0 H Band Neutrophils % 6.0 Lymphocytes % (Manual) 14.0 L Monocytes % (Manual) 5.0 Eosinophils % (Manual) 2.0 Neutrophils # (Manual) 62386 H RBC Morphology Normal morphology Sodium 139 Potassium 3.2 L Chloride 111 H Carbon Dioxide 20 L BUN 7 L Creatinine 0.63 L Estimated GFR > 60 BUN/Creatinine Ratio 11.1 Glucose 107 Calcium 7.2 L Total Bilirubin 0.6 AST 40 ALT 29 Alkaline Phosphatase 59 Total Protein 5.2 L Albumin 2.3 L Globulin 2.9 Albumin/Globulin Ratio 0.8 L Vancomycin Trough 12.0 Exam Vital Signs (past 8 hours): - 07/07/21 02:00 07/07/21 03:00 07/07/21 04:00 Temperature 99.6 F Pulse Rate 73 71 68 Respiratory Rate 25 H 26 H 25 H Blood Pressure 116/65 112/61 109/60 Pulse Oximetry 96 97 97 07/07/21 05:00 07/07/21 06:00 07/07/21 07:25 Temperature 99.2 F Pulse Rate 80 71 Respiratory Rate 31 H 16 Blood Pressure 109/60 111/73 Pulse Oximetry 94 97 98 Fraction of Inspired Oxygen 28 Oxygen Delivery Method Transtracheal Catheter Oxygen Flow Rate 35 Quality TeleICU VTE Deep Vein Thrombosis/Pulmonary Embolism Present on Admission: No Assessment & Plan Assessment & Plan narrative: patient seen examined with bedside nurse and provider chart/labs/imaging reviewed intubated sedated alert awake when fof sedation, follows comamnds ?afebrile, HD stable plan -gastrograffin study done, report pending, surgery team to follow -if no surgery planned will do sbtto plan for extubation today -pain control/sedation, goal lou -1 -neurochecks/seizure precautions -cxr/abg adjust vent prn,check today -chest pt/pulm toilet -mrsa in sptum, continue vanco -continue ivf -cont thiamine/folate -gi/dvt ppx in place -monitor ins/outs -keep glucose 140-180s -suggest goals of care to be adressed with family, may need tracheostomy -please call eICU prn Time Spent With Patient Critical Care time: I spent a total of [] minutes of critical care time on this patient's care today; this time is exclusive of procedural time.
--- NOTE | 2021-07-07 09:41 | DI.RAD.S_ITS ---
PROCEDURE: XR CHEST 1V INDICATIONS: repeat for intubated pt TECHNIQUE: One view of the chest was acquired. COMPARISON: [facility], CR, XR CHEST 1V, 07/04/2021, 1:42. FINDINGS: Surgical changes and devices: ET tube projects approximately 4 centimeters superior to the winnie. NG tube projects across the GE junction with tip and side port projecting over the proximal stomach. Central venous catheter projects to the mid SVC via left subclavian approach. Lungs and pleura: Trace left-sided pleural fluid collection. Increasing consolidation left lung base. Mediastinum: Mediastinal contours appear normal. Heart size is normal. Bones and chest wall: No suspicious bony lesions. Overlying soft tissues appear unremarkable. IMPRESSION: ET tube 4 centimeters superior to the winnie. Increasing left basilar consolidation which could represent worsening atelectasis, aspiration or pneumonia. Dictated by: Nevaeh Moya MD, PhD on 07/07/2021 at 10:20 Approved by: Nevaeh Moya MD, PhD on 07/07/2021 at 10:21
--- NOTE | 2021-07-07 10:08 | DI.RAD.S_ITS ---
PROCEDURE: XR KUB INDICATIONS: gastrografin read TECHNIQUE: One view of the abdomen acquired. COMPARISON: [facility], CT, CT CHEST ABD PEL W CON, 07/04/2021, 14:11. [facility], CR, XR GASTROGRAFIN CHALLENGE, 07/06/2021, 20:43. [facility], CR, XR KUB, 07/04/2021, 10:33. FINDINGS: Surgical changes and devices: Enteric tube in the stomach. Cholecystectomy clips. L4-S1 pedicle screw fixation. Bowel: The Gastrografin contrast has now transited into the colon and rectum. However, there are persistent dilated loops of small bowel. Soft tissues: No suspicious abdominal calcifications. Visualized solid organ contours appear normal in size. Blunting of the costophrenic angles due to trace effusions. Bones: No suspicious bony lesions. IMPRESSION: Suspect resolving or partial small bowel obstruction. Persistent dilated loop of small bowel. Oral contrast has transit to the level of the rectum. Dictated by: Prakash Juarez M.D. on 07/07/2021 at 11:03 Approved by: Prakash Juarez M.D. on 07/07/2021 at 11:06
[2021-07-07 10:13] LABS: Magnesium 1.9 mg/dL (1.6-2.3); Phosphorous 2.7 mg/dL (2.3-3.7)
[2021-07-07] MEDS: POTASSIUM CHLORIDE IN WATER 10 MEQ/100 ML PIGGYBACK 100 MEQ IV ×4 (10:56→15:14)
[2021-07-07] MEDS: VANCOMYCIN PEAK 1 REQUEST MISC (11:15)
--- NOTE | 2021-07-07 11:47 | PC.NURSE ---
Addendum entered by Celine Webber R.N. 07/07/21 17:13: 1615: Upon review of pt's chart, this credit underwriter noted that sputum culture obtained 07/06 returned 07/07 with gram negative bacilli in addition to MRSA (previosly identified in sputum according to culture obtained 07/04). Updated Dr Engle, orders received. Addendum entered by Celine Webber R.N. 07/07/21 14:18: 1300: Surgery recommends restarting tube feeds. Per dietary, will restart tube feeds at 25 mL/hr with goal of 55 mL/hr Addendum entered by Celine Webber R.N. 07/07/21 12:35: 1235: Updated teleintensivist Dr Reyna re: surgery recs and SBT results, and he states pt should stay on vent for now. Addendum entered by Celine Webber R.N. 07/07/21 12:23: Pt placed back on precedex and PRVC vent mode for high respiratory rate (upper 30s-low 40s). Awaiting word from surgery re: SBO seen on imaging Original Note: 1145: Sedation on hold for breathing trial. Pt alert and following all commands, VSS.
[2021-07-07 11:50] LABS: Vancomycin Peak 17.2 ug/mL (20-40)
--- NOTE | 2021-07-07 12:24 | P.PN_ITS ---
Subjective Subjective Date Patient Seen: 07/07/21 Interval history: Gastrografin via NGT overnight. Exam Vital Signs (past 8 hours): - 07/07/21 05:00 07/07/21 06:00 07/07/21 07:25 Temperature 99.2 F Pulse Rate 80 71 Respiratory Rate 31 H 16 Blood Pressure 109/60 111/73 Pulse Oximetry 94 97 98 07/07/21 10:30 07/07/21 11:34 07/07/21 12:00 Temperature 98.7 F Pulse Rate 78 77 89 Respiratory Rate 31 H 28 H 33 H Blood Pressure 138/53 L 128/51 L 178/70 H Pulse Oximetry 97 98 95 Fraction of Inspired Oxygen 28 Oxygen Delivery Method Mechanical Ventilation Oxygen Flow Rate 35 Objective Labs Result Diagrams: 07/07/21 04:18 07/07/21 04:18 Labs: Laboratory Results - last 24 hr 07/07/21 07/07/21 07/07/21 04:18 04:18 04:18 WBC 15.3 H RBC 3.29 L Hgb 10.9 L Hct 32.0 L MCV 97.4 MCH 33.0 MCHC 33.9 RDW 13.8 Plt Count 414 H Neut % (Auto) Not Reportable Lymph % (Auto) Not Reportable [place] % (Auto) Not Reportable Eos % (Auto) Not Reportable Baso % (Auto) Not Reportable Lymph # (Auto) Not Reportable [place] # (Auto) Not Reportable Baso # (Auto) Not Reportable Total Counted 100 Seg Neutrophils % 73.0 H Band Neutrophils % 6.0 Lymphocytes % (Manual) 14.0 L Monocytes % (Manual) 5.0 Eosinophils % (Manual) 2.0 Neutrophils # (Manual) 07932 H RBC Morphology Normal morphology Sodium 139 Potassium 3.2 L Chloride 111 H Carbon Dioxide 20 L BUN 7 L Creatinine 0.63 L Estimated GFR > 60 BUN/Creatinine Ratio 11.1 Glucose 107 Calcium 7.2 L Phosphorus 2.7 Magnesium 1.9 Total Bilirubin 0.6 AST 40 ALT 29 Alkaline Phosphatase 59 Total Protein 5.2 L Albumin 2.3 L Globulin 2.9 Albumin/Globulin Ratio 0.8 L Vancomycin Peak Vancomycin Trough 07/07/21 07/07/21 08:35 11:10 WBC RBC Hgb Hct MCV MCH MCHC RDW Plt Count Neut % (Auto) Lymph % (Auto) [place] % (Auto) Eos % (Auto) Baso % (Auto) Lymph # (Auto) [place] # (Auto) Baso # (Auto) Total Counted Seg Neutrophils % Band Neutrophils % Lymphocytes % (Manual) Monocytes % (Manual) Eosinophils % (Manual) Neutrophils # (Manual) RBC Morphology Sodium Potassium Chloride Carbon Dioxide BUN Creatinine Estimated GFR BUN/Creatinine Ratio Glucose Calcium Phosphorus Magnesium Total Bilirubin AST ALT Alkaline Phosphatase Total Protein Albumin Globulin Albumin/Globulin Ratio Vancomycin Peak 17.2 L Vancomycin Trough 12.0 PFSH Social History household members: spouse Smoking Status: Former smoker alcohol intake: current Assessment & Plan Assessment & Plan narrative: 70 y.o man with resolving ileus. KUB reviewed there is contrast in the distal colon. Resume tube feeds Call with questions Time Spent With Patient Critical Care time: I spent a total of [] minutes of critical care time on this patient's care today; this time is exclusive of procedural time. Quality VTE Deep Vein Thrombosis/Pulmonary Embolism Present on Admission: No
--- NOTE | 2021-07-07 13:02 | DIET.PN1 ---
Dietary Progress Note Assessment: Per surgery, pt to resume TF as KUB shows contrast in distal colon. Recc initiating continuous TF Pivot 1.5 at 25mL/h c 250mL free water flushes q4h for 6-8h to assess for tolerance then increase to goal. Goal: Pivot 1.5 running at 55 ml/h c 250 mL free water flushes q4h (hospitalist to manage fluids-- Pivot at this rate has lower feed water) Nutrition: 1980 kcals ; 124g PRO ; 228g CHO ; 67g fat ; 1002ml feed water Ht: 170.18 cm Wt: 106.5 kg BMI: 36.8 Last BM: 07/07/21 (07/07/21 10:30) MNA: 13 Tiburcio Score: 13 Diet: 07/05/21 Lunch Tube Feeding Diet Diet Modifications: TF Supplement type: Pivot 1.5 TF mode of delivery: Continuous Starting flow rate mL/hr: 25 Flow rate goal mL/hr: 55 Free fluid: 250mL Free Water Frequency: Q4H Nutrition Percent Meal Consumed pt is NPO 07/07/21 10:00 Type of Feeding Tube NG/OG 07/05/21 18:02 Type of Feeding Tube NG/OG 07/05/21 14:30 Labs: RBC 3.29 X10^6/uL (4.5-5.9) L 07/07/21 04:18 Hgb 10.9 g/dL (13.5-17.5) L 07/07/21 04:18 Hct 32.0 % (41-53) L 07/07/21 04:18 Creatinine 0.63 mg/dL (0.66-1.25) L 07/07/21 04:18 Lactate 1.6 mmol/L (0.7-2.1) 07/04/21 02:30 NT-Pro-B Natriuret Pep 603 pg/mL (<125) H 07/04/21 02:30 Monitoring/Evaluations: following daily, [id number] Electronically Signed by: Jaclyn Ceballos 07/07/21 13:02 Clinical Dietitian [address] [address]
--- NOTE | 2021-07-07 13:27 | PM.PN.1 ---
Subjective Subjective Interval history: Patient is intubated and sedated. RN at bedside went up on Precedex this morning. Exam Vital Signs (past 8 hours): - 07/07/21 06:00 07/07/21 07:25 07/07/21 10:30 Temperature 99.2 F 98.7 F Pulse Rate 71 78 Respiratory Rate 16 31 H Blood Pressure 111/73 138/53 L Pulse Oximetry 97 98 97 07/07/21 11:34 07/07/21 12:00 Temperature Pulse Rate 77 89 Respiratory Rate 28 H 33 H Blood Pressure 128/51 L 178/70 H Pulse Oximetry 98 95 Fraction of Inspired Oxygen 28 Oxygen Delivery Method Mechanical Ventilation Oxygen Flow Rate 35 Const Other: Patient laying in bed, intubated and sedated upon my entering the room Neck Other: No carotid bruits noted Resp Other: Diffuse rhonchi appreciated bilaterally Cardio Other: RRR, S1 and S2 heart sounds normal, with no extra heart sounds or murmurs appreciated GI Other: Soft, mildly distended, non-tender, bowel sounds present Extrem Other: Palpable dorsalis pedis pulses bilaterally Objective Labs Result Diagrams: 07/07/21 04:18 07/07/21 04:18 Labs: Laboratory Results - last 24 hr 07/07/21 07/07/21 07/07/21 04:18 04:18 04:18 WBC 15.3 H RBC 3.29 L Hgb 10.9 L Hct 32.0 L MCV 97.4 MCH 33.0 MCHC 33.9 RDW 13.8 Plt Count 414 H Neut % (Auto) Not Reportable Lymph % (Auto) Not Reportable [place]ye % (Auto) Not Reportable Eos % (Auto) Not Reportable Baso % (Auto) Not Reportable Lymph # (Auto) Not Reportable [place]ye # (Auto) Not Reportable Baso # (Auto) Not Reportable Total Counted 100 Seg Neutrophils % 73.0 H Band Neutrophils % 6.0 Lymphocytes % (Manual) 14.0 L Monocytes % (Manual) 5.0 Eosinophils % (Manual) 2.0 Neutrophils # (Manual) 47771 H RBC Morphology Normal morphology Sodium 139 Potassium 3.2 L Chloride 111 H Carbon Dioxide 20 L BUN 7 L Creatinine 0.63 L Estimated GFR > 60 BUN/Creatinine Ratio 11.1 Glucose 107 Calcium 7.2 L Phosphorus 2.7 Magnesium 1.9 Total Bilirubin 0.6 AST 40 ALT 29 Alkaline Phosphatase 59 Total Protein 5.2 L Albumin 2.3 L Globulin 2.9 Albumin/Globulin Ratio 0.8 L Vancomycin Peak Vancomycin Trough 07/07/21 07/07/21 08:35 11:10 WBC RBC Hgb Hct MCV MCH MCHC RDW Plt Count Neut % (Auto) Lymph % (Auto) [place]ye % (Auto) Eos % (Auto) Baso % (Auto) Lymph # (Auto) Nye # (Auto) Baso # (Auto) Total Counted Seg Neutrophils % Band Neutrophils % Lymphocytes % (Manual) Monocytes % (Manual) Eosinophils % (Manual) Neutrophils # (Manual) RBC Morphology Sodium Potassium Chloride Carbon Dioxide BUN Creatinine Estimated GFR BUN/Creatinine Ratio Glucose Calcium Phosphorus Magnesium Total Bilirubin AST ALT Alkaline Phosphatase Total Protein Albumin Globulin Albumin/Globulin Ratio Vancomycin Peak 17.2 L Vancomycin Trough 12.0 PFSH Social History household members: spouse Smoking Status: Former smoker alcohol intake: current Assessment & Plan Assessment & Plan narrative: 1. Acute hypoxic respiratory failure secondary to severe EtOH withdrawal ?- Patient intubated on June 24, 2021 for airway protection, he was subsequently extubated, and re-intubated on night of July 04 2. Severe EtOH withdrawal with delirium tremens ?- [facility] protocol on-board, along with IV Precedex, IV fentanyl for sedation ?- Will defer to tele-middle school technology teacher regarding ideal sedating agents while patient is on ventilator 3. Concern for aspiration pneumonia, with respiratory culture growing MRSA ?- Empiric IV vancomycin started on July 04, after patient re-intubated 4. Proximal SBO/ileus - NG tube in place, and appreciated general surgery recommendations post-Gastrografin study 5. Alcoholic hepatitis ?- LFT's continue to improve, and will need to monitor, INR slightly elevated 6. Duodenitis, ongoing, likely due to EtOH abuse ?- IV Protonix 40 mg daily on-board 7. Hypothyroidism ?- Home levothyroxine adjusted to IV levothyroxine 8. Hyperlipidemia ?- Will hold home simvastatin for now given above 9. Thrombocytopenia, stable ?- Likely secondary to bone marrow suppression from EtOH abuse, along with severe liver injury 10. Hypophosphatemia, ongoing ?- Likely due to ongoing EtOH withdrawal, replenish as necessary 11. Hypokalemia, ongoing ?- Likely due to ongoing EtOH withdrawal, replenish as necessary 12. Hypomagnesemia, ongoing ?- Likely due to ongoing EtOH withdrawal, replenish as necessary VTE prophylaxis: Lovenox 40 mg daily Code Status: Full Code Proxy: Spouse I have utilized all available, immediate resources to obtain, update, or confirm the patient's current medications. Time Spent With Patient Critical Care time: I spent a total of [] minutes of critical care time on this patient's care today; this time is exclusive of procedural time. Quality VTE Deep Vein Thrombosis/Pulmonary Embolism Present on Admission: No MIPS - Admit I confirm the patient?s Advance Care Plan is present, Code status is documented, Surrogate decision maker is in patient?s record [If Yes, STOP here]: Yes
--- NOTE | 2021-07-07 14:37 | CM.DPNOTE ---
DCP Cont: Per MD, pt with SBO and awaiting Surgeon discussion for likely need of surgical intervention. Pt currently remains re-intubated since 07/04/21 and sedated along with waite, PICC for Vanco from MRSA, NGT. During MD rounds, SW inquired about possible [facility] transfer and per MD due to pt's SBO and MRSA pt not stable for transfer yet and if pt remains intubated for 14 days without successful extubation then next step would be discussion with spouse regarding recommendation of trach and transfer to [facility] vs switch to [facility]. Plan: SW to continue to follow closely for likely need of surgery for SBO if it doesn't resolve with conservative tx and ongoing attempts at extubation otherwise discussion needed with spouse on full tx vs comfort pending progress. Tiff Spann MSW
[2021-07-07] MEDS: VANCOMYCIN 1,500 MG/300 ML PIGGYBACK 200 MG IV (16:46)
[2021-07-07] MEDS: PIPERACILLIN/TAZO 3.375 GM in SODIUM CHLORIDE 0.9% 100 ML 25 ML IV (16:51)
--- NOTE | 2021-07-07 22:47 | PM.ICURNDS ---
- Date Patient Seen: 07/07/21 Time Patient Seen: 22:48 :: This patient was seen via real time interactive two-way audiovisual telecommunication. Note: 70 y.o. 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 CURRENT DRIPS: Fentanyl OFF Precedex 1 mcg/kg/hr NE OFF RN reports that is following commands.? EN was started today and currently @ 25 mL/hr w/o gatsric residuals; he also is having bowel movements. Feeds were Remains NPO and surgery is now following for his ileus.? Sputum culture obtained after the re-intubation (07/04) grew MRSA; he is on vancomycin. 07/06 sputum cx w/ a gram (-) bacillus; Zosyn has been ordered. No changes to plan made tonight.
[2021-07-08] VITALS (57 sets, daily range): BP systolic 79–137; BP diastolic 48–82; PULSE 61–92; RESP 22–35; TEMP 36–38.2; O2SAT 94–100
[2021-07-08] MEDS: PIPERACILLIN/TAZO 3.375 GM in SODIUM CHLORIDE 0.9% 100 ML 25 ML IV ×3 (00:27→14:59)
[2021-07-08] MEDS: CHLORHEXIDINE GLUCONATE 15 ML CUP PO ×4 (00:27→17:35)
[2021-07-08] MEDS: dexmedeTOMIDine in 0.9 % NaCL 400 MCG/100 ML PLAST..BAG 21.772 MCG IV ×2 (00:47→12:11)
[2021-07-08] MEDS: VANCOMYCIN 1,500 MG/300 ML PIGGYBACK 200 MG IV ×3 (00:47→17:35)
[2021-07-08] MEDS: ALBUTEROL 2.5 MG/3 ML NEB (ADULT) INH ×5 (03:02→20:05)
[2021-07-08] MEDS: dexmedeTOMIDine in 0.9 % NaCL 400 MCG/100 ML PLAST..BAG 27.216 MCG IV (03:40)
[2021-07-08 05:00] LABS: Hematocrit 30.6 % (41-53); Hemoglobin 10.4 g/dL (13.5-17.5); Mean Corpuscular HGB Conc 33.9 % (30-36); Mean Corpuscular Volume 97.1 fL (80-100); Platelet Count 382 X10^3/uL (150-400); Red Blood Cell Count 3.15 X10^6/uL (4.5-5.9); Red Cell Distribution Width 13.8 % (11.6-14.8); White Blood Cell Count 14.6 X10^3/uL (4.5-11.0)
[2021-07-08 05:05] LABS: BUN Creatinine Ratio 10.2 (6-22); Blood Urea Nitrogen 6 mg/dL (9-20); Carbon Dioxide 18 mmol/L (22-32); Chloride 112 mmol/L (98-107); Estimated Glomerular Filt Rate > 60 mL/min (>60); Glucose 125 mg/dL (80-110); HEMOLYSIS < 15 (0-50); Magnesium 1.7 mg/dL (1.6-2.3); Phosphorous 2.5 mg/dL (2.3-3.7); Potassium 3.1 mmol/L (3.4-5.1); Sodium 137 mmol/L (137-145)
[2021-07-08] MEDS: LACTATED RINGERS 1,000 ML 125 ML IV (07:06)
--- NOTE | 2021-07-08 07:22 | PC.NURSE ---
Shift note: Patient remains sedated with precedex at 0.8mcg/kg/hr and intubated to vent at 28% FIO2, maintaining O2 sat >95%. Patient was lethargic but arousable to voice, follows commands. Suctioned secretions prn, tolerated well. Vital signs are stable and within acceptable limits. Lungs are generally clear. Maintained on enteral feeding at 35mls/hr, gastric residuals checked, last one was 100mls. Patient had watery bowel movement. Forman cath in placed with adequate urine output. Tele ICU MD updated on current patient condition. Will continue to monitor.
[2021-07-08] MEDS: dexmedeTOMIDine in 0.9 % NaCL 400 MCG/100 ML PLAST..BAG 19.051 MCG IV (07:42)
[2021-07-08] MEDS: FOLIC ACID 1 MG TABLET PO (08:05)
[2021-07-08] MEDS: PANTOPRAZOLE 40 MG VIAL IV (08:05)
[2021-07-08] MEDS: ENOXAPARIN 40 MG/0.4 ML SYRINGE SUBCUT (08:05)
[2021-07-08] MEDS: SODIUM CHLORIDE 0.9% FLUSH 10 ML IV ×2 (08:06→22:35)
[2021-07-08] MEDS: ACETAMINOPHEN 650 MG SUPP PR ×2 (09:37→16:13)
--- NOTE | 2021-07-08 10:03 | P.TELICUPN_ITS ---
Subjective Subjective :: This patient was seen via real time interactive two-way audiovisual telecommunication. no acute events overnight Current Medications Current Medications Medications: Home Medications levothyroxine 75 mcg tablet 75 mcg PO QAM 06/21/21 [History Confirmed 06/21/21] simvastatin 40 mg tablet 40 mg PO BEDTIME 06/21/21 [History Confirmed 06/21/21] Visit Medications (administered) Generic Name Dose Route Start Last Admin Trade Name Freq PRN Reason Stop Dose Admin Acetaminophen 650 mg 07/05/21 00:39 07/05/21 19:47 Acetaminophen 325 Mg Tablet PO 650 mg Q4HR PRN Administration Fever/Mild Pain (1-3) Acetaminophen 650 mg 07/05/21 00:40 07/08/21 09:37 Acetaminophen 650 Mg Supp NC 650 mg Q4HR PRN Administration Fever/Mild Pain (1-3) Albuterol 2.5 mg 07/04/21 03:00 07/08/21 07:03 Albuterol 2.5 Mg/3 Ml Neb (Adult) INH 2.5 mg RTQ4HR EN Administration Chlorhexidine Gluconate 15 ml 07/04/21 06:00 07/08/21 05:37 Chlorhexidine Gluconate 15 Ml Cup PO 15 ml Q6HR EN Administration Enoxaparin Sodium 40 mg 06/23/21 09:00 07/08/21 08:05 Enoxaparin 40 Mg/0.4 Ml Syringe SUBCUT 40 mg DAILY EN Administration Folic Acid 1 mg 06/30/21 09:00 07/08/21 08:05 Folic Acid 1 Mg Tablet PO 1 mg DAILY EN Administration Hydralazine HCl 10 mg 06/29/21 11:11 07/03/21 16:26 Hydralazine 20 Mg/Ml Vial IV 10 mg Q6HR PRN Administration Hypertension dexmedeTOMIDine in 0.9 % NaCL 400 mcg in 100 mls @ 5.443 mls/hr 06/29/21 23:00 07/08/21 07:42 Precedex IV 0.7 mcg/kg/hr TITRATE EN 19.051 mls/hr Administration Protocol 0.2 MCG/KG/HR Fentanyl 1,000 mcg/ Dextrose 250 mls @ 19.093 mls/hr 07/04/21 01:45 07/07/21 05:00 IV 0 mcg/kg/hr TITRATE EN 0 mls/hr Titration Protocol 0.7 MCG/KG/HR NOREPINEPHRINE BITARTRATE/D5W 4 mg in 250 mls @ 30 mls/hr 07/04/21 12:58 07/07/21 03:00 Levophed IV 0 mcg/min TITRATE EN 0 mls/hr Titration Protocol 8 MCG/MIN Lactated Ringer's 1,000 mls @ 125 mls/hr 07/05/21 16:15 07/08/21 07:06 Lactated Ringers IV 125 mls/hr CONT EN Administration Vancomycin HCl/Dextrose 1,500 mg in 300 mls @ 200 mls/hr 07/07/21 17:00 07/08/21 08:05 Vancomycin IV 200 mls/hr Q8H EN Administration Piperacillin Sod/Tazobactam 100 mls @ 25 mls/hr 07/07/21 16:30 07/08/21 08:05 Sod 3.375 gm/ Sodium Chloride IV 25 mls/hr Q8H EN Administration Insulin Human Lispro 0 unit 07/05/21 12:00 07/08/21 06:33 Insulin Lispro 100 Unit/Ml 3ml Vial SUBCUT Not Given 0600,1200,1800,0000 EN Protocol Labetalol HCl 10 mg 06/29/21 09:42 07/03/21 16:26 Labetalol 20 Mg/4 Ml Syringe IV 10 mg Q4HR PRN Administration Heart Rate- High Lorazepam 0 mg 06/21/21 21:53 06/30/21 08:13 Lorazepam 2 Mg/Ml Inj IV 2 mg CIWAPRN PRN Administration Alcohol Withdrawal Protocol Pantoprazole Sodium 40 mg 06/30/21 09:00 07/08/21 08:05 Pantoprazole 40 Mg Vial IV 40 mg DAILY EN Administration Sodium Chloride 10 ml 06/28/21 09:00 07/08/21 08:06 Sodium Chloride 0.9% Flush IV 10 ml BID EN Administration Objective Ventilator Parameters: Ventilator Settings FiO2 28 RT Vent Frequency 16 Ventilator Tidal Volume 470 Exhaled Vt/kg IBW 6.5 Positive End Expiratory 5 Pressure Ventilator Pressure Support 0 Inspiratory Phase Time 0.75 I:E Ratio 1:4 Patient Position HOB >= 30 degrees Labs Result Diagrams: 07/08/21 04:30 07/08/21 04:30 Labs: Laboratory Results - last 24 hr 07/07/21 07/07/21 07/08/21 04:18 11:10 04:30 WBC RBC Hgb Hct MCV MCH MCHC RDW Plt Count Sodium Potassium Chloride Carbon Dioxide BUN Creatinine Estimated GFR BUN/Creatinine Ratio Glucose Calcium Phosphorus 2.7 2.5 Magnesium 1.9 1.7 Vancomycin Peak 17.2 L 07/08/21 07/08/21 04:30 04:30 WBC 14.6 H RBC 3.15 L Hgb 10.4 L Hct 30.6 L MCV 97.1 MCH 33.0 MCHC 33.9 RDW 13.8 Plt Count 382 Sodium 137 Potassium 3.1 L Chloride 112 H Carbon Dioxide 18 L BUN 6 L Creatinine 0.59 L Estimated GFR > 60 BUN/Creatinine Ratio 10.2 Glucose 125 H Calcium 7.0 L Phosphorus Magnesium Vancomycin Peak Exam Vital Signs (past 8 hours): - 07/08/21 02:43 07/08/21 03:00 07/08/21 03:02 Temperature 96.8 F L Pulse Rate 80 68 66 Respiratory Rate 29 H 29 H 27 H Blood Pressure 112/56 L Pulse Oximetry 96 98 96 07/08/21 03:24 07/08/21 04:00 07/08/21 05:00 Temperature 97.3 F L 97.2 F L Pulse Rate 81 83 74 Respiratory Rate 32 H 34 H 30 H Blood Pressure 113/72 133/69 Pulse Oximetry 96 94 97 07/08/21 05:10 07/08/21 06:00 07/08/21 07:00 Temperature 97.7 F 100.8 F H 100.7 F H Pulse Rate 75 71 75 Respiratory Rate 30 H 30 H 34 H Blood Pressure 111/62 115/59 L 130/61 Pulse Oximetry 97 97 96 07/08/21 07:02 07/08/21 07:03 07/08/21 08:00 Temperature Pulse Rate 72 80 Respiratory Rate 32 H 34 H Blood Pressure 102/59 L Pulse Oximetry 97 96 97 07/08/21 08:29 07/08/21 09:00 07/08/21 09:37 Temperature 100.4 F H 100.7 F H Pulse Rate 87 77 Respiratory Rate 34 H 32 H Blood Pressure 130/61 102/51 L Pulse Oximetry 97 97 Fraction of Inspired Oxygen 28 Oxygen Delivery Method Mechanical Ventilation Oxygen Flow Rate 35 Quality TeleICU VTE Deep Vein Thrombosis/Pulmonary Embolism Present on Admission: No Assessment & Plan Assessment & Plan narrative: patient seen examined with bedside nurse and provider chart/labs/imaging reviewed intubated sedated follows commands off sedation low grade fever noted ?HD stable plan -low grade fever noted, can recutlure, check all old liines -surgery restarted feeds, toelrating so foar -minimize sedation -sah/sbt trial, if tolerates can extubate -neurochecks/seizure precautions -cxr/abg adjust vent prn,check today -chest pt/pulm toilet -mrsa in sptum, continue vanco, add zosyn for gram -ve -continue ivf, monitor soidum -cont thiamine/folate -gi/dvt ppx in place -monitor ins/outs -keep glucose 140-180s -suggest goals of care to be addressed, if continues to fail sbt, suggest t racheostomy -please call eICU prn Time Spent With Patient Critical Care time: I spent a total of [] minutes of critical care time on this patient's care today; this time is exclusive of procedural time.
[2021-07-08] MEDS: MAGNESIUM SULFATE 1 GM in SODIUM CHLORIDE 0.9% 50 ML 52 ML IV (10:28)
[2021-07-08] MEDS: POTASSIUM CHLORIDE IN WATER 10 MEQ/100 ML PIGGYBACK 100 MEQ IV ×4 (10:55→14:59)
[2021-07-08] MEDS: POTASSIUM CHLORIDE 20 MEQ/15 ML UDC 40 MEQ PO (10:55)
[2021-07-08] MEDS: INSULIN LISPRO 100 UNIT/ML 3ML VIAL SUBCUT ×2 (11:29→17:23)
[2021-07-08] MEDS: FUROSEMIDE 40 MG/4 ML VIAL 20 MG IV (12:54)
--- NOTE | 2021-07-08 13:09 | P.PN_ITS ---
Subjective Subjective Interval history: Patient sedated and intubated. His fentanyl is now off, which is likely helping relieve his ileus. Precedex is on at relatively low doses. He is still not following commands well. Will likely give IV lasix today to help relieve some congestion and third spacing. Exam Vital Signs (past 8 hours): - 07/08/21 05:10 07/08/21 06:00 07/08/21 07:00 Temperature 97.7 F 100.8 F H 100.7 F H Pulse Rate 75 71 75 Respiratory Rate 30 H 30 H 34 H Blood Pressure 111/62 115/59 L 130/61 Pulse Oximetry 97 97 96 07/08/21 07:02 07/08/21 07:03 07/08/21 08:00 Temperature Pulse Rate 72 80 Respiratory Rate 32 H 34 H Blood Pressure 102/59 L Pulse Oximetry 97 96 97 07/08/21 08:29 07/08/21 09:00 07/08/21 09:37 Temperature 100.4 F H 100.7 F H Pulse Rate 87 77 Respiratory Rate 34 H 32 H Blood Pressure 130/61 102/51 L Pulse Oximetry 97 97 07/08/21 10:00 07/08/21 10:15 07/08/21 11:00 Temperature 100.5 F H 99 F 99 F Pulse Rate 79 78 Respiratory Rate 33 H 32 H Blood Pressure 108/61 110/56 L Pulse Oximetry 98 98 07/08/21 12:00 Temperature 99.5 F Pulse Rate Respiratory Rate Blood Pressure Pulse Oximetry Fraction of Inspired Oxygen 28 Oxygen Delivery Method Mechanical Ventilation Oxygen Flow Rate 35 Narrative Exam Narrative: Const Other: Patient laying in bed, intubated and sedated upon my entering the room Neck Other: No carotid bruits noted Resp Other: Diffuse rhonchi appreciated bilaterally Cardio Other: RRR, S1 and S2 heart sounds normal, with no extra heart sounds or murmurs appreciated GI Other: Soft, mildly distended, non-tender, bowel sounds present Extrem Other: Palpable dorsalis pedis pulses bilaterally Objective Labs Result Diagrams: 07/08/21 04:30 07/08/21 04:30 Labs: Laboratory Results - last 24 hr 07/08/21 07/08/21 07/08/21 04:30 04:30 04:30 WBC 14.6 H RBC 3.15 L Hgb 10.4 L Hct 30.6 L MCV 97.1 MCH 33.0 MCHC 33.9 RDW 13.8 Plt Count 382 Sodium 137 Potassium 3.1 L Chloride 112 H Carbon Dioxide 18 L BUN 6 L Creatinine 0.59 L Estimated GFR > 60 BUN/Creatinine Ratio 10.2 Glucose 125 H Calcium 7.0 L Phosphorus 2.5 Magnesium 1.7 [facility] Social History household members: spouse Smoking Status: Former smoker alcohol intake: current Assessment & Plan Assessment & Plan narrative: 1. Acute hypoxic respiratory failure secondary to severe EtOH withdrawal ?- Patient intubated on June 24, 2021 for airway protection, he was subsequently extubated, and re-intubated on night of July 04 - Will start IV lasix 20 mg daily on July 08 to help relieve pulmonary congestion and maintain euvolemia as much as possible 2. Severe EtOH withdrawal with delirium tremens ?- CIWA protocol on-board, along with IV Precedex, IV fentanyl for sedation ?- Will defer to tele-assistant farm operations manager regarding ideal sedating agents while patient is on ventilator 3. Concern for aspiration pneumonia, with respiratory culture growing MRSA and Klebsiella oxytoca ?- Empiric IV vancomycin started on July 04, after patient re-intubated, and empiric IV Zosyn started on July 07 4. Proximal SBO/ileus ?- NG tube in place, and appreciated general surgery recommendations post- Gastrografin study 5. Alcoholic hepatitis ?- LFT's continue to improve, and will need to monitor, INR slightly elevated 6. Duodenitis, ongoing, likely due to EtOH abuse ?- IV Protonix 40 mg daily on-board 7. Hypothyroidism ?- Home levothyroxine adjusted to IV levothyroxine 8. Hyperlipidemia ?- Will hold home simvastatin for now given above 9. Thrombocytopenia, stable ?- Likely secondary to bone marrow suppression from EtOH abuse, along with severe liver injury 10. Hypophosphatemia, ongoing ?- Likely due to ongoing EtOH withdrawal, replenish as necessary 11. Hypokalemia, ongoing ?- Likely due to ongoing EtOH withdrawal, replenish as necessary 12. Hypomagnesemia, ongoing ?- Likely due to ongoing EtOH withdrawal, replenish as necessary VTE prophylaxis: Lovenox 40 mg daily Time Spent With Patient Critical Care time: I spent a total of [] minutes of critical care time on this patient's care today; this time is exclusive of procedural time. Quality VTE Deep Vein Thrombosis/Pulmonary Embolism Present on Admission: No
[2021-07-08] MEDS: dexmedeTOMIDine in 0.9 % NaCL 400 MCG/100 ML PLAST..BAG 32.659 MCG IV ×2 (14:59→17:42)
--- NOTE | 2021-07-08 15:06 | PC.NURSE ---
Addendum entered by Celine Webber R.N. 07/08/21 18:36: 1830: Pt's BP=83/53 with MAP=63. Updated Dr Engle. Levophed restarted at 2 mcg/min. Precedex infusing at 1 mcg/kg/hr, fentanyl at 0.4 mcg/kg/hr. RR 20s. Pt resting with eyes closed. Original Note: 1500: Pt has had consistently high RR (high 30s-40s) despite titration of precedex. Spoke with Dr Gutierrez, teleintensivist, who stated fentanyl should be added back. Pt requiring frequent oral suctioning, secretions are thin, creamy/white/clear.
--- NOTE | 2021-07-08 16:13 | DIET.CONS ---
Dietary Consultation Note Admission Date: 06/21/2021 20:24 Assessment: Please note pt weight measure shows +12kg in 2d. Pt tolerating tube feeding of Pivot 1.5 at goal rate 55mL/h. Pt receiving 124g protein in tube feed providing 1.1g/kg from baseline weight of 108kg. Pt with pressure injury to bottom, will increase protein to 179g/d (1.6g/kg) through addition of 5 protein modular packets (prosource TF) which will come up on evening dinner cart. Pt can be given protein modular 3 packets in evening via NG and 3 packets in morning via NG. Ht: 170.18 cm Wt: 118.5 kg BMI: 36.8 UBW: Last BM: 07/08/21 (07/08/21 13:00) MNA: 13 Tiburcio Score: 10 Diet: 07/05/21 Lunch Tube Feeding Diet Diet Modifications: TF Supplement type: Pivot 1.5 TF mode of delivery: Continuous Starting flow rate mL/hr: 25 Flow rate goal mL/hr: 55 Max total daily volume in mL: 1320 Free fluid: 250mL Free Water Frequency: Q4H Comment: 3 protein modular packets HS, 2 protein modular packets AC Nutrition Percent Meal Consumed pt is NPO 07/07/21 10:00 Labs: RBC 3.15 X10^6/uL (4.5-5.9) L 07/08/21 04:30 Hgb 10.4 g/dL (13.5-17.5) L 07/08/21 04:30 Hct 30.6 % (41-53) L 07/08/21 04:30 Creatinine 0.59 mg/dL (0.66-1.25) L 07/08/21 04:30 Lactate 1.6 mmol/L (0.7-2.1) 07/04/21 02:30 NT-Pro-B Natriuret Pep 603 pg/mL (<125) H 07/04/21 02:30 Monitoring/Evaluations: TF tolerance, POC Electronically Signed by: Jaclyn Ceballos 07/08/21 16:13 Clinical Dietitian [address] [address]
[2021-07-08] MEDS: VANCOMYCIN TROUGH 1 REQUEST MISC (16:45)
[2021-07-08] MEDS: NOREPINEPHRINE BITARTRATE/D5W 4 MG/250 ML PLAST..BAG 7.5 MG IV (18:39)
[2021-07-08] MEDS: VANCOMYCIN PEAK 1 REQUEST MISC (20:50)
[2021-07-08] MEDS: dexmedeTOMIDine in 0.9 % NaCL 400 MCG/100 ML PLAST..BAG 24.494 MCG IV (20:53)
--- NOTE | 2021-07-08 21:02 | PM.ICURNDS ---
- Date Patient Seen: 07/08/21 Time Patient Seen: 20:50 :: This patient was seen via real time interactive two-way audiovisual telecommunication. Note: 70 y.o. 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 CURRENT DRIPS: Fentanyl 0.4 mcg/kg/hr Precedex 0.9 mcg/kg/hr NE 1 mcg/min Sputum culture obtained after the re-intubation (07/04) grew MRSA; he is on vancomycin. 07/06 sputum cx w/ Klebsiella oxytoca which is relatively sensitive; on Zosyn. RN reports worsening DTI's in gluteal cleft region. INTERVENTIONS: 1) Maintenance LR discontinued as he is receiving furosemide diuresis 2) An extra 80 mEq enteral KCL ordered given large diuresis thus far and hypoK this (had previously received 40 mEq IVPB and 40 mEq via TUBE by RN report) 3) Ordered rectal tube 4) ABG ordered for 0700 tomorrow AM RECOMMENDATIONS: 1) Surgery consultation for DTIs 2) Consider de-escalating Zosyn according to Klebsiella oxytoca sensitivities
[2021-07-08 21:46] LABS: Vancomycin Peak 24.9 ug/mL (20-40)
[2021-07-08] MEDS: POTASSIUM CHLORIDE 20 MEQ/15 ML UDC 40 MEQ TUBE (22:00)
[2021-07-09] VITALS (51 sets, daily range): BP systolic 84–172; BP diastolic 53–84; PULSE 62–100; RESP 10–40; TEMP 36.2–37.4; O2SAT 88–100
[2021-07-09] MEDS: ALBUTEROL 2.5 MG/3 ML NEB (ADULT) INH ×5 (00:17→20:41)
[2021-07-09] MEDS: POTASSIUM CHLORIDE 20 MEQ/15 ML UDC 40 MEQ TUBE (00:40)
[2021-07-09] MEDS: PIPERACILLIN/TAZO 3.375 GM in SODIUM CHLORIDE 0.9% 100 ML 25 ML IV ×3 (00:46→19:40)
[2021-07-09] MEDS: dexmedeTOMIDine in 0.9 % NaCL 400 MCG/100 ML PLAST..BAG 27.216 MCG IV ×2 (00:57→03:45)
[2021-07-09] MEDS: VANCOMYCIN 1,500 MG/300 ML PIGGYBACK 200 MG IV ×3 (01:00→17:05)
[2021-07-09] MEDS: CHLORHEXIDINE GLUCONATE 15 ML CUP PO ×4 (01:04→17:05)
[2021-07-09 06:09] LABS: Hematocrit 30.3 % (41-53); Hemoglobin 10.1 g/dL (13.5-17.5); Mean Corpuscular HGB Conc 33.4 % (30-36); Mean Corpuscular Volume 98.9 fL (80-100); Platelet Count 370 X10^3/uL (150-400); Red Blood Cell Count 3.06 X10^6/uL (4.5-5.9); Red Cell Distribution Width 13.9 % (11.6-14.8); White Blood Cell Count 12.9 X10^3/uL (4.5-11.0)
[2021-07-09 06:24] LABS: BUN Creatinine Ratio 13.8 (6-22); Blood Urea Nitrogen 8 mg/dL (9-20); Calcium 6.6 mg/dL (8.4-10.2); Carbon Dioxide 17 mmol/L (22-32); Chloride 113 mmol/L (98-107); Estimated Glomerular Filt Rate > 60 mL/min (>60); Glucose 208 mg/dL (80-110); HEMOLYSIS 16 (0-50); Magnesium 1.7 mg/dL (1.6-2.3); Phosphorous 2.3 mg/dL (2.3-3.7); Sodium 135 mmol/L (137-145)
[2021-07-09] MEDS: dexmedeTOMIDine in 0.9 % NaCL 400 MCG/100 ML PLAST..BAG 40.823 MCG IV (06:40)
[2021-07-09] MEDS: fentaNYL 1,000 MCG in DEXTROSE 5% IN WATER 230 ML 21.82 ML IV (06:41)
--- NOTE | 2021-07-09 07:25 | PC.NURSE ---
Care of patient from [id number]. End of shift note. 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 Titrated up on sedation for restlessness, RR 35-40s. Tolerating Tube feeds, low residual of 90mls X2. Q2hr turns, cleansed and applied foam dressing to buttocks wounds. No BMs during the night. Gave report to day shift RN.
[2021-07-09 08:33] LABS: Fractionated Inspired Oxygen 24; HCO3 ABG 16 mmol/L (22-26); Oxygen Saturation ABG 93 % (95-100); PO2 ABG 63 mmHg (80-100); TCO2 ABG 17 mmol/L (21-31); pH ABG 7.45 (7.35-7.45)
[2021-07-09 08:35] LABS: PCO2 ABG 23.2 mmHg (35-45)
[2021-07-09] MEDS: dexmedeTOMIDine in 0.9 % NaCL 400 MCG/100 ML PLAST..BAG 54.431 MCG IV ×2 (09:11→11:07)
[2021-07-09] MEDS: CALCIUM GLUCONATE 4.65 MEQ in SODIUM CHLORIDE 0.9% 50 ML 180 ML IV (09:28)
[2021-07-09] MEDS: PANTOPRAZOLE 40 MG VIAL IV (09:28)
[2021-07-09] MEDS: SODIUM CHLORIDE 0.9% FLUSH 10 ML IV (09:28)
[2021-07-09] MEDS: FOLIC ACID 1 MG TABLET PO (09:28)
[2021-07-09] MEDS: ENOXAPARIN 40 MG/0.4 ML SYRINGE SUBCUT ×2 (09:38→21:42)
--- NOTE | 2021-07-09 10:01 | P.TELICUPN_ITS ---
Subjective Subjective :: This patient was seen via real time interactive two-way audiovisual telecommunication. no acute events overnight agitated when off sedation Current Medications Current Medications Medications: Home Medications levothyroxine 75 mcg tablet 75 mcg PO QAM 06/21/21 [History Confirmed 06/21/21] simvastatin 40 mg tablet 40 mg PO BEDTIME 06/21/21 [History Confirmed 06/21/21] Visit Medications (administered) Generic Name Dose Route Start Last Admin Trade Name Freq PRN Reason Stop Dose Admin Acetaminophen 650 mg 07/05/21 00:39 07/05/21 19:47 Acetaminophen 325 Mg Tablet PO 650 mg Q4HR PRN Administration Fever/Mild Pain (1-3) Acetaminophen 650 mg 07/05/21 00:40 07/08/21 16:13 Acetaminophen 650 Mg Supp [place] 650 mg Q4HR PRN Administration Fever/Mild Pain (1-3) Albuterol 2.5 mg 07/04/21 03:00 07/09/21 07:31 Albuterol 2.5 Mg/3 Ml Neb (Adult) INH 2.5 mg RTQ4HR EN Administration Chlorhexidine Gluconate 15 ml 07/04/21 06:00 07/09/21 06:45 Chlorhexidine Gluconate 15 Ml Cup PO 15 ml Q6HR EN Administration Enoxaparin Sodium 40 mg 06/23/21 09:00 07/08/21 08:05 Enoxaparin 40 Mg/0.4 Ml Syringe SUBCUT 40 mg DAILY EN Administration Folic Acid 1 mg 06/30/21 09:00 07/08/21 08:05 Folic Acid 1 Mg Tablet PO 1 mg DAILY EN Administration Hydralazine HCl 10 mg 06/29/21 11:11 07/03/21 16:26 Hydralazine 20 Mg/Ml Vial IV 10 mg Q6HR PRN Administration Hypertension dexmedeTOMIDine in 0.9 % NaCL 400 mcg in 100 mls @ 5.443 mls/hr 06/29/21 23:00 07/09/21 09:11 Precedex IV 2 mcg/kg/hr TITRATE EN 54.431 mls/hr Administration Protocol 0.2 MCG/KG/HR Fentanyl 1,000 mcg/ Dextrose 250 mls @ 19.093 mls/hr 07/04/21 01:45 07/09/21 09:10 IV 1 mcg/kg/hr TITRATE EN 27.275 mls/hr Titration Protocol 0.7 MCG/KG/HR NOREPINEPHRINE BITARTRATE/D5W 4 mg in 250 mls @ 30 mls/hr 07/04/21 12:58 07/08/21 23:00 Levophed IV 2 mcg/min TITRATE EN 7.5 mls/hr Titration Protocol 8 MCG/MIN Vancomycin HCl/Dextrose 1,500 mg in 300 mls @ 200 mls/hr 07/07/21 17:00 07/09/21 02:30 Vancomycin IV Infused Q8H EN Infusion Piperacillin Sod/Tazobactam 100 mls @ 25 mls/hr 07/07/21 16:30 07/09/21 04:40 Sod 3.375 gm/ Sodium Chloride IV 0 mls/hr Q8H EN Infusion Insulin Human Lispro 0 unit 07/05/21 12:00 07/09/21 07:41 Insulin Lispro 100 Unit/Ml 3ml Vial SUBCUT Not Given 0600,1200,1800,0000 EN Protocol Labetalol HCl 10 mg 06/29/21 09:42 07/03/21 16:26 Labetalol 20 Mg/4 Ml Syringe IV 10 mg Q4HR PRN Administration Heart Rate- High Lorazepam 0 mg 06/21/21 21:53 06/30/21 08:13 Lorazepam 2 Mg/Ml Inj IV 2 mg CIWAPRN PRN Administration Alcohol Withdrawal Protocol Pantoprazole Sodium 40 mg 06/30/21 09:00 07/08/21 08:05 Pantoprazole 40 Mg Vial IV 40 mg DAILY EN Administration Sodium Chloride 10 ml 06/28/21 09:00 07/08/21 22:35 Sodium Chloride 0.9% Flush IV 10 ml BID EN Administration Objective Ventilator Parameters: Ventilator Settings FiO2 24 RT Vent Frequency 16 Ventilator Tidal Volume 470 Exhaled Vt/kg IBW 6.5 Positive End Expiratory 5 Pressure Ventilator Pressure Support 0 Inspiratory Phase Time 0.75 I:E Ratio 1:2 Patient Position HOB >= 30 degrees Labs Result Diagrams: 07/09/21 05:50 07/09/21 05:50 Labs: Laboratory Results - last 24 hr 07/08/21 07/08/21 07/09/21 16:45 20:40 05:50 WBC RBC Hgb Hct MCV MCH MCHC RDW Plt Count ABG pH ABG pCO2 ABG pO2 ABG HCO3 ABG Total CO2 ABG O2 Saturation ABG Base Excess FiO2 Sodium Potassium Chloride Carbon Dioxide BUN Creatinine Estimated GFR BUN/Creatinine Ratio Glucose Calcium Phosphorus 2.3 Magnesium 1.7 Vancomycin Peak 24.9 Vancomycin Trough 15.0 07/09/21 07/09/21 07/09/21 05:50 05:50 07:21 WBC 12.9 H RBC 3.06 L Hgb 10.1 L Hct 30.3 L MCV 98.9 MCH 33.0 MCHC 33.4 RDW 13.9 Plt Count 370 ABG pH 7.45 ABG pCO2 23.2 L* ABG pO2 63 L ABG HCO3 16 L ABG Total CO2 17 L ABG O2 Saturation 93 L ABG Base Excess -8.0 L FiO2 24 Sodium 135 L Potassium 4.0 Chloride 113 H Carbon Dioxide 17 L BUN 8 L Creatinine 0.58 L Estimated GFR > 60 BUN/Creatinine Ratio 13.8 Glucose 208 H Calcium 6.6 L Phosphorus Magnesium Vancomycin Peak Vancomycin Trough Exam Vital Signs (past 8 hours): - 07/09/21 02:30 07/09/21 03:00 07/09/21 03:30 Temperature Pulse Rate 66 65 65 Respiratory Rate 26 H 27 H 27 H Blood Pressure 103/63 101/62 103/62 Pulse Oximetry 99 99 100 07/09/21 04:00 07/09/21 04:30 07/09/21 05:00 Temperature 98.4 F Pulse Rate 64 68 78 Respiratory Rate 26 H 33 H Blood Pressure 93/57 L 96/57 L 110/59 L Pulse Oximetry 98 95 97 07/09/21 05:30 07/09/21 06:00 07/09/21 06:30 Temperature Pulse Rate 75 75 71 Respiratory Rate 30 H 31 H 29 H Blood Pressure 106/63 95/58 L 102/60 Pulse Oximetry 97 95 97 07/09/21 07:00 07/09/21 07:31 07/09/21 07:36 Temperature Pulse Rate 69 88 Respiratory Rate 28 H 32 H Blood Pressure 99/61 115/75 Pulse Oximetry 97 100 97 07/09/21 07:49 07/09/21 08:00 07/09/21 09:00 Temperature 98.4 F Pulse Rate 75 74 Respiratory Rate 31 H 34 H Blood Pressure 107/62 109/65 Pulse Oximetry 98 95 Fraction of Inspired Oxygen 28 Oxygen Delivery Method Mechanical Ventilation Oxygen Flow Rate 35 Quality TeleICU VTE Deep Vein Thrombosis/Pulmonary Embolism Present on Admission: No Assessment & Plan Assessment & Plan narrative: patient seen examined with bedside nurse and provider chart/labs/imaging reviewed intubated sedated on fent/prercex agitated when off sedation ?HD stable on low dose pressors plan -neuroeches/seizure precatuions -minimize sedation, goal lou -1 -start seroquel 50mg bid, check qtc, keep less than 500 - wean off of precedex -vent support, daily sah/sbt, no tolerating for safe extubation -cxr.abg prn, adjust vent as needed -continue chest pt/pum toilet, secreiotns remain, suggest bronch if possible -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 -continue vanc,zosyn, can desesalate based on sensivities -sugery eval for DTI -diuretics per primary team -replace lytes as needed -NAGMA noted, likely 2/2 to hyperchloremia, adjust drips to not include saline -check ua -thimain/folate -gi/dvt ppx in place -monitor ins/outs -keep glucose 140-180s - suggest to address goals of care pt unlikely to be safely extubated, 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
[2021-07-09 10:24] LABS: Appearance Urine UA CLEAR; Bilirubin Urine UA NEGATIVE (NEGATIVE); Color Urine UA YELLOW; Glucose Urine UA NEGATIVE (Negative); Ketones Urine UA NEGATIVE (NEGATIVE); Leukocyte Esterase Urine UA NEGATIVE (NEGATIVE); Nitrite Urine UA NEGATIVE (Negative); Occult Blood Urine UA 3+ (Negative); Protein Urine UA TRACE (Negative); Urobilinogen Urine UA 0.2 E.U./dL (0.2)
[2021-07-09 10:31] LABS: Amorphous Sediment Urine 1+; Bacteria Urine None Seen; Culture Indicated Urine Cult Not Indicated; RBC Urine 1-5/HPF (0-5/HPF); WBC Urine None Seen (0-5/HPF)
[2021-07-09] MEDS: INSULIN LISPRO 100 UNIT/ML 3ML VIAL SUBCUT ×2 (11:44→17:16)
[2021-07-09] MEDS: DEXMEDETOMIDINE HCL 1,000 MCG in SODIUM CHLORIDE 0.9% 250 ML 54.3 ML IV (13:17)
[2021-07-09] MEDS: MAGNESIUM SULFATE 2 GM/50 ML PIGGYBACK IV (13:30)
[2021-07-09] MEDS: fentaNYL 1,000 MCG in DEXTROSE 5% IN WATER 230 ML 40.913 ML IV (14:12)
--- NOTE | 2021-07-09 15:16 | PM.PN.1 ---
Subjective Subjective Interval history: The patient continues on sedation and intubation. Slightly responsive to stimuli, and not much. Exam Vital Signs (past 8 hours): - 07/09/21 07:31 07/09/21 07:36 07/09/21 07:49 Temperature 98.4 F Pulse Rate 88 Respiratory Rate 32 H Blood Pressure 115/75 Pulse Oximetry 100 97 07/09/21 08:00 07/09/21 09:00 07/09/21 10:00 Temperature Pulse Rate 75 74 72 Respiratory Rate 31 H 34 H 26 H Blood Pressure 107/62 109/65 110/68 Pulse Oximetry 98 95 95 07/09/21 11:00 07/09/21 12:00 07/09/21 13:00 Temperature 98.5 F Pulse Rate 71 70 66 Respiratory Rate 25 H 29 H 27 H Blood Pressure 123/71 113/68 106/64 Pulse Oximetry 96 97 97 07/09/21 14:00 07/09/21 15:00 Temperature Pulse Rate 67 66 Respiratory Rate 28 H 30 H Blood Pressure 107/65 102/65 Pulse Oximetry 96 96 Fraction of Inspired Oxygen 28 Oxygen Delivery Method Mechanical Ventilation Oxygen Flow Rate 35 Narrative Exam Narrative: Const Other: Patient laying in bed, intubated and sedated upon my entering the room Neck Other: No carotid bruits noted Resp Other: Diffuse rhonchi appreciated bilaterally Cardio Other: RRR, S1 and S2 heart sounds normal, with no extra heart sounds or murmurs appreciated GI Other: Soft, mildly distended, non-tender, bowel sounds present Skin Other: Stage III/IV sacral decubitus ulcer appreciated Extrem Other: Palpable dorsalis pedis pulses bilaterally Objective Labs Result Diagrams: 07/09/21 05:50 07/09/21 05:50 Labs: Laboratory Results - last 24 hr 07/08/21 07/08/21 07/09/21 16:45 20:40 05:50 WBC RBC Hgb Hct MCV MCH MCHC RDW Plt Count ABG pH ABG pCO2 ABG pO2 ABG HCO3 ABG Total CO2 ABG O2 Saturation ABG Base Excess FiO2 Sodium Potassium Chloride Carbon Dioxide BUN Creatinine Estimated GFR BUN/Creatinine Ratio Glucose Calcium Phosphorus 2.3 Magnesium 1.7 Urine Color Urine Appearance Urine pH Ur Specific [place] Urine Protein Urine Glucose (UA) Urine Ketones Urine Occult Blood Urine Nitrate Urine Bilirubin Urine Urobilinogen Ur Leukocyte Esterase Urine RBC Urine WBC Amorphous Sediment Urine Bacteria Ur Culture Indicated? Vancomycin Peak 24.9 Vancomycin Trough 15.0 07/09/21 07/09/21 07/09/21 05:50 05:50 07:21 WBC 12.9 H RBC 3.06 L Hgb 10.1 L Hct 30.3 L MCV 98.9 MCH 33.0 MCHC 33.4 RDW 13.9 Plt Count 370 ABG pH 7.45 ABG pCO2 23.2 L* ABG pO2 63 L ABG HCO3 16 L ABG Total CO2 17 L ABG O2 Saturation 93 L ABG Base Excess -8.0 L FiO2 24 Sodium 135 L Potassium 4.0 Chloride 113 H Carbon Dioxide 17 L BUN 8 L Creatinine 0.58 L Estimated GFR > 60 BUN/Creatinine Ratio 13.8 Glucose 208 H Calcium 6.6 L Phosphorus Magnesium Urine Color Urine Appearance Urine pH Ur Specific [place] Urine Protein Urine Glucose (UA) Urine Ketones Urine Occult Blood Urine Nitrate Urine Bilirubin Urine Urobilinogen Ur Leukocyte Esterase Urine RBC Urine WBC Amorphous Sediment Urine Bacteria Ur Culture Indicated? Vancomycin Peak Vancomycin Trough 07/09/21 09:55 WBC RBC Hgb Hct MCV MCH MCHC RDW Plt Count ABG pH ABG pCO2 ABG pO2 ABG HCO3 ABG Total CO2 ABG O2 Saturation ABG Base Excess FiO2 Sodium Potassium Chloride Carbon Dioxide BUN Creatinine Estimated GFR BUN/Creatinine Ratio Glucose Calcium Phosphorus Magnesium Urine Color Yellow Urine Appearance Clear Urine pH 5.0 Ur Specific [place] 1.020 Urine Protein Trace H Urine Glucose (UA) Negative Urine Ketones Negative Urine Occult Blood 3+ H Urine Nitrate Negative Urine Bilirubin Negative Urine Urobilinogen 0.2 Ur Leukocyte Esterase Negative Urine RBC 1-5/hpf D Urine WBC None seen Amorphous Sediment 1+ Urine Bacteria None seen Ur Culture Indicated? Cult not indicated Vancomycin Peak Vancomycin Trough [facility] Social History household members: spouse Smoking Status: Former smoker alcohol intake: current Assessment & Plan Assessment & Plan narrative: 1. Acute hypoxic respiratory failure secondary to severe EtOH withdrawal ?- Patient intubated on June 24, 2021 for airway protection, he was subsequently extubated, and re-intubated on night of July 04 ?- Will start IV lasix 20 mg daily on July 08 to help relieve pulmonary congestion and maintain euvolemia as much as possible 2. Severe EtOH withdrawal with delirium tremens ?- CIWA protocol on-board, along with IV Precedex, IV fentanyl for sedation ?- Will defer to tele-oil well service operator regarding ideal sedating agents while patient is on ventilator 3. Concern for aspiration pneumonia, with respiratory culture growing MRSA and Klebsiella oxytoca ?- Empiric IV vancomycin started on July 04, after patient re-intubated, and empiric IV Zosyn started on July 07 4. Proximal SBO/ileus ?- NG tube in place, and appreciated general surgery recommendations post-Gastrografin study 5. Alcoholic hepatitis ?- LFT's continue to improve, and will need to monitor, INR slightly elevated 6. Duodenitis, ongoing, likely due to EtOH abuse ?- IV Protonix 40 mg daily on-board 7. Hypothyroidism ?- Home levothyroxine adjusted to IV levothyroxine 8. Hyperlipidemia ?- Will hold home simvastatin for now given above 9. Thrombocytopenia, stable ?- Likely secondary to bone marrow suppression from EtOH abuse, along with severe liver injury 10. Hypophosphatemia, ongoing ?- Likely due to ongoing EtOH withdrawal, replenish as necessary 11. Hypokalemia, ongoing ?- Likely due to ongoing EtOH withdrawal, replenish as necessary 12. Hypomagnesemia, ongoing ?- Likely due to ongoing EtOH withdrawal, replenish as necessary 13. Stage III/IV sacral decubitus ulcer - Broad-spectrum abx on-board, as above, with wound care dressings daily - Appreciate general surgery consult recommendations 14. [id number] conversation - Given patient's severe illness, and poor prognosis, discussed with pt's that he should be DNR/DNI at time of extubation, and that if he does not tolerate extubation well, then withdrawal of care and comfort care measures are appropriate, and she agrees, and wants to inform her other family members so they can be with pt VTE prophylaxis: Lovenox 40 mg daily Time Spent With Patient Critical Care time: I spent a total of [] minutes of critical care time on this patient's care today; this time is exclusive of procedural time. Quality VTE Deep Vein Thrombosis/Pulmonary Embolism Present on Admission: No
[2021-07-09] MEDS: POTASSIUM PHOSPHATE 15 MMOL in SODIUM CHLORIDE 0.9% 250 ML 63.75 ML IV (15:41)
--- NOTE | 2021-07-09 15:43 | P.PN_ITS ---
Subjective Subjective Date Patient Seen: 07/09/21 Time Patient Seen: 15:44 Interval history: Requested to see the patient in regards to a sacral decubitus ulcer. He remains on mechanical ventilation for nearly a week has been unable to extubate. Exam Vital Signs (past 8 hours): - 07/09/21 07:49 07/09/21 08:00 07/09/21 09:00 Temperature 98.4 F Pulse Rate 75 74 Respiratory Rate 31 H 34 H Blood Pressure 107/62 109/65 Pulse Oximetry 98 95 07/09/21 10:00 07/09/21 11:00 07/09/21 12:00 Temperature 98.5 F Pulse Rate 72 71 70 Respiratory Rate 26 H 25 H 29 H Blood Pressure 110/68 123/71 113/68 Pulse Oximetry 95 96 97 07/09/21 13:00 07/09/21 14:00 07/09/21 15:00 Temperature Pulse Rate 66 67 66 Respiratory Rate 27 H 28 H 30 H Blood Pressure 106/64 107/65 102/65 Pulse Oximetry 97 96 96 Fraction of Inspired Oxygen 28 Oxygen Delivery Method Mechanical Ventilation Oxygen Flow Rate 35 Narrative Exam Narrative: General elderly man sedated for mechanical ventilation. Reviewed recent hospital photograph of sacral decubitus ulcer which demonstrates of large draining decubitus ulcer no visible bone Objective Labs Result Diagrams: 07/09/21 05:50 07/09/21 05:50 Labs: Laboratory Results - last 24 hr 07/08/21 07/08/21 07/09/21 16:45 20:40 05:50 WBC RBC Hgb Hct MCV MCH MCHC RDW Plt Count ABG pH ABG pCO2 ABG pO2 ABG HCO3 ABG Total CO2 ABG O2 Saturation ABG Base Excess FiO2 Sodium Potassium Chloride Carbon Dioxide BUN Creatinine Estimated GFR BUN/Creatinine Ratio Glucose Calcium Phosphorus 2.3 Magnesium 1.7 Urine Color Urine Appearance Urine pH Ur Specific [place] Urine Protein Urine Glucose (UA) Urine Ketones Urine Occult Blood Urine Nitrate Urine Bilirubin Urine Urobilinogen Ur Leukocyte Esterase Urine RBC Urine WBC Amorphous Sediment Urine Bacteria Ur Culture Indicated? Vancomycin Peak 24.9 Vancomycin Trough 15.0 07/09/21 07/09/21 07/09/21 05:50 05:50 07:21 WBC 12.9 H RBC 3.06 L Hgb 10.1 L Hct 30.3 L MCV 98.9 MCH 33.0 MCHC 33.4 RDW 13.9 Plt Count 370 ABG pH 7.45 ABG pCO2 23.2 L* ABG pO2 63 L ABG HCO3 16 L ABG Total CO2 17 L ABG O2 Saturation 93 L ABG Base Excess -8.0 L FiO2 24 Sodium 135 L Potassium 4.0 Chloride 113 H Carbon Dioxide 17 L BUN 8 L Creatinine 0.58 L Estimated GFR > 60 BUN/Creatinine Ratio 13.8 Glucose 208 H Calcium 6.6 L Phosphorus Magnesium Urine Color Urine Appearance Urine pH Ur Specific [place] Urine Protein Urine Glucose (UA) Urine Ketones Urine Occult Blood Urine Nitrate Urine Bilirubin Urine Urobilinogen Ur Leukocyte Esterase Urine RBC Urine WBC Amorphous Sediment Urine Bacteria Ur Culture Indicated? Vancomycin Peak Vancomycin Trough 07/09/21 09:55 WBC RBC Hgb Hct MCV MCH MCHC RDW Plt Count ABG pH ABG pCO2 ABG pO2 ABG HCO3 ABG Total CO2 ABG O2 Saturation ABG Base Excess FiO2 Sodium Potassium Chloride Carbon Dioxide BUN Creatinine Estimated GFR BUN/Creatinine Ratio Glucose Calcium Phosphorus Magnesium Urine Color Yellow Urine Appearance Clear Urine pH 5.0 Ur Specific [place] 1.020 Urine Protein Trace H Urine Glucose (UA) Negative Urine Ketones Negative Urine Occult Blood 3+ H Urine Nitrate Negative Urine Bilirubin Negative Urine Urobilinogen 0.2 Ur Leukocyte Esterase Negative Urine RBC 1-5/hpf D Urine WBC None seen Amorphous Sediment 1+ Urine Bacteria None seen Ur Culture Indicated? Cult not indicated Vancomycin Peak Vancomycin Trough [facility] Social History household members: spouse Smoking Status: Former smoker alcohol intake: current Assessment & Plan Assessment & Plan narrative: 70-year-old man with prolonged critical illness on mechanical ventilator with a decubitus ulcer. I would not recommend any surgical therapy for the decubitus ulcer at this point as it well likely be futile. Remains critically ill, significant chance he will fail to extubate and may be transitioning to comfort care in short order. Recommend continued local wound care. Time Spent With Patient Critical Care time: I spent a total of [] minutes of critical care time on this patient's care today; this time is exclusive of procedural time. Quality VTE Deep Vein Thrombosis/Pulmonary Embolism Present on Admission: No
--- NOTE | 2021-07-09 16:00 | DIET.PN1 ---
Dietary Progress Note Assessment: Discussed TF tolerance with RN. Pt not tolerating feeds well. TF paused due to high residuals again (>500cc) and abdominal distention. In rounds, potential for extubation in the next few days. Potential for comfort care. Status changed to DNR. Diet: 07/05/21 Lunch Tube Feeding Diet Diet Modifications: TF Supplement type: Pivot 1.5 TF mode of delivery: Continuous Starting flow rate mL/hr: 25 Flow rate goal mL/hr: 55 Titration Schedule to reach Goal Rate: 10mL q4h as tolerated Max total daily volume in mL: 1,320 Free fluid: 250 Free Water Frequency: Q4H Nutrition Type of Feeding Tube NG/OG 07/09/21 12:03 Type of Feeding Tube NG/OG 07/08/21 20:00 Type of Feeding Tube NG/OG 07/08/21 18:05 Monitoring/Evaluations: will cont to monitor Electronically Signed by: Catalina Raya 07/09/21 16:00 Clinical Dietitian [address] [id number]
--- NOTE | 2021-07-09 18:35 | PC.NURSE ---
Day shift note: pt sedated and intubated, vent setting FiO2 24%, PEEP 5, RR 16, TV 470. Precedex, Levophed, Fentanyl infusing as documented in emar. Residuals from tube feeding greater than 500, informed provider, advised to hold tube feedings until tomorrow. at bedside with , code status discussed and changed to DNR/DNI. Pt remains intubated and sedated, Q 2hr turns, Dr Dewitt consulted on Decub ulcer, see report. Pt tolerating oral care and intermittent suctioning. Bed low and locked, call light within reach, will continue to monitor.
[2021-07-09] MEDS: DEXMEDETOMIDINE HCL 1,000 MCG in SODIUM CHLORIDE 0.9% 250 ML 57.5 ML IV (19:33)
[2021-07-09] MEDS: fentaNYL 1,000 MCG in DEXTROSE 5% IN WATER 230 ML 81.825 ML IV (19:58)
[2021-07-09] MEDS: METOCLOPRAMIDE 10 MG/2 ML INJ 5 MG IV (21:42)
[2021-07-09] MEDS: NOREPINEPHRINE BITARTRATE/D5W 4 MG/250 ML PLAST..BAG 7.5 MG IV (22:16)
--- NOTE | 2021-07-09 23:12 | P.ICUMDRN_ITS ---
- Date Patient Seen: 07/09/21 Time Patient Seen: 23:06 :: This patient was seen via real time interactive two-way audiovisual telecommunication. Note: 70 y.o. 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 Remains on fentanyl, NE and Precedex infusions. Sputum culture obtained after the re-intubation (07/04) grew MRSA; he is on vancomycin. 07/06 sputum cx w/ Klebsiella oxytoca which is relatively sensitive; on Zosyn. Surgery consultation on gluteal cleft region DTI reviewed. Feeds again on hold due to elevated gastric residuals. There are some tentative plans for a one-way/compassionate extubation; now DNR. INTERVENTIONS: 1) Efren ordered Continue rest of current mgmt.
[2021-07-09] MEDS: fentaNYL 1,000 MCG in DEXTROSE 5% IN WATER 230 ML 54.55 ML IV (23:56)
[2021-07-10] VITALS (40 sets, daily range): BP systolic 91–131; BP diastolic 51–75; PULSE 64–77; RESP 4–33; TEMP 36.2–37.4; O2SAT 92–98
[2021-07-10] MEDS: CHLORHEXIDINE GLUCONATE 15 ML CUP PO ×4 (00:01→22:35)
[2021-07-10] MEDS: VANCOMYCIN 1,500 MG/300 ML PIGGYBACK 200 MG IV (00:51)
[2021-07-10] MEDS: DEXMEDETOMIDINE HCL 1,000 MCG in SODIUM CHLORIDE 0.9% 250 ML 40.1 ML IV ×2 (00:57→07:48)
[2021-07-10] MEDS: PIPERACILLIN/TAZO 3.375 GM in SODIUM CHLORIDE 0.9% 100 ML 25 ML IV ×3 (03:06→22:00)
[2021-07-10] MEDS: fentaNYL 1,000 MCG in DEXTROSE 5% IN WATER 230 ML 54.55 ML IV ×2 (04:49→09:20)
[2021-07-10 05:38] LABS: Hematocrit 29.2 % (41-53); Hemoglobin 9.6 g/dL (13.5-17.5); Mean Corpuscular HGB Conc 32.8 % (30-36); Mean Corpuscular Hemoglobin 32.6 PG (26-34); Mean Corpuscular Volume 99.4 fL (80-100); Platelet Count 341 X10^3/uL (150-400); Red Blood Cell Count 2.94 X10^6/uL (4.5-5.9); Red Cell Distribution Width 13.8 % (11.6-14.8); White Blood Cell Count 15.7 X10^3/uL (4.5-11.0)
[2021-07-10 05:43] LABS: Potassium 3.6 mmol/L (3.4-5.1)
[2021-07-10 05:44] LABS: BUN Creatinine Ratio 11.8 (6-22); Blood Urea Nitrogen 6 mg/dL (9-20); Carbon Dioxide 15 mmol/L (22-32); Chloride 110 mmol/L (98-107); Estimated Glomerular Filt Rate > 60 mL/min (>60); Glucose 375 mg/dL (80-110); Magnesium 1.8 mg/dL (1.6-2.3); Phosphorous 2.7 mg/dL (2.3-3.7); Sodium 130 mmol/L (137-145)
[2021-07-10] MEDS: METOCLOPRAMIDE 10 MG/2 ML INJ 5 MG IV ×3 (05:45→22:48)
[2021-07-10] MEDS: INSULIN LISPRO 100 UNIT/ML 3ML VIAL SUBCUT (05:46)
[2021-07-10 06:15] LABS: HEMOLYSIS 17 (0-50)
[2021-07-10 06:17] LABS: Calcium 6.3 mg/dL (8.4-10.2)
--- NOTE | 2021-07-10 06:21 | PC.NURSE ---
Informed Dr. De Los Santos of pt's. Ca+ level result of 6.3 and increased WBC-15.7, no new orders received.
--- NOTE | 2021-07-10 06:23 | PC.NURSE ---
Pt. remains intubated without change on vent settings. 02 sats has been on the high 90's, lungs essentially is CTA but decreased. Pt. is afebrile and remains on Levophed gtt currently at 3 mcg/min with MAP bet. 60's-70's on SR with BBB. Pt. still has anasarca. Pt. on Precedex gtt at 1.5mcg/kg/hr and Fentanyl at 2 mcg/kg/hr. Abdomen still firm, distended, hypoactive and tympanic when percussed, on Reglan 5 mg IV q8h per Dr. Suárez, no stool this shift. Forman with 750 ml clear yellow output this shift. Pt. remains on Vanco and Zosyn. Pt. turned q2h, pressure injury to sacrum draining serous to serosanguinous drainage with foul odor. Dr. Aguilar, pt's. PCP called last night and asked for pt. update, would like to talk to hospitalist today; will pass this info to day shift nurse. Cont. to treat.
[2021-07-10] MEDS: ALBUTEROL 2.5 MG/3 ML NEB (ADULT) INH ×2 (07:43→19:07)
--- NOTE | 2021-07-10 08:01 | DI.RAD.S_ITS ---
PROCEDURE: XR CHEST 1V INDICATIONS: leukocytosis on ventilator TECHNIQUE: One view of the chest was acquired. COMPARISON: [facility], CT, CT CHEST ABD PEL W CON, 07/04/2021, 14:11. [facility], CR, XR CHEST 1V, 07/04/2021, 1:42. [facility], CR, XR CHEST 1V, 07/07/2021, 9:51. FINDINGS: Surgical changes and devices: An endotracheal tube is seen, with the tip 3-4 cm above the winnie. A gastric tube is seen, with the tip overlying the mid stomach. There is a stable left-sided central line, with the tip overlying the superior aspect of the superior vena cava. Lungs and pleura: Lung volumes are low. Blunting of the costophrenic angles can be seen. Generalized interstitial prominence can be seen, which is worse than on the prior examination. Mediastinum: Mediastinal contours appear normal. Heart size is at the upper limits of normal. Bones and chest wall: No suspicious bony lesions. Age-appropriate bony degenerative changes are seen. Overlying soft tissues appear unremarkable. IMPRESSION: Worsening appearance of the chest radiograph, with low lung volumes with pleural effusions and diffuse interstitial prominence. Pulmonary edema is suspected. Dictated by: Prakash Archer M.D. on 07/10/2021 at 7:38 Approved by: Prakash Archer M.D. on 07/10/2021 at 7:40
--- NOTE | 2021-07-10 08:02 | PM.PN.1 ---
Subjective Subjective Date Patient Seen: 07/10/21 Interval history: He is seen in his room here to follow-up his ongoing respiratory failure, ventilator dependent oxygenation, nutritional supplementation and aspiration pneumonia. The white blood count has risen to 15.7. The hemoglobin is 9.6. The sodium is 130. The potassium is 3.6. The glucose is 345. He has been intubated for total of 9 days now. He has required ongoing sedation with Precedex, fentanyl and other sedatives nearly continuously. During my interaction he opens his eyes and appears to look at me. He is able to squeeze his right hand on request but not his left. He then fades out quite quickly. He is discussed extensively with nursing staff and with his . We talked about the fact that his blood pressure is dropping and he is not able to tolerate the amount of furosemide diuresis that was the recent month/goal to optimize his chance of surviving off the ventilator. He is now DNR. Exam Vital Signs (past 8 hours): - 07/10/21 00:05 07/10/21 00:10 07/10/21 00:15 Temperature Pulse Rate 68 69 69 Respiratory Rate 25 H Blood Pressure 103/59 L 105/62 104/64 Pulse Oximetry 97 95 96 07/10/21 00:30 07/10/21 01:00 07/10/21 01:30 Temperature Pulse Rate 69 69 67 Respiratory Rate 25 H 23 24 Blood Pressure 106/62 106/61 98/56 L Pulse Oximetry 97 98 98 07/10/21 02:00 07/10/21 02:30 07/10/21 03:00 Temperature 97.4 F L Pulse Rate 67 65 67 Respiratory Rate 23 22 22 Blood Pressure 97/56 L 91/52 L 92/52 L Pulse Oximetry 98 98 98 07/10/21 03:30 07/10/21 04:00 07/10/21 04:30 Temperature Pulse Rate 66 66 66 Respiratory Rate 22 21 23 Blood Pressure 91/52 L 92/51 L 92/55 L Pulse Oximetry 98 98 97 07/10/21 05:00 07/10/21 05:30 07/10/21 06:00 Temperature 97.8 F 97.4 F L Pulse Rate 66 65 64 Respiratory Rate 21 22 23 Blood Pressure 99/56 L 93/54 L 91/53 L Pulse Oximetry 97 96 96 07/10/21 07:00 Temperature Pulse Rate 65 Respiratory Rate 26 H Blood Pressure 100/60 Pulse Oximetry 97 Fraction of Inspired Oxygen 28 Oxygen Delivery Method Mechanical Ventilation Oxygen Flow Rate 35 Narrative Exam Narrative: He is intubated and sedated. No apparent distress. Heart is regular rate and rhythm without murmur Lungs are clear to auscultation bilaterally He has 1+ anasarca throughout on all extremities and the abdomen. The sacral decubitus is not examined today by myself. He is able to squeeze his right hand on request but not his left. He then fades out quite quickly. Objective Labs Result Diagrams: 07/10/21 05:25 07/10/21 05:25 Labs: Laboratory Results - last 24 hr 07/09/21 07/09/21 07/10/21 07:21 09:55 05:25 WBC RBC Hgb Hct MCV MCH MCHC RDW Plt Count ABG pH 7.45 ABG pCO2 23.2 L* ABG pO2 63 L ABG HCO3 16 L ABG Total CO2 17 L ABG O2 Saturation 93 L ABG Base Excess -8.0 L FiO2 24 Sodium Potassium Chloride Carbon Dioxide BUN Creatinine Estimated GFR BUN/Creatinine Ratio Glucose Calcium Phosphorus 2.7 Magnesium 1.8 Urine Color Yellow Urine Appearance Clear Urine pH 5.0 Ur Specific [place] 1.020 Urine Protein Trace H Urine Glucose (UA) Negative Urine Ketones Negative Urine Occult Blood 3+ H Urine Nitrate Negative Urine Bilirubin Negative Urine Urobilinogen 0.2 Ur Leukocyte Esterase Negative Urine RBC 1-5/hpf D Urine WBC None seen Amorphous Sediment 1+ Urine Bacteria None seen Ur Culture Indicated? Cult not indicated 07/10/21 07/10/21 05:25 05:25 WBC 15.7 H RBC 2.94 L Hgb 9.6 L Hct 29.2 L MCV 99.4 MCH 32.6 MCHC 32.8 RDW 13.8 Plt Count 341 ABG pH ABG pCO2 ABG pO2 ABG HCO3 ABG Total CO2 ABG O2 Saturation ABG Base Excess FiO2 Sodium 130 L Potassium 3.6 Chloride 110 H Carbon Dioxide 15 L BUN 6 L Creatinine 0.51 L Estimated GFR > 60 BUN/Creatinine Ratio 11.8 Glucose 375 H D Calcium 6.3 L* Phosphorus Magnesium Urine Color Urine Appearance Urine pH Ur Specific [place] Urine Protein Urine Glucose (UA) Urine Ketones Urine Occult Blood Urine Nitrate Urine Bilirubin Urine Urobilinogen Ur Leukocyte Esterase Urine RBC Urine WBC Amorphous Sediment Urine Bacteria Ur Culture Indicated? [facility] Social History household members: spouse Smoking Status: Former smoker alcohol intake: current Assessment & Plan Assessment & Plan narrative: 1. Acute hypoxic respiratory failure secondary to severe EtOH withdrawal ?- Patient intubated on June 24, 2021 for airway protection, he was subsequently extubated, and re-intubated on night of July 04 ?- started IV lasix 20 mg daily on July 08 to help relieve pulmonary congestion and maintain euvolemia as much as possible - patient became hypotensive and could not be successfully diuresed on 07/10. - plan extubation on the morning of 07/11. would like to be present. 2. Severe EtOH withdrawal with delirium tremens ?- CIWA protocol was used, along with IV Precedex, IV fentanyl for sedation ?- Defer to tele-performance improvement analyst regarding ideal sedating agents while patient is on ventilator 3. Concern for aspiration pneumonia, with respiratory culture growing MRSA and Klebsiella oxytoca ?- Empiric IV vancomycin started on July 04, after patient re-intubated, and empiric IV Zosyn started on July 07 - Worsening infiltrates on 07/10 CXR 4. Proximal SBO/ileus ?- NG tube in place, and appreciated general surgery recommendations post-Gastrografin study 5. Alcoholic hepatitis ?- LFT's continue to improve, and will need to monitor, INR slightly elevated 6. Duodenitis, ongoing, likely due to EtOH abuse ?- IV Protonix 40 mg daily on-board 7. Hypothyroidism ?- Home levothyroxine adjusted to IV levothyroxine 8. Hyperlipidemia ?- Discontinued Simvastatin 9. Thrombocytopenia, stable ?- Likely secondary to bone marrow suppression from EtOH abuse, along with severe liver injury 10. Hypophosphatemia, ongoing ?- Likely due to ongoing EtOH withdrawal, replenish as necessary 11. Hypokalemia, ongoing ?- Likely due to ongoing EtOH withdrawal, replenish as necessary 12. Hypomagnesemia, ongoing ?- Likely due to ongoing EtOH withdrawal, replenish as necessary 13. Stage III/IV sacral decubitus ulcer ?- Broad-spectrum abx on-board, as above, with wound care dressings daily ?- Appreciate general surgery consult recommendations - no debridement indicated 14. [id number] conversation ?- Given patient's severe illness, and poor prognosis, discussed with pt's that he should be DNR/DNI at time of extubation, and that if he does not tolerate extubation well, then withdrawal of care and comfort care measures are appropriate, and she agrees, and wants to inform her other family members so they can be with pt. - discussed again with his on 07/10. She was informed of the IV Lasix/hypotensive issues that are preventing a full 4 days of diuresis before extubation as had been planned. She plans to come in on the morning of 07/11 to be present for the transition to extubation. VTE prophylaxis: Lovenox 40 mg daily Time Spent With Patient Critical Care time: I spent a total of [] minutes of critical care time on this patient's care today; this time is exclusive of procedural time. Quality VTE Deep Vein Thrombosis/Pulmonary Embolism Present on Admission: No
[2021-07-10] MEDS: PANTOPRAZOLE 40 MG VIAL IV (09:21)
[2021-07-10] MEDS: SODIUM CHLORIDE 0.9% FLUSH 10 ML IV (09:21)
[2021-07-10] MEDS: ENOXAPARIN 40 MG/0.4 ML SYRINGE SUBCUT ×2 (09:22→22:46)
[2021-07-10] MEDS: FOLIC ACID 1 MG TABLET PO (09:22)
[2021-07-10] MEDS: VANCOMYCIN 1,500 MG in SODIUM CHLORIDE 0.9% 500 ML 333.333 MG IV ×2 (09:58→17:08)
--- NOTE | 2021-07-10 10:00 | PM.PN.EICU ---
Subjective Subjective :: This patient was seen via real time interactive two-way audiovisual telecommunication. no acute events overnight agitated off sedation unable to tolerate feeds Current Medications Current Medications Medications: Home Medications levothyroxine 75 mcg tablet 75 mcg PO QAM 06/21/21 [History Confirmed 06/21/21] simvastatin 40 mg tablet 40 mg PO BEDTIME 06/21/21 [History Confirmed 06/21/21] Visit Medications (administered) Generic Name Dose Route Start Last Admin Trade Name Freq PRN Reason Stop Dose Admin Acetaminophen 650 mg 07/05/21 00:39 07/05/21 19:47 Acetaminophen 325 Mg Tablet PO 650 mg Q4HR PRN Administration Fever/Mild Pain (1-3) Acetaminophen 650 mg 07/05/21 00:40 07/08/21 16:13 Acetaminophen 650 Mg Supp [place] 650 mg Q4HR PRN Administration Fever/Mild Pain (1-3) Albuterol 2.5 mg 07/10/21 07:00 07/10/21 07:43 Albuterol 2.5 Mg/3 Ml Neb (Adult) INH 2.5 mg [id number] EN Administration Chlorhexidine Gluconate 15 ml 07/04/21 06:00 07/10/21 05:45 Chlorhexidine Gluconate 15 Ml Cup PO 15 ml Q6HR EN Administration Enoxaparin Sodium 40 mg 07/09/21 21:00 07/10/21 09:22 Enoxaparin 40 Mg/0.4 Ml Syringe SUBCUT 40 mg BID EN Administration Folic Acid 1 mg 06/30/21 09:00 07/10/21 09:22 Folic Acid 1 Mg Tablet PO 1 mg DAILY EN Administration Hydralazine HCl 10 mg 06/29/21 11:11 07/03/21 16:26 Hydralazine 20 Mg/Ml Vial IV 10 mg Q6HR PRN Administration Hypertension Fentanyl 1,000 mcg/ Dextrose 250 mls @ 19.093 mls/hr 07/04/21 01:45 07/10/21 09:20 IV 2 mcg/kg/hr TITRATE EN 54.55 mls/hr Administration Protocol 0.7 MCG/KG/HR NOREPINEPHRINE BITARTRATE/D5W 4 mg in 250 mls @ 30 mls/hr 07/04/21 12:58 07/09/21 23:50 Levophed IV 3 mcg/min TITRATE EN 11.25 mls/hr Titration Protocol 8 MCG/MIN Piperacillin Sod/Tazobactam 100 mls @ 25 mls/hr 07/09/21 11:30 07/10/21 07:06 Sod 3.375 gm/ Sodium Chloride IV Infused Q8H EN Infusion Dexmedetomidine HCl 1,000 mcg/ 260 mls @ 54.3 mls/hr 07/09/21 14:00 07/10/21 07:48 Sodium Chloride IV 40.1 ml/hr CONT EN 40.1 mls/hr Administration Protocol Insulin Human Lispro 0 unit 07/05/21 12:00 07/10/21 05:46 Insulin Lispro 100 Unit/Ml 3ml Vial SUBCUT 1 unit 0600,1200,1800,0000 EN Administration Protocol Labetalol HCl 10 mg 06/29/21 09:42 07/03/21 16:26 Labetalol 20 Mg/4 Ml Syringe IV 10 mg Q4HR PRN Administration Heart Rate- High Lorazepam 0 mg 06/21/21 21:53 06/30/21 08:13 Lorazepam 2 Mg/Ml Inj IV 2 mg CIWAPRN PRN Administration Alcohol Withdrawal Protocol Metoclopramide HCl 5 mg 07/09/21 22:00 07/10/21 05:45 Metoclopramide 10 Mg/2 Ml Inj IV 5 mg Q8HR EN Administration Pantoprazole Sodium 40 mg 06/30/21 09:00 07/10/21 09:21 Pantoprazole 40 Mg Vial IV 40 mg DAILY EN Administration Sodium Chloride 10 ml 06/28/21 09:00 07/10/21 09:21 Sodium Chloride 0.9% Flush IV 10 ml BID EN Administration Objective Ventilator Parameters: Ventilator Settings FiO2 30 RT Vent Frequency 16 Ventilator Tidal Volume 470 Exhaled Vt/kg IBW 6.5 Positive End Expiratory 5 Pressure Ventilator Pressure Support 0 Inspiratory Phase Time 0.8 I:E Ratio 1:2 Patient Position HOB >= 30 degrees Labs Result Diagrams: 07/10/21 05:25 07/10/21 05:25 Labs: Laboratory Results - last 24 hr 07/09/21 07/10/21 07/10/21 09:55 05:25 05:25 WBC 15.7 H RBC 2.94 L Hgb 9.6 L Hct 29.2 L MCV 99.4 MCH 32.6 MCHC 32.8 RDW 13.8 Plt Count 341 Sodium Potassium Chloride Carbon Dioxide BUN Creatinine Estimated GFR BUN/Creatinine Ratio Glucose Calcium Phosphorus 2.7 Magnesium 1.8 Urine Color Yellow Urine Appearance Clear Urine pH 5.0 Ur Specific [place] 1.020 Urine Protein Trace H Urine Glucose (UA) Negative Urine Ketones Negative Urine Occult Blood 3+ H Urine Nitrate Negative Urine Bilirubin Negative Urine Urobilinogen 0.2 Ur Leukocyte Esterase Negative Urine RBC 1-5/hpf D Urine WBC None seen Amorphous Sediment 1+ Urine Bacteria None seen Ur Culture Indicated? Cult not indicated 07/10/21 05:25 WBC RBC Hgb Hct MCV MCH MCHC RDW Plt Count Sodium 130 L Potassium 3.6 Chloride 110 H Carbon Dioxide 15 L BUN 6 L Creatinine 0.51 L Estimated GFR > 60 BUN/Creatinine Ratio 11.8 Glucose 375 H D Calcium 6.3 L* Phosphorus Magnesium Urine Color Urine Appearance Urine pH Ur Specific [place] Urine Protein Urine Glucose (UA) Urine Ketones Urine Occult Blood Urine Nitrate Urine Bilirubin Urine Urobilinogen Ur Leukocyte Esterase Urine RBC Urine WBC Amorphous Sediment Urine Bacteria Ur Culture Indicated? Exam Vital Signs (past 8 hours): - 07/10/21 02:30 07/10/21 03:00 07/10/21 03:30 Temperature Pulse Rate 65 67 66 Respiratory Rate 22 22 22 Blood Pressure 91/52 L 92/52 L 91/52 L Pulse Oximetry 98 98 98 07/10/21 04:00 07/10/21 04:30 07/10/21 05:00 Temperature 97.8 F Pulse Rate 66 66 66 Respiratory Rate 21 23 21 Blood Pressure 92/51 L 92/55 L 99/56 L Pulse Oximetry 98 97 97 07/10/21 05:30 07/10/21 06:00 07/10/21 07:00 Temperature 97.4 F L Pulse Rate 65 64 65 Respiratory Rate 22 23 26 H Blood Pressure 93/54 L 91/53 L 100/60 Pulse Oximetry 96 96 97 07/10/21 08:00 07/10/21 09:00 07/10/21 09:10 Temperature 99.3 F 99.3 F Pulse Rate 74 71 70 Respiratory Rate 25 H 23 24 Blood Pressure 104/63 101/59 L 94/55 L Pulse Oximetry 96 96 95 Fraction of Inspired Oxygen 28 Oxygen Delivery Method Mechanical Ventilation [facility]/P[facility] Embolism Present on Admission: No Assessment & Plan Assessment & Plan narrative: patient seen examined with bedside nurse and provider chart/labs/imaging reviewed intubated sedated on fent/preredex agitated when off sedation plan -family requested, dnr/dni, awaiting decision on terminal extubation -suggest pain control/comfort care -no more lab draws/images -hospice eval -please recall eICU prn Time Spent With Patient Critical Care time: I spent a total of [] minutes of critical care time on this patient's care today; this time is exclusive of procedural time.
[2021-07-10 10:05] LABS: HCO3 ABG 16 mmol/L (22-26); Oxygen Saturation ABG 88 % (95-100); PCO2 ABG 25.5 mmHg (35-45); PO2 ABG 54 mmHg (80-100); TCO2 ABG 16 mmol/L (21-31); pH ABG 7.39 (7.35-7.45)
[2021-07-10 10:06] LABS: Fractionated Inspired Oxygen 25
[2021-07-10] MEDS: DEXMEDETOMIDINE HCL 1,000 MCG in SODIUM CHLORIDE 0.9% 250 ML 53.5 ML IV (13:53)
[2021-07-10] MEDS: fentaNYL 1,000 MCG in DEXTROSE 5% IN WATER 230 ML 68.188 ML IV (13:55)
[2021-07-10] MEDS: DEXTROSE 5% IV (18:07)
[2021-07-10] MEDS: FENTANYL IV (18:07)
[2021-07-10] MEDS: WATER IV (18:07)
[2021-07-10] MEDS: NOREPINEPHRINE BITARTRATE/D5W 4 MG/250 ML PLAST..BAG 15 MG IV (18:14)
--- NOTE | 2021-07-10 19:04 | PC.NURSE ---
Day shift note: Pt intubated and sedated, vent settings without change, Levophed, Precedex and Fentanyl infusing as charted, NG to LIS abdomen firm, tympanic and distended. Forman patent and draining clear yellow urine, Pt. remains on Vanco and Zosyn. Pt. turned q2h, pressure injury to sacrum draining serous to serosanguinous drainage with foul odor. Bed low and locked, call light within reach, will continue to treat and monitor as ordered.
[2021-07-10] MEDS: DEXMEDETOMIDINE HCL IV (20:13)
[2021-07-10] MEDS: SODIUM CHLORIDE 0.9% IV (20:13)
[2021-07-11] VITALS (71 sets, daily range): BP systolic 87–220; BP diastolic 50–111; PULSE 62–133; RESP 9–66; TEMP 36.3–39.1; O2SAT 91–98
[2021-07-11] MEDS: VANCOMYCIN 1,500 MG in SODIUM CHLORIDE 0.9% 500 ML 333.333 MG IV (02:58)
[2021-07-11] MEDS: FENTANYL IV (03:29)
[2021-07-11] MEDS: WATER IV (03:29)
[2021-07-11] MEDS: DEXTROSE 5% IV (03:29)
[2021-07-11] MEDS: PIPERACILLIN/TAZO 3.375 GM in SODIUM CHLORIDE 0.9% 100 ML 25 ML IV ×3 (03:55→19:33)
--- NOTE | 2021-07-11 04:24 | PM.ICURNDS ---
- Date Patient Seen: 07/11/21 Time Patient Seen: 04:20 :: This patient was seen via real time interactive two-way audiovisual telecommunication. Note: 70 y.o. male w/ EtOH withdrawal syndrome, ileus, toxic-metabolic encephalopathy who required reintubation during 07/03- manufacturing supervisor 2nd shift.?Rounded on this patient earlier this shift; she reports that patient will be extubated during the upcoming day shift and will not be re-intubated. No changes were made in the treatment plan. Management as per bedside team.
[2021-07-11] MEDS: CHLORHEXIDINE GLUCONATE 15 ML CUP PO (05:36)
[2021-07-11] MEDS: METOCLOPRAMIDE 10 MG/2 ML INJ 5 MG IV ×3 (05:37→20:39)
[2021-07-11 06:02] LABS: Hemoglobin 9.4 g/dL (13.5-17.5); Mean Corpuscular HGB Conc 33.6 % (30-36); Mean Corpuscular Hemoglobin 33.1 PG (26-34); Mean Corpuscular Volume 98.5 fL (80-100); Platelet Count 287 X10^3/uL (150-400); Red Blood Cell Count 2.85 X10^6/uL (4.5-5.9); Red Cell Distribution Width 13.9 % (11.6-14.8); White Blood Cell Count 16.1 X10^3/uL (4.5-11.0)
[2021-07-11 06:13] LABS: BUN Creatinine Ratio 7.3 (6-22); Blood Urea Nitrogen 4 mg/dL (9-20); Carbon Dioxide 13 mmol/L (22-32); Chloride 107 mmol/L (98-107); Estimated Glomerular Filt Rate > 60 mL/min (>60); Glucose 296 mg/dL (80-110); HEMOLYSIS < 15 (0-50); Potassium 3.5 mmol/L (3.4-5.1); Sodium 127 mmol/L (137-145)
[2021-07-11 06:18] LABS: Calcium 6.3 mg/dL (8.4-10.2)
--- NOTE | 2021-07-11 06:52 | PC.NURSE ---
Called and left message on voice mail for Dr. Reyna to call back regarding low calcium. Waiting for call back.
[2021-07-11] MEDS: SODIUM CHLORIDE 0.9% IV (07:21)
[2021-07-11] MEDS: DEXMEDETOMIDINE HCL IV (07:21)
--- NOTE | 2021-07-11 07:29 | PC.NURSE ---
Care of patient from [id number], end of shift note. Patient sedated with Precedex and Fentanyl, opens eyes to name, supervisor fabrication weakly on command. Continues to be intubated on PVRC, Vt 470ml, FiO2 28% peep 5, RR 16, patient breathing over vent 24-28. SR 60s with no ectopy. NG to LIWS with 300ml out. Plan is to extubate patient on day shift when arrives. Report given to day shift RN.
[2021-07-11] MEDS: SCOPOLAMINE 1 PATCH TOP (07:56)
[2021-07-11] MEDS: VANCOMYCIN TROUGH 1 REQUEST MISC (08:30)
[2021-07-11] MEDS: ALBUTEROL 2.5 MG/3 ML NEB (ADULT) INH (08:33)
[2021-07-11 09:10] LABS: Vancomycin Trough 22.3 ug/mL (10-20)
--- NOTE | 2021-07-11 09:10 | PC.NURSE ---
Addendum entered by Kristy Valdes R.N. 07/11/21 18:31: Extubated pt with at bedside at 1014, pt tolerated well, medications on board per industrial cleaning technician for SOB. wants pt to be comfortable. Restraints removed, NG tube removed. Resting comfortably, will continue to monitor. Pt doing well, updated on status, sitting up in bed, will continue to treat and monitor. Original Note: Critical value from [place] in the lab Vanco trough 22.3
[2021-07-11] MEDS: SODIUM CHLORIDE 0.9% FLUSH 10 ML IV (09:33)
[2021-07-11] MEDS: PANTOPRAZOLE 40 MG VIAL IV (09:33)
[2021-07-11] MEDS: FUROSEMIDE 100 MG/10 ML VIAL 80 MG IV (09:34)
[2021-07-11] MEDS: MORPHINE 4 MG/ML INJ IV ×5 (09:35→21:39)
[2021-07-11] MEDS: LORazepam 2 MG/ML INJ IV (09:35)
--- NOTE | 2021-07-11 10:15 | CM.DPC ---
Addendum entered by JÚNIOR Beth 07/11/21 13:12: ADD: Pt was successfully extubated and appears somewhat stable currently and spouse has left the bedside and called SW stating her 2 sons are to arrive sometime tomorrow and inquiring if pt survives the night if both sons could be bedside to say their goodbyes. SW inquired with shipfitter and recommendation is to check in the AM if pt survives to see if any allowances for 2 sons to be bedside as pt is Comfort Care. Spouse acknowledges understanding and very appreciative and states I just can't think right now, I'm losing it with grief and states she has support there with her right now. BF Original Note: Extubation Per MD, pt to be extubated today and spouse not interested in trach if pt does not tolerate and preference is comfort focused and pt not expected to survive extubation. Per RN, spouse bedside and quite tearful. SW met bedside with spouse and explained role and she confirms that her friend drove her to the hospital and is waiting downstairs and very supportive and spouse declined [facility] [place] but states I have my on prayer chains all over the place and have lots of support right now. Spouse confirms that she does not anticipate pt to survive this and requested SW call her preference of [facility] as she cannot stop crying once I get on the phone. SW called [facility] and provided pt information and spouse contact info and they confirm they do not need anything more, just to be called to collect the body when pt expires, and then their geriatric nursing assistant will contact spouse at a later date, like tomorrow to make final arrangements. Plan: SW to follow closely for plan of extubation later this morning and spouse bedside and RN to contact [facility] if pt expires. Tiff Spann
--- NOTE | 2021-07-11 10:39 | P.TELICUPN_ITS ---
Subjective Subjective :: This patient was seen via real time interactive two-way audiovisual telecommunication. Current Medications Current Medications Medications: Home Medications levothyroxine 75 mcg tablet 75 mcg PO QAM 06/21/21 [History Confirmed 06/21/21] simvastatin 40 mg tablet 40 mg PO BEDTIME 06/21/21 [History Confirmed 06/21/21] Visit Medications (administered) Generic Name Dose Route Start Last Admin Trade Name Freq PRN Reason Stop Dose Admin Acetaminophen 650 mg 07/05/21 00:39 07/05/21 19:47 Acetaminophen 325 Mg Tablet PO 650 mg Q4HR PRN Administration Fever/Mild Pain (1-3) Acetaminophen 650 mg 07/05/21 00:40 07/08/21 16:13 Acetaminophen 650 Mg Supp [place] 650 mg Q4HR PRN Administration Fever/Mild Pain (1-3) Albuterol 2.5 mg 07/10/21 07:00 07/11/21 08:33 Albuterol 2.5 Mg/3 Ml Neb (Adult) INH 2.5 mg [id number] EN Administration Chlorhexidine Gluconate 15 ml 07/04/21 06:00 07/11/21 05:36 Chlorhexidine Gluconate 15 Ml Cup PO 15 ml Q6HR EN Administration Enoxaparin Sodium 40 mg 07/09/21 21:00 07/11/21 09:33 Enoxaparin 40 Mg/0.4 Ml Syringe SUBCUT Not Given BID EN Folic Acid 1 mg 06/30/21 09:00 07/11/21 09:33 Folic Acid 1 Mg Tablet PO Not Given DAILY EN Hydralazine HCl 10 mg 06/29/21 11:11 07/03/21 16:26 Hydralazine 20 Mg/Ml Vial IV 10 mg Q6HR PRN Administration Hypertension NOREPINEPHRINE BITARTRATE/D5W 4 mg in 250 mls @ 30 mls/hr 07/04/21 12:58 07/11/21 02:00 Levophed IV 1 mcg/min TITRATE EN 3.75 mls/hr Titration Protocol 8 MCG/MIN Piperacillin Sod/Tazobactam 100 mls @ 25 mls/hr 07/09/21 11:30 07/11/21 03:55 Sod 3.375 gm/ Sodium Chloride IV 25 mls/hr Q8H EN Administration Vancomycin HCl 1,500 mg/ 500 mls @ 333.333 mls/hr 07/10/21 09:00 07/11/21 0 9:34 Sodium Chloride IV Not Given Q8H EN Dexmedetomidine HCl 2,000 mcg/ 500 mls @ 53 mls/hr 07/10/21 19:00 07/11/21 07:21 Sodium Chloride IV 53 ml/hr CONT EN 48.2 mls/hr Administration Protocol Fentanyl 2,000 mcg/ Dextrose 500 mls @ 68 mls/hr 07/10/21 17:30 07/11/21 08:02 IV 43.1 mls/hr CONT EN 43.1 mls/hr Titration Protocol Labetalol HCl 10 mg 06/29/21 09:42 07/03/21 16:26 Labetalol 20 Mg/4 Ml Syringe IV 10 mg Q4HR PRN Administration Heart Rate- High Lorazepam 0 mg 06/21/21 21:53 06/30/21 08:13 Lorazepam 2 Mg/Ml Inj IV 2 mg CIWAPRN PRN Administration Alcohol Withdrawal Protocol Lorazepam 2 mg 07/11/21 08:46 07/11/21 09:35 Lorazepam 2 Mg/Ml Inj IV 07/21/21 08:45 2 mg Q1HR PRN Administration comfort measures Metoclopramide HCl 5 mg 07/09/21 22:00 07/11/21 05:37 Metoclopramide 10 Mg/2 Ml Inj IV 5 mg Q8HR EN Administration Morphine Sulfate 4 mg 07/11/21 08:46 07/11/21 09:35 Morphine 4 Mg/Ml Inj IV 4 mg Q1HR PRN Administration work of breathing Pantoprazole Sodium 40 mg 06/30/21 09:00 07/11/21 09:33 Pantoprazole 40 Mg Vial IV 40 mg DAILY EN Administration Scopolamine 1 patch 07/11/21 07:45 07/11/21 07:56 Scopolamine 1 Patch TOP 1 patch Q72H EN Administration Sodium Chloride 10 ml 06/28/21 09:00 07/11/21 09:33 Sodium Chloride 0.9% Flush IV 10 ml BID EN Administration Objective Ventilator Parameters: Ventilator Settings FiO2 28 RT Vent Frequency 16 Ventilator Tidal Volume 470 Exhaled Vt/kg IBW 6.5 Positive End Expiratory 5 Pressure Ventilator Pressure Support 0 Inspiratory Phase Time 0.80 I:E Ratio 1:2 Patient Position HOB >= 30 degrees Labs Result Diagrams: 07/11/21 05:45 07/11/21 05:45 Labs: Laboratory Results - last 24 hr 07/11/21 07/11/21 07/11/21 05:45 05:45 08:35 WBC 16.1 H RBC 2.85 L Hgb 9.4 L Hct 28.0 L MCV 98.5 MCH 33.1 MCHC 33.6 RDW 13.9 Plt Count 287 Sodium 127 L Potassium 3.5 Chloride 107 Carbon Dioxide 13 L BUN 4 L Creatinine 0.55 L Estimated GFR > 60 BUN/Creatinine Ratio 7.3 Glucose 296 H Calcium 6.3 L* Vancomycin Trough 22.3 H* Exam Vital Signs (past 8 hours): - 07/11/21 03:00 07/11/21 04:00 07/11/21 05:00 Temperature 98.0 F Pulse Rate 65 71 66 Respiratory Rate 24 27 H 66 H Blood Pressure 99/57 L 101/61 102/60 Pulse Oximetry 96 93 93 07/11/21 06:00 07/11/21 07:00 07/11/21 08:00 Temperature 97.3 F L 97.7 F Pulse Rate 70 64 63 Respiratory Rate 28 H 25 H 24 Blood Pressure 109/64 100/57 L 102/60 Pulse Oximetry 94 97 98 07/11/21 08:36 Temperature Pulse Rate 63 Respiratory Rate 25 H Blood Pressure Pulse Oximetry 98 Fraction of Inspired Oxygen 28 Oxygen Delivery Method Mechanical Ventilation Oxygen Flow Rate 35 Quality Tele[facility] VTE Deep Vein Thrombosis/Pulmonary Embolism Present on Admission: No Assessment & Plan Assessment & Plan narrative: patient seen examined with bedside nurse and provider chart/labs/imaging reviewed intubated sedated on fent/precedex agitated when off sedation plan -per wifes request will proceed with comfort measures and terminal extubation -please recall eICU prn Time Spent With Patient Critical Care time: I spent a total of [] minutes of critical care time on this patient's care today; this time is exclusive of procedural time.
--- NOTE | 2021-07-11 15:30 | P.PN_ITS ---
Subjective Subjective Date Patient Seen: 07/11/21 Time Patient Seen: 08:00 Interval history: He was intubated and sedated this AM when seen. He was extubated approximately at 10am. He has been altered since extubating. He remains on oxygen. He is mumbling but difficult to understand. Exam Vital Signs (past 8 hours): - 07/11/21 08:00 07/11/21 08:36 07/11/21 09:00 Pulse Rate 63 63 79 Respiratory Rate 24 25 H 29 H Blood Pressure 102/60 115/61 Pulse Oximetry 98 98 97 07/11/21 10:00 07/11/21 10:20 07/11/21 10:25 Pulse Rate 72 77 71 Respiratory Rate 24 23 23 Blood Pressure 105/58 L 100/58 L 94/52 L Pulse Oximetry 97 96 95 07/11/21 10:31 07/11/21 10:42 07/11/21 11:00 Pulse Rate 69 69 67 Respiratory Rate 41 H 42 H 37 H Blood Pressure 96/52 L 96/51 L 90/54 L Pulse Oximetry 96 96 91 07/11/21 11:15 07/11/21 11:30 07/11/21 11:45 Pulse Rate 65 63 63 Respiratory Rate 45 H 29 H 29 H Blood Pressure 88/55 L 88/52 L 87/52 L Pulse Oximetry 92 92 92 07/11/21 12:00 07/11/21 12:15 07/11/21 12:30 Pulse Rate 67 66 68 Respiratory Rate 29 H 36 H 27 H Blood Pressure 90/50 L 91/51 L 95/53 L Pulse Oximetry 93 93 93 07/11/21 12:45 07/11/21 13:00 07/11/21 13:01 Pulse Rate 67 78 78 Respiratory Rate 32 H 29 H 28 H Blood Pressure 95/52 L 109/70 Pulse Oximetry 92 94 96 07/11/21 13:15 07/11/21 13:30 07/11/21 13:45 Pulse Rate 84 85 89 Respiratory Rate 29 H 30 H 29 H Blood Pressure 106/72 109/71 111/67 Pulse Oximetry 95 96 97 07/11/21 14:00 07/11/21 14:15 07/11/21 14:30 Pulse Rate 98 H 99 H 103 H Respiratory Rate Blood Pressure 119/65 127/66 138/64 Pulse Oximetry 98 97 98 07/11/21 14:45 07/11/21 15:00 07/11/21 15:01 Pulse Rate 109 H 116 H 117 H Respiratory Rate Blood Pressure 153/65 H 205/79 H Pulse Oximetry 98 97 97 07/11/21 15:15 Pulse Rate 120 H Respiratory Rate Blood Pressure 210/84 H Pulse Oximetry 98 Fraction of Inspired Oxygen 28 Oxygen Delivery Method Mechanical Ventilation Oxygen Flow Rate 35 Narrative Exam Narrative: GEN: Appears confused and slightly agitated CV: tachycardic, no murmurs Lungs with coarse breath sounds and crackles GI: He has 1+ anasarca throughout on all extremities and the abdomen.? The sacral decubitus is not examined today EXT: 2+ edema NEURO: He does gaze towards me, he lifts his arms aimlessly, he is mumbling and not coherent Objective Labs Result Diagrams: 07/11/21 05:45 07/11/21 05:45 Labs: Laboratory Results - last 24 hr 07/11/21 07/11/21 07/11/21 05:45 05:45 08:35 WBC 16.1 H RBC 2.85 L Hgb 9.4 L Hct 28.0 L MCV 98.5 MCH 33.1 MCHC 33.6 RDW 13.9 Plt Count 287 Sodium 127 L Potassium 3.5 Chloride 107 Carbon Dioxide 13 L BUN 4 L Creatinine 0.55 L Estimated GFR > 60 BUN/Creatinine Ratio 7.3 Glucose 296 H Calcium 6.3 L* Vancomycin Trough 22.3 H* PFSH Social History household members: spouse Smoking Status: Former smoker alcohol intake: current Assessment & Plan Assessment & Plan narrative: 1. Acute hypoxic respiratory failure secondary to severe EtOH withdrawal ?- Patient intubated on June 24, 2021 for airway protection, he was subsequently extubated, and re-intubated on night of July 04 ?- started IV lasix 20 mg daily on July 08 to help relieve pulmonary congestion and maintain euvolemia as much as possible ?- patient became hypotensive and could not be successfully diuresed on 07/10. ?- extubated AM of 07/11 2. Severe EtOH withdrawal with delirium tremens ?- CIWA protocol was used, stop precedex and fentanyl 3. Concern for aspiration pneumonia, with respiratory culture growing MRSA and Klebsiella oxytoca ?- Empiric IV vancomycin started on July 04, after patient re-intubated, and empiric IV Zosyn started on July 07 ?- Worsening infiltrates on 07/10 CXR 4. Proximal SBO/ileus ?- NG tube in place, and appreciated general surgery recommendations post- Gastrografin study 5. Alcoholic hepatitis, improved 6. Duodenitis, ongoing, likely due to EtOH abuse ?- IV Protonix 40 mg daily on-board 7. Hypothyroidism ?-IV synthroid ordered while difficulty with PO 8. Hyperlipidemia ?- Discontinued Simvastatin 9. Thrombocytopenia, stable ?- Likely secondary to bone marrow suppression from EtOH abuse, along with severe liver injury 10. Hypophosphatemia, ongoing ?-secondary to EtOH, replete PRN 11. Hypokalemia, ongoing ?-secondary to EtOH, replete PRN 12. Hypomagnesemia, ongoing ?-secondary to EtOH, replete PRN 13. Stage III/IV sacral decubitus ulcer ?- Broad-spectrum abx on-board, as above, with wound care dressings daily ?- Appreciate general surgery consult recommendations - no debridement indicated 14. [id number] conversation ?- Given patient's severe illness, and poor prognosis, discussion was had with patient would be DNR/DNI. He was planned to be made comfort if he did poorly after extubation Time Spent With Patient Critical Care time: I spent a total of [] minutes of critical care time on this patient's care today; this time is exclusive of procedural time. Quality VTE Deep Vein Thrombosis/Pulmonary Embolism Present on Admission: No
[2021-07-11] MEDS: FUROSEMIDE 100 MG/10 ML VIAL 60 MG IV (16:19)
[2021-07-11] MEDS: VANCOMYCIN 1,250 MG/250 ML PIGGYBACK 250 MG IV (16:41)
[2021-07-11] MEDS: LABETALOL 20 MG/4 ML SYRINGE 10 MG IV (16:47)
[2021-07-11] MEDS: VANCOMYCIN PEAK 1 REQUEST MISC (19:31)
[2021-07-11] MEDS: ACETAMINOPHEN 650 MG SUPP PR (20:39)
[2021-07-11] MEDS: ENOXAPARIN 40 MG/0.4 ML SYRINGE SUBCUT (20:40)
--- NOTE | 2021-07-11 21:16 | PC.NURSE ---
Addendum entered by Cori Olivares R.N. 07/12/21 03:29: 0330- Once fever broke patient has not been febrile. Turned, repositioned, pad changed, and personal care done. Patient has significant serous fluid drainage from his decube. Frequent oral suctioning needed. Respirations are improving with diuresis and pain management. Bed in chair position and buttocks bridged on pillows to off load wounds. Lungs are more clear but still coarse bilaterally. Good output with lasix. Will monitor. Original Note: 2030- Patient is febrile and tachypenic. Repositioned, waite care, pad change, and rectal suppository given. Medicated per order for work of breathing. Frequent oral suctioning needed during care. Patient has a strong cough. Patient is able to follow simple commands and was cooperative.
[2021-07-12] VITALS (19 sets, daily range): BP systolic 142–197; BP diastolic 65–127; PULSE 96–113; RESP 18–38; TEMP 36.5–37.6; O2SAT 94–98
[2021-07-12] MEDS: VANCOMYCIN 1,250 MG/250 ML PIGGYBACK 250 MG IV ×2 (01:12→08:29)
[2021-07-12] MEDS: PIPERACILLIN/TAZO 3.375 GM in SODIUM CHLORIDE 0.9% 100 ML 25 ML IV ×3 (03:01→18:52)
[2021-07-12] MEDS: MORPHINE 4 MG/ML INJ IV ×3 (03:01→07:44)
[2021-07-12] MEDS: FUROSEMIDE 100 MG/10 ML VIAL 60 MG IV (03:02)
[2021-07-12] MEDS: METOCLOPRAMIDE 10 MG/2 ML INJ 5 MG IV ×3 (05:22→21:16)
[2021-07-12 05:28] LABS: Hematocrit 31.8 % (41-53); Hemoglobin 10.9 g/dL (13.5-17.5); Mean Corpuscular HGB Conc 34.4 % (30-36); Mean Corpuscular Hemoglobin 33.1 PG (26-34); Mean Corpuscular Volume 96.2 fL (80-100); Platelet Count 343 X10^3/uL (150-400); Red Cell Distribution Width 13.7 % (11.6-14.8); White Blood Cell Count 22.3 X10^3/uL (4.5-11.0)
[2021-07-12 05:39] LABS: Alanine Aminotransferase 29 IU/L (<50); Albumin 2.4 g/dL (3.5-5.0); Albumin Globulin Ratio 0.7 (1.0-2.8); Alkaline Phosphatase 77 U/L (38-126); Aspartate Aminotransferase 49 IU/L (17-59); BUN Creatinine Ratio 8.7 (6-22); Bilirubin Total 0.5 mg/dL (0.2-1.3); Blood Urea Nitrogen 11 mg/dL (9-20); Calcium 7.7 mg/dL (8.4-10.2); Carbon Dioxide 18 mmol/L (22-32); Chloride 112 mmol/L (98-107); Estimated Glomerular Filt Rate > 60 mL/min (>60); Globulin 3.4 g/dL (1.7-4.1); Glucose 105 mg/dL (80-110); HEMOLYSIS < 15 (0-50); Potassium 3.5 mmol/L (3.4-5.1); Sodium 140 mmol/L (137-145); Total Protein 5.8 g/dL (6.3-8.2)
--- NOTE | 2021-07-12 07:40 | PC.NURSE ---
Patient resting in bed, heel protectors on bilaterally, pillow under patient's right gluteal area to offload pressure. Patient is turned to left side and gluteal dressings removed to reveal a moderate amount of malodorous seropurulent exudate to removed dressings. Left gluteus is reddened and has a 1.3 x 1.8 x 0.05cm open area consistent with a stage 2 pressure injury. This is a partial-thickness wound with a small amount of sanguineous drainage. Edges are intact and attached to wound base with some maceration noted. It is also noted that patient has what appears to be significant senile gluteal dermatosis, with keratotic ridges along both sides of the gluteal cleft, extending approximately 2cm above the base of the sacrum, where there is a 4 x 3cm area of discoloration, which appears to be the source of the wound exudate. Depth is unknown at this time without debridement, but dark discoloration suggests deep tissue damage. Sterile gauze is used to gently remove exudate from wounds and fresh dressings are placed. Patient tolerates cares well. Recommendation would be antimicrobial dressing with offloading of this area using pillows and a strict turning schedule, continuing to utilize heel protectors.
--- NOTE | 2021-07-12 08:12 | DI.RAD.S_ITS ---
PROCEDURE: XR CHEST 1V INDICATIONS: sob, fluid overload TECHNIQUE: One view of the chest was acquired. COMPARISON: [facility], CT, CT CHEST ABD PEL W CON, 07/04/2021, 14:11. [facility], CR, XR CHEST 1V, 07/10/2021, 8:12. FINDINGS: Surgical changes and devices: Left-sided PICC with the catheter tip at the upper 1/3 of the SVC. Lungs and pleura: Curvilinear opacity in the left lower lobe. Prominent pulmonary vasculature markings. Low lung volumes. No pleural effusions or pneumothorax. Mediastinum: Mediastinal contours appear unchanged. Heart size is within normal limits. Bones and chest wall: No suspicious bony lesions. Overlying soft tissues appear unremarkable. IMPRESSION: Curvilinear opacity at the left lower lobe. This could represent atelectasis or pneumonia. Possible pulmonary vasculature engorgement. Dictated by: Prakash Juarez M.D. on 07/12/2021 at 9:01 Approved by: Prakash Juarez M.D. on 07/12/2021 at 9:04
--- NOTE | 2021-07-12 08:13 | DI.RAD.S_ITS ---
PROCEDURE: XR ABDOMEN 1V INDICATIONS: ileus, obstruction? TECHNIQUE: One view of the abdomen acquired. COMPARISON: [facility], CR, XR ABDOMEN 1V, 07/06/2021, 11:57. FINDINGS: Surgical changes and devices: Fusion hardware in lower lumbar spine is seen. Bowel: Oral contrast is seen in descending colon extending to rectum. No oral contrast extravasation or gross free peritoneal free air. Nonspecific air distended transverse colon loop is seen. No significant small bowel loop distention is seen on the current study. Soft tissues: No suspicious abdominal calcifications. Visualized solid organ contours appear normal in size. Bones: No suspicious bony lesions. IMPRESSION: Finding is suggestive of resolved small-bowel obstruction versus ileus. No gross free air. Oral contrast is seen reaching rectum. Dictated by: Masoud Barrios M.D. on 07/12/2021 at 9:04 Approved by: Masoud Barrios M.D. on 07/12/2021 at 9:05
[2021-07-12] MEDS: ENOXAPARIN 40 MG/0.4 ML SYRINGE SUBCUT ×2 (08:24→21:16)
[2021-07-12] MEDS: PANTOPRAZOLE 40 MG VIAL IV (08:25)
[2021-07-12] MEDS: FUROSEMIDE 100 MG/10 ML VIAL 20 MG IV ×2 (08:28→21:13)
--- NOTE | 2021-07-12 09:37 | ST.IPSCREEN ---
Attempted to complete bedside swallow evaluation with pt. Pt was seated upright in bed when clinician arrived. He was observed to breath through his mouth, exhibited a wet vocal quality, and his lower jaw was shaking. Pt was unable to answer y/n questions or follow directions for oral mechanism exam. Did not complete oral trials due to concerns for swallow safety since pt was unable to follow directions. Recommend NPO diet at this time. Will monitor for improvement and re-assess as appropriate.
--- NOTE | 2021-07-12 10:15 | CM.DPC ---
Addendum entered by JÚNIOR Beth 07/12/21 14:20: ADD: Per ST, pt to remain NPO and currently unable to safely follow commands consistently to attempt swallow and will re-assess in the AM. Per PT/OT, completed initial eval with spouse bedside and pt required significant assist and currently unable to answer questions, has mumbled speech and grunting noises. Pending pt's progress and goals of care, possible SNF vs Acute Inpt Rehab. SW met with spouse and Goals of Care discussion not completed today as sons to arrive tonight and be present and interested in participating in Goals of Care/Care Conference bedside tomorrow with MD and son Damion [phone] currently flying. Spouse was inquiring if Goals of Care still needed and SW explained purpose as currently unclear how much improvement pt will make and if he will be able to tolerate PO intake and need to discuss the goals pending pt's progress and spouse acknowledges understanding and agreeable with sons present tomorrow as well for Goals of Care and aware they can only be bedside for purpose of this discussion and cannot remain all day bedside due to COVID visitation policy. BF Original Note: DCP Cont: Per MD, pt had fever overnight but fairly stable on room air and able to follow some commands. Pt still has significant sacral decubitus and to have ST/PT/OT ordered towards determining how much pt may improve. SW called pt's spouse Juani and updated and requested she be bedside for Goals of Care discussion since pt not officially Comfort Care yet and unclear if pt will continue to improve or not. Spouse very agreeable and working on getting a ride to the hospital and states her two sons will not arrive until tonight or tomorrow. Plan: SW to follow for PT/OT/ST recommendations and spouse to arrive bedside for Goals of Care discussion. JÚNIOR Beth
--- NOTE | 2021-07-12 11:39 | DIET.PN1 ---
Dietary Progress Note Assessment: 70y M c prolonged course for ETOH withdrawl requiring two intubations c nutrition support, pSBO or ileus resolved, stage 2+ draining decubitus on bottom, currently extubated x24h. Pt with new nutrition diagnosis: Severe Acute Protein Calorie Malnutrition. Pt currently NPO, unable to safely participate c COAL HAULER for diet assignment. Pt measuring +15kg from admission, unable to be safely diuresed to date. Ht: 170.18 cm Wt: 125.4 kg BMI: 36.8 Last BM: 07/08/21 (07/08/21 17:26) MNA: 13 Tiburcio Score: 12 Diet: 07/12/21 09:41 NPO Diet Diet Modifications: NPO Type: Strict Labs: RBC 3.30 X10^6/uL (4.5-5.9) L 07/12/21 05:20 Hgb 10.9 g/dL (13.5-17.5) L 07/12/21 05:20 Hct 31.8 % (41-53) L 07/12/21 05:20 Creatinine 1.26 mg/dL (0.66-1.25) H 07/12/21 05:20 Lactate 1.6 mmol/L (0.7-2.1) 07/04/21 02:30 NT-Pro-B Natriuret Pep 603 pg/mL (<125) H 07/04/21 02:30 Nutrition Diagnosis: Severe Acute Protein Calorie Malnutrition r/t difficulty feeding, frequent pauses in nutrition support aeb pt LOS day 21, currently NPO awaiting safety approval for diet from speech team, pt intubated twice during hospital course c ileus and high residuals leading to not meeting feeding goals, pt with stage 2+ draining decubitus ulcer on bottom. Interventions: 1. Recc reinitiating nutrition support if pt to remain NPO >24h if within goals of care. 2. If pt assigned diet, will formulate plan to support calorie and protein needs in dense formulations. EER: 2,000kcals, 124g PRO Monitoring/Evaluations: following daily, COAL HAULER reccs Electronically Signed by: Jaclyn Ceballos 07/12/21 11:39 Clinical Dietitian [address] [address]
--- NOTE | 2021-07-12 12:27 | PT.IIE ---
Current Diagnoses Alcohol dependence with withdrawal, unspecified (06/21/21) Pneumonia, unspecified organism (06/21/21) Alcoholic hepatitis without ascites (06/21/21) Physical Therapy Inpatient Evaluation/Re-Eval M1 PT/OT-IP Prior Functional Status Start: 07/12/21 11:28 Freq: NEEDED Status: Active Protocol: Document 07/12/21 12:45 CGR (Rec: 07/12/21 12:52 CGR [id number]) Medical Review Prior Functional Status Medical History Reviewed Yes Communication PLOF pt was an effective verbal communicator. Pt currently is attempting mumbled speech. Mobility and Gait Pt was MOD I with SPC for mobility. 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 Social History Household Members spouse Living Arrangements House Number of Floors (Floors) One Floor Number of Stairs To Enter/Railing? 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 Pt lives with his Malathi and has 2 sons that live outside of the area. M1 PT/OT-IP Prior Functional Status Start: 07/12/21 12:47 Freq: NEEDED Status: Active Protocol: Document 07/12/21 12:27 AW (Rec: 07/12/21 13:36 AW [id number]) Medical Review Prior Functional Status Medical History Reviewed Yes Communication PLOF pt was an effective verbal communicator. Pt currently is attempting mumbled speech. Mobility and Gait Pt was MOD I with SPC for mobility. 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 Social History Household Members spouse Living Arrangements House Number of Floors (Floors) One Floor Number of Stairs To Enter/Railing? 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 Pt lives with his Malathi and has 2 sons that live outside of the area. M2 PT-IP Current Condition Start: 07/12/21 11:28 Freq: NEEDED Status: Active Protocol: Document 07/12/21 12:27 AW (Rec: 07/12/21 13:36 AW [id number]) Physical Therapy Current Condition Current Condition Evaluation Date 07/12/21 Treatment Diagnosis alcohol withdrawal, gluteal PI , impaired tone; impaired mobility. Onset Date 06/21/21 M3 PT-IP Subjective Start: 07/12/21 11:28 Freq: NEEDED Status: Active Protocol: Document 07/12/21 12:27 AW (Rec: 07/12/21 13:36 AW [id number]) Subjective Physical Therapy Visit Type Type Initial Evaluation Visit Start Time 11:50 Visit Stop Time 12:27 Total Visit Minutes 37 Notes Co-eval with OT due to pt's medical complexity and high level of assist required to mobilize. Pt's spouse, Malathi, was present throughout and relayed all history. Number of ORACLE BPM CONSULTANT Visits 0 Physical Therapy Visit Comments Patient Comments Pt mumbles in response to ~20% of direct questions and is able to direct gaze toward therapist occasionally. Therapy Pain Assessment Pain Present Pain Present Unable to Respond FLACC Pain Scale Face Occasional grimace/frown Legs Uneasy, restless, tense Activity Squirming,shifting Cry Moans/whimpers/complains Consolability Reassurable with touch FLACC Total 5 M4 PT-IP Mobility and Gait Start: 07/12/21 11:28 Freq: NEEDED Status: Active Protocol: Document 07/12/21 12:27 AW (Rec: 07/12/21 14:07 AW [id number]) PT-Bed Mobility Assessment Rolling Type of Rolling Bilateral Level of Assist Maximal Assistance,2 Person Assistance Supine to Sit Supine to Sit Total Assistance,2 Person Assistance,Head of Bed Elevated Sit to Supine Sit to Supine Total Assistance,2 Person Assistance Scooting Scooting to Edge of Bed Dependent Scooting Up and Down in Bed Dependent PT-Transfer Assessment Comments Mobility Comments Pt was sitting on the bed with HOB at 50 degrees with at bedside as PT and OT arrived. Last BP was 175/85. HR was low 110's and SpO2 was 99% on room air. PT observed posturing/flexor tone especially with LUE. Assessed tone as noted below. Pt needed total assist x 2 to sit up EOB and mod assist at all times for seated balance. PT and OT assisted pt with A/P and lateral weight shifting with slight increase in alertness but pt continued to require mod A for seated balance. After sitting ~10 minutes with stable HR (low 110's) and SpO2 (95-98% RA), PERSONAL INJURY LAW SPECIALIST was called to assist with return to supine. PERSONAL INJURY LAW SPECIALIST monitored scrotal sling to avoid pinching as PT and OT provided total assist for return to supine. With bed tilt feature and max A x 2, pt rolled side to side for placement of fresh cassandra pads. Pt needed total assist to scoot up toward HOB. Pt was left with nursing attending. Gait Assessment Comments Gait Comments Unable. PT-Balance Assessment Sitting Balance and Reactions Static Sitting Balance Ability Poor Dynamic Sitting Balance Ability Poor Comments Other Balance Tests/Deviations/Treatment A/P and lateral weight : shifting in sitting with mod A at all times for seated balance. M5 PT-IP Objective Assessments Start: 07/12/21 11:28 Freq: NEEDED Status: Active Protocol: Document 07/12/21 12:27 AW (Rec: 07/12/21 14:07 AW [id number]) Orientation Orientation/Cognition Level of Alertness Lethargic Comments Pt attempts to grunt randomly but also occasionally in response to questions. Gross Range of Motion Upper Extremity ROM Assessment Within Functional Limits Lower Extremity ROM Assessment Within Functional Limits Impairments PROM WFL but currently limited by anasarca-like swelling Strength Lower Extremity Strength Assessment Bilaterally Impaired Comments Strength Comments Pt was able to move his toes in response to commands but could not lift either leg from the bed or flex his knees or ankles. Coordination Assessment Gross Coordination Gross Coordination Impaired Assessment Finger to Nose Test Activity Impossible Sensation Assessment Comments Sensation Comments Unable to formally assess. Muscle Tone Muscle Tone WNL No Muscle Tone Location Bilateral Lower Extremity Type of Tone Hypotonicity Severity of Tone Moderate Bilateral Upper Extremity Type of Tone Hypertonicity,Flexor Severity of Tone Moderate Comments Muscle Tone Comments Cogwheeling appreciated bilaterally with elbow flexion /extension. No clonus at wrist or ankle. BLE with little appreciable tone. Other Assessments Other Other Assessments Gaze was vaguely disconjugate. Visual tracking was impaired with limited ability to cross midline. M6 PT-IP Treatment Start: 07/12/21 11:28 Freq: NEEDED Status: Active Protocol: Document 07/12/21 12:27 AW (Rec: 07/12/21 14:07 AW [id number]) Physical Therapy Treatment Education Education Provided Safety Other Treatments Other Treatment Performed Discussed PT plan of care with pt's spouse. M7 PT-IP Assessment and Plan Start: 07/12/21 11:28 Freq: NEEDED Status: Active Protocol: Document 07/12/21 12:27 AW (Rec: 07/12/21 14:07 AW [id number]) PT Summary Assessment and Plan Potential Rehabilitation Potential Fair Status of Condition at Evaluation Evolving Summary Impairments Strength,Balance,Coordination, Sensation,Tone,Cognition,Bed Mobility,Transfers,Gait, Activity Tolerance Assessment Summary Joe is a 70 yo man admitted with severe alcohol withdrawal symptoms who has been intubed and extubated twice since hospital admission on 06/21/21. He has gluteal pressure injury which is unstageable. He is independent to modified independent at baseline. On assessment today, pt is nonsensically verbal and grunts gutturally in response to some questions. He has increased tone in BUE and is severely hypotonic in BLE. He required max to total assist x 2-3 for bed mobility but was able to sit EOB with mod assist for balance. PT recommends continued acute PT and transition to acute rehab vs SNF rehab once medically stable depending on goals of care. Family care conference scheduled for later today. Will continue to follow for updated goals of care and plan to proceed accordingly. Goals Bed Mobility Goal Minimal Assistance Transfer Goal Minimal Assistance,Front Wheeled Walker Gait Goal Minimal Assistance,Front Wheel Walker Gait Distance 50 Days to Meet Goals 20 Frequency of Treatment Frequency Of Treatment Once a Day Treatment Plan Physical Therapy Treatment Plan Bed Mobility Training,Transfer Training,Gait Training, Therapeutic Exercise,Balance Retraining,Discharge Planning, Neuromuscular Re-ed, Coordination Retraining Other Recommendations and Next Treatment bed mobility, sitting balance, Focus re-assess tone Precautions Other Precautions gluteal PI - avoid excess shear Recommendations To Nursing Amount of Assist Needed PT/OT Assist Only Discharge Recommendations PT Discharge Recommendations SNF vs Acute Rehab Transportation Needs at Discharge Stretcher/Ambulance
--- NOTE | 2021-07-12 12:28 | OT.IP.EVAL ---
Current Diagnoses Alcohol dependence with withdrawal, unspecified (06/21/21) Pneumonia, unspecified organism (06/21/21) Alcoholic hepatitis without ascites (06/21/21) Occupational Therapy Inpatient Evaluation/Re-Eval M1 PT/OT-IP Prior Functional Status Start: 07/12/21 11:28 Freq: NEEDED Status: Active Protocol: Document 07/12/21 12:45 CGR (Rec: 07/12/21 12:52 CGR [id number]) Medical Review Prior Functional Status Medical History Reviewed Yes Communication PLOF pt was an effective verbal communicator. Pt currently is attempting mumbled speech. Mobility and Gait Pt was MOD I with SPC for mobility. 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 Social History Household Members spouse Living Arrangements House Number of Floors (Floors) One Floor Number of Stairs To Enter/Railing? 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 Pt lives with his Malathi and has 2 sons that live outside of the area. M2 OT-IP Current Condition Start: 07/12/21 12:47 Freq: Status: Active Protocol: Document 07/12/21 12:45 CGR (Rec: 07/12/21 13:31 CGR [id number]) Occupational Therapy Current Condition Current Condition Evaluation Date 07/12/21 Treatment Diagnosis DTs requiring intubation, extubated 07/11/21 with PNA Diagnosis Onset Date 06/21/21 M3 OT- IP Subjective and Pain Start: 07/12/21 12:47 Freq: Status: Active Protocol: Document 07/12/21 12:45 CGR (Rec: 07/12/21 13:31 CGR [id number]) OT- Subjective Occupational Therapy Visit Type Type Initial Evaluation Visit Start Time 11:50 Visit Stop Time 12:28 Total Visit Minutes 38 Notes Co-eval with P.T. Occupational Therapy Visit Comments Patient Comments Pt is non communative at this time. OT Pain Assessment Pain When Pain Assessed During Mobility Pain Present Pain Present Unable to Respond FLACC Pain Scale Face Occasional grimace/frown Legs Uneasy, restless, tense Activity Squirming,shifting Cry No cry (awake or asleep) Consolability Content, relaxed FLACC Total 3 M4 OT- IP ADL's Start: 07/12/21 12:47 Freq: Status: Active Protocol: Document 07/12/21 12:45 CGR (Rec: 07/12/21 13:31 CGR [id number]) OT [id number] Comments OT Self-Feeding Comments Pt is NPO OT ADL-Grooming Comments OT Grooming Comments Pt is unable to perform OT ADL-Oral Care Comments Oral Care Comments Pt is unable to perform OT ADL-Dressing General Eval Upper Body Dressing Ability Total Assistance Comments OT Dressing Comments Donning hospital gown, pt is unable to follow commands to thread arms. OT ADL-Toileting General Evaluation Toileting Ability Total Assistance Comments OT Toileting Comments waite OT ADL-Bathing Comments OT Bathing Comments not performed M5 OT- IP IADL's Start: 07/12/21 12:47 Freq: Status: Active Protocol: Document 07/12/21 12:45 CGR (Rec: 07/12/21 13:31 CGR [id number]) OT-Instrumental Activities of Daily Living Deficits IADL Deficits Identified Deficits Home Safety Awareness Awareness of Need for Assistance at Home Decreased Awareness Ability to Problem Solve Emergency Unable to Problem Solve Situations Medication Management Medication Management Comments Pt will not be able to perform Money Management Money Management Comments Pt will not be able to perform Meal Preparation Meal Preparation Comments Pt will not be able to perform Rail Director Rail Director Comments Pt will not be able to perform Driving Driving Comments Pt will not be able to perform M6 OT- IP Functional Cognition Start: 07/12/21 12:47 Freq: Status: Active Protocol: Document 07/12/21 12:45 CGR (Rec: 07/12/21 13:31 CGR [id number]) Cognitive Factors Limiting Selfcare Function Cognitive Ability Level of Alertness Alert,Confusional State Patient Orientation Name Attention Span Ability Unable to Focus,Unable to Sustain Attention Ability to Follow Commands Able to Follow One Step Commands with Increased Time, Able to Follow One Step Commands with Repetition Cognitive Comments Cognitive Assessment Comments Pt was able to follow about 25 % of simple commands during this session. OT- Vision and Hearing OT- Hearing Assessment OT- Hearing Assessment WFL OT- Vision Assessment Visual Attentiveness WFL Visual Convergence Impaired Vision Assessment Comments Unable to consistently follow a finger but does visually follow voice when name is called M7 OT- IP Mobility and Balance Start: 07/12/21 12:47 Freq: Status: Active Protocol: Document 07/12/21 12:45 CGR (Rec: 07/12/21 13:31 CGR [id number]) OT- Bed Mobility Assessment Rolling Type of Rolling Log Rolling Level of Assistance Total Assistance Supine to Sit Supine to Sit Assist Total Assistance,2 Person Assistance,Head of Bed Elevated,Bedrails Sit to Supine Sit to Supine Assist Total Assistance,2 Person Assistance Scooting Scooting to Edge of Bed Total Assistance,2 Person Assistance Scooting Up and Down in Bed Total Assistance,2 Person Assistance OT-Transfer Assessment Comments Mobility Comments Not performed OT- Gait Assessment Comments Gait Ability Comments Pt unable to participate OT- Balance Assessment Sitting Balance and Reactions Static Sitting Balance Ability Poor Dynamic Sitting Balance Ability Poor M8 OT- IP Objective Assessments Start: 07/12/21 12:47 Freq: Status: Active Protocol: Document 07/12/21 12:45 CGR (Rec: 07/12/21 13:31 CGR [id number]) OT Gross Range of Motion Upper Extremity Range of Motion Assessment Within Functional Limits ROM Impairments Passive ROM OT Strength Upper Extremity Strength Assessment Bilaterally Impaired Comments Strength Comments Pt was able to squeeze fingers at end of session with 4-/5 strength. Inconsistent posturing vs active movement of the arms OT- Coordination Assessment Upper Extremity Finger to Nose Test Bilateral UE Impaired Finger Tapping Test Bilateral UE Impaired OT-Muscle Tone Assessment Muscle Tone WNL No Muscle Tone Location Bilateral Upper Extremity Type of Tone Hypertonicity Severity of Tone Moderate Aide Grade Scale Grade 2 Comments Muscle Tone Comments Pt with cogwheeling to BUE and involuntary movements of BUE at time. OT Sensation Assessment Edema Edema Present Edema Comments generalized moderate edema M9 OT- IP Assessment and Plan Start: 07/12/21 12:47 Freq: Status: Active Protocol: Document 07/12/21 12:45 CGR (Rec: 07/12/21 13:31 CGR [id number]) OT Summary Assessment and Plan Potential Rehabilitation Potential Fair Analytic Complexity at Evaluation High Summary OT Impairments Pain,Strength,Balance, Coordination,Tone,Functional Cognition,Functional Mobility, Self-Feeding,Grooming,Dressing ,Toileting,Bathing,Toilet Transfers,Shower Transfers, Activity Tolerance Progress Towards Goals Slow Progress due to Medical Issues,Slow Progress due to Activity Tolerance,Slow Progress due to Cognition Assessment Summary Pt presents as a high complexity evaluation s/p admit for DTs requiring intubation. Pt underwent prolonged intubation with complications including PNA and SBO. Pt had peg tube placed. Pt is now extubated and exhibiting neurologic deficits. Pending this afternoons plan of care meeting, pt may be appropriate for acute rehab. Goals Self-Feeding Goal Moderate Assistance Grooming Goal Moderate Assistance Dressing Goal Moderate Assistance OT-Other Goals Pt will sit EOB with CGA. Days to Meet Goals 20 Frequency of Treatment Frequency Of Treatment Once a Day Treatment Plan OT Treatment Plan ADL Training,Functional Cognition Training,Functional Mobility,Patient/Family Education,Discharge Planning Other Treatment Recommendations and Next co-treat for mobility Treatment Focus Discharge Recommendations OT Discharge Recommendations Acute Rehab Other Discharge Recommendations Pending plan of care meeting this afternoon, pt may benefit from acute rehab if family desires. Transportation Needs at Discharge Stretcher/Ambulance
--- NOTE | 2021-07-12 15:28 | PM.PN.1 ---
Subjective Subjective Date Patient Seen: 07/12/21 Time Patient Seen: 08:00 Interval history: Today he remains quite confused. He is able to follow simple commands. Able to verbalize a couple words. Exam Vital Signs (past 8 hours): - 07/12/21 08:00 07/12/21 08:01 07/12/21 08:13 Temperature 98.6 F Pulse Rate 111 H 113 H Respiratory Rate 38 H 36 H Blood Pressure 197/127 H Pulse Oximetry 94 97 07/12/21 08:31 07/12/21 09:00 Temperature Pulse Rate 111 H 113 H Respiratory Rate 29 H 30 H Blood Pressure 189/80 H Pulse Oximetry 97 98 Fraction of Inspired Oxygen 21 Oxygen Delivery Method Room Air Oxygen Flow Rate 35 Narrative Exam Narrative: GEN: Appears confused and slightly agitated CV: tachycardic, no murmurs Lungs with coarse breath sounds and crackles GI: He has 1+ anasarca throughout on all extremities and the abdomen.? The sacral decubitus is not examined today EXT: 2+ edema NEURO: He does gaze towards me, he lifts his arms aimlessly, he is mumbling Objective Labs Result Diagrams: 07/12/21 05:20 07/12/21 05:20 Labs: Laboratory Results - last 24 hr 07/11/21 07/12/21 07/12/21 19:00 05:20 05:20 WBC 22.3 H RBC 3.30 L Hgb 10.9 L Hct 31.8 L MCV 96.2 MCH 33.1 MCHC 34.4 RDW 13.7 Plt Count 343 Sodium 140 D Potassium 3.5 Chloride 112 H Carbon Dioxide 18 L BUN 11 Creatinine 1.26 H Estimated GFR > 60 BUN/Creatinine Ratio 8.7 Glucose 105 D Calcium 7.7 L Total Bilirubin 0.5 AST 49 ALT 29 Alkaline Phosphatase 77 Total Protein 5.8 L Albumin 2.4 L Globulin 3.4 Albumin/Globulin Ratio 0.7 L Vancomycin Peak 33.0 PFSH Social History household members: spouse Smoking Status: Former smoker alcohol intake: current Assessment & Plan Assessment & Plan narrative: 1. Leukocytosis -patient already on broad spectrum antibiotics -has had aspiration pneumonia which may be the cause -additionally has sacral wound and possibly infected L picc line -plan for PICC removal and replacement -check blood cultures -pending patient's course may reconsult surgery for sacral wound, though if patient does not improve significantly in terms of functional status unlikely his ulcer will improve 2. Acute hypoxic respiratory failure secondary to severe EtOH withdrawal ?- Patient intubated on June 24, 2021 for airway protection, he was subsequently extubated, and re-intubated on night of July 04 ?- continue IV lasix to remove fluid and keep euvolemic ?- extubated AM of 07/11 3. Encephalopathy, acute -likely has permanent component of neurologic damage from long history of drinking and severe alcohol withdrawal -possibly has fixable component related to infection, recent intubation, and prolonged critical illness -overall prognosis remains poor 4. Severe EtOH withdrawal with delirium tremens ?- CIWA protocol was used, stop precedex and fentanyl 5. Dysphagia with concern for aspiration pneumonia, with respiratory culture growing MRSA and Klebsiella oxytoca ?- Empiric IV vancomycin started on July 04, after patient re-intubated, and empiric IV Zosyn started on July 07 ?- Worsening infiltrates on 07/10 chest xray, continue antibiotics as above - speech evaluation to see if swallowing improves -patient goals of care per is no PEG, will see if swallowing improves s/p extubation, but if not will need to readdress to see if TPN or temporary NG tube are within goals 6. Ileus ?- gastrograffin showed no obstruction -monitor abdominal symptoms daily 7. Alcoholic hepatitis, improved 8. Duodenitis, ongoing, likely due to EtOH abuse ?- IV Protonix 40 mg daily on-board 9. Hypothyroidism ?-IV synthroid ordered while difficulty with PO 10. Hyperlipidemia ?- Discontinued Simvastatin 11. Thrombocytopenia, resolved ?- Likely secondary to bone marrow suppression from EtOH abuse, along with severe liver injury 12. Hypophosphatemia, resolved ?-secondary to EtOH, replete PRN 12. Hypokalemia, resolved ?-secondary to EtOH, replete PRN 13. Hypomagnesemia, resolved ?-secondary to EtOH, replete PRN 13. Stage III/IV sacral decubitus ulcer ?- Broad-spectrum abx on-board, as above, with wound care dressings daily ?- Appreciate general surgery consult recommendations - no debridement indicated 15. [id number] conversation ?- Given patient's severe illness, and poor prognosis, discussion was had with patient would be DNR/DNI. He was planned to be made comfort if he did poorly after extubation, currently he is not imminently dying, but with the severity of illness and current neurologic function quality of life is poor, he has high risk of decompensation as he is an aspiration risk and has sacral decubitus ulcer and is not eating due to swallowing difficulty. May be hospice appropriate if not significant improvement. Time Spent With Patient Critical Care time: I spent a total of [] minutes of critical care time on this patient's care today; this time is exclusive of procedural time. Quality VTE Deep Vein Thrombosis/Pulmonary Embolism Present on Admission: No
--- NOTE | 2021-07-12 16:17 | DI.RAD.S_ITS ---
PROCEDURE: XR CHEST FOR PICC 1V INDICATIONS: verify PICC placement TECHNIQUE: One view of the chest was acquired. COMPARISON: [facility], CR, XR CHEST 1V, 07/12/2021, 8:26. FINDINGS: Surgical changes and devices: Right-sided PICC line tip is in SVC. Left-sided PICC line tip is also seen in SVC. Lungs and pleura: Pulmonary vascular congestion is seen. Ill-defined airspace opacities are seen in bilateral lung pruitt. No gross pneumothorax . Trace left pleural effusion is likely present. Mediastinum: Mediastinal contours appear normal. Heart size is enlarged Bones and chest wall: No suspicious bony lesions. Overlying soft tissues appear unremarkable. IMPRESSION: Bilateral PICC line tips are seen in the region of SVC. Pulmonary vascular congestion and suggestion of pulmonary edema versus bilateral patchy infiltrates. Trace left pleural effusion. No gross pneumothorax. Dictated by: Masoud Barrios M.D. on 07/12/2021 at 16:53 Approved by: Masoud Barrios M.D. on 07/12/2021 at 16:54
--- NOTE | 2021-07-12 18:29 | PC.NURSE ---
Day shift note Patient is able to follow simple commands. Cooperative with plan of care. Able to cough, requires frequent suctioning. Right upper arm PICC removed, catheter tip culture sent to lab due to erythema/yellow drainage. Left arm PICC placed by DI nurse, confirmed placement via cxr. Coarse crackles on left lung upon auscultation. Hypoactive bowel tones. Gluteal wound assessed by wound care nurse, dressing applied and patient bridged to offload pressure. See wound care nurse note for more details. Call light within reach, bed alarm on.
--- NOTE | 2021-07-12 21:58 | PC.NURSE ---
Called Dr. Chavez, he is not data communications engineer and informed that ROBERT Boyd is data communications engineer. Called Shayla Hopper and left voice mail message requesting her to call ICU RE patient. Patient's current diet orders is strict NPO. Called to inform patient has elevated BP, has not gotten his Beta gloria today. There is a new note from Speech for diet recommendations. Calling to request a diet order so oral beta gloria can be given.
[2021-07-13] VITALS: BP 143/71; PULSE 110; RESP 25; TEMP 36.9; O2SAT 95
[2021-07-13] MEDS: MORPHINE 4 MG/ML INJ IV ×2 (03:41→09:33)
[2021-07-13] MEDS: PIPERACILLIN/TAZO 3.375 GM in SODIUM CHLORIDE 0.9% 100 ML 25 ML IV ×3 (03:43→19:32)
[2021-07-13 04:00] VITALS: BP 160/82; PULSE 115; RESP 27; TEMP 37.3; O2SAT 99
[2021-07-13] MEDS: METOCLOPRAMIDE 10 MG/2 ML INJ 5 MG IV ×3 (05:24→21:33)
[2021-07-13 05:56] LABS: Hematocrit 29.9 % (41-53); Hemoglobin 10.2 g/dL (13.5-17.5); Mean Corpuscular HGB Conc 34.1 % (30-36); Mean Corpuscular Hemoglobin 32.6 PG (26-34); Mean Corpuscular Volume 95.7 fL (80-100); Platelet Count 360 X10^3/uL (150-400); Red Blood Cell Count 3.13 X10^6/uL (4.5-5.9); Red Cell Distribution Width 13.4 % (11.6-14.8); White Blood Cell Count 19.1 X10^3/uL (4.5-11.0)
[2021-07-13 06:07] LABS: BUN Creatinine Ratio 9.2 (6-22); Blood Urea Nitrogen 14 mg/dL (9-20); Calcium 7.8 mg/dL (8.4-10.2); Carbon Dioxide 17 mmol/L (22-32); Chloride 115 mmol/L (98-107); Estimated Glomerular Filt Rate 49 mL/min (>60); Glucose 94 mg/dL (80-110); HEMOLYSIS < 15 (0-50); Potassium 2.9 mmol/L (3.4-5.1); Sodium 145 mmol/L (137-145)
--- NOTE | 2021-07-13 07:02 | PC.NURSE ---
End of Shift Note. Care of Patient from [id number]. Patient opens eyes spontaneously, to verbal and touch, attempts to talk, whisper voice. Follows command and senior housekeeper. Required deep oral suction with small trach suction tubing at the back of his throat, unable to clear his own secretions. Q2hour turns. Has a pressure wound to his coccyx and gluteal cleft. Charge nurse Stella assisted with taking pictures of pressure wound last night. Patient had a moderate oozing liquid brown BM. Diuressing, lasix given last night, this am potassium low, notified on all provider, ROBERT Dempsey and Nava Pharmacist. Plan is to schedule a care conference with family today.
[2021-07-13 07:30] LABS: Magnesium 1.9 mg/dL (1.6-2.3)
[2021-07-13 08:06] VITALS: BP 150/75; PULSE 113; RESP 32; TEMP 36.6; O2SAT 90
[2021-07-13] MEDS: POTASSIUM CHLORIDE IN WATER 10 MEQ/100 ML PIGGYBACK 100 MEQ IV ×6 (08:20→13:41)
[2021-07-13] MEDS: ENOXAPARIN 40 MG/0.4 ML SYRINGE SUBCUT ×2 (09:32→21:32)
[2021-07-13] MEDS: SODIUM CHLORIDE 0.9% FLUSH 10 ML IV ×3 (09:33→21:33)
[2021-07-13] MEDS: FUROSEMIDE 100 MG/10 ML VIAL 20 MG IV ×2 (09:33→21:32)
[2021-07-13] MEDS: PANTOPRAZOLE 40 MG VIAL IV (09:33)
--- NOTE | 2021-07-13 10:14 | SLP.IPNOTE ---
Pt is not able to manage his secretions and presented with a wet/gurgly quality to breath sounds in addition to a weak and persistent cough. Pt is not appropriate for bedside swallow evaluation at this time. Will continue to monitor.
--- NOTE | 2021-07-13 10:40 | DIET.PN1 ---
Dietary Progress Note Assessment: Pt continues to not manage oral secretions c wet, gurgle breathing and weak cough needing frequent suction. INSIDE BARREL LATHE OPERATOR unable to safely assess pt for PO intake, pts currently declines PEG placement. Pt being diuresed, daily weight measuring -8kg since yesterday, pt still c general edema, weights likely inaccurate secondary to equipment and inability to zero scale due to pts immobility, however, following daily weight trends and I&Os. Recc comfort care vs temporary NG/NJ/TPN c preference for NJ to reduce risk of aspiration secondary to weak cough, deconditioning and INSIDE BARREL LATHE OPERATOR unable to yet complete safe swallow assessment. Ht: 170.18 cm Wt: 117 kg BMI: 36.8 Last BM: 07/13/21 (07/13/21 08:56) MNA: 13 Tiburcio Score: 9 Diet: 07/12/21 09:41 NPO Diet Diet Modifications: NPO Type: Strict Nutrition Percent Meal Consumed 0% 07/12/21 13:37 Labs: RBC 3.13 X10^6/uL (4.5-5.9) L 07/13/21 05:15 Hgb 10.2 g/dL (13.5-17.5) L 07/13/21 05:15 Hct 29.9 % (41-53) L 07/13/21 05:15 Creatinine 1.53 mg/dL (0.66-1.25) H 07/13/21 05:15 Lactate 1.6 mmol/L (0.7-2.1) 07/04/21 02:30 NT-Pro-B Natriuret Pep 603 pg/mL (<125) H 07/04/21 02:30 Nutrition Diagnosis: Severe Acute Protein Calorie Malnutrition r/t difficulty feeding, frequent pauses in nutrition support aeb pt LOS day 21, currently NPO awaiting safety approval for diet from speech team, pt intubated twice during hospital course c ileus and high residuals leading to not meeting feeding goals, pt with stage 2+ draining decubitus ulcer on bottom. Interventions: 1. Recc reinitiating nutrition support if pt to remain NPO >24h if within goals of care. 2. If pt assigned diet, will formulate plan to support calorie and protein needs in dense formulations. EER: 2,000kcals, 124g PRO Monitoring/Evaluations: following daily, INSIDE BARREL LATHE OPERATOR reccs Electronically Signed by: Jaclyn Jones/03/22 10:40 Clinical Dietitian [address] [address]
[2021-07-13] MEDS: VANCOMYCIN RANDOM LEVEL 1 REQUEST MISC (12:31)
[2021-07-13 13:20] VITALS: BP 151/79; PULSE 107; RESP 27; TEMP 36.6; O2SAT 94
--- NOTE | 2021-07-13 13:23 | OT.IPNOTE ---
Able to speak to Dr. Cruz regarding whether pt is still appropriate to be seen for therapy. Hospitalist states okay to discharge pt from therapy at this time.
--- NOTE | 2021-07-13 13:25 | PT-IP ANOTE ---
Spoke w/ Dr. Cruz who states pt not appropriate to be seen and can discharge PT orders at this time. Will update PT, RN, and PAPER BAG MAKER.
--- NOTE | 2021-07-13 14:05 | CM.DPC ---
DCP/continued: Reviewed chart. Received call from spouse/Miranda re: d/c planning and next steps. Miranda reports that patient's 2 sons are now in town. Miranda was hopeful that we could have meeting today with provider to discuss goals of care and next steps. PREDICTIVE MAINTENANCE TECHNICIAN supportive of setting up care conference for family, provider, and PREDICTIVE MAINTENANCE TECHNICIAN. Spouse also requesting that the provider or any other medical staff bring up why patient remains hospitalized and the reason he has been so ill. Basically she is asking [facility] staff not to bring up anything about alcoholism to family members during care conference. PREDICTIVE MAINTENANCE TECHNICIAN informed spouse that no guarantee could be made on whether or not alcoholism gets brought up. Patient initially brought in for alcohol detox. Per notes, patient was sent by Dr. Aguilar. Patient with long h/o alcoholism and the treatment he has received has been related to his h/o alcoholism. PREDICTIVE MAINTENANCE TECHNICIAN spoke with provider and neither of us thought having a care conference and leaving out critical information pertaining to patient would be helpful. Therefore, spouse decided to leave her 2 sons out and meet with PREDICTIVE MAINTENANCE TECHNICIAN and Dr. Cruz on 07-14-21 at approximately 1:00pm. PREDICTIVE MAINTENANCE TECHNICIAN encouraged spouse to be honest with 2 sons re: the above. Spouse adamantly does not want them to know. Dr. Cruz made aware. Will plan to meet with spouse tomorrow. RN updated on the above. If son calls acute care floor for information, staff instructed to have him/them call spouse. P: Pending. BEATRIZ
--- NOTE | 2021-07-13 14:36 | PT.IPTN ---
Current Diagnoses Alcohol dependence with withdrawal, unspecified (06/21/21) Pneumonia, unspecified organism (06/21/21) Alcoholic hepatitis without ascites (06/21/21) Physical Therapy Treatment Note M2 PT-IP Current Condition Start: 07/12/21 11:28 Freq: NEEDED Status: Active Protocol: Document 07/12/21 12:27 AW (Rec: 07/12/21 13:36 AW [id number]) Physical Therapy Current Condition Current Condition Evaluation Date 07/12/21 Treatment Diagnosis alcohol withdrawal, gluteal PI , impaired tone; impaired mobility. Onset Date 06/21/21 M3 PT-IP Subjective Start: 07/12/21 11:28 Freq: NEEDED Status: Active Protocol: Document 07/13/21 14:34 AB (Rec: 07/13/21 14:35 AB [id number]) Subjective Physical Therapy Visit Type Type Administrative Note Notes COATER ASSOCIATE informed PT that per Dr. Cruz, pt is not medically stable and may d/c from PT. M7 PT-IP Assessment and Plan Start: 07/12/21 11:28 Freq: NEEDED Status: Active Protocol: Document 07/13/21 14:34 AB (Rec: 07/13/21 14:35 AB [id number]) PT Summary Assessment and Plan Frequency of Treatment Frequency Of Treatment Discharge
[2021-07-13 15:38] LABS: Vancomycin Random 22.6 ug/mL (10-40)
--- NOTE | 2021-07-13 16:47 | PC.NURSE ---
Pressure relief measures continued for patient including repositioning every 1-2 hours as possible from side to side (attempting to keep patient off of coccyx with multiple pillow wedges), heel protectors on a heels floated, melita care and barrier cream applied with brief changes and briefs checks for dampness/soiling with each check. Awaiting clarification on current dressing orders for sacral wound. Allevyn dressing to open area on right buttocks cleansed and new allevyn gentle border dressing applied. Optifoam nonadherent placed to coccyx area after cleansing area and putting barrier cream on, unable to stage area of breakdown. Brief on, and waite catheter remains in place. Patient still has significant scrotal edema, as well as generalized edema to body, hands and feet. Bed alarm on for safety. Will continue to monitor.
--- NOTE | 2021-07-13 18:01 | PM.PN.1 ---
Subjective Subjective Date Patient Seen: 07/13/21 Interval history: Today he remains quite confused. He is able to follow simple commands. Able to verbalize a couple words. Exam Vital Signs (past 8 hours): - 07/13/21 13:20 Temperature 97.9 F Pulse Rate 107 H Respiratory Rate 27 H Blood Pressure 151/79 H Pulse Oximetry 94 Fraction of Inspired Oxygen 21 Oxygen Delivery Method Room Air Oxygen Flow Rate 0 Narrative Exam Narrative: GEN: Appears confused and slightly agitated CV: tachycardic, no murmurs Lungs with coarse breath sounds and crackles GI: He has 1+ anasarca throughout on all extremities and the abdomen.? The sacral decubitus is not examined today EXT: 2+ edema NEURO: He does gaze towards me, he lifts his arms aimlessly, he is mumbling Objective Labs Result Diagrams: 07/13/21 05:15 07/13/21 05:15 Labs: Laboratory Results - last 24 hr 07/13/21 07/13/21 07/13/21 05:15 05:15 05:15 WBC 19.1 H RBC 3.13 L Hgb 10.2 L Hct 29.9 L MCV 95.7 MCH 32.6 MCHC 34.1 RDW 13.4 Plt Count 360 Sodium 145 Potassium 2.9 L Chloride 115 H Carbon Dioxide 17 L BUN 14 Creatinine 1.53 H Estimated GFR 49 L BUN/Creatinine Ratio 9.2 Glucose 94 Calcium 7.8 L Magnesium 1.9 Random Vancomycin 07/13/21 12:20 WBC RBC Hgb Hct MCV MCH MCHC RDW Plt Count Sodium Potassium Chloride Carbon Dioxide BUN Creatinine Estimated GFR BUN/Creatinine Ratio Glucose Calcium Magnesium Random Vancomycin 22.6 PFSH Social History household members: spouse Smoking Status: Former smoker alcohol intake: current Assessment & Plan Assessment & Plan narrative: 1. Leukocytosis -patient already on broad spectrum antibiotics -has had aspiration pneumonia which may be the cause -additionally has sacral wound and possibly infected L picc line -PICC was removed and then replaced. - blood cultures unremarkable. -pending patient's course may reconsult surgery for sacral wound, though if patient does not improve significantly in terms of functional status unlikely his ulcer will improve 2. Acute hypoxic respiratory failure secondary to severe EtOH withdrawal ?- Patient intubated on June 24, 2021 for airway protection, he was subsequently extubated, and re-intubated on night of July 04 ?- continue IV lasix to remove fluid and keep euvolemic ?- extubated AM of 07/11 3. Encephalopathy, acute -likely has permanent component of neurologic damage from long history of drinking and severe alcohol withdrawal -possibly has fixable component related to infection, recent intubation, and prolonged critical illness -overall prognosis remains poor 4. Severe EtOH withdrawal with delirium tremens ?- CIWA protocol was used, stop precedex and fentanyl 5. Dysphagia with concern for aspiration pneumonia, with respiratory culture growing MRSA and Klebsiella oxytoca ?- Empiric IV vancomycin started on July 04, after patient re-intubated, and empiric IV Zosyn started on July 07 ?- Worsening infiltrates on 07/10 chest xray, continue antibiotics as above - speech evaluation to see if swallowing improves -patient goals of care per is no PEG, will see if swallowing improves s/p extubation, but if not will need to readdress to see if TPN or temporary NG tube are within goals 6. Ileus ?- gastrograffin showed no obstruction -monitor abdominal symptoms daily 7. Alcoholic hepatitis, improved 8. Duodenitis, ongoing, likely due to EtOH abuse ?- IV Protonix 40 mg daily on-board 9. Hypothyroidism ?-IV synthroid ordered while difficulty with PO 10. Hyperlipidemia ?- Discontinued Simvastatin 11. Thrombocytopenia, resolved ?- Likely secondary to bone marrow suppression from EtOH abuse, along with severe liver injury 12. Hypophosphatemia, resolved ?-secondary to EtOH, replete PRN 12. Hypokalemia, resolved ?-secondary to EtOH, replete PRN 13. Hypomagnesemia, resolved ?-secondary to EtOH, replete PRN 13. Stage III/IV sacral decubitus ulcer ?- Broad-spectrum abx on-board, as above, with wound care dressings daily ?- Appreciate general surgery consult recommendations - no debridement indicated 15. [id number] conversation ?- Given patient's severe illness, and poor prognosis, discussion was had with patient would be DNR/DNI. He was planned to be made comfort if he did poorly after extubation, currently he is not imminently dying, but with the severity of illness and current neurologic function quality of life is poor, he has high risk of decompensation as he is an aspiration risk and has sacral decubitus ulcer and is not eating due to swallowing difficulty. May be hospice appropriate if not significant improvement. Goals of care discussion with family set up for tomorrow to continue to discuss transition to hospice or continued treatments and evaluation. Time Spent With Patient Critical Care time: I spent a total of [] minutes of critical care time on this patient's care today; this time is exclusive of procedural time. Quality VTE Deep Vein Thrombosis/Pulmonary Embolism Present on Admission: No
[2021-07-13 19:25] VITALS: BP 154/74; PULSE 109; RESP 32; TEMP 37.3; O2SAT 94
[2021-07-13 20:19] LABS: Acinetobacter baumannii Not Detected (Not Detect); Candida albicans Not Detected (Not Detect); Candida glabrata Not Detected (Not Detect); Candida krusei Not Detected (Not Detect); Candida parapsilosis Not Detected (Not Detect); Candida tropicalis Not Detected (Not Detect); E. coli Not Detected (Not Detect); Enterobacter cloacae complex Not Detected (Not Detect); Enterobacteriaceae species Not Detected (Not Detect); Enterococcus species Not Detected (Not Detect); Haemophilus influenzae Not Detected (Not Detect); Listeria monocytogenes Not Detected (Not Detect); Neisseria meningitidis Not Detected (Not Detect); Proteus species Not Detected (Not Detect); Pseudomonas aeruginosa Not Detected (Not Detect); Serratia marcescens Not Detected (Not Detect); Staphylococcus species Not Detected (Not Detect); Streptococcus agalactiae (Gr B Not Detected (Not Detect); Streptococcus pneumonia Not Detected (Not Detect); Streptococcus pyogenes (Gr A) Not Detected (Not Detect); Streptococcus species Not Detected (Not Detect)
[2021-07-13] MEDS: VANCOMYCIN 1,750 MG in SODIUM CHLORIDE 0.9% 500 ML 250 ML IV (22:38)
[2021-07-14] VITALS (11 sets, daily range): BP systolic 157–164; BP diastolic 78–84; PULSE 101–112; RESP 24–52; TEMP 36.6–37.1; O2SAT 87–97
[2021-07-14] MEDS: PIPERACILLIN/TAZO 3.375 GM in SODIUM CHLORIDE 0.9% 100 ML 25 ML IV ×2 (03:23→10:53)
[2021-07-14] MEDS: METOCLOPRAMIDE 10 MG/2 ML INJ 5 MG IV (05:08)
[2021-07-14 05:16] LABS: Add Manual Diff / Slide Review NO; Basophils Absolute Auto 0 /uL (0-100); Basophils Percent Auto 0.1 % (0-2); Eosinophils Absolute Auto 400 /uL (0-450); Eosinophils Percent Auto 2.1 % (2-4); Hematocrit 30.6 % (41-53); Hemoglobin 10.5 g/dL (13.5-17.5); Lymphocytes Absolute Auto 2100 /uL (1100-4500); Lymphocytes Percent Auto 12.4 % (25-40); Mean Corpuscular HGB Conc 34.1 % (30-36); Mean Corpuscular Hemoglobin 32.5 PG (26-34); Mean Corpuscular Volume 95.3 fL (80-100); Monocytes Absolute Auto 1300 /uL (0-900); Monocytes Percent Auto 7.8 % (3-14); Neutrophils Absolute Auto 13200 /uL (1500-7000); Neutrophils Percent Auto 77.6 % (50-75); Platelet Count 371 X10^3/uL (150-400); Red Blood Cell Count 3.21 X10^6/uL (4.5-5.9); Red Cell Distribution Width 13.6 % (11.6-14.8)
[2021-07-14 05:27] LABS: BUN Creatinine Ratio 9.6 (6-22); Blood Urea Nitrogen 15 mg/dL (9-20); Calcium 8.3 mg/dL (8.4-10.2); Carbon Dioxide 20 mmol/L (22-32); Chloride 117 mmol/L (98-107); Estimated Glomerular Filt Rate 48 mL/min (>60); Glucose 99 mg/dL (80-110); HEMOLYSIS < 15 (0-50); Magnesium 1.9 mg/dL (1.6-2.3); Potassium 3.1 mmol/L (3.4-5.1); Sodium 145 mmol/L (137-145)
[2021-07-14] MEDS: FUROSEMIDE 20 MG/2 ML VIAL IV (10:02)
[2021-07-14] MEDS: SCOPOLAMINE 1 PATCH TOP (10:03)
[2021-07-14] MEDS: ENOXAPARIN 40 MG/0.4 ML SYRINGE SUBCUT (10:03)
[2021-07-14] MEDS: PANTOPRAZOLE 40 MG VIAL IV (10:04)
[2021-07-14] MEDS: SODIUM CHLORIDE 0.9% FLUSH 10 ML IV (10:05)
--- NOTE | 2021-07-14 10:30 | PC.NURSE ---
Patient is turned side to side by staff x 3 for clean up of bowel incontinence and for dressing changes to wounds. Patient's sacral ulcer appears to be deteriorating as evidenced by increase in size and darkening of color as well as increased amount of malodorous seropurulent drainage. Right gluteal stage 2 pressure injury appears unchanged since 07/12, except that periwound skin has increased redness and maceration. Patient's skin is cleansed and fresh dressings of allevyn (right gluteal) and gauze secured with bordered allevyn (sacral wound) are applied for protection and absorption of exudate. Unable to obtain wound measurements today as positioning of patient to do so would cause too much discomfort at this time, although patient does tolerate the turning required for cleaning and fresh dressing applications. Heels are floated on a pillow and have foam protectors bilaterally, patient is boosted up in bed and repositioned onto left side with with pillows.
[2021-07-14 13:28] LABS: C difficie Toxins A and B, EIA Negative
--- NOTE | 2021-07-14 15:07 | CM.DPNOTE ---
Faxed referral to [facility] per [place] and received fax conf. Carole Burks CM Assist.
--- NOTE | 2021-07-14 15:45 | CM.DPNOTE ---
DCP/continued: Reviewed chart. Care conference held today with spouse/Juani, provider/Dr. Cruz RN/Stella and CLEANING LABORER. Provider provided spouse with update on medical condition. Spouse very clearly states that she does not want aggressive measures. Spouse reports patient with POLST indicating No artificial feeding. Provider recommends hospice for patient. Spouse in complete agreement. Spouse requesting comfort care to begin today. CLEANING LABORER provided spouse with options related to d/c planning with hospice. Spouse does not feel that she can care for patient in the residence nor does she want him in a SNF. Therefore, discussed the possibility of patient going to inpatient hospice. Spouse in agreement and would like CM team to check into [facility]. CLEANING LABORER asked LEONA/Carole to fax clinicals to [facility] and left at ph# [phone]. Patient currently requiring suctioning and per Dr. Cruz most likely will not survive over 7 days without food/drink. CLEANING LABORER notified spouse that CM team will contact [facility] and follow up with her tomorrow 07-15-21. At this time patient's son(s) allowed to visit. P: Pending. CM team working on transfer to [facility]. JÚNIOR De Anda
[2021-07-14] MEDS: MORPHINE 10 MG/0.5 ML ORAL SYRINGE PO ×2 (16:17→17:17)
--- NOTE | 2021-07-14 16:22 | P.PN_ITS ---
Subjective Subjective Date Patient Seen: 07/14/21 Interval history: Today he remains quite confused. He is able to follow simple commands. Able to verbalize a couple words. Goals of care conference with spouse today. Discussed patient's poor prognosis given now extended period of time without sedating medications, and still no improvement in mentation or ability to swallow. His advanced directive states the he would not want prolonged artificial nutrition. Decision was made to proceed with comfort care and hospice. Exam Vital Signs (past 8 hours): - 07/14/21 11:05 07/14/21 12:00 07/14/21 14:22 Temperature 98.5 F Pulse Rate 109 H 109 H Respiratory Rate 32 H 34 H 24 Blood Pressure 164/79 H Pulse Oximetry 95 93 87 L Fraction of Inspired Oxygen 21 Oxygen Delivery Method Room Air Oxygen Flow Rate 0 Narrative Exam Narrative: GEN: Appears confused and slightly agitated, moans predominantly. CV: tachycardic, no murmurs Lungs with coarse breath sounds and crackles GI: He has 1+ anasarca throughout on all extremities and the abdomen.? The sacral decubitus is not examined today, appears to be worsening by looking at pictures taken by nursing staff. EXT: 2+ edema NEURO: He does gaze towards me minimally, seems less responsive today Objective Labs Result Diagrams: 07/14/21 05:10 07/14/21 05:10 Labs: Laboratory Results - last 24 hr 07/03/21 07/13/21 07/14/21 13:54 14:30 05:10 WBC 17.0 H RBC 3.21 L Hgb 10.5 L Hct 30.6 L MCV 95.3 MCH 32.5 MCHC 34.1 RDW 13.6 Plt Count 371 Neut % (Auto) 77.6 H Lymph % (Auto) 12.4 L [place] % (Auto) 7.8 Eos % (Auto) 2.1 Baso % (Auto) 0.1 Neut # (Auto) 54528 H Lymph # (Auto) 2100 [place] # (Auto) 1300 H Eos # (Auto) 400 Baso # (Auto) 0 Sodium Potassium Chloride Carbon Dioxide BUN Creatinine Estimated GFR BUN/Creatinine Ratio Glucose Calcium Magnesium A. baumannii (PCR) Not detected Maryellen albicans (PCR) Not detected C. glabrata (PCR) Not detected C. krusei (PCR) Not detected C. parapsilosis (PCR) Not detected C. tropicalis (PCR) Not detected C. diff Toxin A&B (EIA) Negative Enterobacteriac sp PCR Not detected E. cloacae complex PCR Not detected Enterococcus sp PCR Not detected E. coli (PCR) Not detected H. influenzae (PCR) Not detected Klebsiella oxytoca PCR Not detected Klebsiella pneumoniae Not detected List. monocytogenes PCR Not detected N. meningitidis (PCR) Not detected Proteus species (PCR) Not detected Serratia marcescens PCR Not detected Staphylococcus sp PCR Not detected Staph aureus (PCR) Not detected mecA-Methicil Res Gene Not Reportable Streptococcus sp PCR Not detected Group A Strep (PCR) Not detected Strep agalactiae (PCR) Not detected Strep pneumoniae (PCR) Not detected P. aeruginosa (PCR) Not detected Aditya/B-Vanco Res Genes Not Reportable KPC-Carbap Res Gene PCR Not Reportable 07/14/21 05:10 WBC RBC Hgb Hct MCV MCH MCHC RDW Plt Count Neut % (Auto) Lymph % (Auto) [place] % (Auto) Eos % (Auto) Baso % (Auto) Neut # (Auto) Lymph # (Auto) [place] # (Auto) Eos # (Auto) Baso # (Auto) Sodium 145 Potassium 3.1 L Chloride 117 H Carbon Dioxide 20 L BUN 15 Creatinine 1.57 H Estimated GFR 48 L BUN/Creatinine Ratio 9.6 Glucose 99 Calcium 8.3 L Magnesium 1.9 A. baumannii (PCR) Maryellen albicans (PCR) C. glabrata (PCR) C. krusei (PCR) C. parapsilosis (PCR) C. tropicalis (PCR) C. diff Toxin A&B (EIA) Enterobacteriac sp PCR E. cloacae complex PCR Enterococcus sp PCR E. coli (PCR) H. influenzae (PCR) Klebsiella oxytoca PCR Klebsiella pneumoniae List. monocytogenes PCR N. meningitidis (PCR) Proteus species (PCR) Serratia marcescens PCR Staphylococcus sp PCR Staph aureus (PCR) mecA-Methicil Res Gene Streptococcus sp PCR Group A Strep (PCR) Strep agalactiae (PCR) Strep pneumoniae (PCR) P. aeruginosa (PCR) Aditya/B-Vanco Res Genes KPC-Carbap Res Gene PCR [employer] Social History household members: spouse Smoking Status: Former smoker alcohol intake: current Assessment & Plan Assessment & Plan narrative: 1. Acute hypoxic respiratory failure secondary to severe EtOH withdrawal, improved. ?- Patient intubated on June 24, 2021 for airway protection, he was subsequently extubated, and re-intubated on night of July 04 for an aspiration event likely precipitated by ileus. ?- extubated AM of 07/11 with ultimate plans for comfort. though goals of care conference was delayed to see if there was any improvement in his mentation or ability to swallow. -as of today, the patient has had no significant improvement in his mentation and is largely nonverbal, his prognosis remains to be extremely poor and he ca nnot eat or drink. -after goals of care discussion on 07 14, patient was made comfort care. 2. Encephalopathy, acute -likely has permanent component of neurologic damage from long history of drinking and severe alcohol withdrawal, there may have been an acute infarct such as a stroke. 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 -possibly has fixable component related to infection, recent intubation, and prolonged critical illness, though he has had no signficant improvement despite removal of sedating medications since he was extubated on 07/11. -overall prognosis remains poor 3. Severe EtOH withdrawal with delirium tremens ?- CIWA protocol was used, along with phenobarbital, precedex, and fentanyl once intubated over the course of his admission. 4. Dysphagia with concern for aspiration pneumonia, with respiratory culture growing MRSA and Klebsiella oxytoca ?- Empiric IV vancomycin started on July 04, after patient re-intubated, and empiric IV Zosyn started on July 07 and completed treatment until 07/14 when comfort care measures were initiated. - it is not entirely clear the source for his dysphagia, though possibilities include his encephalopathy, prolonged intubation, or possible infarct. 5. Ileus, resolved ?-general surgery was consulted, gastrograffin showed no obstruction. Resulted in probable aspiration event leading to re-intubation. -likely in setting of acute and chronic illness with multiple sedating medications. 6. Alcoholic hepatitis, improved 7. Duodenitis, ongoing, likely due to EtOH abuse ?- IV Protonix 40 mg daily on-board - will stop given goals of care discussions today. 8. Hypothyroidism ?-will stop IV synthroid given goals of care 9. Hyperlipidemia ?- Discontinued Simvastatin given goals of care. 10. Thrombocytopenia, resolved ?- Likely secondary to bone marrow suppression from EtOH abuse, along with severe liver injury 12. Hypophosphatemia, resolved ?-secondary to EtOH, repleted PRN. Will stop daily labs. 12. Hypokalemia, resolved ?-secondary to EtOH, repleted PRN. Will stop daily labs. 13. Hypomagnesemia, resolved ?-secondary to EtOH, repleted PRN. Will stop daily labs. 13. Stage III/IV sacral decubitus ulcer ?- Broad-spectrum abx on-board, as above, with wound care dressings daily ?- Appreciate general surgery consult recommendations - no debridement indicated 15. Npisk-uh-[id number] conversation ?- Given patient's severe illness, and poor prognosis, discussion was had with patient would be DNR/DNI. He was ultimately transition to comfort care today after goals of care discussion given lack of significant improvement after being taken off of the ventilator and sedating medications were withheld. Dispo: plan for discharge on hospice, location and timing unclear. Time Spent With Patient Critical Care time: I spent a total of [] minutes of critical care time on this patient's care today; this time is exclusive of procedural time. Quality VTE Deep Vein Thrombosis/Pulmonary Embolism Present on Admission: No
--- NOTE | 2021-07-14 17:42 | PC.NURSE ---
Pt's and sons came to visit. Comfort care ordered per provider. Pt cleaned of bowel incontinence. Allevyn dressing placed over sacrum, brief changed, new fitted sheet and cassandra pads placed. Pt repositioned by turning side to side. Pillows placed under right and left sides, both arms, and legs and heels floated. RR 48 and oral morphine given at 16:17 per provider order. RR reassessed 52 and oral morphine given at 17:17 per provider order. Provider Anthony notified verbally of RR 52 and morphine drip ordered.
[2021-07-14] MEDS: MORPHINE 50 MG in DEXTROSE 5 % IN WATER 45 ML 5 ML IV (18:31)
[2021-07-14] MEDS: MORPHINE 4 MG/ML INJ IV (22:29)
[2021-07-15] MEDS: MORPHINE 4 MG/ML INJ IV (02:59)
[2021-07-15] MEDS: MORPHINE 50 MG in DEXTROSE 5 % IN WATER 45 ML 7 ML IV (03:21)
--- NOTE | 2021-07-15 03:33 | PC.NURSE ---
0300- Patient saturations in the high 60's to low 70's. Respirations are shallow and rapid. Morphine gtt infusing at 7mg/hr. Heart rate 100-110. No eye opening or purposeful movement. UOP remains good. Will monitor.
--- NOTE | 2021-07-15 08:06 | PM.DS.1 ---
History of Present Illness History of Present Illness Date Patient Seen: 07/15/21 Time Patient Seen: 07:37 Chief complaint: ETOH- can't swallow, double vision-sent [place] adam Narrative: Per Dr. Zapata, heavy daily drinker over a pint daily of run or wine presents with last drink this morning around 8am feeling shaky very tachycardic in NSR at rest despite some iv ativan already.? Concern for active withdrawal/DTs will need admission for supervised withdrawal not safe to go home he does desire to quit drinking.? Feeling generally ok except for withdrawal has not been otherwise sick lately.? 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 history of gallbladder out two knee replacements and lumbar back surgery. Does not take any meds at baseline.? Discharge Providers Provider Date of admission: 06/21/21 20:24 Discharge Date: 07/15/21 Primary care physician: Darius Aguilar MD Consults: 06/21/21 16:[address] [facility] [place] - Restorative Coordinator Stat Comment: 06/21/21 21:53 Consult to Dietitian, Adult Routine Comment: Reason For Exam: alcohol withdrawal 06/23/21 16:29 Consult to Dietitian, Adult Routine Comment: Reason For Exam: low nichol 06/24/21 16:25 Consult to Dietitian, Adult Routine Comment: Reason For Exam: pt intubated/NPO 06/25/21 16:43 Consult to Dietitian, Adult Routine Comment: Reason For Exam: recomended nichol score 06/28/21 14:19 Consult to Dietitian, Adult Routine Comment: need to initiate ppn Reason For Exam: initiate ppn 07/04/21 01:56 Consult to Dietitian, Adult Routine Comment: Reason For Exam: Patient on Ventilator and NPO 07/05/21 07:06 Consult to General Surgery Routine Comment: Consulting Provider: Edwin Chan Reason for consultation: decubitus ulcer, ileus, ? bronch Has provider been notified: Yes 07/05/21 13:13 Consult to Dietitian, Adult Routine Comment: Reason For Exam: Ok for trickle feeds 07/09/21 13:28 Consult to General Surgery Routine Comment: Consulting Provider: Parker Engle Reason for consultation: Sacral decubitus skin breakdown, possible need for debridement Has provider been notified: Yes 07/12/21 08:13 Consult to Speech Therapy Evaluate & Treat Comment: Physician Instructions: Evaluate and treat 07/12/21 10:15 Consult to Occupational Therapy Evaluate & Treat Comment: Physician Instructions: Evaluate and treat Consult to Physical Therapy Evaluate & Treat Comment: Physician Instructions: Evaluate and Treat 07/13/21 11:00 Consult to Respiratory Therapy Evaluate & Treat Comment: Physician Instructions: Evaluate and treat 07/14/21 13:35 Consult to Hospice Referral Urgent Comment: Discharge provider: Dave Cruz DO Summary Time Spent with Patient Time spent: Greater than 30 minutes Exam Vital Signs (past 8 hours): Fraction of Inspired Oxygen 21 Oxygen Delivery Method Room Air Oxygen Flow Rate 0 Objective Labs Result Diagrams: 07/14/21 05:10 07/14/21 05:10 Labs: Laboratory Results - last 24 hr 07/03/21 13:54 C. diff Toxin A&B (EIA) Negative PFSH Social History household members: spouse Smoking Status: Former smoker alcohol intake: current Discharge Plan Discharge orders & Medications Prescriptions: No Action simvastatin 40 mg tablet 40 mg PO BEDTIME 0RF Label Comments: TAKE 1 TABLET BY MOUTH EVERY DAY levothyroxine 75 mcg tablet 75 mcg PO QAM 0RF Label Comments: TAKE 1 TABLET BY MOUTH EVERY DAY ON AN EMPTY STOMACH Follow up/Referrals: Darius Aguilar MD [Primary Care Provider] - Discharge Data Primary Care Provider: Darius Aguilar Quality VTE Deep Vein Thrombosis/Pulmonary Embolism Present on Admission: No
--- NOTE | 2021-07-15 08:07 | PM.DDS.1 ---
Discharge Summary History of Illness Chief Complaint: Recheck/Abnormal Lab/Rx Narrative: Per Dr. Zapata, heavy daily drinker over a pint daily of run or wine presents with last drink this morning around 8am feeling shaky very tachycardic in NSR at rest despite some iv ativan already.? Concern for active withdrawal/DTs will need admission for supervised withdrawal not safe to go home he does desire to quit drinking.? Feeling generally ok except for withdrawal has not been otherwise sick lately.? 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 history of gallbladder out two knee replacements and lumbar back surgery. Does not take any meds at baseline.? Hospital Course Date of Admission: 06/21/21 20:24 Date of : 07/15/21 Primary care provider: Darius Aguilar MD Consults: 06/21/21 16:48 Consult to [facility] [place] - Editorial Assistant Stat Comment: 06/21/21 21:53 Consult to Dietitian, Adult Routine Comment: Reason For Exam: alcohol withdrawal 06/23/21 16:29 Consult to Dietitian, Adult Routine Comment: Reason For Exam: low nichol 06/24/21 16:25 Consult to Dietitian, Adult Routine Comment: Reason For Exam: pt intubated/NPO 06/25/21 16:43 Consult to Dietitian, Adult Routine Comment: Reason For Exam: recomended nichol score 06/28/21 14:19 Consult to Dietitian, Adult Routine Comment: need to initiate ppn Reason For Exam: initiate ppn 07/04/21 01:56 Consult to Dietitian, Adult Routine Comment: Reason For Exam: Patient on Ventilator and NPO 07/05/21 07:06 Consult to General Surgery Routine Comment: Consulting Provider: Edwin Chan Reason for consultation: decubitus ulcer, ileus, ? bronch Has provider been notified: Yes 07/05/21 13:13 Consult to Dietitian, Adult Routine Comment: Reason For Exam: Ok for trickle feeds 07/09/21 13:28 Consult to General Surgery Routine Comment: Consulting Provider: Parker Engle Reason for consultation: Sacral decubitus skin breakdown, possible need for debridement Has provider been notified: Yes 07/12/21 08:13 Consult to Speech Therapy Evaluate & Treat Comment: Physician Instructions: Evaluate and treat 07/12/21 10:15 Consult to Occupational Therapy Evaluate & Treat Comment: Physician Instructions: Evaluate and treat Consult to Physical Therapy Evaluate & Treat Comment: Physician Instructions: Evaluate and Treat 07/13/21 11:00 Consult to Respiratory Therapy Evaluate & Treat Comment: Physician Instructions: Evaluate and treat 07/14/21 13:35 Consult to Hospice Referral Urgent Comment: Discharge provider: Dr. Cruz Discharge Diagnosis: Please see hospital course by problem list noted below Hospital Course: This is a 70-year-old male with a past medical history hypothyroidism and hyperlipidemia who was admitted for alcohol withdrawal. His course was complicated by delirium tremens that required intubation for airway protection. He then developed an ileus and aspiration pneumonia. Sputum cultures ultimately were positive for a MRSA and Klebsiella pneumonia. He also continued to have progressive decline of his mental status and no improvement in his ability to swallow. He was extubated on July 11, with plan to initiate comfort measures at that time, however he improved shortly after extubation and more time was given to see if there would be any improvement in mental status. On July 14, despite not receiving any sedative medications for a few days he had no improvement in his mentation or ability to swallow. In goals of care discussion on July 14, his spouse decided to proceed with comfort measures only. He became increasingly uncomfortable appearing the evening of July 14 and was started on a morphine infusion, he ultimately the following day, July 15 at 7:47 a.m.. 1. Acute hypoxic respiratory failure secondary to severe EtOH withdrawal, improved. ?- Patient intubated on June 24, 2021 for airway protection in the setting of severe alcohol withdrawal and DTs requiring increasing sedation. He was subsequently extubated a few days later, and re-intubated on night of July 04 for an aspiration event likely precipitated by ileus. ?- extubated AM of 07/11 with ultimate plans for comfort. though goals of care conference was delayed to see if there was any improvement in his mentation or ability to swallow. ?-as of 07/14, the patient had no significant improvement in his mentation and is largely nonverbal, his prognosis remains to be extremely poor and he cannot eat or drink. ?-after goals of care discussion on 07/14, patient was made comfort care. -he appeared extremely uncomfortable with increasing secretions on 07/14. Morphine drip was started. He ultimately 07/15/21 at 07:47. 2. Encephalopathy, acute -likely has permanent component of neurologic damage from long history of drinking and severe alcohol withdrawal, there may have been an acute infarct such as a stroke. MRI was not performed as it would not currently service delivery management consultant given goals of care. -possibly has fixable component related to infection, recent intubation, and prolonged critical illness, though he has had no signficant improvement despite removal of sedating medications since he was extubated on 07/11. 3. Severe EtOH withdrawal with delirium tremens ?- CIWA protocol was used, along with phenobarbital, precedex, and fentanyl once intubated over the course of his admission. - ultimately his mental status never improved. 4. Dysphagia with concern for aspiration pneumonia, with respiratory culture growing MRSA and Klebsiella oxytoca ?- Empiric IV vancomycin started on July 04, after patient re-intubated, and empiric IV Zosyn started on July 07 and completed treatment until 07/14 when comfort care measures were initiated. ?- it is not entirely clear the source for his dysphagia, though possibilities include his encephalopathy, prolonged intubation, or possible CVA. 5. Ileus, resolved ?-general surgery was consulted, gastrograffin showed no obstruction. Resulted in probable aspiration event leading to re-intubation. ?-likely in setting of acute and chronic illness with multiple sedating medications. 6. Alcoholic hepatitis, improved 7. Duodenitis, ongoing, likely due to EtOH abuse ?- patient was treated with IV protonix. Stopped once goals were to focus on comfort. 8. Hypothyroidism ?-was given IV synthroid, stopped 07/14 given goals of care 9. Hyperlipidemia ?- Discontinued Simvastatin given goals of care. 10. Thrombocytopenia, resolved ?- Likely secondary to bone marrow suppression from EtOH abuse, along with severe liver injury 12. Hypophosphatemia, resolved ?-secondary to EtOH, repleted PRN. 12. Hypokalemia, resolved ?-secondary to EtOH, repleted PRN. 13. Hypomagnesemia, resolved ?-secondary to EtOH, repleted PRN. 13. Stage III/IV sacral decubitus ulcer ?- Broad-spectrum abx on-board, as above, with wound care dressings daily ?- Appreciate general surgery consult recommendations - no debridement was recommended. 15. [id number] conversation ?- Given patient's severe illness, and poor prognosis, discussion was had with patient would be DNR/DNI. He was ultimately transition to comfort care on 07/14 after goals of care discussion given lack of significant improvement after being taken off of the ventilator and sedating medications were withheld. Patient ultimately on 07/15/2021 at 07:47. Time Spent: >30 minutes. Objective Labs Result Diagrams: 07/14/21 05:10 07/14/21 05:10 Labs: Laboratory Results - last 24 hr 07/03/21 13:54 C. diff Toxin A&B (EIA) Negative
--- NOTE | 2021-07-15 09:05 | PC.NURSE ---
Day shift note: Pt at 0747, verified by lack of lung sounds and heart beat, Dr Cruz updated, call was made to , body prepared and picked up by [place]. No further contact at this time
--- NOTE | 2021-07-16 15:32 | CM.SWNOTE ---
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 Dr Cruz not available. Reviewed Dr Cruz's Note and summarized cause of as acute respiratory failure and other complications related to acute alcohol withdrawal and spouse tearful, states I cannot put that down Attempted to support spouse in her stated grief. Offered additional assistance and/or resource referral and spouse declined. JÚNIOR Porras
== END 2021-07-15 09:08 | disposition expired | DRG 896 ==
LOC: ED 20:06 → AC 20:25 → ICU 06-24 15:15 → AC 06-28 13:03 → ICU 06-28 13:03
PROVIDERS: Emergency Medicine; Internal Medicine; Internal Medicine Critical Care Medicine; Internal Medicine Pulmonary Disease; Nurse Practitioner Family; Student in an Organized Health Care Education/Training Program; Admitting Provider Family Medicine; Emergency Provider Emergency Medicine; PCP Family Medicine; Referring Provider Emergency Medicine; Visit Provider Internal Medicine
DX: F10.231 Alcohol dependence with withdrawal delirium (principal); J96.01 Acute respiratory failure with hypoxia; L89.153 Pressure ulcer of sacral region, stage 3; J69.0 Pneumonitis due to inhalation of food and vomit; I63.9 Cerebral infarction, unspecified; J15.0 Pneumonia due to Klebsiella pneumoniae; J15.212 Pneumonia due to Methicillin resistant Staphylococcus aureus; E87.3 Alkalosis; K56.0 Paralytic ileus; R13.10 Dysphagia, unspecified; K70.10 Alcoholic hepatitis without ascites; K29.80 Duodenitis without bleeding; D69.59 Other secondary thrombocytopenia; E83.39 Other disorders of phosphorus metabolism; G31.2 Degeneration of nervous system due to alcohol; E03.9 Hypothyroidism, unspecified; E78.5 Hyperlipidemia, unspecified; E87.6 Hypokalemia; E83.42 Hypomagnesemia; I95.2 Hypotension due to drugs; T42.75XA Adverse effect of unspecified antiepileptic and sedative-hypnotic drugs, initial encounter; E83.51 Hypocalcemia; Y90.8 Blood alcohol level of 240 mg/100 ml or more; Z66 Do not resuscitate; Z87.891 Personal history of nicotine dependence; Z20.822 Contact with and (suspected) exposure to COVID-19; Z51.5 Encounter for palliative care
CPT/HCPCS: 36415; 36569; 36592; 36600; 70450; 70491; 71045; 71260; 74018; 74177; 80048; 80053; 80069; 80076; 80202; 80305; 80320; 80329; 81001; 81003; 81015; 82040; 82150; 82330; 82550; 82553; 82805; 82962; 83605; 83690; 83735; 83880; 84100; 84145; 84439; 84443; 84478; 84484; 85007; 85025; 85027; 85610; 87040; 87070; 87077; 87147; 87150; 87186; 87205; 87324; 87493; 87529; 87635; 87797; 93005; 93010; 93306; 94002; 94003; 94640; 94667; 94668; 94760; 94762; 94799; 96365; 96375; 96376; 97163; 97167; 97530; 97535; 99231; 99232; 99284; 99285; C9803; C9113; G0480; J0295; J0330; J0360; J0610; J1170; J1630; J1650; J1815; J1940; J2060; J2250; J2270; J2543; J2560; J2704; J2765; J2997; J3010; J3360; J3475; J3480; J3490; J7613; Q9967